=== PATIENT | male | born 1965 | race African-American/Black ===

== ENCOUNTER 2020-02-24 07:51 | Outpatient (CLI) | payer MEDICARE, MEDICAID, SELFPAY ==
--- NOTE | ~2020-02-24 | XR_ITS ---
EXAMINATION: XR chest 2V DATE: 02/24/2020 09:13 INDICATION: Positive PPD, end-stage renal disease TECHNIQUE: Frontal and lateral views of the chest are obtained COMPARISON: 04/19/2019 FINDINGS: The lungs are free of acute opacities. There is no pleural effusion or pneumothorax. The ca rdiomediastinal silhouette is normal. There is mild thoracic spondylosis. IMPRESSION: 1. No acute cardiopulmonary abnormality. Reviewed, dictated and finalized at location B.
== END 2020-02-24 07:52 | disposition home or self-care (01) ==
PROVIDERS: PCP Internal Medicine; Visit Provider Internal Medicine Nephrology
DX: R76.11 Nonspecific reaction to tuberculin skin test without active tuberculosis (principal); N18.6 End stage renal disease
CPT/HCPCS: 71046

== ENCOUNTER 2021-03-12 11:05 | Outpatient (CLI) | payer MEDICARE, MEDICAID, SELFPAY ==
--- NOTE | ~2021-03-12 | XR_ITS ---
EXAMINATION: XR chest 2V EXAM DATE: 03/12/2021 11:38 INDICATION: Positive PPD. TECHNIQUE: Frontal and lateral projections of the chest obtained and reviewed. Comparison is made to prior examination from 02/24/2020. FINDINGS: The lungs are hyperinflated which can be seen with chronic obstructive pulmonary disease ( a clinical diagnosis of functional impairment), but is not diagnostic of it. The lungs are clear. Th ere are no pleural effusions. The cardiomediastinal silhouette is within normal limits. There is no pneumothorax suspected. The bones and soft tissues are unremarkable. IMPRESSION: 1. No acute cardiopulmonary findings. 2. Hyperinflation. Reviewed, dictated and finalized at location A.
== END 2021-03-12 11:06 | disposition home or self-care (01) ==
PROVIDERS: PCP Internal Medicine; Visit Provider Internal Medicine Nephrology
DX: N18.6 End stage renal disease (principal); R76.11 Nonspecific reaction to tuberculin skin test without active tuberculosis; R91.8 Other nonspecific abnormal finding of lung field
CPT/HCPCS: 71046

== ENCOUNTER 2021-05-01 06:47 | Outpatient (CLI) | payer MEDICARE, MEDICAID, SELFPAY ==
[2021-05-04 13:17] LABS: NIL 0.04 IU/mL; Quantiferon TB Plus, 1T POSITIVE (NEGATIVE); TB1-NIL 0.96 IU/mL; TB2-NIL 0.94 IU/mL
== END 2021-05-01 06:48 | disposition home or self-care (01) ==
PROVIDERS: PCP Internal Medicine; Visit Provider Internal Medicine
DX: R76.11 Nonspecific reaction to tuberculin skin test without active tuberculosis (principal)
CPT/HCPCS: 36415; 86480

== ENCOUNTER 2021-05-15 06:57 | Outpatient (CLI) | payer MEDICARE, MEDICAID, SELFPAY ==
--- NOTE | 2021-05-15 07:37 | ECHO_ITS ---
Patient Info Name: Tejas Yost Age: 56 years : 1965 Gender: Male Ht: 75 in Wt: 175 lbs BSA: 2.04 m2 HR: 68 bpm BP: 122 / 71 mmHg Technical Quality: Good Exam Date: 05/15/2021 7:56 AM Exam Location: [facility] Patient Status: Outpatient Admit Date: 05/15/2021 Staff Ordering Physician: Ike Hand DO Senior Drupal Developer: Santos Huizar RDCS, RT Attending Provider: Ike Hand DO Referring Physician: Peace BINGHAM; Exam Type: CA echo doppler color flow Study Info Indications I10 - Essential (primary) hypertension Complete two-dimensional, color flow and Doppler transthoracic echocardiogram is performed. Strain analysis performed. Summary 1. Complete two-dimensional, color flow and Doppler transthoracic echocardiogram is performed. 2. Left ventricular chamber dimension is normal. 3. Left ventricular systolic function is normal, estimated at 60-65%. 4. There is moderately increased left ventricular wall thickness. 5. The left ventricular diastolic function is normal. 6. E/e' 8 is minimally elevated. 7. Global longitudinal strain is normal at -19.4%. 8. Left atrial chamber dimension is moderately enlarged. 9. There is mild aortic valve sclerosis. 10. There is mild mitral valve regurgitation. 11. There is trace tricuspid valve regurgitation. Left Ventricle E/e' 8 is minimally elevated. Global longitudinal strain is normal at -19.4%. Left ventricular chamber dimension is normal. Left ventricular systolic function is normal, estimated at 60-65%. There is moderately increased left ventricular wall thickness. The left ventricular diastolic function is normal. Right Ventricle Right ventricular systolic function is normal and with normal TAPSE 2.7 cm. Right ventricular chamber dimension is normal. Left Atria Left atrial chamber dimension is moderately enlarged. Right Atria Right atrial chamber dimension is normal. Aortic Valve The aortic valve is trileaflet. There is mild aortic valve sclerosis. There is no aortic valve stenosis. There is no aortic valve regurgitation. Pulmonic Valve There is no pulmonic regurgitation. Mitral Valve There is no mitral valve stenosis. There is mild mitral valve regurgitation. Tricuspid Valve RVSP is not calculated due to an inadequate TR jet. There is trace tricuspid valve regurgitation. Pericardium/Pleural There is no pericardial effusion. Inferior Vena Cava Normal inferior vena cava with >50% collapse upon inspiration consistent with normal right atrial pressure, 5 mmHg. Aorta The aortic root size at the sinus of Valsalva is normal. Left Ventricular Outflow Tract Name Value Normal LVOT 2D LVOT Diameter 2.0 cm LVOT Doppler LVOT Peak Gradient 11 mmHg LVOT Mean Gradient 5 mmHg LVOT VTI 31 cm LVOT VTI/AV VTI Ratio 0.8 LVOT Stroke Volume 94 ml LVOT CO 6.1 l/min LVOT CI 3.0 l/min/m2
--- NOTE | 2021-05-21 16:58 | WPDPFTINT ---
PFT Procedure Performed PFT Procedure Performed Plethysmography (Lung Vol) Diffusing Cap (DLCO) Flow Vol Loop Spirometry w/o Bronchodil PFT Interpretation This is a pulmonary function test with spirometry, plethysmography and diffusing capacity. The test was performed and results interpreted in accordance with the 2019 and 2005 ATS/ERS Task Force guidelines respectively using the Global Lung Function Initiative-2012 reference equations. Patient demonstrated good effort and cooperation. Reproducibility criteria were met. The quality of the pre bronchodilator spirometry maneuver was Grade A. Of note, only 1 DLCO trial was obtain as the patient developed chest discomfort with taking deep breaths on the DLCO testing. Findings: Spirometry: There is decreased maximal expiratory airflow at all lung volumes with concave expiratory flow tracing. The FVC is 3.36 L, 69% predicted. The FEV1 is 1.63 L, 43% predicted. The FEV1: FVC ratio was 48%. Plethysmography: The total lung capacity is 6.98 L, 99% predicted. Functional residual capacity is 4.68 L, 120% predicted. The residual volume is 3.62 L, 162% predicted. Diffusing capacity: The absolute diffusion capacity is 8.3, 26% predicted. The diffusing capacity corrected for alveolar volume is 3.12, 75% predicted. Impression: There is a severe obstructive abnormality with significant improvement after inhaling a single dose of albuterol. The increase in residual volume is consistent with air trapping from an obstructive abnormality. The absolute diffusing capacity is severly decreased and normalizes when corrected for alveolar volume. There are no prior studies for comparison
== END 2021-05-15 06:58 | disposition home or self-care (01) ==
LOC: ANHPFT 06:59
PROVIDERS: PCP Internal Medicine; Visit Provider Internal Medicine
DX: I35.8 Other nonrheumatic aortic valve disorders (principal); R06.89 Other abnormalities of breathing; R05 Cough; I36.1 Nonrheumatic tricuspid (valve) insufficiency; I34.0 Nonrheumatic mitral (valve) insufficiency; I10 Essential (primary) hypertension
CPT/HCPCS: 93306; 94375; 94726; 94729

== ENCOUNTER 2022-02-19 09:40 | Emergency (ER) | payer OTHER, SELFPAY ==
--- NOTE | ~2022-02-19 | CT_ITS ---
EXAMINATION: CT abdomen pelvis wo con DATE: 02/19/2022 10:28 INDICATION: Generalized abdominal pain TECHNIQUE: Computed tomography (CT) of the abdomen and pelvis was performed without intravenous contr ast. The dose-length product was 282.86 mGy-cm. Automated exposure control and iterative reconstructi on technique were employed. COMPARISON: CT dated 09/30/2019. FINDINGS: Bibasilar dependent atelectasis. Small pleural effusions. Trace pericardial effusion. Cardi omegaly. Moderate atherosclerosis of the aorta without aneurysm. Trace free fluid along the liver margin. The liver, spleen, pancreas, adrenal glands are unremarkable . There is innumerable bilateral renal cysts, consistent with adult polycystic kidney disease. There is a nonobstructing left renal stone. There are gallstones. There is inspissated barium throughout th e colon. No lymphadenopathy. No free air. IMPRESSION: 1. Small pleural effusions. Trace pericardial effusion. 2: Trace ascites along the liver margin. 3: Adult polycystic kidney disease. 4: Nonobstructing left nephrolithiasis. 5: Cholelithiasis. Reviewed, dictated and finalized at location A.
--- NOTE | ~2022-02-19 | XR_ITS ---
XR chest 2V 02/19/2022 10:23 Indication: Chest pain, cough and nausea. Procedure: 2 view chest Comparison: Comparison to multiple prior studies sequentially, with oldest reviewed study dated 06/30. Findings: There is right lower lobe pneumonia. Small right pleural effusion. Borderline heart size. T here is atherosclerosis and ectasia of the aorta. Impression: 1: Right lower lobe pneumonia with small effusion. Reviewed, dictated and finalized at location A. Impression: 1: Right lower lobe pneumonia with small effusion.
[2022-02-19 09:42] VITALS: BP 203/65; PULSE 92; RESP 14; TEMP 37; O2SAT 100
--- NOTE | 2022-02-19 09:47 | ECG_ITS ---
Measurements Intervals [place] Rate: 85 P: 72 NH: 147 QRS: 57 QRSD: 93 T: 58 QT: 369 QTc: 441 Interpretive Statements SINUS RHYTHM POSSIBLE LEFT ATRIAL ENLARGEMENT [-0.1mV P WAVE IN V1/V2] LEFT VENTRICULAR HYPERTROPHY AND ST-T CHANGE [VOLTAGE CRITERIA PLUS ST/T ABNORMALITY] WARNING: DATA QUALITY MAY AFFECT INTERPRETATION ABNORMAL ECG COMPARED TO ECG 04/19/2019 00:30:03 LEFT VENTRICULAR HYPERTROPHY NOW PRESENT ST (T WAVE) DEVIATION NOW PRESENT Electronically Signed On 02-19-2022 11:24:08 CDT by Stanley Lopez M.D.
--- NOTE | 2022-02-19 10:06 | ED.ABDPAIN ---
HPI - Abdominal Pain General Chief Complaint: Abdominal Pain Stated Complaint: abdominal pain Time Seen by Provider: 02/19/22 09:50 Source: patient and old records reviewed Mode of arrival: ambulatory Limitations: no limitations History of Present Illness HPI narrative: 56 y/o male presents to the ER today for generalized abdominal pain and epigastric pain/chest pain. he says that he has had the problem for about 1 week. He has had nausea. He has had emesis about once every other day. No diarrhea, but reports problems with constipation. No shortness of breath. He has chronic cough that is unchanged. No fever or chills. He went to see his internal med provider this morning and he sent him to the ER for evaluation due to his health history. He has chronic renal failure and recieves dialysis M,W,F at [facility]. He has hx of CAD, HTN and NE. He is also treated for GERD. Related Data Home Medications Medication Instructions Recorded Confirmed aspirin 81 mg tablet,delayed 81 mg PO DAILY 04/11/20 02/19/22 release carvedilol 25 mg tablet 25 mg PO Q12H 04/11/20 02/19/22 docusate sodium 100 mg capsule 100 mg PO DAILY 04/11/20 02/19/22 ergocalciferol (vitamin D2) 1,250 1,250 mcg PO WEEKLY 04/11/20 02/19/22 mcg (50,000 unit) capsule nifedipine 30 mg tablet,extended 30 mg PO DAILY 04/11/20 02/19/22 release calcium acetate 667 mg tablet 1,334 mg PO TID 02/19/22 02/19/22 Allergies Allergy/AdvReac Type Severity Reaction Status Date / Time adhesive Allergy Mild BLISTERS Verified 10/17/20 09:55 clonidine AdvReac Unknown Vomiting Verified 02/19/22 09:48 hydralazine AdvReac Unknown Vomiting Verified 02/19/22 09:48 Review of Systems Constitutional: Constitutional: Reports as per HPI, Denies chills and Denies fever(s) Eyes: Eyes: Denies change in vision ENT: Denies vertigo and Denies dizziness Cardiovascular: Cardiovascular: Reports chest pain (describes as epigastric) Respiratory: Respiratory: Denies chest congestion, Reports cough (chronic unchanged), Denies dyspnea and Denies wheezing Gastrointestinal: Gastrointestinal: Reports abdominal pain, Reports constipation, Denies diarrhea, Reports nausea and Reports vomiting Musculoskeletal: Musculoskeletal: Denies back pain, Denies myalgias and Denies arthralgias Neurologic: Denies vertigo, Denies focal weakness and Denies weakness Psychiatric: Psychiatric: Denies anxiety and Denies depression Endocrine: Endocrine: Denies fatigue Hematologic/Lymphatic: Hematologic/Lymphatic: Denies easy bleeding and Denies easy bruising PMFSH Past Medical History Medical History Acute pulmonary edema Anemia Chronic kidney disease on chronic dialysis Chronic pain CKD (chronic kidney disease) Coronary artery disease ESRD (end stage renal disease) 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 GERD (gastroesophageal reflux disease) HTN (hypertension), benign Latent tuberculosis by blood test Myocardial infarction 2008 Osteonecrosis Tuberculosis Vein disorder Left vein reconstruction 07/2015 Surgical History Surgical History History of renal stent Family History Family History Mother Hypertension Social History Social History Smoking status: Former smoker Alcohol intake: former Exam Const: General: healthy appearing, no acute distress and alert Orientation/consciousness: patient oriented x3 HENMT: Head: normal to inspection Mouth: Yes Normal oral and palatal mucosa present Eyes: Conjunctivae: conjunctivae normal Pupils: Equal, round and reactive pupils present Neck: Neck: normal visual inspection Chest: Chest palpation & inspection: normal inspection of the chest Resp: Effort & Inspection: normal respiratory effort Auscultation: clear to ausc
--- NOTE | 2022-02-19 10:26 | PC.NURSE ---
IV US called to initiate pt. IV
[2022-02-19 11:04] LABS: Basophils Percent Auto 0.7 % (0.2-1.2); Eosinophils Absolute Auto 0.2 K/mm3 (0-0.3); Eosinophils Percent Auto 2.9 % (0-4.4); Hematocrit 30.7 % (42.0-52.0); Hemoglobin 10.2 g/dL (14.0-18.0); Immature Granulocyte Absolute 0.02 K/mm3 (0.00-0.031); Immature Granulocyte Percent A 0.3 % (0-0.5); Immature Platelet Fraction Pct 5.8 % (0.9-11.2); Lymphocytes Percent Auto 29.1 % (18.3-44.2); Mean Corpuscular HGB Conc 33.2 g/dl (32-36); Mean Corpuscular Hemoglobin 31.7 pg (26-34); Mean Corpuscular Volume 95.3 fl (80-100); Mean Platelet Volume 12.7 fl (7.4-10.4); Monocytes Absolute Auto 0.4 K/mm3 (0.1-0.6); Monocytes Percent Auto 7.5 % (2.6-8.5); Neutrophils Absolute Auto 3.5 K/mm3 (1.3-6.7); Neutrophils Percent Auto 59.5 % (45.5-73.1); Platelet Count Result 183 k/mm3 (150-375); Red Blood Count 3.22 M/mm3 (4.6-6.20); Red Cell Distribution Width 15.3 % (11.5-14.5); White Blood Count 5.9 K/mm3 (4.5-10.0)
[2022-02-19 11:14] LABS: INR 1.1; Prothrombin Time 13.4 Seconds (11.1-14.7)
[2022-02-19 11:23] LABS: Alanine Aminotransferase 15 U/L (4-50); Alkaline Phosphatase 67 U/L (38-126); Anion Gap 8 mmol/L (8-16); Aspartate Amino Transferase 24 U/L (17-59); Bilirubin,Total 0.7 mg/dL (0.2-1.3); Blood Urea Nitrogen 28 mg/dL (9-20); Carbon Dioxide 35 mmol/L (22-30); Chloride 94 mmol/L (98-107); Estimated CRCL calculation 9 ml/min; Estimated Glomerular Filt Rate 7; Glucose 90 mg/dL (65-110); Lipase 142 U/L (23-300); Potassium 3.5 mmol/L (3.4-5.0); Sodium 137 mmol/L (137-145)
[2022-02-19 11:41] LABS: Troponin I 0.081 ng/mL (0.000-0.034)
[2022-02-19 12:04] VITALS: BP 173/67; PULSE 83; RESP 20; O2SAT 100
[2022-02-19] MEDS: ONDANSETRON INJ 4 MG/2 ML VIAL IV PUSH (12:09)
[2022-02-19] MEDS: PANTOPRAZOLE SODIUM IV 40 MG VIAL IV PUSH (12:22)
[2022-02-19] MEDS: LOSARTAN POTASSIUM 25 MG TABLET 75 MG PO (12:27)
[2022-02-19] MEDS: NIFEdipine 30 MG TAB.ER.24 PO (12:30)
--- NOTE | 2022-02-19 12:34 | PC.NURSE ---
1230-RECEIVED NIFEDIPINE ER 30 MG FROM PHARMACY. PACKAGED WAS TORN ACROSS BAR CODE. UNABLE TO SCAN. ADMINISTERED MANUALLY. PHARMACY NOTIFIED.
[2022-02-19] MEDS: cefTRIAXone 2 GM in SODIUM CHLORIDE 0.9% IV 100 ML 200 ML IVPB (13:17)
[2022-02-19 13:48] LABS: Troponin I 0.085 ng/mL (0.000-0.034)
[2022-02-19 14:50] VITALS: BP 136/67; PULSE 81; RESP 20; O2SAT 100
== END 2022-02-19 14:58 | disposition home or self-care (01) ==
LOC: ANHED 11:10
PROVIDERS: Emergency Medicine; Emergency Provider Nurse Practitioner Family; PCP Internal Medicine
DX: J18.9 Pneumonia, unspecified organism (principal); R10.13 Epigastric pain; I12.0 Hypertensive chronic kidney disease with stage 5 chronic kidney disease or end stage renal disease; N18.6 End stage renal disease; Z99.2 Dependence on renal dialysis; D64.9 Anemia, unspecified; I25.10 Atherosclerotic heart disease of native coronary artery without angina pectoris; I25.2 Old myocardial infarction; K21.9 Gastro-esophageal reflux disease without esophagitis; M87.9 Osteonecrosis, unspecified; Z79.82 Long term (current) use of aspirin; Z87.891 Personal history of nicotine dependence; Q61.2 Polycystic kidney, adult type; N20.0 Calculus of kidney; K80.20 Calculus of gallbladder without cholecystitis without obstruction
CPT/HCPCS: 36415; 71046; 74176; 80053; 83690; 84484; 85025; 85055; 85610; 85730; 93005; 96374; 96375; 99284; A9270; C9113; J0696; J2405

== ENCOUNTER 2022-02-24 21:48 | Observation (INO) | payer OTHER, SELFPAY ==
--- NOTE | ~2022-02-24 | CT_ITS ---
EXAMINATION: CTA chest PE protocol DATE: 02/25/2022 00:18 INDICATION: Chest pain and shortness of breath TECHNIQUE: Computed tomography (CT) pulmonary angiogram of the chest was performed with 100 mL Omnipa que-350 intravenous contrast. Additional 3D reconstructions utilizing coronal maximum intensity proje ction (MIP) were performed. Automated exposure control and iterative reconstruction technique were em ployed. The dose-length product was 308.23 mGy-cm. COMPARISON: Chest CT dated FINDINGS: Excellent contrast opacification of the pulmonary arteries. There is mild streak artifact from dense contrast in the superior vena cava and right atrium. Mild scattered respiratory motion artifact which does not significantly limit evaluation. No pulmonary embolism. Small bilateral pleural effusions. G roundglass opacities in the bilateral lower lobes with mild smooth septal line thickening at the lung bases and favor mild pulmonary edema over pneumonia. Cardiomegaly. Atherosclerotic coronary artery c alcification. Small pericardial effusion. Thoracic aorta is normal in caliber with no dissection. No pathologically enlarged thoracic lymphadenopathy. Bilateral gynecomastia. Numerous bilateral renal cy sts consistent with polycystic kidney disease. There are couple <2 mm calcifications in the periphera l kidneys and favor cystic location over nonobstructing renal stones. Chronic appearing T7 compressio n fracture 20% anterior vertebral body height loss. Old healed sternal fracture. IMPRESSION: 1. No pulmonary embolism. 2. Likely congestive heart failure with cardiomegaly, mild pulmonary edema in the lower lungs and sma ll bilateral pleural effusions. 3. Small pericardial effusion. 4. Likely autosomal dominant polycystic kidney disease. Reviewed, dictated and finalized at location A. IMPRESSION: 1. No pulmonary embolism. 2. Likely congestive heart failure with cardiomegaly, mild pulmonary edema in t he lower lungs and small bilateral pleural effusions. 3. Small pericardial effusion. 4. Likely autosomal dominant polycystic kidney disease.
--- NOTE | ~2022-02-24 | XR_ITS ---
EXAMINATION: XR chest 2V DATE: 02/24/2022 22:50 INDICATION: Chest pain, cough and shortness of breath TECHNIQUE: PA and lateral views of the chest were obtained. COMPARISON: Chest radiograph dated 02/19/2022 FINDINGS: Mild opacities in the bilateral lower lung zones. No pleural effusion or pneumothorax. Mild cardiomeg paola. Visualized bones and soft tissues are unremarkable. IMPRESSION: 1. Mild bibasilar opacities which could represent pulmonary edema or pneumonia. 2. Mild cardiomegaly. Reviewed, dictated and finalized at location A.
[2022-02-24 21:48] VITALS: BP 194/79; PULSE 90; RESP 26; TEMP 36.7; O2SAT 97
[2022-02-24 22:01] VITALS: O2SAT 99
[2022-02-24 22:26] LABS: Basophils Absolute Auto 0.1 K/mm3 (0.0-0.1); Basophils Percent Auto 0.9 % (0.2-1.2); Eosinophils Absolute Auto 0.3 K/mm3 (0-0.3); Eosinophils Percent Auto 4.5 % (0-4.4); Hematocrit 28.9 % (42.0-52.0); Hemoglobin 9.6 g/dL (14.0-18.0); Immature Granulocyte Absolute 0.03 K/mm3 (0.00-0.031); Immature Granulocyte Percent A 0.4 % (0-0.5); Lymphocytes Absolute Auto 1.68 K/mm3 (0.9-3.2); Lymphocytes Percent Auto 25.2 % (18.3-44.2); Mean Corpuscular HGB Conc 33.2 g/dl (32-36); Mean Corpuscular Hemoglobin 31.6 pg (26-34); Mean Corpuscular Volume 95.1 fl (80-100); Mean Platelet Volume 12.3 fl (7.4-10.4); Monocytes Absolute Auto 0.4 K/mm3 (0.1-0.6); Monocytes Percent Auto 5.7 % (2.6-8.5); Neutrophils Absolute Auto 4.2 K/mm3 (1.3-6.7); Neutrophils Percent Auto 63.3 % (45.5-73.1); Platelet Count Result 214 k/mm3 (150-375); Red Blood Count 3.04 M/mm3 (4.6-6.20); White Blood Count 6.7 K/mm3 (4.5-10.0)
[2022-02-24 22:36] VITALS: PULSE 80; RESP 16
[2022-02-24] MEDS: IPRATROPIUM BR 0.02% INH SOLN 0.5 MG/2.5 ML VIAL INHALATION (22:36)
[2022-02-24] MEDS: ALBUTEROL SULFATE NEB 2.5 MG/0.5 ML INH 5 MG INHALATION (22:36)
[2022-02-24 22:41] VITALS: PULSE 75; RESP 18
[2022-02-24 22:41] LABS: INR 1.1; Prothrombin Time 13.7 Seconds (11.1-14.7)
[2022-02-24 22:42] LABS: Alanine Aminotransferase 15 U/L (4-50); Alkaline Phosphatase 64 U/L (38-126); Anion Gap 10 mmol/L (8-16); Aspartate Amino Transferase 27 U/L (17-59); Bilirubin,Total 0.9 mg/dL (0.2-1.3); Blood Urea Nitrogen 40 mg/dL (9-20); Calcium 10.1 mg/dL (8.4-10.2); Carbon Dioxide 32 mmol/L (22-30); Chloride 96 mmol/L (98-107); Estimated Glomerular Filt Rate 6; Glucose 107 mg/dL (65-110); Lipase 226 U/L (23-300); Partial Thromboplastin Time 33.5 SECONDS (22.3-36.8); Potassium 3.5 mmol/L (3.4-5.0); Sodium 138 mmol/L (137-145)
[2022-02-24 22:53] LABS: Troponin I 0.096 ng/mL (0.000-0.034)
[2022-02-24 23:00] VITALS: BP 191/69; PULSE 94; RESP 16; O2SAT 97
[2022-02-24] MEDS: MORPHINE SULFATE (*CRX) 4 MG/ML INJ IV PUSH (23:03)
[2022-02-24] MEDS: ONDANSETRON INJ 4 MG/2 ML VIAL (23:04)
--- NOTE | 2022-02-24 23:15 | PC.NURSE ---
CARE ASSUMED AT THIS TIME. PT DECIDING IF HE WANTS BLOOD CULTURES AND ADDITIONAL LABS TO BE DRAWN AT THIS TIME. DR WILKS AWARE OF LAB DELAY
[2022-02-25] VITALS (30 sets, daily range): BP systolic 120–198; BP diastolic 51–78; PULSE 72–99; RESP 16–21; TEMP 35.7–37; O2SAT 96–100; BMI 22.0
--- NOTE | 2022-02-25 | ECG_ITS ---
Measurements Intervals [place] Rate: 81 P: 63 MN: 154 QRS: 44 QRSD: 98 T: 34 QT: 383 QTc: 447 Interpretive Statements SINUS RHYTHM POSSIBLE LEFT ATRIAL ENLARGEMENT [-0.1mV P WAVE IN V1/V2] NONSPECIFIC ST & T-WAVE ABNORMALITY BORDERLINE ECG COMPARED TO ECG 02/19/2022 09:59:24 CRITERIA FOR LVH NO LONGER APPRECIATED Electronically Signed On 02-25-2022 12:19:59 CDT by Frankie Vu M.D.
--- NOTE | 2022-02-25 | ECHO_ITS ---
Patient Info Name: Tejas Yost Age: 56 years : 1965 Gender: Male Ht: 75 in Wt: 176 lbs BSA: 2.05 m2 HR: 93 bpm BP: 197 / 64 mmHg Heart Rhythm: Sinus Rhythm Technical Quality: Fair Exam Date: 02/25/2022 1:15 PM Exam Location: Echo Lab Patient Status: Outpatient Admit Date: 02/25/2022 Staff Ordering Physician: Norma Zavala PA-C [employer] Trolley Driver: Kimberly Zamarripa RDCS Attending Provider: Norma Zavala PA-C Referring Physician: Lucas RICHARDS; Exam Type: CA echo doppler color flow Study Info Indications - pericardial effusion Complete two-dimensional, color flow and Doppler transthoracic echocardiogram is performed. Summary 1. Complete two-dimensional, color flow and Doppler transthoracic echocardiogram is performed. 2. Left ventricular chamber dimension is mildly enlarged. 3. Left ventricular systolic function is normal, estimated at 60-65%. 4. There is mildly increased left ventricular wall thickness. 5. The left ventricular diastolic function is grade III diastolic dysfunction. 6. Left atrial chamber dimension is moderately enlarged. 7. There is mild aortic valve stenosis with a peak velocity of 230 cm/s, mean gradient of 10 mmHg, and aortic valve area of 1.9 cm2. 8. There is mild aortic valve regurgitation. 9. There is mild mitral valve regurgitation. 10. There is mild tricuspid valve regurgitation. 11. Unable to estimate PA systolic pressure due to poor spectral resolution of tricuspid regurgitant jet velocity. 12. There is small pericardial effusion. Left Ventricle Left ventricular chamber dimension is mildly enlarged. Left ventricular systolic function is normal, estimated at 60-65%. There is mildly increased left ventricular wall thickness. The left ventricular diastolic function is grade III diastolic dysfunction. Right Ventricle Right ventricular chamber dimension is normal. Right ventricular systolic function is normal. Left Atria Left atrial chamber dimension is moderately enlarged. Right Atria Right atrial chamber dimension is normal. Aortic Valve The aortic valve is trileaflet. There is mild aortic valve stenosis with a peak velocity of 230 cm/s, mean gradient of 10 mmHg, and aortic valve area of 1.9 cm2. There is mild aortic valve regurgitation. There is mild aortic valve calcification. Pulmonic Valve The pulmonic valve is not well visualized. There is trace pulmonic regurgitation. Mitral Valve The mitral valve has normal leaflets. There is mild mitral valve regurgitation. Tricuspid Valve The tricuspid valve leaflets are normal. There is mild tricuspid valve regurgitation. Unable to estimate PA systolic pressure due to poor spectral resolution of tricuspid regurgitant jet velocity. Pericardium/Pleural The pericardium appears normal. There is small pericardial effusion. Inferior Vena Cava Normal inferior vena cava with >50% collapse upon inspiration consistent with normal right atrial pressure, 5 mmHg. Aorta The aortic root size at the sinus of Valsalva is normal. There is mild aortic atherosclerosis. Left Ventricular Outflow Tract Name Value Normal LVOT 2D LVOT Diameter 2.0 cm LVOT Doppler ---------
--- NOTE | 2022-02-25 00:03 | ED.GENADULT ---
HPI - General Adult General Chief complaint: Chest Pain Stated complaint: chest pain Time Seen by Provider: 02/24/22 22:07 History of Present Illness HPI narrative: Is a 56-year-old gentleman who presents the emergency department with chief complaint of chest pain. Patient reports that he has a discomfort feeling in his mid chest. The patient states he was seen in the emergency department approximately 1 week ago where he had upper abdominal pain patient reports at that time he was found to have pneumonia and was started on Zithromax and was discharged home. The patient states he is completed the course of Zithromax but is continued to cough and has continued to have symptoms. The patient states that now he has a uncomfortable feeling in his chest that is a sharp type pain worse with inspiration. Patient states is also worsened whenever he coughs. Patient denies fever reports that his last dialysis was on Friday as he is typically Friday dialysis patient. Related Data Home Medications Medication Instructions Recorded Confirmed aspirin 81 mg PO BID 02/24/22 atorvastatin 40 mg PO HS 02/24/22 azithromycin [Zithromax Z-Carlos] mg PO 02/24/22 carvedilol 25 mg PO BID 02/24/22 ergocalciferol (vitamin D2) 50,000 unit PO WEEKLY 02/24/22 esomeprazole magnesium [Nexium] 40 mg PO BID 02/24/22 lanthanum [Fosrenol] 1,000 mg PO TID 02/24/22 losartan 75 mg PO DAILY 02/24/22 nifedipine [Nifedical XL] 30 mg PO DAILY 02/24/22 Allergies Allergy/AdvReac Type Severity Reaction Status Date / Time clonidine AdvReac Nausea and Verified 02/24/22 21:59 Vomiting hydralazine AdvReac Nausea and Verified 02/24/22 21:59 Vomiting Review of Systems Review of Systems: A 10 system review of systems was completed on the patient and is negative except for what is stated in the HPI. Nursing and ancillary documentation was reviewed. PMFSH Comments End-stage renal disease, hypertension Exam Narrative: GENERAL: Well-appearing, well-nourished, and in no acute distress. HEAD: Normocephalic, atraumatic. EYES: PERRLA and EOMI. ENT: Nares clear, no rhinorrhea or epistaxis. Mucous membranes moist. NECK: Supple. CHEST: Clear to auscultation. No respiratory distress. HEART: Regular rate and rhythm. No murmur heard. Normal peripheral pulses. ABDOMEN: Soft, nontender, nondistended, normal active bowel sounds. EXTREMITIES: Normal range of motion. No edema. AV fistula in the left upper extremity with a palpable thrill SKIN: Warm, dry, no rash. NEURO: No focal deficits. Alert and oriented x3. PSYCH: Normal mood and affect. Course Course Emergency Course: Patient was recently seen for pneumonia and treated with p.o. Zithromax and has completed that course now that he is having worsening symptoms and no improvement the concern is either progression of the pneumonia or pulmonary embolism. Patient does have a slight troponin leak although given that he is end-stage renal disease on dialysis this could be chronic. Patient is currently afebrile Vital Signs Vital signs: Vital Signs Temperature 36.7 C 02/24/22 21:48 Pulse Rate 90 02/24/22 21:48 Respiratory Rate 26 H 02/24/22 21:48 Blood Pressure 194/79 H 02/24/22 21:48 Pulse Oximetry 97 02/24/22 21:48 Temperature 36.7 C 02/24/22 21:48 Pulse Rate 80 02/25/22 02:00 Respiratory Rate 18 02/25/22 02:00 Blood Pressure 183/78 H 02/25/22 02:00 Pulse Oximetry 99 02/25/22 02:00 Medical Decision Making Vital Signs Vital Signs: Vital Signs Temperature 36.7 C 02/24/22 21:48 Pulse Rate 90 02/24/22 21:48 Respiratory Rate 26 H 02/24/22 21:48 Blood Pressure 194/79 H 02/24/22 21:48 Pulse Oximetry 97 02/24/22 21:48 Temperature 36.7 C 02/24/22 21:48 Pulse Rate 80 02/25/22 02:00 Respiratory Rate 18 02/25/22 02:00 Blood Pressure 183/78 H 02/25/22 02:00 Pulse Oximetry 99 02/25/22 02:00 Lab Data Result diagrams: 0
[2022-02-25 00:22] LABS: NT Pro B Type Natriuretic Pept > 35000 pg/mL (5-100)
--- NOTE | 2022-02-25 00:28 | PC.NURSE ---
UNABLE TO FIND PREVIOUS EKG THAT WAS COMPLETED ON PT'S ARRIVAL. NEW EKG OBTAINED AND GIVEN TO DR WILKS
[2022-02-25 02:49] LABS: Troponin I 0.097 ng/mL (0.000-0.034)
[2022-02-25 03:13] LABS: Influenza A QL RT-PCR Negative (Negative); Influenza B QL RT-PCR Negative (Negative); SARS-CoV-2 RNA PCR Negative
--- NOTE | 2022-02-25 04:14 | ADMGEN ---
This patient, Tejas Yost, was admitted to IMU Room 211-01 @ 0400. Patient/family oriented to hospital policies and general routines including ID bracelet, bed and alarms, visiting hours, pain management, procedures, bathroom and other care routines, personal items, smoking policy, room service/diet, and visiting hours. Information on how to activate the Rapid Response Team has been discussed. Patient/Family are encouraged to report perceived risks to care and to ask questions if they do not understand what they are told or what they should do.
--- NOTE | 2022-02-25 05:23 | PC.NURSE ---
pt. refused to allow physical assessment stating that he did not want to get undressed. Pt. refused to allow phelbotomist to draw labs stating thathe wasnt going to be stuck and that labs can only be drawn from his IV site. Dr. Uribe made aware.
--- NOTE | 2022-02-25 08:26 | PM.IMHP ---
H&P: HPI History of Present Illness Date/Time: 02/25/22 08:26 <Norma Zavala PA-C - Last Filed: 02/25/22 14:59> Chief Complaint: Chest Pain x 2-3 wks <Norma Zavala PA-C - Last Filed: 02/25/22 14:59> Narrative: Mr. Yost is a pleasant 56 yo Male w/ PMHx significant for ESRD on hemodialysis, ND x 4 s/p PCI at [facility] in 2008, HTN, gastritis, and GERD, who presented to the ER today for 2-3 wk history of chest pain, worsening over the last 24 hrs. He was recently seen at this ER, diagnosed with pneumonia, and completed his antibiotics. He reports chest pain that occurs only when lying down, and states it is worse with inspiration, and reports improvement when sitting up or when taking Tylenol. He endorses orthopnea, dyspnea when sitting up from lying, worsening nausea, mild abdominal pain, and loose stools x 2 days. He denies fever, headaches, edema, visual changes, dizziness, or syncope. His pain was a 12/10 upon arrival at the ER and is now a 2/10. He endorses irregular bowel movements, most recent being yesterday. He does produce some urine. Mr. Yost was diagnosed with ESRD and is currently only hemodialysis, M/W/, followed by Dr. Juarez. He was previously on peritoneal dialysis. He reports history of 4 prior M.I.s with one stent placed. He reports his most recent ND was in 2014. He follows with Dr. Adams for cardiology. He is a poor historian. He reports history of hypertension, and a sensitive stomach. He denies pertinent family history. Both parents are from unknown causes and he has no siblings. His aunt, Jessica Sagastume [phone] has medical power of traffic law attorney. Surgical history includes prior exploratory laparotomy due to bowel obstruction d/t peritoneal infection with peritoneal dialysis, and ganglion cyst removal. He has had a tracheostomy tube placed during a prior M.I. Current medications include Carvedilol 25mg daily, Losartan 75mg daily, atorvastatin 25, aspirin 81, nifedipine 30mg ER, Fosrenol 100mg TID, and carafate. <Norma Zavala PA-C - Last Filed: 02/25/22 14:59> Review of Systems Review of Systems: All systems reviewed & are unremarkable except as noted in HPI and below <Norma Zavala PA-C - Last Filed: 02/25/22 14:59> Cardiovascular: Cardiovascular: Reports as per HPI, Denies diaphoresis, Denies leg edema, Denies lightheadedness and Denies palpitations <Norma Zavala PA-C - Last Filed: 02/25/22 14:59> Respiratory: Respiratory: Denies chest congestion, Reports cough (nonproductive), Denies hemoptysis, Reports dyspnea and Denies wheezing <Norma Zavala PA-C - Last Filed: 02/25/22 14:59> Gastrointestinal: Gastrointestinal: Reports abdominal pain, Reports diarrhea (x 2 days) and Reports vomiting (he reports this is normal for him, he has a sensitive stomach. 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 GERD (gastroesophageal reflux disease) HTN (hypertension), benign Latent tuberculosis by blood test Myocardial infarction 2008 Osteonecrosis Tuberculosis Vein disorder Left vein reconstruction 07/2015 <Norma Zavala PA-C - Last Filed: 02/25/22 14:59> Surgical History Surgical History: Surgical History History of renal stent <Norma Zavala PA-C - Last Filed: 02/25/22 14:59> Family History Family History: Family History Mother Hypertension <Norma Zavala PA-C - Last Filed: 02/25/22 14:59>
[2022-02-25] MEDS: ASPIRIN 81 MG CHEWABLE TABLET PO (09:32)
[2022-02-25 10:09] LABS: Hepatitis B Surface Antigen Negative (Negative)
[2022-02-25 10:14] LABS: Hepatitis B Core IgM Result Negative (Negative)
[2022-02-25 10:27] LABS: Hepatitis B Surface Anti Res Positive
[2022-02-25] MEDS: LOSARTAN POTASSIUM 25 MG TABLET 75 MG PO (11:26)
[2022-02-25] MEDS: NIFEdipine 30 MG TAB.ER.24 PO (11:27)
[2022-02-25] MEDS: carvediloL 25 MG TABLET PO ×2 (11:39→19:14)
[2022-02-25] MEDS: ONDANSETRON INJ 4 MG/2 ML VIAL IV PUSH ×2 (11:58→15:00)
--- NOTE | 2022-02-25 12:39 | PM.CNNEP ---
Assessment and Plan Assessment and plan (1) End stage renal disease: Code(s): N18.6 - End stage renal disease Status: Chronic Assessment and Plan: HD today and continue M/W/F dialysis schedule follow electrolytes, volume status, and clearance (2) Fluid overload: Qualifiers: Hypervolemia type: unspecified Qualified Code(s): E87.70 - Fluid overload, unspecified Code(s): E87.70 - Fluid overload, unspecified Status: Acute Assessment and Plan: as noted by imaging on admission push fluid removal with HD today as this should help BP control as well as optimize fluid/volume status (3) Hypertension: Code(s): I10 - Essential (primary) hypertension Status: Chronic Assessment and Plan: higher than baseline at this time should hopefully improve with fluid removal may need further adjustment of BP medications (4) Anemia: Qualifiers: Anemia type: unspecified type Qualified Code(s): D64.9 - Anemia, unspecified Code(s): D64.9 - Anemia, unspecified Status: Chronic Assessment and Plan: secondary to ESRD Epogen with HD follow H/H (5) Chest pain: Qualifiers: Chest pain type: unspecified Qualified Code(s): R07.9 - Chest pain, unspecified Code(s): R07.9 - Chest pain, unspecified Status: Acute Assessment and Plan: as described on admission Echo today Cardiology consultation Will continue to follow. History of Present Illness Reason for Consult Consult date: 02/25/22 Reason for consult: end stage renal disease Chief Complaint Chief complaint: chest pain,elevated troponin,fluid overload History of Present Illness Narrative: The patient is a 56-year-old male with a past medical history as outlined below who presented to [facility] Emergency room with complaints of chest pain. He states that he has been having chest pain on off for last 2-3 weeks but it seems to have acutely worsened the last 24-48 hours. He was actually previously seen here at [facility] about a week ago for similar symptoms and his chest x-ray demonstrated evidence of pneumonia. He was prescribed oral antibiotic therapy and subsequently discharged. The he finished his antibiotics but as already mentioned, the chest pain persisted. He states that the chest pain is worse when he lays down and with inspiration/ deep breasts or any type of significant M movements. He does also state that the chest pain improved with sitting up or with administration of Tylenol. Other associated symptoms included orthopnea, dyspnea on exertion, worsening nausea, mild abdominal pain and loose stools. At its worst, his chest pain was a 12/10 in terms of severity. Workup and evaluation emergency room demonstrated labs consistent with his known history of end-stage renal disease and his chest x-ray did demonstrate evidence of volume overload. Furthermore, his blood pressure was somewhat higher than his baseline as well. His troponins were mildly elevated but thought to be more related to his end-stage renal disease than actual acute coronary syndrome. Nonetheless, given his somewhat complex medical history particularly with regard to coronary artery disease, he was admitted the hospital for further evaluation and therapy. Renal consultation was requested due to his end-stage renal disease. The patient is quite familiar to me as I take care of his outpatient dialysis needs. He normally dialyzes on a Friday, Friday, Friday dialysis schedule at [facility] under my care. He is due for dialysis today but came to the emergency room early this morning due to the a for mentioned symptoms /constellation of symptoms as noted above. At the time my visit, he fears to be somewhat better and is currently undergoing an echocardiogram. He is tentatively scheduled for dialysis later this afternoon. He does not ap
--- NOTE | 2022-02-25 17:31 | PM.CNCAR ---
Assessment and Plan Assessment and plan (1) Pericardial effusion: Code(s): I31.3 - Pericardial effusion (noninflammatory) Status: Acute Assessment and Plan: Incidental notation of small pericardial effusion on CT chest and 2D echocardiogram without tamponade physiology. Clinically most likely secondary to end-stage renal disease. No clinical evidence for acute pericarditis S primary explanation. Continue to monitor patient clinically. (2) Chest pain: Qualifiers: Chest pain type: unspecified Qualified Code(s): R07.9 - Chest pain, unspecified Code(s): R07.9 - Chest pain, unspecified Status: Acute Assessment and Plan: Atypical, noncardiac sharp chest pain worse with inspiration, position change and cough consistent with musculoskeletal etiology. Chronic flat troponin elevation not secondary to acute coronary syndrome and/or plaque rupture but related to uncontrolled hypertension, end-stage renal disease on hemodialysis, and mild volume overload. Cough suppressant per primary service as this appears to be exacerbating his chest pain. Pain control per primary service. Repeat EKG in a.m. no clear evidence at this time as pericarditis as the explanation for his symptoms. (3) CHF (congestive heart failure): Code(s): I50.9 - Heart failure, unspecified Status: Acute Assessment and Plan: Mild heart failure with preserved ejection fraction, uncontrolled hypertension on hemodialysis. Volume management with hemodialysis. BP control. (4) Elevated troponin I level: Code(s): R77.8 - Other specified abnormalities of plasma proteins Status: Acute Assessment and Plan: Chronic, flat troponin elevation type 2 infarction not secondary to acute coronary syndrome and/or plaque rupture the secondary to end-stage renal disease on hemodialysis, uncontrolled hypertension, volume overload. No indication for ischemic evaluation at this time. (5) Coronary artery disease: Code(s): I25.10 - Atherosclerotic heart disease of [place] coronary artery without angina pectoris Status: Acute Assessment and Plan: Patient has a history of CAD with prior infarction and stent implantation. Patient claims compliance with medication. Continue statin, aspirin, carvedilol, losartan, nifedipine (6) ESRD on hemodialysis: Code(s): N18.6 - End stage renal disease; Z99.2 - Dependence on renal dialysis Status: Acute Assessment and Plan: Per nephrology. Volume management with hemodialysis. (7) Hypertension: Code(s): I10 - Essential (primary) hypertension Status: Acute Assessment and Plan: Uncontrolled. Depending upon response post hemodialysis advanced antihypertensive therapy. For now, continue carvedilol, losartan, nifedipine History of Present Illness History of Present Illness Consult date/time: Date of service: 02/25/22 17:31 Cardiology consultation at the request of Norma Zavala of the [facility] service for opinion regarding pericardial effusion. Requesting physician: Norma Zavala PA-C Consult reason: Other (Pericardial effusion) Reason For Visit: chest pain,elevated troponin,fluid overload Narrative: Patient is a 56-year-old male followed by Dr. Adams as an outpatient with a history of end-stage renal disease on hemodialysis, history of prior myocardial infarction percutaneous intervention, hypertension, GERD who presented with worsening cough, shortness of breath and chest pain over the preceding 5-7 days. Patient states he presented to the ER several days ago diagnosed with pneumonia and was discharged on oral antibiotics. He states his symptoms did not improve and infected chest pain became worse with lying down, deep inspiration and coughing or any movement. He states he will take Tylenol with improvement temporarily but found it very difficult to sleep due to pain and worsening shortness of breath. His cough genera
[2022-02-25] MEDS: ATORVASTATIN 40 MG TABLET PO (19:14)
[2022-02-25] MEDS: HYDROmorphone HCL INJ (*CRX) 1 MG/ML SYR 0.5 MG IV PUSH (19:15)
[2022-02-26] VITALS (12 sets, daily range): BP systolic 118–171; BP diastolic 49–68; PULSE 73–95; RESP 18–20; TEMP 36.2–36.6; O2SAT 96–100
[2022-02-26] MEDS: SUCRALFATE SUSP 100 MG/ML 10 ML UDC 1000 MG PO (06:00)
--- NOTE | 2022-02-26 06:32 | PC.NURSE ---
patient refused blood draw. only wanted out of iv. then he said he would refuse an iv if it went bad from the blood draw. he stated that he was not getting stuck again.
--- NOTE | 2022-02-26 07:38 | PM.IMPN ---
Progress Note: A&P Additional Plan Echo: 3. Left ventricular systolic function is normal, estimated at 60-65%. 4. There is mildly increased left ventricular wall thickness. 5. The left ventricular diastolic function is grade III diastolic dysfunction. 6. Left atrial chamber dimension is moderately enlarged. 7. There is mild aortic valve stenosis with a peak velocity of 230 cm/s, mean gradient of 10 mmHg, and aortic valve area of 1.9 cm2. 8. There is mild aortic valve regurgitation. 9. There is mild mitral valve regurgitation. 10. There is mild tricuspid valve regurgitation. 11. There is small pericardial effusion. Cardiology- F/U EKG this AM showed no significant changes, opined chest pain was not associated with pericarditis and more likely MSK etiology, troponin elevations to be flat/chronic in nature,, advised improving upon antihypertensive regimen pending post-dialysis BPs. For now, continue carvedilol, losartan, nifedipine. Fluid overload to be managed with dialysis. Nephrology- awaiting consult. -Blood cultures from ER showed no growth. -Mr. Yost refused his AM labs today. -Telemetry: Subjective Date/time seen: 02/26/22 07:38 Objective Data Vital Signs Vital Signs: Vital Signs - 24 hr 02/25/22 08:00 02/25/22 08:12 02/25/22 10:00 Temperature 96.4 F L Pulse Rate 96 93 99 Respiratory Rate 20 Blood Pressure 197/64 H Pulse Oximetry 98 02/25/22 11:39 02/25/22 12:00 02/25/22 12:01 Temperature 96.2 F L Pulse Rate 75 99 95 Respiratory Rate 21 H Blood Pressure 198/69 H Pulse Oximetry 97 02/25/22 14:00 02/25/22 14:02 02/25/22 15:14 Temperature 97.9 F Pulse Rate 77 77 Respiratory Rate 20 Blood Pressure 145/70 H Pulse Oximetry 97 02/25/22 15:22 02/25/22 15:30 02/25/22 15:45 Temperature Pulse Rate 78 78 78 Respiratory Rate Blood Pressure 146/75 H 151/71 H 145/74 H Pulse Oximetry 02/25/22 16:00 02/25/22 16:30 02/25/22 16:45 Temperature Pulse Rate 77 77 72 Respiratory Rate Blood Pressure 156/69 H 148/75 H 142/63 H Pulse Oximetry 02/25/22 17:00 02/25/22 17:15 02/25/22 17:43 Temperature Pulse Rate 77 75 79 Respiratory Rate Blood Pressure 154/68 H 145/59 H Pulse Oximetry 02/25/22 18:00 02/25/22 19:05 02/25/22 19:10 Temperature 97.7 F Pulse Rate 82 74 76 Respiratory Rate 20 Blood Pressure 169/77 H 158/78 H 143/69 H Pulse Oximetry 02/25/22 19:14 02/25/22 20:00 02/25/22 22:00 Temperature 97.9 F Pulse Rate 77 84 73 Respiratory Rate 18 Blood Pressure 129/51 L Pulse Oximetry 97 02/25/22 23:39 02/26/22 00:00 02/26/22 02:00 Temperature 97.8 F Pulse Rate 82 74 75 Respiratory Rate 20 20 Blood Pressure 120/60 Pulse Oximetry 96 96 02/26/22 04:00 02/26/22 06:00 Temperature 97.8 F Pulse Rate 88 78 Respiratory Rate 18 Blood Pressure 165/68 H Pulse Oximetry 99 Intake/Output Intake/Output: Intake & Output 02/23/22 02/24/22 02/25/22 02/26/22 23:59 23:59 23:59 23:59 Intake Total 880 100 Output Total 4075 Balance -3195 100 Meds/Results Medications: Active Medications Generic Name Dose Route Start Last Admin Trade Name Bobq PRN Reason Stop Dose Admin Aspirin 81 mg 02/25/22 08:00 02/25/22 09:32 Aspirin 81 Mg Chewable Tablet PO 81 mg DAILY@0800 [facility] Administration Atorvastatin Calcium 40 mg 02/25/22 21:00 02/25/22 19:14 Atorvastatin 40 Mg Tablet PO 40 mg HS [facility] Administration Benzonatate 100 mg 02/26/22 09:00 Benzonatate 100 Mg Capsule PO TID POWER Carvedilol 25 mg 02/25/22 11:01 02/25/22 19:14 Carvedilol 25 Mg Tablet PO 25 mg BID POWER Administration Ergocalciferol 50,000 unit 03/03/22 17:30 Ergocalciferol 50,000 Unit Capsule PO [place]@1730 [facility] Hydromorphone HCl 0.5 mg 02/25/22 02:25 02/25/22 19:15 Hydromorphone Hcl Inj (*Crx) 1 Mg/Ml Syr IV PUSH 0.5 mg Q4H PRN Administration Pain Rated 7-
[2022-02-26] MEDS: ONDANSETRON INJ 4 MG/2 ML VIAL IV PUSH (08:30)
[2022-02-26] MEDS: LOSARTAN POTASSIUM 25 MG TABLET 75 MG PO (09:22)
[2022-02-26] MEDS: NIFEdipine 30 MG TAB.ER.24 PO (09:22)
[2022-02-26] MEDS: carvediloL 25 MG TABLET PO (09:22)
[2022-02-26] MEDS: BENZONATATE 100 MG CAPSULE PO ×2 (09:23→13:31)
[2022-02-26] MEDS: ASPIRIN 81 MG CHEWABLE TABLET PO (09:23)
--- NOTE | 2022-02-26 11:36 | PM.PNNEP ---
Progress Note: A&P Assessment and Plan (1) End stage renal disease: Code(s): N18.6 - End stage renal disease Status: Chronic Assessment and Plan: HD tomorrow and continue M/W/F dialysis schedule follow electrolytes, volume status, and clearance (2) Fluid overload: Qualifiers: Hypervolemia type: unspecified Qualified Code(s): E87.70 - Fluid overload, unspecified Code(s): E87.70 - Fluid overload, unspecified Status: Acute Assessment and Plan: as noted by imaging on admission continue to push fluid removal with HD as this should help BP control as well as optimize fluid/volume status better following HD treatment yesteray (3) Hypertension: Code(s): I10 - Essential (primary) hypertension Status: Chronic Assessment and Plan: better at this time should hopefully continue to improve with fluid removal may need further adjustment of BP medications (4) Anemia: Qualifiers: Anemia type: unspecified type Qualified Code(s): D64.9 - Anemia, unspecified Code(s): D64.9 - Anemia, unspecified Status: Chronic Assessment and Plan: secondary to ESRD Epogen with HD follow H/H (5) Chest pain: Qualifiers: Chest pain type: unspecified Qualified Code(s): R07.9 - Chest pain, unspecified Code(s): R07.9 - Chest pain, unspecified Status: Acute Assessment and Plan: as described on admission Echo results noted Cardiology recommendations reviewd. Will continue to follow. Subjective Date/time seen: 02/26/22 11:36 Tolerated dialysis treatment yesterday afternoon with ~ 4L fluid removal; chest pain and shortness of breath appear resolved; BP doing signficantly better as well; no issues overnight or earlier this AM. Exam Narrative: General: WD/WN AA male in NAD Heart: normal S1 and S2; no rub Lungs: decreased at bases Abdomen: soft, nontender, nondistended, positive bowel sounds Extremities: no cyanosis or clubbing; no edema Skin: warm and dry Objective Data Vital Signs Vital Signs: Vital Signs Temp Pulse Resp BP Pulse Ox 02/26/22 09:42 95 02/26/22 09:22 90 02/26/22 08:58 36.2 C L 93 18 171/67 H 98 02/26/22 08:08 97 02/26/22 08:00 89 02/26/22 06:00 78 02/26/22 04:00 36.6 C 88 18 165/68 H 99 02/26/22 02:00 75 02/26/22 00:00 74 20 96 02/25/22 23:39 36.6 C 82 20 120/60 96 02/25/22 22:00 73 02/25/22 20:00 36.6 C 84 18 129/51 L 97 02/25/22 19:14 77 02/25/22 19:10 36.5 C 76 20 143/69 H 02/25/22 19:05 74 158/78 H 02/25/22 18:00 82 169/77 H 02/25/22 17:43 79 02/25/22 17:15 75 145/59 H 02/25/22 17:00 77 154/68 H 02/25/22 16:45 72 142/63 H 02/25/22 16:30 77 148/75 H 02/25/22 16:00 77 156/69 H 02/25/22 15:45 78 145/74 H 02/25/22 15:30 78 151/71 H 02/25/22 15:22 78 146/75 H 02/25/22 15:14 36.6 C 77 20 145/70 H 02/25/22 14:02 97 02/25/22 14:00 77 02/25/22 12:01 35.7 C L 95 21 H 198/69 H 97 02/25/22 12:00 99 02/25/22 11:39 75 Intake/Output Intake/Output: Intake & Output 02/23/22 02/24/22 02/25/22 02/26/22 23:59 23:59 23:59 23:59 Intake Total 880 340 Output Total 4075 Balance -3195 340 Meds/Results Medications: Active Medications Generic Name Dose Route Start Last Admin Trade Name Molly PRN Reason Stop Dose Admin Aspirin 81 mg 02/25/22 08:00 02/26/22 09:23 Aspirin 81 Mg Chewable Tablet PO 81 mg DAILY@0800 [facility] Administration Atorvastatin Calcium 40 mg 02/25/22 21:00 02/25/22 19:14 Atorvastatin 40 Mg Tablet PO 40 mg HS [facility] Administration Benzonatate 100 mg 02/26/22 09:00 02/26/22 09:23 Benzonatate 100 Mg Capsule PO 100 mg TID POWER Administration Carvedilol 25 mg 02/25/22 11:01 02/26/22 09:22 Carvedilol 25 Mg Tablet PO 25 mg
--- NOTE | 2022-02-26 13:16 | PM.DS ---
DS: Admitting Diagnosis Discharge Date 02/26/2022 Admitting Diagnosis Chest Pain DS: Discharge Diagnosis Discharge Diagnosis (1) ESRD on hemodialysis: Code(s): N18.6 - End stage renal disease; Z99.2 - Dependence on renal dialysis Status: Acute (2) CHF (congestive heart failure): Code(s): I50.9 - Heart failure, unspecified Status: Acute (3) Pericardial effusion: Code(s): I31.3 - Pericardial effusion (noninflammatory) Status: Acute (4) GERD (gastroesophageal reflux disease): Code(s): K21.9 - Gastro-esophageal reflux disease without esophagitis Status: Acute (5) HTN (hypertension), benign: Code(s): I10 - Essential (primary) hypertension Status: Acute (6) Polycystic kidney disease: Code(s): Q61.3 - Polycystic kidney, unspecified Status: Acute Assessment and Plan: (7) Chest pain: Qualifiers: Chest pain type: unspecified Qualified Code(s): R07.9 - Chest pain, unspecified Code(s): R07.9 - Chest pain, unspecified Status: Acute DS: Summary Hospital Course Reason for hospitalization: 56 yo male with PMHx of ESRD on hemodialysis and and CO x 4 presented with 2-3 weeks of worsening chest pain and troponin elevation. See H& P for additional information Hospital Course: Mr. Yost is a pleasant 56 yo Male w/ PMHx significant for ESRD on hemodialysis, CO x 4 s/p PCI at [place] in 2008, HTN, and GERD, who presented to the ER on 02/24/22 for 2-3 wk history of chest pain, worsening over the last 24 hrs. He was recently seen at this ER, diagnosed with pneumonia, and completed his antibiotics. He reports chest pain that occurs only when lying down, and states it is worse with inspiration, and reports improvement when sitting up or when taking Tylenol. He confirmed last dialysis was Friday. His pain was a 12/10 upon arrival at the ER. CTA in the ER showed mild pulmonary edema in bilateral lower lungs,bilateral pleural effusions, and small pericardial effusion without evidence of tamponade. Serial troponins showed elevation at 0.096-> 0.097->0.110 on 02/24-02/25. Pt's prior ER visit troponin level was 0.085, and this appeared to be his baseline. Patient remained hypertensive in the ER and prior to dialysis on 02/25. Cardiology was consulted and advised patient appeared clinically fluid overloaded, likely due to ESRD, and reviewed patient's echocardiogram, which showed mild AV stenosis, mild tricuspid regurgitation, small pleural effusion without concern for tamponade, and left atrial and ventricular enlargement with grade III diastolic dysfunction. Patient diagnosed with acute mild heart failure with preserved ejection fraction, volume controlled with hemodialysis. Cardiology further advised to proceed with dialysis and deferred antihypertensive recommendations to nephrology. Nephrology was consulted to manage Mr. Yost's hemodialysis. Dialysis was completed on 02/25/22. Patient was assessed after dialysis and was found to be normotensive, had resolution of his chest pain, and was able to lie recumbent. He denied orthopnea. Patient overall did well and is ready to be discharged home. Status at Discharge Cognitive/behavioral status at discharge: Patient is alert and oriented to self. He has a plan for transportation and continued dialysis upon discharge. Functional status at discharge: uses cane/walker Overall status at discharge: patient is back to baseline Time Spent with Patient Time attestation: 35 minutes Time spent: Greater than 30 minutes Exam Const: General: no acute distress and uncomfortable Orientation/consciousness: patient oriented x3 Eyes: General: appearance normal, both eyes and all related structures Neck: Neck: supple and no JVD Carotids: bruit (consistent with AV fistula ) bilateral Resp: Effort & Inspection: normal respiratory effort Auscultation: crackles on the left (lower lobe) in the lower lung [place] Cardio:
[2022-02-26] MEDS: PANTOPRAZOLE SODIUM IV 40 MG VIAL IV PUSH (13:31)
[2022-02-26] MEDS: CALCIUM CARBONATE (TUMS) 500 MG (200 MG ELEMENTAL) PO (13:31)
[2022-02-26 14:16] LABS: Hematocrit 27.4 % (42.0-52.0); Hemoglobin 8.9 g/dL (14.0-18.0); Mean Corpuscular HGB Conc 32.5 g/dl (32-36); Mean Corpuscular Hemoglobin 31.1 pg (26-34); Mean Corpuscular Volume 95.8 fl (80-100); Mean Platelet Volume 11.6 fl (7.4-10.4); Platelet Count Result 180 k/mm3 (150-375); Red Blood Count 2.86 M/mm3 (4.6-6.20); White Blood Count 5.5 K/mm3 (4.5-10.0)
[2022-02-26 14:26] LABS: Alanine Aminotransferase 12 U/L (4-50); Albumin Level 3.5 g/dL (3.5-5.1); Alkaline Phosphatase 53 U/L (38-126); Anion Gap 8 mmol/L (8-16); Aspartate Amino Transferase 20 U/L (17-59); Bilirubin,Total 0.5 mg/dL (0.2-1.3); Blood Urea Nitrogen 34 mg/dL (9-20); Calcium 9.1 mg/dL (8.4-10.2); Carbon Dioxide 30 mmol/L (22-30); Chloride 96 mmol/L (98-107); Estimated CRCL calculation 9 ml/min; Estimated Glomerular Filt Rate 7; Glucose 112 mg/dL (65-110); Potassium 4.1 mmol/L (3.4-5.0); Sodium 134 mmol/L (137-145)
--- NOTE | 2022-03-06 07:44 | PC.NURSE ---
Blood cx are negative.Dr. Husam garcia.
== END 2022-02-26 15:23 | disposition home or self-care (01) ==
LOC: ANHED 02-25 02:37 → ANHIMU 02-25 03:32
PROVIDERS: Internal Medicine Nephrology; Student in an Organized Health Care Education/Training Program; Admitting Provider Internal Medicine; Emergency Provider Emergency Medicine; PCP Internal Medicine; Visit Provider Internal Medicine
DX: R07.9 Chest pain, unspecified (principal); I25.10 Atherosclerotic heart disease of native coronary artery without angina pectoris; G47.33 Obstructive sleep apnea (adult) (pediatric); D64.9 Anemia, unspecified; K21.9 Gastro-esophageal reflux disease without esophagitis; Q61.3 Polycystic kidney, unspecified; I25.2 Old myocardial infarction; E87.70 Fluid overload, unspecified; I31.3 Pericardial effusion (noninflammatory); I13.2 Hypertensive heart and chronic kidney disease with heart failure and with stage 5 chronic kidney disease, or end stage renal disease; I50.31 Acute diastolic (congestive) heart failure; N18.6 End stage renal disease; Z99.2 Dependence on renal dialysis; Z95.5 Presence of coronary angioplasty implant and graft; Z87.891 Personal history of nicotine dependence; Z79.82 Long term (current) use of aspirin; Z96.0 Presence of urogenital implants; Z20.822 Contact with and (suspected) exposure to COVID-19
CPT/HCPCS: 36415; 71046; 71275; 80053; 83605; 83690; 83880; 84484; 85025; 85027; 85610; 85730; 86705; 86706; 87040; 87340; 87502; 93005; 93306; 94640; 96374; 96375; 96376; 99285; A9270; C9113; C9803; G0257; G0378; J1170; J2270; J2405; J7030; Q9967; U0003; U0005

== ENCOUNTER 2022-03-24 02:20 | Observation (INO) | payer OTHER, SELFPAY ==
[2022-03-24] VITALS (29 sets, daily range): BP systolic 134–174; BP diastolic 50–84; PULSE 74–98; RESP 16–26; TEMP 36–37.1; O2SAT 96–100; BMI 21.4
--- NOTE | ~2022-03-24 | NM_ITS ---
EXAMINATION: NM carol ann stress w perfusion DATE: 03/25/2022 09:38 INDICATION: Coronary artery disease. Atypical chest pain. TECHNIQUE: Rest images were obtained following intravenous administration of 11.2 mCi Tc99m tetrofosm in (Myoview). The patient was infused intravenously with Lexiscan (Regadenoson). Then, 32.2 mCi Tc99m tetrofosmin (Myoview) was administered intravenously, and stress images were obtained. Data was corey nstructed into short axis and horizontal and vertical long axis SPECT images. Gated SPECT images were also obtained. COMPARISON: None. FINDINGS: Small region of nonreversible mildly decreased perfusion at the apical lateral segment whic h is equivocal for infarct. Otherwise normal perfusion. There is normal left ventricular chamber size , wall motion and ejection fraction. Left ventricular ejection fraction measures 47%. IMPRESSION: 1. Small region of mild nonreversible decreased perfusion equivocal for infarct at the apical lateral segment. No ischemia. 2. Left ventricular ejection fraction measuring 47%. Reviewed, dictated and finalized at location B.
--- NOTE | ~2022-03-24 | XR_ITS ---
EXAMINATION: XR chest 1V portable DATE: 03/24/2022 02:58 INDICATION: Chest pain TECHNIQUE: frontal view of the chest was obtained. COMPARISON: Chest radiograph dated 02/24/[address] dated 02/25/2022 FINDINGS: Increased interstitial and airspace opacities in the right mid to lower and left lower lung zones. No pneumothorax or discernible pleural effusion. The cardiomediastinal silhouette is within normal limi ts for AP technique. IMPRESSION: 1. Increased interstitial and airspace opacities in the right mid to lower and left lower lung zones which could represent pulmonary edema or pneumonia. Reviewed, dictated and finalized at location A.
--- NOTE | 2022-03-24 02:19 | ECG_ITS ---
Measurements Intervals [place] Rate: 95 P: 73 SC: 157 QRS: 61 QRSD: 92 T: 65 QT: 344 QTc: 433 Interpretive Statements SINUS RHYTHM POSSIBLE LEFT ATRIAL ENLARGEMENT [-0.1mV P-WAVE IN V1/V2] POSSIBLE LEFT VENTRICULAR HYPERTROPHY [VOLTAGE CRITERIA PLUS LAE OR QRS WIDENING] COMPARED TO ECG 02/25/2022 00:28:37 NO SIGNIFICANT CHANGES Electronically Signed On 03-24-2022 8:05:03 CDT by Juan Adams M.D.
--- NOTE | 2022-03-24 02:29 | ED.CHESTPAIN ---
HPI - Chest Pain General Chief Complaint: Chest Pain Stated Complaint: chest pain Time Seen by Provider: 03/24/22 02:48 Source: patient Mode of arrival: ambulatory Limitations: no limitations History of Present Illness HPI narrative: Patient is a 56-year-old male complaining of chest pain, midsternal, tightness, nonradiating, was 9 out of 10, now down to 6 out of 10 after he was given nitro by EMS, accompanied by shortness of breath that started tonight. Patient denies any abdominal pain, nausea, vomiting, diaphoresis, fever or chills Related Data Home Medications Medication Instructions Recorded Confirmed calcium acetate 667 mg tablet 1,334 mg PO TIDWM 02/19/22 02/26/22 aspirin 81 mg PO DAILY 02/24/22 02/26/22 atorvastatin 40 mg PO DAILY 02/24/22 02/26/22 carvedilol 25 mg PO BID 02/24/22 02/25/22 ergocalciferol (vitamin D2) 50,000 unit PO WEEKLY 02/24/22 02/26/22 lanthanum [Fosrenol] 1,000 mg PO TID 02/24/22 02/25/22 losartan 75 mg PO DAILY 02/24/22 02/25/22 nifedipine 30 mg PO DAILY 02/25/22 02/25/22 promethazine 12.5 mg PO TID 02/25/22 02/25/22 sucralfate 10 ml PO DAILY 02/25/22 02/26/22 Allergies Allergy/AdvReac Type Severity Reaction Status Date / Time adhesive Allergy Mild BLISTERS Verified 02/25/22 08:16 clonidine AdvReac Unknown Vomiting Verified 02/25/22 08:16 hydralazine AdvReac Unknown Vomiting Verified 02/25/22 08:16 Review of Systems Review of Systems: All systems reviewed & are unremarkable except as noted in HPI and below Constitutional: Constitutional: Denies body ache(s), Denies chills, Denies excessive sweating, Denies fatigue, Denies fever(s), Denies headache(s), Denies lethargy, Denies malaise, Denies weakness and Denies weight loss Eyes: Eyes: Denies blurry vision, Denies change in vision and Denies loss of vision ENT: Denies dizziness, Denies ear discharge, Denies headache(s), Denies lip swelling, Denies epistaxis, Denies nasal congestion, Denies neck pain, Denies throat swelling and Denies tongue swelling Cardiovascular: Cardiovascular: Denies diaphoresis, Denies rapid heart rate, Denies edema, Denies irregular heart rhythm, Denies lightheadedness and Denies palpitations Respiratory: Respiratory: Denies chest congestion, Denies cough and Denies hemoptysis Gastrointestinal: Gastrointestinal: Denies abdominal pain, Denies melena, Denies hematochezia, Denies diarrhea, Denies nausea, Denies vomiting and Denies hematemesis Musculoskeletal: Musculoskeletal: Denies abnormal gait, Denies deformity, Denies joint swelling, Denies limited range of motion, Denies neck pain and Denies numbness Neurologic: Denies Abnormal speech present, Denies abnormal gait, Denies confusion, Denies dizziness, Denies headache(s), Denies focal weakness, Denies loss of vision, Denies numbness, Denies Other visual disturbances, Denies Sensory deficit (Neuro) and Denies weakness Psychiatric: Psychiatric: Denies confusion, Denies depression, Denies auditory hallucinations, Denies homicidal ideation and Denies suicidal ideation Endocrine: Endocrine: Denies cold intolerance, Denies excessive sweating, Denies fatigue, Denies heat intolerance and Denies palpitations Hematologic/Lymphatic: Hematologic/Lymphatic: Denies easy bleeding and Denies easy bruising Allergic/Immunologic: Allergic/Immunologic: Denies lip swelling, Denies throat swelling and Denies tongue swelling [facility] Past Medical History Medical History (Updated 03/24/22 @ 03:44 by Gilberto Patrick MD) Acute pulmonary edema Anemia Chronic kidney disease on chronic dialysis Chronic pain CKD (chronic kidney disease) Coronary artery disease ESRD (end stage renal disease) 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 GERD (gastroesophageal reflux disease) HTN (hypertension), benign Latent tuberculosis by blood test Myocardial infarction 2009 Osteonecrosis Tuberculosis Vein disorder Left vein reconstruction 07/2015 Surgical History Surgical History (Reviewed 02/25/22 @ 08:45 b
[2022-03-24 02:51] LABS: Basophils Absolute Auto 0.1 K/mm3 (0.0-0.1); Basophils Percent Auto 0.9 % (0.2-1.2); Eosinophils Absolute Auto 0.3 K/mm3 (0-0.3); Eosinophils Percent Auto 5.3 % (0-4.4); Hematocrit 32.1 % (42.0-52.0); Immature Granulocyte Absolute 0.01 K/mm3 (0.00-0.031); Immature Granulocyte Percent A 0.2 % (0-0.5); Lymphocytes Absolute Auto 1.53 K/mm3 (0.9-3.2); Lymphocytes Percent Auto 26.9 % (18.3-44.2); Mean Corpuscular HGB Conc 31.2 g/dl (32-36); Mean Corpuscular Hemoglobin 31.3 pg (26-34); Mean Corpuscular Volume 100.6 fl (80-100); Mean Platelet Volume 12.3 fl (7.4-10.4); Monocytes Absolute Auto 0.2 K/mm3 (0.1-0.6); Monocytes Percent Auto 3.3 % (2.6-8.5); Neutrophils Absolute Auto 3.6 K/mm3 (1.3-6.7); Neutrophils Percent Auto 63.4 % (45.5-73.1); Platelet Count Result 173 k/mm3 (150-375); Red Blood Count 3.19 M/mm3 (4.6-6.20); Red Cell Distribution Width 14.3 % (11.5-14.5); White Blood Count 5.7 K/mm3 (4.5-10.0)
[2022-03-24 03:14] LABS: NT Pro B Type Natriuretic Pept 31200 pg/mL (5-100)
[2022-03-24 03:20] LABS: Anion Gap 13 mmol/L (8-16); Blood Urea Nitrogen 35 mg/dL (9-20); Calcium 10.2 mg/dL (8.4-10.2); Carbon Dioxide 29 mmol/L (22-30); Chloride 94 mmol/L (98-107); Estimated CRCL calculation 9 ml/min; Estimated Glomerular Filt Rate 7; Glucose 179 mg/dL (65-110); Potassium 4.5 mmol/L (3.4-5.0); Sodium 136 mmol/L (137-145)
[2022-03-24] MEDS: FUROSEMIDE INJ 40 MG/4 ML VIAL 20 MG IV PUSH ×2 (04:16→17:29)
[2022-03-24 04:21] LABS: Alveolar/Arterial O2 Gradient 112.1 mmHg; Base Excess ABG 4.2 mEq/l (+/-2.0); Carboxyhemoglobin 0.3 % THb (0-2.0); Fractional Inspired Oxygen 35 %; Methemoglobin ABG 0.1 %THb (0-1.5); Oxygen Content ABG 14.3 %vol (16.0-22.0); Oxygen Saturation ABG 96.7 % (95.0-100.0); Oxyhemoglobin 95.4 % THb (90.0-100.0); PCO2 ABG 44.6 mmHg (35.0-45.0); PO2 ABG 85.6 mmHg (80.0-100.0); PO2 FiO2 Ratio Arterial Blood 2.45 %; Reduced Hemoglobin 4.2 %THb (0-5.0); Total Hemoglobin 10.6 g/dL (12.0-18.0); pH ABG 7.431 (7.350-7.450)
[2022-03-24 04:23] LABS: Device BIPAP; Expiratory Pressure 5 cmH2O; Inspiratory Pressure 12 cmH2O; Site Drawn RIGHT BRACHIAL
--- NOTE | 2022-03-24 04:39 | PC.NURSE ---
This patient, Tejas Yost, was admitted to IMU Room 213-01. Patient/family oriented to hospital policies and general routines including ID bracelet, bed and alarms, visiting hours, pain management, procedures, bathroom and other care routines, personal items, smoking policy, room service/diet, and visiting hours. Information on how to activate the Rapid Response Team has been discussed. Patient/Family are encouraged to report perceived risks to care and to ask questions if they do not understand what they are told or what they should do.
[2022-03-24 07:42] LABS: Troponin I 0.397 ng/mL (0.000-0.034)
--- NOTE | 2022-03-24 09:22 | PC.NURSE ---
Notified Dr. Adams of pt pending HD treatment, Dr. Adams stated he has not seen the patient but pt should probably receive HD today despite elevated troponin of 0.397. Dr. Jean also notified of elevated troponin and stated that it is okay for patient to dialyze today. Pt notified of plan of care and verbalized understanding.
--- NOTE | 2022-03-24 12:39 | PM.CNNEP ---
Assessment and Plan Assessment and plan (1) End stage renal disease: Code(s): N18.6 - End stage renal disease Status: Chronic Assessment and Plan: HD tomorrow and continue M/W/F dialysis schedule follow electrolytes, volume status, and clearance (2) Acute pulmonary edema: Code(s): J81.0 - Acute pulmonary edema Status: Acute Assessment and Plan: as evidenced by admission CXR and likely contributing factor of shortness of breath dry ultrafiltration today for more fluid removal plan further fluid removal with HD treatment tomorrow wean supplemental oxygen repeat CXR (3) Chest pain: Qualifiers: Chest pain type: unspecified Qualified Code(s): R07.9 - Chest pain, unspecified Code(s): R07.9 - Chest pain, unspecified Status: Acute Assessment and Plan: as noted on admission Cardiology consulted for further evaluation (4) Hypertension: Code(s): I10 - Essential (primary) hypertension Status: Chronic Assessment and Plan: little high at this time however, his home BP medications have yet to be ordered /resumed follow trend of hemodialysis (5) Anemia: Qualifiers: Anemia type: unspecified type Qualified Code(s): D64.9 - Anemia, unspecified Code(s): D64.9 - Anemia, unspecified Status: Chronic Assessment and Plan: due to ESRD follow trend of H/H Will continue to follow. History of Present Illness Reason for Consult Consult date: 03/24/22 Reason for consult: end stage renal disease Chief Complaint Chief complaint: Acute pulmonary edema, chest pain History of Present Illness Narrative: The patient is a 56-year-old male with a past medical history as outlined below who presented to [facility] Emergency room via EMS for complaints of chest pain and shortness of breath. The chest pain was localized to the midsternal area, described as a tightness sensation but was nonradiating. At its worst, it was 9 and a 10 and by the time he received sublingual nitroglycerin by EMS, had come down to a 6/10. The chest pain was associated with shortness of breath and both the symptoms seem to come on yesterday evening early this morning. It should be noted the patient was just recently hospitalized here for chest pain and shortness of breath and at that time, it was felt that his chest pain was more pleuritic in nature and not associated with acute coronary syndrome. He also had evidence of pulmonary vascular congestion / volume overload and he responded to more aggressive dialysis during the hospital stay as well. On further questioning, the patient states that he seems to have more chest pain in the evening particularly when he lies down in the supine position. This of course give some significant discomfort at night when he tries to sleep and makes sleeping in general somewhat difficult. As far as he is aware, the chest pain does not seem to occur during the day. He reported no other symptoms with regard to orthopnea, paroxysmal nocturnal dyspnea, or worsening lower extremity edema. Given these constellation of symptoms, he presented to the ER for further evaluation Workup and evaluation emergency room demonstrated labs consistent with his known history of end-stage renal disease, mildly elevated troponins thought to be more related to his chronic renal failure, and a chest x-ray that showed evidence of acute pulmonary edema/pulmonary vascular congestion. He was otherwise hemodynamically stable although his blood pressure was slightly higher than normal in the 150s to 160 systolic range. Given his respiratory distress BiPAP was applied and he was given IV Lasix as he still makes some urine despite the fact that he has end-stage renal disease. He was subsequently admitted to the hospital for further evaluation and therapy. Since his admission, his respiratory status has stabilized to the point
[2022-03-24] MEDS: DICYCLOMINE HCL 10 MG CAPSULE PO (13:03)
--- NOTE | 2022-03-24 13:12 | PM.CNCAR ---
Assessment and Plan Additional Plan 56-year-old man with coronary disease status post stenting of his circumflex about 13 years ago. Has been doing well since then. He now has reporting history of positional chest pain with the cup recumbent position for about 3 or 4 weeks. No significant evidence of acute coronary syndrome. He did undergo extra dialysis this morning. I am going to recommend a Lexiscan nuclear stress test as well as an echocardiogram. He does have a murmur that is suggestive of some aortic valve stenosis and that should certainly also be ruled out given his positional nature of the symptoms. We will review the noninvasive workup tomorrow and provide further recommendations. In the meantime I would recommend resuming his usual medical regimen Juan Adams MD [facility] History of Present Illness History of Present Illness Consult date/time: 03/24/22 13:12 Consult reason: chest pain Reason For Visit: Acute pulmonary edema, chest pain Narrative: This is a very pleasant 56-year-old man that I am seeing at the request of the hospitalist because of chest pain. The patient is known to me from office follow-up with a history of coronary artery disease. He has that and a history of chronic kidney disease with dependency on hemodialysis as his principal health problems. The patient also has significant hypertension. His coronary history dates back to back in 2008 when he presented with chest pain symptoms and was treated at [facility] he was found to have circumflex disease which was treated with percutaneous stenting with a good result. He then had a period of time where he really did not have any cardiac follow-up and presented to see me for ongoing follow-up a number of years ago. He has not had any clinically recognized ischemic problems since then. I see him regularly in about 6 month intervals in the office in just saw him in January of this year which time he had no complaints. It looks like he was hospitalized here about 3 weeks ago with some chest pain and was seen by my partner,Dr Vu at which time the symptoms were felt to be very atypical an ischemic workup was not recommended. He felt the symptoms had no resemblance to his previous myocardial ischemia. He says that he is developing a pattern of chest pain this seems to occur when he lies down in the recumbent position. This symptom understandably is bothersome to him is it is keeping him from getting much sleep at night. Interestingly he does not have any chest pain when he is active during the day. He denies any other symptoms such as orthopnea PND or edema. His electrocardiogram now and recently have been normal. His troponin levels are very slightly elevated but essentially in the range where 1 would expect for a dialysis patient. His medical regimen consists of aspirin, atorvastatin, carvedilol, losartan and nifedipine. For some reason none of those medications have been ordered for him since admission. Review of Systems Constitutional: Constitutional: Reports no additional constitutional complaints Eyes: Eyes: Reports no additional eye complaints ENT: Reports system reviewed and no additional complaints, except as documented Cardiovascular: Cardiovascular: Reports as per HPI Respiratory: Respiratory: Reports no additional respiratory complaints Gastrointestinal: Gastrointestinal: Reports no additional gastrointestinal complaints Musculoskeletal: Musculoskeletal: Reports no additional musculoskeletal complaints Integumentary/Breasts: Skin/Breast: Reports system reviewed and no additional complaints, except as docu Neurologic: Reports system reviewed and no additional complaints, except as documented Endocrine: Endocrine: Reports no additional endocrine complaints Hematologic/Lymphatic: Hematologic/Lymphatic: Reports no additional hematologic/lymphatic complaints Allergic/Immunologic: Allergic/Immunologic: Reports no additional allergic/immun
[2022-03-24 14:48] LABS: Troponin I 0.674 ng/mL (0.000-0.034)
--- NOTE | 2022-03-24 16:20 | PM.IMHP ---
H&P: HPI History of Present Illness Date/Time: 03/24/22 16:20 ED-HPI narrative: Patient is a 56-year-old male complaining of chest pain, midsternal, tightness, nonradiating, was 9 out of 10, now down to 6 out of 10 after he was given nitro by EMS, accompanied by shortness of breath that started tonight. Patient denies any abdominal pain, nausea, vomiting, diaphoresis, fever or chills 03/24/2022 interval history: patient is a 56 year male with history of end-stage renal disease on hemodialysis, history of coronary artery disease status post stent 13 years ago, presented emergency department with complaint of chest pain 9/10 nonradiating worse with a position, patient has elevated tropes, 0.40, .397, and .674, there are no acute changes on EKG patient is seen by brim raiser recommending Lexiscan and cardiac echo to further evaluate and further recommendation to follow upon reviewing noninvasive evaluation, patient seen in dialysis does complain of abdominal pain and cramping during dialysis which is common for the patient patient is admitted observation status Chief Complaint: chest pain Review of Systems Review of Systems: All systems reviewed & are unremarkable except as noted in HPI and below PMFSH Past Medical History Medical History (Updated 03/24/22 @ 13:58 by Farideh Juarez MD) Acute pulmonary edema Anemia Chronic kidney disease on chronic dialysis Chronic pain CKD (chronic kidney disease) Coronary artery disease ESRD (end stage renal disease) 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 GERD (gastroesophageal reflux disease) HTN (hypertension), benign Latent tuberculosis by blood test Myocardial infarction 2008 Osteonecrosis Tuberculosis Vein disorder Left vein reconstruction 07/2015 Surgical History Surgical History History of renal stent Family History Family History Mother No problems noted. Other Unknown family medical history Social History Social History Smoking packs per day: 0.5 Smoking cigarettes per day: 10.0 Years smoked: 20 Smoking pack-years: 10.00 Smoking status: Former smoker Tobacco type: cigarettes Additional smoking assessment comments: Not sure of amount of cigarettes he smoked. Alcohol intake: never Substance use: never Spiritual care concerns: No Meds Home Medications and Allergies Home Medications Medication Instructions Recorded Confirmed Type aspirin 81 mg PO DAILY 02/24/22 03/24/22 History atorvastatin 40 mg PO DAILY 02/24/22 03/24/22 History carvedilol 25 mg PO BID 02/24/22 03/24/22 History ergocalciferol (vitamin D2) 50,000 unit PO WEEKLY 02/24/22 03/24/22 History lanthanum [Fosrenol] 1,000 mg PO TIDWM 02/24/22 03/24/22 History losartan 75 mg PO DAILY 02/24/22 03/24/22 History nifedipine 30 mg PO DAILY 02/25/22 03/24/22 History sucralfate 10 ml PO DAILY 02/25/22 03/24/22 History Allergies Allergy/AdvReac Type Severity Reaction Status Date / Time adhesive Allergy Mild BLISTERS Verified 02/25/22 08:16 clonidine AdvReac Unknown Vomiting Verified 02/25/22 08:16 hydralazine AdvReac Unknown Vomiting Verified 02/25/22 08:16 Vital Signs Vital Signs - 24 hr 03/24/22 02:19 03/24/22 02:50 03/24/22 03:39 Temperature 98.0 F Pulse Rate 96 79 81 Respiratory Rate 26 H 22 H Blood Pressure 157/69 H 134/69 Pulse Oximetry 96 99 100 03/24/22 03:47 03/24/22 04:00 03/24/22 04:23 Temperature Pulse Rate 74 Respiratory Rate 20 26 H Blood Pressure 134/56 L Pulse Oximetry 100 100 100 03/24/22 04:30 03/24/22 05:19 03/24/22 06:00 Temperature 97.4 F L Pulse Rate 76 79 Respiratory Rate 20 Blood Pressure 143/58 H Pulse Oximetry 100 100 03/24/22 08:00 03/24/22 08:17 03/24/22 09:50 Temperature 96.8 F L 98.6 F Pulse Rate 77 82 Respiratory Rate 16 18 Blo
[2022-03-24] MEDS: carvediloL 25 MG TABLET PO (17:30)
[2022-03-24] MEDS: ERGOCALCIFEROL 50,000 UNIT CAPSULE 50000 UNITS PO (17:30)
[2022-03-24] MEDS: ONDANSETRON INJ 4 MG/2 ML VIAL IV PUSH (17:30)
[2022-03-24 20:38] LABS: Glucose Point of Care 75 mg/dl (65-105)
[2022-03-24] MEDS: HEPARIN SODIUM 5,000 UNITS/ML VIAL 5000 UNITS SUB-Q (21:23)
[2022-03-25] VITALS (20 sets, daily range): BP systolic 98–159; BP diastolic 43–82; PULSE 72–93; RESP 18–20; TEMP 35.1–37.2; O2SAT 98
--- NOTE | 2022-03-25 | ECHO_ITS ---
Patient Info Name: Tejas Yost Age: 57 years : 1965 Gender: Male Ht: 75 in Wt: 171 lbs BSA: 2.02 m2 HR: 86 bpm BP: 143 / 50 mmHg Heart Rhythm: Sinus Rhythm Technical Quality: Fair Exam Date: 03/25/2022 10:46 AM Exam Location: [facility] Pulmonary Patient Status: Outpatient Admit Date: 03/24/2022 Staff Ordering Physician: Juan Adams MD Irrigator: Kimberly Zamarripa RDCS Attending Provider: Jim Santiago M.A., MD Referring Physician: Angie CORTES; Exam Type: CA echo doppler color flow Study Info Indications - CAD, CHEST PAIN, ? Complete two-dimensional, color flow and Doppler transthoracic echocardiogram is performed. Summary 1. Complete two-dimensional, color flow and Doppler transthoracic echocardiogram is performed. 2. Left ventricular chamber dimension is normal. 3. There is moderate concentric increased left ventricular wall thickness. 4. Left ventricular systolic function is normal, estimated at 60-65%. 5. The left ventricular diastolic function is grade II diastolic dysfunction. 6. Left atrial chamber dimension is moderately enlarged. 7. There is mild aortic valve sclerosis. 8. There is mild mitral valve regurgitation. 9. Compared with examination done last month no significant change. Left Ventricle Left ventricular chamber dimension is normal. Left ventricular systolic function is normal, estimated at 60-65%. There is moderate concentric increased left ventricular wall thickness. The left ventricular diastolic function is grade II diastolic dysfunction. Right Ventricle Right ventricular chamber dimension is normal. Left Atria Left atrial chamber dimension is moderately enlarged. Right Atria Right atrial chamber dimension is normal. Aortic Valve The aortic valve is trileaflet. There is mild aortic valve sclerosis. There is no aortic valve stenosis. There is trace aortic valve regurgitation. Pulmonic Valve The pulmonic valve is not well visualized. There is trace pulmonic regurgitation. Mitral Valve The mitral valve has normal leaflets. There is mild mitral valve regurgitation. Tricuspid Valve The tricuspid valve leaflets are normal. Pericardium/Pleural The pericardium appears normal. Aorta The aortic root size at the sinus of Valsalva is normal. Left Ventricular Outflow Tract Name Value Normal LVOT 2D LVOT Diameter 2.0 cm LVOT Doppler LVOT Peak Gradient 11 mmHg LVOT Mean Gradient 4 mmHg LVOT VTI 28 cm LVOT VTI/AV VTI Ratio 0.7 LVOT Stroke Volume 91 ml LVOT CO 7.6 l/min LVOT CI 3.8 l/min/m2 Pulmonic Valve Name Value Normal RVOT Doppler RVOT Peak Gradien
--- NOTE | 2022-03-25 | EST_ITS ---
Patient Info Name: Tejas Yost Age: 57 years : 1965 Gender: Male Ht: 75 in Wt: 171 lbs BSA: 2.02 m2 HR: 84 bpm BP: 180 / 58 mmHg Heart Rhythm: Sinus Rhythm Exam Date: 03/25/2022 8:28 AM Exam Location: [facility] Stress Patient Status: Outpatient Admit Date: 03/24/2022 Staff Ordering Physician: Juan Adams MD Attending Provider: Jim Santiago M.A., MD Exercise Technologist: Hyacinth Danielle CT Exercise Physician: Melani Bhardwaj Exam Type: CA stress carol ann w NM Study Info Indications R07.9 - Chest pain, unspecified A regadenoson stress test was performed. Summary 1. Normal sinus rhythm. 2. No ST or T-wave abnormalities induced by Lexiscan. 3. Clinically and electrocardiographically unremarkable Lexiscan stress test+. 4. Myocardial perfusion imaging study to be interpreted by Radiology. Protocol: Lexiscan Stress ECG Details Stage: REST Duration (min): 1 min : 55 sec HR (bpm): 83 SBP (mmHg): 180 DBP (mmHg): 58 Stage: REST Duration (min): 7 min : 19 sec HR (bpm): 86 SBP (mmHg): 183 DBP (mmHg): 64 Stage: STAGE 1 Duration (min): 1 min : 0 sec HR (bpm): 104 SBP (mmHg): 183 DBP (mmHg): 64 Stage: RECOVERY Duration (min): 1 min : 0 sec HR (bpm): 108 SBP (mmHg): 183 DBP (mmHg): 64 Stage: RECOVERY Duration (min): 2 min : 0 sec HR (bpm): 105 SBP (mmHg): 178 DBP (mmHg): 61 Stage: RECOVERY Duration (min): 3 min : 0 sec HR (bpm): 101 SBP (mmHg): 190 DBP (mmHg): 60 Stage: RECOVERY Duration (min): 3 min : 24 sec HR (bpm): 102 SBP (mmHg): 190 DBP (mmHg): 60 Rest HR: 86 bpm Peak HR: 109 bpm Rest Sys BP: 183 mmHg Peak Sys BP: 190 mmHg Max Pred HR: 165 bpm % Max Pred HR: 66 % Target HR: 140 bpm Max RPP: 20,710 bpm*mmHg Termination Reason: Completed protocol Cardiac Symptoms: None Total Time: 1 min : 0 sec Rest Goodman BP: 64 mmHg Peak Goodman BP: 60 mmHg Total Dose: 0.4 mg Resting ECG Normal sinus rhythm. Stress ECG No ST or T-wave abnormalities induced by Lexiscan. Report Signatures
[2022-03-25] MEDS: ONDANSETRON INJ 4 MG/2 ML VIAL IV PUSH ×2 (00:19→14:21)
[2022-03-25 05:12] LABS: Hematocrit 27.8 % (42.0-52.0); Hemoglobin 9.4 g/dL (14.0-18.0); Mean Corpuscular HGB Conc 33.8 g/dl (32-36); Mean Corpuscular Volume 94.6 fl (80-100); Mean Platelet Volume 12.3 fl (7.4-10.4); Platelet Count Result 158 k/mm3 (150-375); Red Blood Count 2.94 M/mm3 (4.6-6.20); Red Cell Distribution Width 13.8 % (11.5-14.5); White Blood Count 6.1 K/mm3 (4.5-10.0)
[2022-03-25 05:27] LABS: Albumin Level 3.6 g/dL (3.5-5.1); Anion Gap 8 mmol/L (8-16); Blood Urea Nitrogen 49 mg/dL (9-20); Calcium 9.7 mg/dL (8.4-10.2); Carbon Dioxide 30 mmol/L (22-30); Chloride 95 mmol/L (98-107); Estimated CRCL calculation 7 ml/min; Estimated Glomerular Filt Rate 6; Glucose 86 mg/dL (65-110); Phosphorus 5.4 mg/dL (2.5-4.5); Potassium 4.3 mmol/L (3.4-5.0); Sodium 133 mmol/L (137-145)
--- NOTE | 2022-03-25 06:47 | PC.NURSE ---
Pts blood glucose POC was 75mg/dl pt asymptomatic. Pt. offered snacks theodore crackers and apple juice pt. refused.
--- NOTE | 2022-03-25 09:14 | PM.PNCARD ---
Progress Note: A&P Assessment and Plan (1) Chest pain: Qualifiers: Chest pain type: unspecified Qualified Code(s): R07.9 - Chest pain, unspecified Code(s): R07.9 - Chest pain, unspecified Status: Acute Assessment and Plan: Atypical chest pain with no significant evidence of ACS on initial workup. He underwent a lexiscan stress test this morning that did not show any ischemia. Echo has not yet been reviewed, but concern for because of murmur suggestive of this on exam. Will leave further recommendations after review of echocardiogram. (2) Hypertension: Code(s): I10 - Essential (primary) hypertension Status: Chronic Assessment and Plan: Losartan has been increased. Reasonably controlled. Antihypertensives can be adjusted as an outpatient. (3) Coronary artery disease: Code(s): I25.10 - Atherosclerotic heart disease of [place] coronary artery without angina pectoris Status: Acute Assessment and Plan: CAD with stenting to his circumflex in 2008. This is stable. Continue ASA, statin. Subjective Date/time seen: 03/25/22 09:14 Cardiology follow up for chest pain Feels well this morning. Complaining of not sleeping well last night. Denying any chest pain at present. Review of Systems Constitutional: Constitutional: Reports no additional constitutional complaints Eyes: Eyes: Reports no additional eye complaints ENT: Reports system reviewed and no additional complaints, except as documented Cardiovascular: Cardiovascular: Reports as per HPI Respiratory: Respiratory: Reports no additional respiratory complaints Gastrointestinal: Gastrointestinal: Reports no additional gastrointestinal complaints Musculoskeletal: Musculoskeletal: Reports no additional musculoskeletal complaints Integumentary/Breasts: Skin/Breast: Reports system reviewed and no additional complaints, except as docu Neurologic: Reports system reviewed and no additional complaints, except as documented Endocrine: Endocrine: Reports no additional endocrine complaints Hematologic/Lymphatic: Hematologic/Lymphatic: Reports no additional hematologic/lymphatic complaints Allergic/Immunologic: Allergic/Immunologic: Reports no additional allergic/immunologic complaints Exam Const: General: comfortable and no acute distress HENMT: Mouth: Yes moist mucous membranes Eyes: Sclera: sclerae normal Pupils: Equal, round and reactive pupils present Neck: Neck: supple and no JVD Resp: Effort & Inspection: normal respiratory effort Auscultation: clear to auscultation bilaterally Cardio: Rate: regular rate Rhythm: regular rhythm Heart sounds: Murmur heart sound present systolic II/ Peripheral pulses: Peripheral pulses 2+ throughout GI: Auscultation: normal bowel sounds Skin: General skin exam: normal color Neuro: Cranial nerves: Yes Equal, round and reactive pupils present Cognition (Neuro): normal cognition Extrem: General: normal to inspection Objective Data Vital Signs Vital Signs: Vital Signs - 24 hr 03/24/22 09:50 03/24/22 09:58 03/24/22 10:00 Temperature 37.0 C Pulse Rate 82 86 90 Respiratory Rate 18 Blood Pressure 174/83 H 171/84 H Pulse Oximetry 03/24/22 10:20 03/24/22 10:40 03/24/22 11:00 Temperature Pulse Rate 81 82 89 Respiratory Rate Blood Pressure 163/73 H 153/75 H 165/84 H Pulse Oximetry 03/24/22 11:20 03/24/22 11:40 03/24/22 12:00 Temperature Pulse Rate 79 77 79 Respiratory Rate Blood Pressure 153/68 H 144/74 H Pulse Oximetry 100 03/24/22 12:40 03/24/22 14:00 03/24/22 16:00 Temperature 36.8 C 37.1 C Pulse Rate 77 88 98 Respiratory Rate 16 18 Blood Pressure 155/79 H 161/75 H Pulse Oximetry 100 03/24/22 17:30 03/24/22 18:00 03/24/22 20:00 Temperature 36.7 C Pulse Rate 85 89 78 Respiratory Rate 20 Blood Pressure 144/53 H Pulse Oximetry 97 03/24/22 22:00 03/24/22 22:19 03/24/22
[2022-03-25] MEDS: NIFEdipine 30 MG TAB.ER.24 PO (10:39)
[2022-03-25] MEDS: SUCRALFATE SUSP 100 MG/ML 10 ML UDC 1000 MG PO (10:39)
[2022-03-25] MEDS: FUROSEMIDE INJ 40 MG/4 ML VIAL 20 MG IV PUSH (10:40)
[2022-03-25] MEDS: LOSARTAN POTASSIUM 25 MG TABLET PO (10:40)
[2022-03-25] MEDS: LOSARTAN POTASSIUM 50 MG TABLET PO (10:40)
[2022-03-25] MEDS: ATORVASTATIN 40 MG TABLET PO (10:41)
[2022-03-25] MEDS: carvediloL 25 MG TABLET PO (10:41)
[2022-03-25] MEDS: ASPIRIN 81 MG CHEWABLE TABLET PO (10:41)
--- NOTE | 2022-03-25 14:21 | PM.DS ---
DS: Admitting Diagnosis Discharge Date 03/25/2022 Admitting Diagnosis chest pain DS: Discharge Diagnosis Discharge Diagnosis (1) Chest pain due to CAD: Code(s): I25.119 - Atherosclerotic heart disease of [place] coronary artery with unspecified angina pectoris Status: Acute Assessment and Plan: 03/24/2022 interval history: patient is a 56 year male with history of end-stage renal disease on hemodialysis, history of coronary artery disease status post stent 13 years ago, presented emergency department with complaint of chest pain 9/10 nonradiating worse with a position, patient has elevated tropes, 0.40, .397, and .674, there are no acute changes on EKG patient is seen by last sawyer recommending Lexiscan and cardiac echo to further evaluate and further recommendation to follow upon reviewing noninvasive evaluation, patient seen in dialysis does complain of abdominal pain and cramping during dialysis which is common for the patient (2) Elevated troponin I level: Code(s): R77.8 - Other specified abnormalities of plasma proteins Status: Acute Assessment and Plan: most likely secondary to end-stage renal disease on hemodialysis however patient is seen by last sawyer and noninvasive workup is in progress continue to monitor (3) Hypertension: Code(s): I10 - Essential (primary) hypertension Status: Chronic Assessment and Plan: will continue home regimen and monitor (4) End stage renal disease: Code(s): N18.6 - End stage renal disease Status: Chronic Assessment and Plan: patient with end-stage renal disease on hemodialysis patient will receive scheduled dialysis and seen by his court advocate DS: Summary Hospital Course Reason for hospitalization: ED-HPI narrative: Patient is a 56-year-old male complaining of chest pain, midsternal, tightness, nonradiating, was 9 out of 10, now down to 6 out of 10 after he was given nitro by EMS, accompanied by shortness of breath that started tonight. Patient denies any abdominal pain, nausea, vomiting, diaphoresis, fever or chills 03/24/2022 interval history: patient is a 56 year male with history of end-stage renal disease on hemodialysis, history of coronary artery disease status post stent 13 years ago, presented emergency department with complaint of chest pain 9/10 nonradiating worse with a position, patient has elevated tropes, 0.40, .397, and .674, there are no acute changes on EKG patient is seen by last sawyer recommending Lexiscan and cardiac echo to further evaluate and further recommendation to follow upon reviewing noninvasive evaluation, patient seen in dialysis does complain of abdominal pain and cramping during dialysis which is common for the patient patient is admitted observation status Chief Complaint: chest pain Hospital Course: 03/24/2022 interval history: patient is a 56 year male with history of end-stage renal disease on hemodialysis, history of coronary artery disease status post stent 13 years ago, presented emergency department with complaint of chest pain 9/10 nonradiating worse with a position, patient has elevated tropes, 0.40, .397, and .674, there are no acute changes on EKG patient is seen by last sawyer recommending Lexiscan and cardiac echo to further evaluate and further recommendation to follow upon reviewing noninvasive evaluation, patient seen in dialysis does complain of abdominal pain and cramping during dialysis which is common for the patient patient was seen by Cardiology with history of coronary artery disease further evaluate patient had a Lexiscan test which did not show any acute ischemic event patient is clinically stable will discharge the patient today after dialysis. Status at Discharge Functional status at discharge: uses cane/walker Overall status at discharge: patient is back to baseline Time Spent with Patient Time attestation: Total time spent providing and/or coordinating di
--- NOTE | 2022-03-25 15:09 | PM.PNNEP ---
Progress Note: A&P Assessment and Plan (1) End stage renal disease: Code(s): N18.6 - End stage renal disease Status: Chronic Assessment and Plan: HD today and continue M/W/F dialysis schedule follow electrolytes, volume status, and clearance (2) Acute pulmonary edema: Code(s): J81.0 - Acute pulmonary edema Status: Acute Assessment and Plan: as evidenced by admission CXR and likely contributing factor of shortness of breath dry ultrafiltration yesterday for fluid removal further fluid removal with HD treatment today (3) Chest pain: Qualifiers: Chest pain type: unspecified Qualified Code(s): R07.9 - Chest pain, unspecified Code(s): R07.9 - Chest pain, unspecified Status: Acute Assessment and Plan: as noted on admission Cardiology recommendations noted stress test earlier today was negative (4) Hypertension: Code(s): I10 - Essential (primary) hypertension Status: Chronic Assessment and Plan: doing a bit better follow trend post dialysis (5) Anemia: Qualifiers: Anemia type: unspecified type Qualified Code(s): D64.9 - Anemia, unspecified Code(s): D64.9 - Anemia, unspecified Status: Chronic Assessment and Plan: due to ESRD Epogen with HD follow trend of H/H Will continue to follow. Subjective Date/time seen: 03/25/22 15:09 Tolerating dialysis treatment at the time of my visit (seen on HD at 3:00pm); no apparent distress voiced; breathing/respiratory status seems back to baseline; no further chest pain; only apparent issues/events overnight or earlier this AM; tolerated DUF treatment yesterday without any issue. Exam Narrative: General: WD/WN male in NAD Heart: normal S1 and S2; no rub Lungs: clear to auscultation Abdomen: soft, nontender, nondistended, positive bowel sounds Extremities: no cyanosis or clubbing; no edema Skin: warm and dry Objective Data Vital Signs Vital Signs: Vital Signs Temp Pulse Resp BP Pulse Ox 03/25/22 14:50 84 152/49 H 03/25/22 14:30 83 151/72 H 03/25/22 14:10 82 159/82 H 03/25/22 13:54 87 154/74 H 03/25/22 13:40 37.2 C 87 18 157/74 H 03/25/22 10:41 83 03/25/22 10:37 83 155/63 H 03/25/22 10:00 84 03/25/22 08:00 81 03/25/22 06:00 82 03/25/22 04:00 36.6 C 85 20 143/50 H 98 03/25/22 02:00 82 03/25/22 00:00 93 03/24/22 23:36 36.4 C 91 20 149/50 H 98 03/24/22 22:19 85 96 03/24/22 22:00 82 03/24/22 20:00 36.7 C 78 20 144/53 H 97 03/24/22 18:00 89 03/24/22 17:30 85 03/24/22 16:00 37.1 C 98 18 161/75 H 100 Intake/Output Intake/Output: Intake & Output 03/22/22 03/23/22 03/24/22 03/25/22 23:59 23:59 23:59 23:59 Intake Total 440 Output Total 2851 0 Balance -2411 0 Meds/Results Medications: Active Medications Generic Name Dose Route Start Last Admin Trade Name Freq PRN Reason Stop Dose Admin Aspirin 81 mg 03/25/22 09:00 03/25/22 10:41 Aspirin 81 Mg Chewable Tablet PO 81 mg DAILY POWER Administration Atorvastatin Calcium 40 mg 03/25/22 09:00 03/25/22 10:41 Atorvastatin 40 Mg Tablet PO 40 mg DAILY POWER Administration Carvedilol 25 mg 03/24/22 17:00 03/25/22 10:41 Carvedilol 25 Mg Tablet PO 25 mg BID POWER Administration Ergocalciferol 50,000 unit 03/24/22 16:20 03/24/22 17:30 Ergocalciferol 50,000 Unit Capsule PO 50,000 unit [place]@0900 POWER Administration Furosemide 20 mg 03/24/22 17:00 03/25/22 10:40 Furosemide Inj 40 Mg/4 Ml Vial IV PUSH 20 mg BID POWER Administration Heparin Sodium (Porcine) 5,000 units 03/24/22 21:00 03/25/22 13:17 Heparin Sodium 5,000 Units/Ml Vial SUB-Q Not Given Q12HR POWER Albumin Human 50 mls @ 999 mls/hr 03/24/22 07:23 Albutein IVPB 04/23/22 07:22 Q10M PRN HYPOTENSION [place]
--- NOTE | 2022-03-25 17:22 | PC.NURSE ---
This patient, Tejas Yost, was received from [ Dialysis via IMU] on 03/25/22 at 1722. Patient/family oriented to unit policies and routines
== END 2022-03-25 17:53 | disposition home or self-care (01) ==
LOC: ANHED 03:43 → ANHIMU 04:00 → ANH2MED 03-25 13:55
PROVIDERS: Family Medicine; Admitting Provider Internal Medicine; Emergency Provider Emergency Medicine; PCP Internal Medicine; Visit Provider Internal Medicine
DX: I25.119 Atherosclerotic heart disease of native coronary artery with unspecified angina pectoris (principal); R77.8 Other specified abnormalities of plasma proteins; I13.2 Hypertensive heart and chronic kidney disease with heart failure and with stage 5 chronic kidney disease, or end stage renal disease; J81.0 Acute pulmonary edema; R07.9 Chest pain, unspecified; R06.02 Shortness of breath; I50.9 Heart failure, unspecified; N18.6 End stage renal disease; Z99.2 Dependence on renal dialysis; D64.9 Anemia, unspecified; G89.29 Other chronic pain; K21.9 Gastro-esophageal reflux disease without esophagitis; I25.2 Old myocardial infarction; Z87.891 Personal history of nicotine dependence; Z79.51 Long term (current) use of inhaled steroids; Z79.82 Long term (current) use of aspirin; Z22.7 Latent tuberculosis
CPT/HCPCS: 36415; 36600; 71045; 78452; 80048; 80069; 82375; 82805; 82948; 83050; 83735; 83880; 84484; 85025; 85027; 93005; 93017; 93306; 94002; 96372; 96374; 96375; 96376; 99285; A9270; A9502; G0257; G0378; J1644; J1940; J2405; J2785; J7030

== ENCOUNTER 2022-05-09 13:50 | Outpatient (CLI) | payer MEDICARE, MEDICAID, SELFPAY ==
--- NOTE | 2022-05-10 13:13 | WPDPFTINT ---
PFT Procedure Performed PFT Procedure Performed Plethysmography (Lung Vol) Diffusing Cap (DLCO) Flow Vol Loop Spirometry w/o Bronchodil PFT Interpretation Lung volumes were measured with the body plethysmography method. The mildly diminished total lung capacity may indicate mild restrictive respiratory defect. Spirometry showed diminished expiratory flow rates and a diminished FEV1 to FVC ratio of 41%, consistent with superimposed obstructive airway disease. No post bronchodilator study was carried out. Lung diffusion capacity is severely reduced at 48% predicted. The flow volume loop is consistent with obstructive airway disease. In comparison to previous study in 05/2021, the FVC is now lower by approximately 1.1 L as is the FEV1 by approximately 0.7 L. Total lung capacity is also lower by approximately 1.5 L whereas the lung diffusion capacity is now greater at 48% predicted from a previous value of 26% predicted. Impression: Combined restrictive respiratory and obstructive airway disease. Severely reduced lung diffusion capacity. Worsening of airway obstruction since May of 2021.
== END 2022-05-09 13:51 | disposition home or self-care (01) ==
LOC: ANHPFT 13:52
PROVIDERS: PCP Internal Medicine; Visit Provider Internal Medicine
DX: R06.00 Dyspnea, unspecified (principal); R05.9 Cough, unspecified; J44.9 Chronic obstructive pulmonary disease, unspecified
CPT/HCPCS: 94375; 94726; 94729

== ENCOUNTER 2022-06-10 19:49 | Emergency (ER) | payer MEDICARE, MEDICAID, SELFPAY ==
[2022-06-10] VITALS (9 sets, daily range): BP systolic 147–159; BP diastolic 55–87; PULSE 79–87; RESP 13–36; TEMP 36.6; O2SAT 96–100
--- NOTE | ~2022-06-10 | CT_ITS ---
EXAMINATION: CT abdomen pelvis wo con DATE: 06/10/2022 21:14 INDICATION: Upper abdominal pain. TECHNIQUE: Computed tomography (CT) of the abdomen and pelvis was performed without intravenous contr ast. The dose-length product was 282.23 mGy-cm. Automated exposure control and iterative reconstructi on technique were employed. COMPARISON: CT dated 02/19/2022. FINDINGS: Small right pleural effusion with dependent atelectasis. There are small pericardial effusi on. Cardiomegaly. There is a hiatal hernia. There is atherosclerosis of the aorta. There are innumera ble cysts in both kidneys, consistent with adult polycystic kidney disease. There are gallstones. The liver, spleen, pancreas, adrenal glands are unremarkable. Nonobstructive bowel gas pattern. No ev idence for aortic aneurysm. No lymphadenopathy. IMPRESSION: 1. Small right pleural effusion with dependent atelectasis. 2: Small pericardial effusion. 3: Cholelithiasis. 4: APKD. Reviewed, dictated and finalized at location A.
[2022-06-10 20:32] LABS: Basophils Percent Auto 0.4 % (0.2-1.2); Eosinophils Absolute Auto 0.1 K/mm3 (0-0.3); Eosinophils Percent Auto 2.4 % (0-4.4); Hematocrit 31.2 % (42.0-52.0); Immature Granulocyte Absolute 0.02 K/mm3 (0.00-0.031); Immature Granulocyte Percent A 0.4 % (0-0.5); Lymphocytes Absolute Auto 0.91 K/mm3 (0.9-3.2); Lymphocytes Percent Auto 20.2 % (18.3-44.2); Mean Corpuscular HGB Conc 32.1 g/dl (32-36); Mean Corpuscular Hemoglobin 31.3 pg (26-34); Mean Corpuscular Volume 97.5 fl (80-100); Mean Platelet Volume 12.2 fl (7.4-10.4); Monocytes Absolute Auto 0.4 K/mm3 (0.1-0.6); Monocytes Percent Auto 7.8 % (2.6-8.5); Neutrophils Absolute Auto 3.1 K/mm3 (1.3-6.7); Neutrophils Percent Auto 68.8 % (45.5-73.1); Platelet Count Result 176 k/mm3 (150-375); Red Cell Distribution Width 14.6 % (11.5-14.5); White Blood Count 4.5 K/mm3 (4.5-10.0)
[2022-06-10 20:46] LABS: Alanine Aminotransferase 21 U/L (6-50); Albumin Level 3.6 g/dL (3.5-5.1); Alkaline Phosphatase 44 U/L (38-126); Anion Gap 7 mmol/L (8-16); Aspartate Amino Transferase 25 U/L (17-59); Bilirubin,Total 0.7 mg/dL (0.2-1.3); Blood Urea Nitrogen 25 mg/dL (9-20); Calcium 8.8 mg/dL (8.4-10.2); Carbon Dioxide 33 mmol/L (22-30); Chloride 93 mmol/L (98-107); Estimated CRCL calculation 12 ml/min; Estimated Glomerular Filt Rate 10; Glucose 103 mg/dL (65-110); Lipase 160 U/L (23-300); Potassium 3.6 mmol/L (3.4-5.0); Sodium 133 mmol/L (137-145)
--- NOTE | 2022-06-10 20:59 | PC.NURSE ---
Pt states makes very little urine anyway, states today is not a good day, I probably don't have any urine, especially because I had dialysis today .
[2022-06-10] MEDS: ONDANSETRON INJ 4 MG/2 ML VIAL IV PUSH (21:05)
--- NOTE | 2022-06-10 21:38 | ED.NAVMDI ---
HPI - Nausea/Vomiting/Diarrhea General Chief complaint: Nausea/Vomiting/Diarrhea Stated complaint: N/V Time Seen by Provider: 06/10/22 20:44 Source: patient History of Present Illness HPI Narrative: Patient is a hemodialysis patient tolerated his dialysis todayvery well. He presents with nausea vomiting abdominal pain. Ports nausea and vomiting started yesterday and has persisted today so he came to the ER for further evaluation. Today's also noted upper abdominal pain that stabbing, constant, no clear aggravating or alleviating factors does not radiate. Reports he does make a small amount of urine but feels like it is decreased since throwing up. Denies any diarrhea denies any fevers, cough, congestion. Denies any known sick contacts. Related Data Home Medications Medication Instructions Recorded Confirmed aspirin 81 mg tablet 81 mg PO DAILY 02/24/22 05/21/22 atorvastatin 40 mg tablet 40 mg PO DAILY 02/24/22 05/21/22 carvedilol 25 mg tablet 25 mg PO BID 02/24/22 05/21/22 ergocalciferol (vitamin D2) 50,000 unit PO WEEKLY 02/24/22 05/21/22 nifedipine 30 mg tablet,extended 30 mg PO DAILY 02/25/22 05/21/22 release sucralfate 100 mg/mL oral 10 ml PO DAILY 02/25/22 05/21/22 suspension calcium acetate(phosphat bind) 667 667 mg PO TID 03/24/22 05/21/22 mg capsule ondansetron HCl 4 mg tablet 4 mg PO Q8H 04/11/22 05/21/22 albuterol sulfate 90 mcg/actuation 2 puff inhalation Q4H PRN Wheezing 05/21/22 05/21/22 aerosol inhaler esomeprazole magnesium 40 mg mg 06/10/22 capsule,delayed release (Nexium) Allergies Allergy/AdvReac Type Severity Reaction Status Date / Time adhesive Allergy Mild BLISTERS Verified 06/10/22 19:56 clonidine AdvReac Unknown Vomiting Verified 06/10/22 19:56 hydralazine AdvReac Unknown Vomiting Verified 06/10/22 19:56 Review of Systems Review of Systems: CONSTITUTIONAL: Denies fever, chills, or sweats. EYES: Denies visual changes, redness, or discharge. ENT: Denies rhinorrhea, congestion, sore throat, or otalgia. CARDIOVASCULAR: Denies chest pain, palpitations, or edema. RESPIRATORY: Denies cough or dyspnea. GASTROINTESTINAL: Abdominal pain with nausea and vomiting GENITOURINARY: Denies dysuria or hematuria. SKIN: Denies rash or itching. MUSCULOSKELETAL: Denies back pain, joint pain, or myalgia. NEUROLOGIC: Denies headache, numbness, dizziness, or weakness. PSYCHIATRIC: Denies anxiety or depression. 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 GERD (gastroesophageal reflux disease) HTN (hypertension), benign Latent tuberculosis by blood test Myocardial infarction 2008 Osteonecrosis Tuberculosis Vein disorder Left vein reconstruction 07/2015 Surgical History Surgical History History of renal stent Family History Family History Mother No problems noted. Other Unknown family medical history Social History Social History Smoking packs per day: 0.5 Smoking cigarettes per day: 10.0 Years smoked: 20 Smoking pack-years: 10.00 Smoking status: Former smoker Tobacco type: cigarettes Additional smoking assessment comments: Not sure of amount of cigarettes he smoked. Alcohol intake: never Substance use: never Spiritual care concerns: No Exam Narrative: GENERAL: Well-appearing, well-nourished, and in no acute distress. HEAD: Normocephalic, atraumatic. EYES: PERRLA and EOMI. ENT: Nares clear, no rhinorrhea or epistaxis. Mucous membranes moist. NECK
[2022-06-10] MEDS: PROCHLORPERAZINE EDISYLATE 10 MG/2 ML VIAL IV PUSH (21:55)
--- NOTE | 2022-06-10 22:03 | PC.NURSE ---
Meds po and IV for continued nausea and c/o headache
--- NOTE | 2022-06-10 22:26 | PC.NURSE ---
Pt's pain and nausea decreased, states stomach just doesn't feel right . Will try popsicle po.
== END 2022-06-10 23:11 | disposition home or self-care (01) ==
PROVIDERS: Physician Assistant; Emergency Provider Emergency Medicine; PCP Internal Medicine
DX: R11.2 Nausea with vomiting, unspecified (principal); R10.10 Upper abdominal pain, unspecified; Z79.82 Long term (current) use of aspirin; I12.0 Hypertensive chronic kidney disease with stage 5 chronic kidney disease or end stage renal disease; N18.6 End stage renal disease; Z99.2 Dependence on renal dialysis; D64.9 Anemia, unspecified; I25.10 Atherosclerotic heart disease of native coronary artery without angina pectoris; J43.9 Emphysema, unspecified; K21.9 Gastro-esophageal reflux disease without esophagitis; I25.2 Old myocardial infarction; M87.9 Osteonecrosis, unspecified; Z87.891 Personal history of nicotine dependence; J90 Pleural effusion, not elsewhere classified; I31.3 Pericardial effusion (noninflammatory); Q61.2 Polycystic kidney, adult type
CPT/HCPCS: 36415; 74176; 80053; 83690; 85025; 96365; 96375; 99284; J0131; J0780; J2405

== ENCOUNTER 2022-06-27 08:43 | Outpatient (CLI) | payer MEDICARE, MEDICAID, SELFPAY ==
--- NOTE | ~2022-06-27 | NM_ITS ---
EXAM: NM gastric emptying study DATE: 06/27/2022 13:30 INDICATION: Postprandial abdominal pain and nausea TECHNIQUE: A gastric emptying study was performed using the methodology of Luann SIERRA, et al. J Nucl Med 2007; 48:568-572. The patient was given a meal consisting of 2 scrambled eggs labeled with 0.874 mCi Tc-99m sulfur colloid, 2 slices of toast, two packages of jam, and approximately 120 mL of water . Simultaneous anterior and posterior 1-min images of the abdomen were obtained with the patient supi ne at multiple time points over a total period of 4 hours. The geometric mean of anterior and posteri or views was determined, and the percentage retention was calculated for each time point. COMPARISON: None. FINDINGS: Gastric retention of the radiotracer-labeled meal was 77%, 53%, and 5% at the 1-hour, 2-hour, and 4-h our time points, respectively. With this technique, apparent rapid gastric emptying is suggested by < 30% gastric retention at 1 hour. Delayed gastric emptying is defined by gastric retention of >90% at 1 hour, >60% retention at 2 hours, or >10% retention at 4 hours. IMPRESSION: 1. Normal gastric emptying. Reviewed, dictated and finalized at location A. IMPRESSION: 1. Normal gastric emptying.
== END 2022-06-27 08:44 | disposition home or self-care (01) ==
PROVIDERS: PCP Internal Medicine; Visit Provider Internal Medicine
DX: R10.9 Unspecified abdominal pain (principal)
CPT/HCPCS: 78264; A9541

== ENCOUNTER 2022-07-25 12:28 | Outpatient (CLI) | payer MEDICARE, MEDICAID, SELFPAY ==
--- NOTE | 2022-07-25 16:33 | P.PCNPFT_ITS ---
PFT Procedure Performed PFT Procedure Performed Spirometry with Pre/Post Bronchodilator Flow Vol Loop PFT Interpretation This is a pulmonary function test with pre and post-bronchodilator spirometry. The test was performed and results interpreted in accordance with the 2019 and 2005 ATS/ERS Task Force guidelines respectively using the Global Lung Function Initiative-2012 reference equations. Patient demonstrated good effort and cooperation. Reproducibility criteria were met. The quality of the pre [facility] hodilator spirometry maneuver was Grade A and post bronchodilator spirometry maneuver was Grade A. Findings: Spirometry: There is decreased maximal expiratory airflow at all lung volumes with concave expiratory flow tracing. The contour the inspiratory flow tracing is normal. The pre bronchodilator FVC is 3.30 L, 68% predicted. The pre bronchodilator FEV1 is 1.67 L, 44% predicted. The pre bronchodilator FEV1: FVC ratio is 51%. The post bronchodilator FVC is 3.36 L, representing a 2% increase. The post bronchodilator FEV1 is 1.68 L, representing 1% increase. The post bronchodilator FEV1: FVC ratio is 50%. In comparison to prior pulmonary function test on 05/09/2022 in which only a pre bronchodilator spirometry was performed the pre bronchodilator FVC has increased from 2.25 L, to 3.30 L. The pre bronchodilator FEV1 has increased from 0.93 L to 1.67 L. Impression: There is a severe obstructive abnormality without significant improvement after inhaling a single dose of albuterol. in comparison to previous spirometry on 05/09/2022 there has been a greater than anticipated time dependent increase in the pre bronchodilator FVC and the pre bronchodilator FEV1. Clinical correlation is recommended.
== END 2022-07-25 12:29 | disposition home or self-care (01) ==
LOC: ANHPFT 12:36
PROVIDERS: PCP Internal Medicine; Visit Provider Internal Medicine
DX: R06.00 Dyspnea, unspecified (principal); R05.9 Cough, unspecified; R94.2 Abnormal results of pulmonary function studies
CPT/HCPCS: 94060

== ENCOUNTER 2022-08-08 10:53 | Outpatient (CLI) | payer MEDICARE, MEDICAID, SELFPAY ==
[2022-08-14 20:43] LABS: ANA Cascade Screen Positive (Negative)
[2022-08-14 22:22] LABS: Chromatin (Nucleosomal) Ab <1.0; RNP Antibody <1.0; Sm Antibody <1.0; Sm/RNP Antibody <1.0
[2022-08-14 23:28] LABS: Jo-1 Antibody <1.0; Sjogren's Antibody (SS-B) <1.0
== END 2022-08-08 10:54 | disposition home or self-care (01) ==
LOC: ANHLAB 10:53
PROVIDERS: PCP Internal Medicine; Visit Provider Internal Medicine Critical Care Medicine
DX: R05.3 Chronic cough (principal); M35.9 Systemic involvement of connective tissue, unspecified
CPT/HCPCS: 36415; 86038

== ENCOUNTER 2022-08-16 00:51 | Day surgery (SDC) | payer MEDICARE, MEDICAID, SELFPAY ==
[2022-08-14 12:28] VITALS: BMI 20.7
--- NOTE | 2022-08-16 | ECHO_ITS ---
Patient Info Name: Tejas Yost Age: 57 years : 1965 Gender: Male Ht: 75 in Wt: 165 lbs BSA: 1.98 m2 HR: 86 bpm Heart Rhythm: Sinus Rhythm Exam Date: 08/16/2022 12:52 PM Exam Location: [facility] Patient Status: Outpatient Admit Date: 08/16/2022 Staff Ordering Physician: Juan Adams MD Radio Mechanic: Elise Contreras RDCS Attending Provider: Juan Adams MD Referring Physician: Angie CORTES; Exam Type: CA echo transesophageal Study Info Indications I34.0 - Nonrheumatic mitral (valve) insufficiency I35.1 - Nonrheumatic aortic (valve) insufficiency Complete two-dimensional, color flow and Doppler transesophageal study is performed. Summary 1. Mild left ventricular hypertrophy with normal size and good contractility. 2. Moderate left atrial enlargement. 3. Mild to moderate mitral regurgitation. 4. Mild aortic valve regurgitation in a structurally normal appearing valve. 5. Mild tricuspid insufficiency. Left Ventricle Left ventricular chamber dimension is normal. Left ventricular systolic function is normal with an ejection fraction by Biplane Method of Discs of Empty. There is mild concentric increased left ventricular wall thickness. Right Ventricle Right ventricular chamber dimension is normal. Left Atria Left atrial chamber dimension is moderately enlarged. Right Atria Right atrial chamber dimension is normal. Aortic Valve The aortic valve is normal. There is mild aortic valve stenosis. Pulmonic Valve The pulmonic valve is normal. Mitral Valve The mitral valve has normal leaflets. There is mild to moderate mitral valve regurgitation. Tricuspid Valve The tricuspid valve leaflets are normal. There is mild tricuspid valve regurgitation. Pericardium/Pleural The pericardium appears normal. Inferior Vena Cava Not well visualized inferior vena cava with Empty collapse upon inspiration consistent with Empty right atrial pressure, Empty. Aorta The aortic root size at the sinus of Valsalva is normal. Report Signatures
[2022-08-16 11:25] VITALS: BP 151/66; PULSE 81; RESP 18; TEMP 36.8; O2SAT 99; BMI 20.6
--- NOTE | 2022-08-16 12:27 | WPDANESEPPF ---
Anes - Initial Pre Proc Eval Procedure: Operation Date: 08/16/22 14:00 Proposed Procedures p Trans Esophageal Echo - Juan Adams MD Date/Time: 08/16/22 12:27 Surgeon: Juan Adams MD Pre Op Diagnosis: aeoritic an mitral regurgitation Patient Data Age: 57 Gender: M Height: 1.91 m Weight: 75 kg Last Vital Signs Temp 36.8 C 08/16/22 11:25 Pulse 81 08/16/22 11:25 Resp 18 08/16/22 11:25 BP 151/66 H 08/16/22 11:25 Pulse Ox 99 08/16/22 11:25 O2 Del Method Room Air 08/16/22 11:25 Allergies Allergy/AdvReac Type Severity Reaction Status Date / Time adhesive Allergy Mild BLISTERS Verified 08/14/22 12:24 clonidine AdvReac Unknown Vomiting Verified 08/14/22 12:24 hydralazine AdvReac Unknown Vomiting Verified 08/14/22 12:24 Home Medications Medication Instructions Recorded Confirmed Type aspirin 81 mg tablet 81 mg PO DAILY 02/24/22 08/14/22 History carvedilol 25 mg tablet 25 mg PO BID 02/24/22 08/14/22 History ergocalciferol (vitamin D2) 50,000 unit PO WEEKLY 02/24/22 08/14/22 History nifedipine 30 mg tablet,extended 30 mg PO DAILY 02/25/22 08/14/22 History release calcium acetate(phosphat bind) 667 667 mg PO TID 03/24/22 08/14/22 History mg capsule losartan 25 mg tablet 25 mg PO DAILY #90 tabs 04/16/22 08/14/22 Rx losartan 50 mg tablet 50 mg PO DAILY #90 tabs 04/16/22 08/14/22 Rx esomeprazole magnesium 40 mg 40 mg PO BID 06/10/22 08/14/22 History capsule,delayed release (Nexium) atorvastatin 40 mg tablet 40 mg PO DAILY #90 tabs 07/12/22 08/14/22 Rx sucralfate 100 mg/mL oral 10 ml PO DAILY #1,000 mL 07/29/22 08/14/22 Rx suspension Patient hx anesthesia problems: none Family hx anesthesia problems: none Results Review: All pre-operative results and documents have been reviewed as part of the pre-operative evaluation. PMFSH Past Medical History Medical History (Updated 07/30/22 @ 11:33 by Ike Hand DO) Acute pulmonary edema Anemia Chronic cough Chronic kidney disease on chronic dialysis Chronic pain CKD (chronic kidney disease) Coronary artery disease Emphysema lung ESRD (end stage renal disease) 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 GERD (gastroesophageal reflux disease) HTN (hypertension), benign Latent tuberculosis by blood test Myocardial infarction 2008 Osteonecrosis Tuberculosis Vein disorder Left vein reconstruction 07/2015 Surgical History Surgical History History of renal stent Family History Family History Mother No problems noted. Other Unknown family medical history Social History Social History Smoking packs per day: 0.5 Smoking cigarettes per day: 10.0 Years smoked: 20 Smoking pack-years: 10.00 Smoking status: Former smoker Tobacco type: cigarettes Additional smoking assessment comments: Not sure of amount of cigarettes he smoked. Alcohol intake: never Substance use: never Living arrangements: with family Additional living arrangements comments: Aunt and Uncle Spiritual care concerns: No Anes - Eval Final PreProcedure Day of Procedure 08/16/22 12:27 Patient weight: normal Heart: regular rate and rhythm Lungs: clear to auscultation and normal air movement Airway: Mallampati scale class II Neurological: alert and oriented Last oral intake: >/= 8 hours ASA classification: IV Emergent: no Anesthetic plan: proceed Anesthesia type and monitoring: general GIVS and standard monitoring Results Review: All pre-operative results and documents have been reviewed as part of the pre-operative evaluation. Informed Consent: The patient's anesthetic plan and its attendant risks and benefits were discussed with the patient/family/POA. Questions were solicited and answers provided to the satisfaction of the patient/family/P
[2022-08-16 13:25] VITALS: BP 156/83; PULSE 81; RESP 16; O2SAT 100
[2022-08-16 13:40] VITALS: BP 160/77; PULSE 81; RESP 16; O2SAT 97
[2022-08-16 13:53] VITALS: BP 156/73; PULSE 80; RESP 16; O2SAT 97
[2022-08-16 14:15] VITALS: BP 147/68; PULSE 84; RESP 18; O2SAT 99
[2022-08-16] MEDS: ACETAMINOPHEN 325 MG TABLET 650 MG PO (14:17)
[2022-08-16 14:30] VITALS: BP 153/63; PULSE 81; RESP 18; O2SAT 97
== END 2022-08-16 15:07 | disposition home or self-care (01) ==
PROVIDERS: PCP Internal Medicine; Visit Provider Specialist
PROC: (CPT 93312; principal; 2022-08-16 14:00)
DX: I34.0 Nonrheumatic mitral (valve) insufficiency (principal); I35.1 Nonrheumatic aortic (valve) insufficiency; Z79.82 Long term (current) use of aspirin; D64.9 Anemia, unspecified; K21.9 Gastro-esophageal reflux disease without esophagitis; M87.9 Osteonecrosis, unspecified; I25.2 Old myocardial infarction; I12.0 Hypertensive chronic kidney disease with stage 5 chronic kidney disease or end stage renal disease; N18.6 End stage renal disease; Z99.2 Dependence on renal dialysis; J43.9 Emphysema, unspecified; Z87.891 Personal history of nicotine dependence; Z95.5 Presence of coronary angioplasty implant and graft
CPT/HCPCS: 93312; 93320; 93325; A9270; J2704; J7040

== ENCOUNTER 2022-10-10 18:29 | Inpatient (IN) | payer MEDICARE, MEDICAID, SELFPAY ==
--- NOTE | ~2022-10-10 | XR_ITS ---
EXAMINATION: XR chest 2V DATE: 10/10/2022 19:02 INDICATION: Cough. Epigastric abdominal pain. TECHNIQUE: Frontal and lateral views of the chest were obtained. COMPARISON: Chest single view 03/24/2022, CT abdomen and pelvis 06/10/2022, chest CT 02/25/22 FINDINGS: Barry B-lines are noted, consistent mild pulmonary edema. There are small pleural effusion s. No pneumothorax. There is enlargement of the cardiac silhouette. IMPRESSION: 1. Mild pulmonary edema. 2. Small pleural effusions. 3. Enlargement of the cardiac silhouette, likely a combination of cardiomegaly and pericardial locati on as seen on the prior CT. Reviewed, dictated and finalized at location A. OR CHIROPRACTIC IMPRESSION: 1. Mild pulmonary edema. 2. Small pleural effusions. 3. Enlargement of the cardiac silhouette, likely a combination of cardiomegaly and pericardial location as seen on the prior CT.
[2022-10-10 18:23] VITALS: PULSE 78
[2022-10-10 18:42] VITALS: BP 150/69; PULSE 82; RESP 14; TEMP 36.9; O2SAT 94
--- NOTE | 2022-10-10 18:44 | ECG_ITS ---
Measurements Intervals [place] Rate: 79 P: 81 MO: 146 QRS: 74 QRSD: 95 T: 87 QT: 382 QTc: 440 Interpretive Statements SINUS RHYTHM ATRIAL AND VENTRICULAR PREMATURE COMPLEXES LEFT VENTRICULAR HYPERTROPHY ST-T CHANGES NONSPECIFIC T-WAVE ABNORMALITY- HIGH LATERAL LEADS BORDERLINE ECG COMPARED TO ECG 03/24/2022 02:27:32 T-WAVE ABNORMALITY NOW PRESENT Electronically Signed On 10-11-2022 8:07:42 ACCREDITATION COORDINATOR by Ford Fletcher D.O.
[2022-10-10] MEDS: ONDANSETRON INJ 4 MG/2 ML VIAL IV PUSH (19:19)
--- NOTE | 2022-10-10 19:27 | ED.CHESTPAIN ---
HPI - Chest Pain General Chief Complaint: Chest Pain Stated Complaint: epigastric pain and burning; N/V Time Seen by Provider: 10/10/22 18:30 History of Present Illness HPI narrative: Patient is a 57-year-old male who presents ER with epigastric discomfort. Reports has been ongoing since 4 PM. Its worse when he coughs and takes deep breath. Moving into his central chest. Reports he has a chronic cough for years. Cough is nonproductive. No fevers or chills or sweats. Patient is a dialysis patient who dialyzes on Friday and Friday. Dr. Juarez is his sales receptionist. Patient has not missed any appointments. He does report no edema in his legs is not typically there. Patient does have a cardiac stent and follows with Dr. Adams. Related Data Home Medications Medication Instructions Recorded Confirmed aspirin 81 mg tablet 81 mg PO DAILY 02/24/22 10/08/22 carvedilol 25 mg tablet 25 mg PO BID 02/24/22 10/08/22 ergocalciferol (vitamin D2) 50,000 unit PO WEEKLY 02/24/22 10/08/22 nifedipine 30 mg tablet,extended 30 mg PO DAILY 02/25/22 10/08/22 release calcium acetate(phosphat bind) 667 667 mg PO TID 03/24/22 10/08/22 mg capsule tiotropium 2.5 mcg-olodaterol 2.5 2 puff inhalation DAILY 10/08/22 10/08/22 mcg/actuation mist for inhalation (Stiolto Respimat) Allergies Allergy/AdvReac Type Severity Reaction Status Date / Time adhesive Allergy Mild BLISTERS Verified 10/08/22 08:57 clonidine AdvReac Unknown Vomiting Verified 10/08/22 08:57 hydralazine AdvReac Unknown Vomiting Verified 10/08/22 08:57 Review of Systems Review of Systems: All systems reviewed & are unremarkable except as noted in HPI and below Constitutional: Constitutional: Denies chills, Denies fatigue and Denies fever(s) ENT: Denies nasal congestion and Denies sore throat Cardiovascular: Cardiovascular: Reports chest pain, Denies rapid heart rate and Denies radiating jaw, neck or arm pain Respiratory: Respiratory: Reports cough, Reports dyspnea and Denies wheezing Gastrointestinal: Gastrointestinal: Reports abdominal pain, Reports heartburn, Denies nausea and Denies vomiting PMFSH Past Medical History Medical History (Updated 10/10/22 @ 21:24 by Santos Xiong MD) Acute pulmonary edema Anemia Chronic cough Chronic kidney disease on chronic dialysis Chronic pain CKD (chronic kidney disease) Coronary artery disease Emphysema lung ESRD (end stage renal disease) 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 GERD (gastroesophageal reflux disease) HTN (hypertension), benign Latent tuberculosis by blood test Malnutrition of mild degree Myocardial infarction 2008 Osteonecrosis Tuberculosis Vein disorder Left vein reconstruction 07/2015 Surgical History Surgical History History of renal stent Family History Family History Mother No problems noted. Other Unknown family medical history Social History Social History Smoking packs per day: 0.5 Smoking cigarettes per day: 10.0 Years smoked: 20 Smoking pack-years: 10.00 Smoking status: Former smoker Tobacco type: cigarettes Additional smoking assessment comments: Not sure of amount of cigarettes he smoked. Alcohol intake: never Substance use: never Additional living arrangements comments: Aunt and Uncle Spiritual care concerns: No Exam Narrative: GENERAL: Well-appearing, well-nourished, and in no acute distress. HEAD: Normocephalic, atraumatic. EYES: PERRL and EOMI. ENT: Mucous membranes moist. CHEST: Faint basilar crackles. No respiratory distress. HEART: Regular rate and rhythm. Normal peripheral pulses. ABDOMEN: Soft, nontender, nondistended. EXTREMITIES: Normal range of motion. 1+ edema. SKIN: Warm, dry, no rash. NEURO: Alert and oriented x3. PSYCH: Normal mood and a
[2022-10-10 19:44] LABS: Basophils Percent Auto 0.4 % (0.2-1.2); Eosinophils Absolute Auto 0.1 K/mm3 (0-0.3); Hematocrit 34.7 % (42.0-52.0); Hemoglobin 10.9 g/dL (14.0-18.0); Immature Granulocyte Absolute 0.01 K/mm3 (0.00-0.031); Immature Granulocyte Percent A 0.2 % (0-0.5); Lymphocytes Absolute Auto 1.01 K/mm3 (0.9-3.2); Lymphocytes Percent Auto 19.3 % (18.3-44.2); Mean Corpuscular HGB Conc 31.4 g/dl (32-36); Mean Corpuscular Hemoglobin 31.4 pg (26-34); Mean Platelet Volume 12.9 fl (7.4-10.4); Monocytes Absolute Auto 0.4 K/mm3 (0.1-0.6); Monocytes Percent Auto 6.9 % (2.6-8.5); Neutrophils Absolute Auto 3.8 K/mm3 (1.3-6.7); Neutrophils Percent Auto 72.2 % (45.5-73.1); Platelet Count Result 125 k/mm3 (150-375); Red Blood Count 3.47 M/mm3 (4.6-6.20); Red Cell Distribution Width 14.5 % (11.5-14.5); White Blood Count 5.2 K/mm3 (4.5-10.0)
[2022-10-10 19:53] LABS: INR 1.2; Prothrombin Time 14.7 Seconds (11.1-14.7)
[2022-10-10 19:54] LABS: Alanine Aminotransferase 22 U/L (6-50); Albumin Level 3.4 g/dL (3.5-5.1); Alkaline Phosphatase 58 U/L (38-126); Anion Gap 15 mmol/L (8-16); Aspartate Amino Transferase 29 U/L (17-59); Bilirubin,Total 0.5 mg/dL (0.2-1.3); Blood Urea Nitrogen 37 mg/dL (9-20); Calcium 9.7 mg/dL (8.4-10.2); Carbon Dioxide 34 mmol/L (22-30); Chloride 89 mmol/L (98-107); Estimated CRCL calculation 10 ml/min; Estimated Glomerular Filt Rate 8; Glucose 98 mg/dL (65-110); Lipase 119 U/L (23-300); Partial Thromboplastin Time 37.1 SECONDS (22.3-36.8); Potassium 3.3 mmol/L (3.4-5.0); Sodium 138 mmol/L (137-145)
[2022-10-10 20:11] LABS: Troponin I 0.101 ng/mL (0.000-0.034)
[2022-10-10] MEDS: FUROSEMIDE INJ 40 MG/4 ML VIAL IV PUSH (21:18)
[2022-10-10] MEDS: MORPHINE SULFATE (*CRX) 4 MG/ML INJ IV PUSH (21:18)
[2022-10-10 21:20] VITALS: BP 142/66; PULSE 74; RESP 14; O2SAT 95
[2022-10-10 21:47] LABS: SARS-CoV-2 RNA PCR Negative
--- NOTE | 2022-10-10 22:40 | PC.NURSE ---
This patient, Tejas Yost, was admitted to IMU Room 232-01. Patient/family oriented to hospital policies and general routines including ID bracelet, bed and alarms, visiting hours, pain management, procedures, bathroom and other care routines, personal items, smoking policy, room service/diet, and visiting hours. Information on how to activate the Rapid Response Team has been discussed. Patient/Family are encouraged to report perceived risks to care and to ask questions if they do not understand what they are told or what they should do.
[2022-10-10 22:45] VITALS: BMI 21.7
[2022-10-10 22:52] VITALS: BP 166/64; PULSE 77; RESP 17; TEMP 36.6; O2SAT 100
[2022-10-11] VITALS (34 sets, daily range): BP systolic 106–185; BP diastolic 46–92; PULSE 61–400; RESP 16–20; TEMP 36–37; O2SAT 97–100; BMI 21.5
--- NOTE | 2022-10-11 00:15 | PM.IMHP ---
H&P: HPI History of Present Illness Date/Time: 10/10/22 243 Chief Complaint: Chest pain Narrative: this is a 57-year-old male patient who has a history of severe GERD. He has a chronic cough. He has end-stage renal disease with dialysis on Friday. The patient came in with epigastric discomfort that has been ongoing since 4:00 p.m.. His chest pain is worse when he coughs and takes deep breaths. Patient is having pain to his central chest. He has had no fever chills. The patient has dialysis on Friday and Friday and sees Dr. Juarez for his treatments. The patient stated he has not missed any dialysis or any appointments with Dr. Juarez. The patient stated he does not have any edema to his legs but the left leg is slightly larger than the right. He has a history of having cardiac stents that were placed at [facility]. His H&H is 10.9 and 34.7. This is his baseline. Platelets are 125. Potassium was slightly low at 3.3. BUN 37 creatinine 8.2. He had a slight bump in his troponin 0.101. After reviewing his chart it looks like the patient is chronically elevated and this is his baseline. Patient is negative for COVID chest x-ray was read as mild pulmonary edema. Small pleural effusions. Enlargement of cardiac silhouette, likely a combination of cardiomegaly and pericardial location is seen on the prior CT. The patient was given Zofran, GI cocktail, IV Lasix, and morphine in the emergency room. The patient is being admitted to observation status on 10/10/2022. Review of Systems Review of Systems: see HPI All systems reviewed & are unremarkable except as noted in HPI and below Constitutional: Constitutional: Reports as per HPI and Reports no additional constitutional complaints Eyes: Eyes: Reports as per HPI and Reports no additional eye complaints ENT: Reports system reviewed and no additional complaints, except as documented and Reports Normal hearing present Cardiovascular: Cardiovascular: Reports no additional cardiovascular complaints Respiratory: Respiratory: Reports no additional respiratory complaints and Reports no additional respiratory complaints Gastrointestinal: Gastrointestinal: Reports as per HPI and Reports no additional gastrointestinal complaints Musculoskeletal: Musculoskeletal: Reports no additional musculoskeletal complaints Integumentary/Breasts: Skin/Breast: Reports system reviewed and no additional complaints, except as docu and Reports as per HPI Neurologic: Reports system reviewed and no additional complaints, except as documented, Reports as per HPI and Reports Normal hearing present Psychiatric: Psychiatric: Reports no additional psychiatric complaints and Reports as per HPI Endocrine: Endocrine: Reports no additional endocrine complaints Hematologic/Lymphatic: Hematologic/Lymphatic: Reports no additional hematologic/lymphatic complaints Allergic/Immunologic: Allergic/Immunologic: Reports no additional allergic/immunologic complaints [facility] Past Medical History Medical History (Updated 10/11/22 @ 00:32 by Amanda Morejon NP) Acute pulmonary edema Anemia AV fistula Chronic cough Chronic kidney disease on chronic dialysis Chronic pain CKD (chronic kidney disease) Coronary artery disease Emphysema lung Emphysema lung Encounter for peritoneal dialysis catheter insertion ESRD (end stage renal disease) ESRD (end stage renal disease) 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 GERD (gastroesophageal reflux disease) HTN (hypertension), benign Hypertension Hypertension Latent tuberculosis by blood test Malnutrition of mild degree Myocardial infarction 2008 Osteonecrosis Tuberculosis Vein disorder Left vein reconstruction 07/2015 Surgical History Surgical History (Updated 10/11/22 @ 00:26 by Amanda Morejon NP) H/O abdominal surgery removal of peritoneal dialysis catheter. H/O removal of cyst left wrist History of tracheostomy Family Hi
[2022-10-11] MEDS: carvediloL 25 MG TABLET PO ×2 (00:26→08:21)
[2022-10-11] MEDS: ATORVASTATIN 40 MG TABLET PO (00:27)
[2022-10-11] MEDS: POTASSIUM CHLORIDE 20 MEQ TABLET PO (01:00)
[2022-10-11 01:42] LABS: Troponin I 0.105 ng/mL (0.000-0.034)
[2022-10-11 04:55] LABS: Basophils Percent Auto 0.6 % (0.2-1.2); Eosinophils Absolute Auto 0.1 K/mm3 (0-0.3); Eosinophils Percent Auto 1.5 % (0-4.4); Hematocrit 34.2 % (42.0-52.0); Immature Granulocyte Absolute 0.02 K/mm3 (0.00-0.031); Immature Granulocyte Percent A 0.4 % (0-0.5); Lymphocytes Absolute Auto 0.96 K/mm3 (0.9-3.2); Lymphocytes Percent Auto 20.2 % (18.3-44.2); Mean Corpuscular HGB Conc 32.2 g/dl (32-36); Mean Corpuscular Hemoglobin 32.3 pg (26-34); Mean Corpuscular Volume 100.3 fl (80-100); Mean Platelet Volume 11.5 fl (7.4-10.4); Monocytes Absolute Auto 0.4 K/mm3 (0.1-0.6); Monocytes Percent Auto 8.2 % (2.6-8.5); Neutrophils Absolute Auto 3.3 K/mm3 (1.3-6.7); Neutrophils Percent Auto 69.1 % (45.5-73.1); Platelet Count Result 111 k/mm3 (150-375); Red Blood Count 3.41 M/mm3 (4.6-6.20); Red Cell Distribution Width 14.7 % (11.5-14.5); White Blood Count 4.8 K/mm3 (4.5-10.0)
[2022-10-11 05:12] LABS: Alanine Aminotransferase 22 U/L (6-50); Albumin Level 3.4 g/dL (3.5-5.1); Alkaline Phosphatase 60 U/L (38-126); Anion Gap 11 mmol/L (8-16); Aspartate Amino Transferase 29 U/L (17-59); Bilirubin,Total 0.5 mg/dL (0.2-1.3); Blood Urea Nitrogen 42 mg/dL (9-20); Calcium 9.6 mg/dL (8.4-10.2); Carbon Dioxide 35 mmol/L (22-30); Chloride 91 mmol/L (98-107); Estimated CRCL calculation 10 ml/min; Estimated Glomerular Filt Rate 8; Glucose 110 mg/dL (65-110); Magnesium 2.1 mg/dL (1.6-2.3); Potassium 3.6 mmol/L (3.4-5.0); Sodium 137 mmol/L (137-145)
[2022-10-11 05:51] LABS: Hepatitis B Surface Antigen Negative (Negative)
[2022-10-11 06:17] LABS: Hepatitis B Surface Anti Res Positive
[2022-10-11] MEDS: SUCRALFATE SUSP 100 MG/ML 10 ML UDC 1000 MG PO (06:44)
--- NOTE | 2022-10-11 07:05 | PCRCNOTE ---
patient refused use of hospital unit
[2022-10-11] MEDS: LOSARTAN POTASSIUM 25 MG TABLET PO (08:20)
[2022-10-11] MEDS: CALCIUM ACETATE 667 MG TABLET PO (08:20)
[2022-10-11] MEDS: LOSARTAN POTASSIUM 50 MG TABLET PO (08:21)
[2022-10-11] MEDS: NIFEdipine 30 MG TAB.ER.24 PO (08:22)
[2022-10-11] MEDS: PANTOPRAZOLE 40 MG TABLET PO (08:22)
[2022-10-11] MEDS: ASPIRIN 81 MG ENTERIC TABLET PO (08:22)
[2022-10-11] MEDS: ONDANSETRON INJ 4 MG/2 ML VIAL IV PUSH (08:26)
[2022-10-11] MEDS: FLUTICASONE/UMECLIDIN/VILANTER 100-62.5-25 MCG ELLIPTA 1 PUFF INHALATION (09:11)
--- NOTE | 2022-10-11 13:07 | PM.CNNEP ---
Assessment and Plan Assessment and plan (1) End stage renal disease: Code(s): N18.6 - End stage renal disease Status: Chronic Assessment and Plan: HD today and continue M/W/F dialysis schedule push fluid removal as tolerated byh hemodynamics given admission CXR findings follow electrolytes, volume status, and clearance (2) Chest pain: Qualifiers: Chest pain type: unspecified Qualified Code(s): R07.9 - Chest pain, unspecified Code(s): R07.9 - Chest pain, unspecified Status: Acute Assessment and Plan: chronically elevated troponis a manifestation of mild fluid overload? GI symptoms causing this issue? follow symptoms (3) Hypertension: Code(s): I10 - Essential (primary) hypertension Status: Inactive Assessment and Plan: reasonable control at this time continue home medications follow trend of hemodynamics (4) Anemia: Qualifiers: Anemia type: unspecified type Qualified Code(s): D64.9 - Anemia, unspecified Code(s): D64.9 - Anemia, unspecified Status: Chronic Assessment and Plan: due to ESRD at goal Epogen with HD follow trend of H/H (5) Nausea & vomiting: Code(s): R11.2 - Nausea with vomiting, unspecified Status: Chronic Assessment and Plan: chronic and persistent issues conservative does not appear to be helping evaluated in the past but still an ongoing issue is this causing/precipitating his chest pain(?) Gastroenterology consult Will continue to follow. History of Present Illness Reason for Consult Consult date: 10/11/22 Reason for consult: end stage renal disease Chief Complaint Chief complaint: ESRD with volume overload History of Present Illness Narrative: The patient is a 57-year-old male with a past medical history as outlined below who presented to [facility] Emergency room for further evaluation of chest pain. The patient reports symptoms of chest pain since 4:00 p.m. yesterday afternoon. The pain is worse when he coughs and takes deep breaths and appears to be localized to his central chest but more so in the epigastric area. He reports no fevers or chills and compliance with his dialysis treatments as well. Associated symptoms include persistent nausea and vomiting with at least 3 or 4 episodes yesterday afternoon as well. It is difficult to assess if the nausea and vomiting precipitated chest pain versus are they two separate issues. as he was not feeling very well with these symptoms in general, he presented to the ER for further evaluation. Workup and evaluation emergency room demonstrated the patient to be hemodynamically stable. Routine blood test demonstrated labs consistent with his known history of end-stage renal disease although his potassium was somewhat on the lower side of normal and his hemoglobin and hematocrit were at his baseline. His initial troponin was mildly elevated but on further review of his previous testing, it seems to be somewhat chronically elevated and also at his baseline. COVID-19 testing was negative but his chest x-ray did revealed mild pulmonary edema with small pleural effusions and enlargement of the cardiac silhouette likely a combination of cardiomegaly and pericardial okay encarnacion as seen on previous imaging. He was given Zofran, GI cocktail, IV Lasix, and morphine in the emergency room and subsequently admitted to the hospital for further intervention. At the time of my visit, the patient seems to be doing reasonably well and is currently receiving dialysis (he was seen on dialysis at approximately 12:50 p.m.). He denies any chest pain at this time but continues to have issues with ongoing nausea and vomiting with the epigastric discomfort in the center of his chest. Renal consultation was requested due to his end-stage renal disease. The patient is quite familiar to me as I take care of his outpati
--- NOTE | 2022-10-11 15:39 | PM.IMPN ---
Progress Note: A&P Assessment and Plan (1) Chest pain: Qualifiers: Chest pain type: unspecified Qualified Code(s): R07.9 - Chest pain, unspecified Code(s): R07.9 - Chest pain, unspecified Status: Acute Assessment and Plan: Patient has hx of CAD with 1 stent placed. Patient presents with chest pain that began lst night but appears to be chronic and related to reflux. Recent stress test showing no reversible findings. Trop elevated at 0.10 but flat and lower than in the past (he has chronically elevated troponin). EKG showing no NSR and nonspecific high lateral T wave changes (which is new). CXR showing fluid overload. COVID negative. [place] chest pain related to fluid overload and/or reflux. Continue ASA, lipitor and Coreg. (2) Acute exacerbation of CHF (congestive heart failure): Code(s): I50.9 - Heart failure, unspecified Status: Acute Assessment and Plan: Echo on 07/18/2022 with EF 45% and moderate mitral valve regurgitation. Lasix given in ED but he only makes a small amount of urine. CXR showing pulmonary edema. He had HD today and toelrated this well. Continue HD to control fluid status. (3) Hypertension: Code(s): I10 - Essential (primary) hypertension Status: Inactive Assessment and Plan: Patient's blood pressure was reviewed on 10/11 Blood pressure remains well controlled. Will continue current medications. (4) ESRD on hemodialysis: Code(s): N18.6 - End stage renal disease; Z99.2 - Dependence on renal dialysis Status: Acute Assessment and Plan: HD on Friday. He follows with Dr. Juarez who is following here. Monitor electrolytes. Continue PhosLo. Contineu HD per nephrology recommendation. (5) REFUGIO (obstructive sleep apnea): Code(s): G47.33 - Obstructive sleep apnea (adult) (pediatric) Status: Acute Assessment and Plan: Stable. Continue with home settings auto titrate. (6) GERD (gastroesophageal reflux disease): Code(s): K21.9 - Gastro-esophageal reflux disease without esophagitis Status: Acute Assessment and Plan: The patient has chronic nausea and vomiting. He was given a GI cocktail in ED but was unable to keep it down. Continue Carafate and pantoprazole. Zofran available prn. Continue to hold Reglan. GI consult Subjective Date/time seen: 10/11/22 15:39 Interval history: 57yo male with ESRD here for chest pain He had HD earlier today and tolerated it well. His chest pain began last night made worse with swallowing. He also has chronic n/v 2-3x/day intermittently that is long standing. He also states the chest pain is worse with coughing. Recent stress test in March 2022 showed no reversible findings. Patient goes to complain of chronic epigasric pain and acid reflux symptoms requiring frequent hospitalizations. He does not follow regularly with GI. He has had multiple EGDs in the past with last one a few months ago. Exam Narrative: AF 97.8 128/64 65 16 97% ra Gen - NARD Chest - CTA bilaterally, nml RR CV - RRR S1/S2. Tele showing PVCs Abd - Soft, NT/ND, Positive BS Ext - trace pedal edema. negative Homans. thrill and bruit left UE Psych - unhappy and angry at times Skin - Warm and dry Objective Data Vital Signs Vital Signs: Vital Signs - 24 hr 10/10/22 18:42 10/10/22 18:23 10/10/22 21:20 Temperature 98.4 F Pulse Rate 82 78 74 Respiratory Rate 14 14 Blood Pressure 150/69 H 142/66 H Pulse Oximetry 94 95 Oxygen Delivery Room Air 10/10/22 22:52 10/11/22 00:08 10/11/22 00:26 Temperature 97.8 F 98.5 F Pulse Rate 77 81 75 Respiratory Rate 17 20 Blood Pressure 166/64 H 175/75 H Pulse Oximetry 100 100 Oxygen Delivery 10/11/22 00:00 10/11/22 00:00 10/11/22 02:00 Temperature Pulse Rate 83 74 Respiratory Rate Blood Pressure Pulse Oximetry Oxygen Delivery Room Air 10/11/22 04:00 10/11/22 0
[2022-10-12] VITALS (10 sets, daily range): BP systolic 108–170; BP diastolic 49–81; PULSE 13–95; RESP 14–16; TEMP 36.2–36.9; O2SAT 96–100
[2022-10-12 04:33] LABS: Basophils Percent Auto 0.5 % (0.2-1.2); Eosinophils Absolute Auto 0.1 K/mm3 (0-0.3); Eosinophils Percent Auto 1.9 % (0-4.4); Hematocrit 33.3 % (42.0-52.0); Hemoglobin 10.4 g/dL (14.0-18.0); Immature Granulocyte Absolute 0.01 K/mm3 (0.00-0.031); Immature Granulocyte Percent A 0.3 % (0-0.5); Lymphocytes Absolute Auto 0.86 K/mm3 (0.9-3.2); Lymphocytes Percent Auto 23.6 % (18.3-44.2); Mean Corpuscular HGB Conc 31.2 g/dl (32-36); Mean Corpuscular Hemoglobin 31.6 pg (26-34); Mean Corpuscular Volume 101.2 fl (80-100); Mean Platelet Volume 12.1 fl (7.4-10.4); Monocytes Absolute Auto 0.3 K/mm3 (0.1-0.6); Monocytes Percent Auto 9.3 % (2.6-8.5); Neutrophils Absolute Auto 2.3 K/mm3 (1.3-6.7); Neutrophils Percent Auto 64.4 % (45.5-73.1); Platelet Count Result 122 k/mm3 (150-375); Red Blood Count 3.29 M/mm3 (4.6-6.20); Red Cell Distribution Width 14.6 % (11.5-14.5); White Blood Count 3.6 K/mm3 (4.5-10.0)
[2022-10-12 05:10] LABS: Albumin Level 3.3 g/dL (3.5-5.1); Anion Gap 13 mmol/L (8-16); Blood Urea Nitrogen 25 mg/dL (9-20); Calcium 9.1 mg/dL (8.4-10.2); Carbon Dioxide 32 mmol/L (22-30); Chloride 96 mmol/L (98-107); Estimated CRCL calculation 14 ml/min; Estimated Glomerular Filt Rate 11; Glucose 83 mg/dL (65-110); Phosphorus 3.8 mg/dL (2.5-4.5); Potassium 3.7 mmol/L (3.4-5.0); Sodium 141 mmol/L (137-145)
[2022-10-12] MEDS: SUCRALFATE SUSP 100 MG/ML 10 ML UDC 1000 MG PO (06:53)
[2022-10-12] MEDS: CALCIUM ACETATE 667 MG TABLET PO ×3 (08:26→17:05)
[2022-10-12] MEDS: LOSARTAN POTASSIUM 25 MG TABLET PO (08:26)
[2022-10-12] MEDS: ASPIRIN 81 MG ENTERIC TABLET PO (08:26)
[2022-10-12] MEDS: NIFEdipine 30 MG TAB.ER.24 PO (08:26)
[2022-10-12] MEDS: PANTOPRAZOLE 40 MG TABLET PO ×2 (08:26→17:05)
[2022-10-12] MEDS: LOSARTAN POTASSIUM 50 MG TABLET PO (08:27)
[2022-10-12] MEDS: carvediloL 25 MG TABLET PO (08:28)
[2022-10-12] MEDS: FLUTICASONE/UMECLIDIN/VILANTER 100-62.5-25 MCG ELLIPTA 1 PUFF INHALATION (09:04)
--- NOTE | 2022-10-12 12:14 | PM.PNNEP ---
Progress Note: A&P Assessment and Plan (1) End stage renal disease: Code(s): N18.6 - End stage renal disease Status: Chronic Assessment and Plan: HD yesterday and continue M/W/ dialysis schedule follow electrolytes, volume status, and clearance (2) Chest pain: Qualifiers: Chest pain type: unspecified Qualified Code(s): R07.9 - Chest pain, unspecified Code(s): R07.9 - Chest pain, unspecified Status: Acute Assessment and Plan: chronically elevated troponis a manifestation of mild fluid overload? GI symptoms causing this issue? follow symptoms (3) Hypertension: Code(s): I10 - Essential (primary) hypertension Status: Inactive Assessment and Plan: reasonable control at this time continue home medications follow trend of hemodynamics (4) Anemia: Qualifiers: Anemia type: unspecified type Qualified Code(s): D64.9 - Anemia, unspecified Code(s): D64.9 - Anemia, unspecified Status: Chronic Assessment and Plan: due to ESRD at goal Epogen with HD follow trend of H/H (5) Nausea & vomiting: Code(s): R11.2 - Nausea with vomiting, unspecified Status: Chronic Assessment and Plan: chronic and persistent issue conservative therapy does not appear to be helping evaluated in the past but still an ongoing issue is this causing/precipitating his chest pain(?) Gastroenterology consult pending Will continue to follow. Subjective Date/time seen: 10/12/22 12:14 Tolerated dialysis yesterday without any issues or problems; still has ongoing issues with vomiting although eating lunch with no concerns; no other events overnight or earlier this AM. Exam Narrative: General: WD/WN AA male in NAD Heart: normal S1 and S2; no rub Lungs: clear to auscultation Abdomen: soft, nontender, nondistended, positive bowel sounds Extremities: no cyanosis or clubbing; no edema Skin: warm and dry Objective Data Vital Signs Vital Signs: Vital Signs Temp Pulse Resp BP Pulse Ox O2 Del Method 10/12/22 12:00 77 10/12/22 12:00 70 16 100 Room Air 10/12/22 12:00 36.4 C 70 16 108/49 L 100 10/12/22 10:00 82 10/12/22 08:00 83 10/12/22 08:00 95 14 100 Room Air 10/12/22 08:28 95 10/12/22 08:00 36.6 C 81 14 155/65 H 100 10/12/22 06:00 74 10/12/22 04:00 74 10/12/22 04:00 36.2 C L 80 16 153/81 H 96 10/12/22 02:00 76 10/11/22 22:00 80 10/11/22 20:00 79 10/12/22 00:00 82 10/12/22 04:00 Room Air 10/12/22 00:00 36.2 C L 81 16 170/70 H 97 10/11/22 22:17 76 10/11/22 20:00 36.9 C 80 16 155/56 H 98 10/11/22 18:00 79 10/11/22 16:00 72 10/11/22 16:00 36.6 C 72 20 131/46 L 100 Intake/Output Intake/Output: Intake & Output 10/09/22 10/10/22 10/11/22 10/12/22 23:59 23:59 23:59 23:59 Intake Total 1290 880 Output Total 3000 200 Balance -1710 680 Meds/Results Medications: Active Medications Generic Name Dose Route Start Last Admin Trade Name Freq PRN Reason Stop Dose Admin Acetaminophen 650 mg 10/10/22 21:20 Acetaminophen 325 Mg Tablet PO Q4H PRN Mild Pain (1-3) or Fever Albuterol 2 puff 10/11/22 00:14 Albuterol Sulfate (*Sp) Aerosol 1 Puff INHALATION Q4-6H PRN shortness of breath or wheezing Amitriptyline HCl 25 mg 10/12/22 18:00 Amitriptyline Hcl 25 Mg Tablet PO QPM POWER Aspirin 81 mg 10/11/22 09:00 10/12/22 08:26 Aspirin 81 Mg Enteric Tablet PO 81 mg QAM POWER Administration Atorvastatin Calcium 40 mg 10/11/22 00:15 10/11/22 22:18 Atorvastatin 40 Mg Tablet PO Not Given QHS POWER Benzonatate 100 mg 10/11/22 00:12 Benzonatate 100 Mg Capsule PO TID PRN cough Calcium Acetate 667 mg 10/11/22 08:00 10/12/22 11:31 Calcium Acetate 667 Mg Tablet PO 6
--- NOTE | 2022-10-12 12:14 | P.PNNP_ITS ---
Progress Note: A&P Assessment and Plan (1) End stage renal disease: Code(s): N18.6 - End stage renal disease Status: Chronic Assessment and Plan: * HD yesterday and continue M/W/ dialysis schedule * follow electrolytes, volume status, and clearance (2) Chest pain: Qualifiers: Chest pain type: unspecified Qualified Code(s): R07.9 - Chest pain, unspecified Code(s): R07.9 - Chest pain, unspecified Status: Acute Assessment and Plan: * chronically elevated troponis * a manifestation of mild fluid overload? * GI symptoms causing this issue? * follow symptoms (3) Hypertension: Code(s): I10 - Essential (primary) hypertension Status: Inactive Assessment and Plan: * reasonable control at this time * continue home medications * follow trend of hemodynamics (4) Anemia: Qualifiers: Anemia type: unspecified type Qualified Code(s): D64.9 - Anemia, unspecified Code(s): D64.9 - Anemia, unspecified Status: Chronic Assessment and Plan: * due to ESRD * at goal * Epogen with HD * follow trend of H/H (5) Nausea & vomiting: Code(s): R11.2 - Nausea with vomiting, unspecified Status: Chronic Assessment and Plan: * chronic and persistent issue * conservative therapy does not appear to be helping * evaluated in the past but still an ongoing issue * is this causing/precipitating his chest pain(?) * Gastroenterology consult pending Will continue to follow. Subjective Date/time seen: 10/12/22 12:14 Tolerated dialysis yesterday without any issues or problems; still has ongoing issues with vomiting although eating lunch with no concerns; no other events overnight or earlier this AM. Exam Narrative: General: WD/WN AA male in NAD Heart: normal S1 and S2; no rub Lungs: clear to auscultation Abdomen: soft, nontender, nondistended, positive bowel sounds Extremities: no cyanosis or clubbing; no edema Skin: warm and dry Objective Data Vital Signs Vital Signs: Vital Signs Temp Pulse Resp BP Pulse Ox O2 Del Method 10/12/22 12:00 77 10/12/22 12:00 70 16 100 Room Air 10/12/22 12:00 36.4 C 70 16 108/49 L 100 10/12/22 10:00 82 10/12/22 08:00 83 11/12/22 08:00 95 14 100 Room Air 10/12/22 08:28 95 10/12/22 08:00 36.6 C 81 14 155/65 H 100 10/12/22 06:00 74 10/12/22 04:00 74 10/12/22 04:00 36.2 C L 80 16 153/81 H 96 10/12/22 02:00 76 10/11/22 22:00 80 10/11/22 20:00 79 10/12/22 00:00 82 10/12/22 04:00 Room Air 10/12/22 00:00 36.2 C L 81 16 170/70 H 97 10/11/22 22:17 76 10/11/22 20:00 36.9 C 80 16 155/56 H 98 10/11/22 18:00 79 10/11/22 16:00 72 10/11/22 16:00 36.6 C 72 20 131/46 L 100 Intake/Output Intake/Output: Intake & Output 10/09/22 10/10/22 10/11/22 10/12/22 23:59 23:59 23:59 23:59 Intake Total 1290 880 Output Total 3000 200 Balance -1710 680 Meds/Results Medications: Active Medications
--- NOTE | 2022-10-12 14:33 | WPDGICN ---
Assessment and Plan Assessment and plan (1) Nausea & vomiting: Code(s): R11.2 - Nausea with vomiting, unspecified Status: Chronic Assessment and Plan: chronic and it seems that comes in cycle work up in the past included negative GES and per patient also EGD ? cyclic vomiting, will start a trial of elavil at bedtime to see if will make a difference zofran prn (already using at home), also carafate as needed. He says that nexium does not make much of difference he just ate lunch and tolerated (2) Acute exacerbation of CHF (congestive heart failure): Code(s): I50.9 - Heart failure, unspecified Status: Acute Assessment and Plan: treated (3) Chronic cough: Code(s): R05.3 - Chronic cough Status: Acute Assessment and Plan: he says that is making gi issue worse (4) End stage renal disease: Code(s): N18.6 - End stage renal disease Status: Chronic Assessment and Plan: on dialysis (5) Coronary artery disease: Code(s): I25.10 - Atherosclerotic heart disease of [place] coronary artery without angina pectoris Status: Acute GI Consult Note Consult date/time: 10/12/22 14:33 Reason for consult: gerd, n/v HPI: Tejas Yost is a 57 year old male with multiple comorbidities including ESRD on dialysis, HTN, CAD s/p stents, GERD and chronic cough.? He says that has been dealing with intermittent chronic nausea that will come in cycles (denies using marijuana), had normal gastric emptying study and CT scan in the past only cholelithiasis. He came to ER again with worsening epigastric discomfort along with more reflux symptom (he says that had similar presentation in the past that required hospitalization), also had chest pain worse when he coughs and takes deep breaths. ER blood work showed H&H is 10.9 and 34.7, Platelets are 125.? BUN 37 creatinine 8.2. Patient is negative for COVID chest x-ray was read as mild pulmonary edema. He had EGD few years ago and does not want to get another one. Review of Systems Review of Systems: All systems reviewed & are unremarkable except as noted in HPI and below Constitutional: Constitutional: Denies chills, Denies fatigue and Denies fever(s) Eyes: Eyes: Denies blurry vision ENT: Denies nasal congestion and Denies sore throat Cardiovascular: Cardiovascular: Reports chest pain, Denies rapid heart rate and Denies radiating jaw, neck or arm pain Respiratory: Respiratory: Reports cough, Reports dyspnea and Denies wheezing Gastrointestinal: Gastrointestinal: Reports abdominal pain, Reports heartburn, Denies nausea and Denies vomiting Genitourinary: Comments: on dialysis Integumentary/Breasts: Skin/Breast: Denies rash Neurologic: Denies Abnormal speech present Psychiatric: Psychiatric: Denies behavioral changes [facility] Past Medical History Medical History (Updated 10/11/22 @ 14:36 by Farideh Juarez MD) Acute pulmonary edema Anemia AV fistula Chronic cough Chronic kidney disease on chronic dialysis Chronic pain CKD (chronic kidney disease) Coronary artery disease Emphysema lung Emphysema lung Encounter for peritoneal dialysis catheter insertion ESRD (end stage renal disease) ESRD (end stage renal disease) 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 GERD (gastroesophageal reflux disease) HTN (hypertension), benign Hypertension Hypertension Latent tuberculosis by blood test Malnutrition of mild degree Myocardial infarction 2009 Osteonecrosis Tuberculosis Vein disorder Left vein reconstruction 07/2015 Surgical History Surgical History (Updated 10/11/22 @ 00:26 by Amanda Morejon NP) H/O abdominal surgery removal of peritoneal dialysis catheter. H/O removal of cyst left wrist History of tracheostomy Family History Family History Mother No problems noted. Other Unknown family medical history Social History Social Hi
--- NOTE | 2022-10-12 16:03 | PM.DS ---
DS: Admitting Diagnosis Discharge Date 10/12/22 Admitting Diagnosis Chest pain DS: Discharge Diagnosis Discharge Diagnosis (1) Chest pain: Qualifiers: Chest pain type: unspecified Qualified Code(s): R07.9 - Chest pain, unspecified Code(s): R07.9 - Chest pain, unspecified Status: Acute (2) Acute exacerbation of CHF (congestive heart failure): Code(s): I50.9 - Heart failure, unspecified Status: Acute (3) Hypertension: Code(s): I10 - Essential (primary) hypertension Status: Inactive (4) ESRD on hemodialysis: Code(s): N18.6 - End stage renal disease; Z99.2 - Dependence on renal dialysis Status: Acute (5) REFUGIO (obstructive sleep apnea): Code(s): G47.33 - Obstructive sleep apnea (adult) (pediatric) Status: Acute (6) GERD (gastroesophageal reflux disease): Code(s): K21.9 - Gastro-esophageal reflux disease without esophagitis Status: Acute DS: Summary Hospital Course Reason for hospitalization: 57yo male with ESRD here for chest pain. Please see H&P for details. Hospital Course: Patient has hx of CAD with 1 stent placed. Patient presents with chest pain that appears to be chronic and related to reflux. Recent stress test showing no reversible findings. Trop elevated at 0.10 but flat and lower than in the past (he has chronically elevated troponin). EKG showing no NSR and nonspecific high lateral T wave changes (which is new). CXR showing pulmonary edema. COVID negative. [place] chest pain related to fluid overload and/or reflux. Echo on 07/18/2022 with EF 45% and moderate mitral valve regurgitation. Lasix given in ED but he only makes a small amount of urine. He was seen by nephrology. He had HD and tolerated this well. We continued ASA, lipitor and Coreg. GI also consulted and Elavil added. Side effects discussed with patient. GI also recommended using carafate as needed. This was discussed with the patient as well but patient became verbally belligerent. He stated that he has been in this facility multiple times and that this is the first time he saw this GI doctor. He accused this provider of inappropriate care by not having the GI doctor seen him sooner. Explained that this provider has not seen this patient since 2014 but he said that was a lie. Explained that he has had 17 EGDs (per patient's own account) and has seen GI doctors in the past but patient continued to accuse this provider of lying. Patient demanded that he be left alone. Status at Discharge Cognitive/behavioral status at discharge: stable Time Spent with Patient Time attestation: Total time spent providing and/or coordinating discharge services: 34 minutes Time spent: Greater than 30 minutes Exam Narrative: AF 97.6 108/49 74 16 100% ra Gen - NARD Chest - CTA bilaterally, nml RR CV - RRR S1/S2. Tele showing no significant dysrhythmias Abd - Soft, NT/ND, Positive BS Ext - trace pedal edema. Thrill and bruit left UE Psych - sullen but later becomes unhappy and verbally belligerent Skin - Warm and dry DS: Data Data Completed and Pending Labs on day of discharge: Labs from last 24 hours 10/12/22 10/12/22 04:17 04:17 WBC 3.6 L RBC 3.29 L Hgb 10.4 L Hct 33.3 L MCV 101.2 H MCH 31.6 MCHC 31.2 L RDW 14.6 H Plt Count 122 L MPV 12.1 H Immature Gran % (Auto) 0.3 Neut % (Auto) 64.4 Lymph % (Auto) 23.6 Jones % (Auto) 9.3 H Eos % (Auto) 1.9 Baso % (Auto) 0.5 Lymph # (Auto) 0.86 L Jones # (Auto) 0.3 Eos # (Auto) 0.1 Baso # (Auto) 0.0 Abs Immat Gran (auto) 0.01 Absolute Neuts (auto) 2.3 Absolute Nucleated RBC 0.0 Nucleated RBC % 0.0 Sodium 141 Potassium 3.7 Chloride 96 L Carbon Dioxide 32 H Anion Gap 13 BUN 25 H D Creatinine 6.30 H Estim Creat Clear Calc 14 Estimated GFR 11 L Glucose 83 Calcium 9.1 Phosphorus 3.8 Magnesium 2.0 Albumin 3.3 L Discharge Plan
--- NOTE | 2022-10-12 16:30 | PC.NURSE ---
This nurse overheard a conversation between this patient and Dr. Weiner. Patient was sounded very verbally aggressive, and angry. Dr. Weiner remained professional, calm,and respectful during this conversation. Dr. Weiner did not raise his voice during the interaction.
== END 2022-10-12 17:47 | disposition home or self-care (01) | DRG 291 ==
LOC: ANHED 21:24 → ANHIMU 22:08
PROVIDERS: Internal Medicine Nephrology; Nurse Practitioner; Admitting Provider Internal Medicine; Emergency Provider Emergency Medicine; PCP Internal Medicine; Visit Provider Internal Medicine
DX: I13.2 Hypertensive heart and chronic kidney disease with heart failure and with stage 5 chronic kidney disease, or end stage renal disease (principal); N18.6 End stage renal disease; M87.9 Osteonecrosis, unspecified; D63.1 Anemia in chronic kidney disease; G89.29 Other chronic pain; G47.33 Obstructive sleep apnea (adult) (pediatric); I25.10 Atherosclerotic heart disease of native coronary artery without angina pectoris; I50.9 Heart failure, unspecified; I25.2 Old myocardial infarction; J43.9 Emphysema, unspecified; K21.9 Gastro-esophageal reflux disease without esophagitis; R05.3 Chronic cough; R11.15 Cyclical vomiting syndrome unrelated to migraine; Z95.5 Presence of coronary angioplasty implant and graft; Z79.82 Long term (current) use of aspirin; Z99.2 Dependence on renal dialysis; Z20.822 Contact with and (suspected) exposure to COVID-19; Z86.15 Personal history of latent tuberculosis infection; Z96.0 Presence of urogenital implants; Z87.891 Personal history of nicotine dependence
CPT/HCPCS: 36415; 71046; 80053; 80069; 83690; 83735; 84100; 84484; 85025; 85610; 85730; 86706; 87340; 93005; 94640; 96374; 96375; 96376; 99285; A9270; G0257; G0378; J1940; J2270; J2405; J7030; U0003; U0005

== ENCOUNTER 2022-12-11 09:00 | Outpatient (CLI) | payer MEDICARE, MEDICAID, SELFPAY ==
--- NOTE | 2022-12-27 16:45 | WPDSLEEPSTUD ---
Sleep Study Date of Study: 12/11/22 Ordering Provider: Charleen Toledo MD Interpreting Physician: Baylee Burroughs DO Sleep Study Type: Polysomnogram Height: 1.91 m Weight: 74.843 kg Body Mass Index: 20.6 Neck Circumference (inches): 16 [place]: 6 Reason for Sleep Study Abnormal nocturnal oximetry Sleep History The patient is a 57-year-old male with anemia, end-stage renal disease on dialysis, coronary artery disease, emphysema,, hypertension, latent tuberculosis, history myocardial infarction in 2008 and history of tobacco use a sleep study ordered his collections curator for evaluation of sleep apnea after having an abnormal nocturnal oximetry. the patient occasionally awakens from sleep short of breath. He frequently awakens at night with heartburn, belching or cough. He rarely snores but has never loud enough that others complain. He denies having trouble sleeping when he has a cold. He denies waking up gasping for air throughout the night. He denies having breathing problems at night observed by himself or others. He denies sweating excessively at night. He denies having heart palpitations or irregular heartbeats during the night. He rarely falls asleep during the day but never while driving. He denies sleep paralysis, cataplexy and hypnagogic / hypnopompic hallucinations. He denies having trouble at school or work due to sleepiness. He denies feeling afraid of going to sleep he denies having nightmares. He denies remembering his dreams. He denies having thoughts racing through his mind. He denies feeling sad, depressed or anxious. He rarely has muscular tension. He denies noticing parts of his body jerk. He denies kicking during the night. He denies having crawling and aching feelings legs as well leg pain during. He denies grinding his teeth during sleep and awakening with morning jaw pain. He is rarely bothered by pain during the day but never awakened by pain during the night. He denies waking feeling stiff. He denies waking with sore or achy muscles. He denies waking up with pain neck, spine or other He goes to bed at 6:00 p.m. on both weekdays weekends. It takes 30 minutes to fall asleep. He does not typically wake up throughout the night. He wakes up 4:00 a.m. with weekdays and weekends. He typically gets 5 hours of sleep per he does stay in bed after waking up in the morning. He currently lives with his aunt and. He does consume any caffeinated beverages within 2 hours of bedtime. He does not engage in physical exercise before bedtime. He will watch television before falling asleep. He denies taking naps in the afternoon evening. He drinks 20 oz of a caffeinated beverage per day. He is a former smoker. He denies and recreational drug use. [facility] Past Medical History Medical History Acute pulmonary edema Anemia AV fistula Chronic cough Chronic kidney disease on chronic dialysis Chronic pain CKD (chronic kidney disease) Coronary artery disease Emphysema lung Emphysema lung Encounter for peritoneal dialysis catheter insertion ESRD (end stage renal disease) ESRD (end stage renal disease) 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 GERD (gastroesophageal reflux disease) HTN (hypertension), benign Hypertension Hypertension Latent tuberculosis by blood test Malnutrition of mild degree Myocardial infarction 2008 Osteonecrosis Tuberculosis Vein disorder Left vein reconstruction 07/2015 Surgical History Surgical History H/O abdominal surgery removal of peritoneal dialysis catheter. H/O removal of cyst left wrist History of tracheostomy Family History Family History Mother No problems noted. Other Unknown family medical history Social History Social History Soc
[2022-12-27 16:47] VITALS: BMI 20.6
== END 2022-12-12 05:51 | disposition home or self-care (01) ==
LOC: ANHCSM 09:02
PROVIDERS: PCP Internal Medicine; Visit Provider Internal Medicine Critical Care Medicine
DX: G47.33 Obstructive sleep apnea (adult) (pediatric) (principal)
CPT/HCPCS: 95810

== ENCOUNTER 2022-12-31 08:14 | Outpatient (CLI) | payer MEDICARE, MEDICAID, SELFPAY ==
[2022-12-31 21:26] LABS: Ferritin > 2000.00 ng/mL (11.1-264)
== END 2022-12-31 08:15 | disposition home or self-care (01) ==
LOC: ANHGOSHLAB 08:16
PROVIDERS: PCP Internal Medicine; Visit Provider Nurse Practitioner Family
DX: D64.9 Anemia, unspecified (principal); G47.61 Periodic limb movement disorder; Z99.2 Dependence on renal dialysis; N18.6 End stage renal disease
CPT/HCPCS: 36415; 82728

== ENCOUNTER → 2023-02-20 08:33 | Outpatient (CLI) | payer MEDICARE, MEDICAID, SELFPAY ==
--- NOTE | ~2023-02-20 | XR_ITS ---
Clinical Indication: Chest pain PA and lateral views of the chest: Comparison: 10/10/2022 Findings: The lungs are clear, without evidence of focal consolidation or pleural effusion. There is a small metallic density projecting over the left heart. Cardiomediastinal silhouette is otherwise st able. Bones and soft tissues are unremarkable. Impression: Small metallic density projecting within the region of the left heart. This is new from prior exam. C orrelate with any relevant procedural/surgical history, versus unexpected foreign body. Clear lungs. Reviewed, dictated and finalized at location M. Impression: Small metallic density projecting within the region of the left heart. This is new from prior exam. Correlate with any relevant procedural/surgical history, v ersus unexpected foreign body. Clear lungs.
== END ==
PROVIDERS: PCP Internal Medicine; Visit Provider Internal Medicine
DX: S22.49XA Multiple fractures of ribs, unspecified side, initial encounter for closed fracture (principal); R91.8 Other nonspecific abnormal finding of lung field
CPT/HCPCS: 71046

== ENCOUNTER 2023-06-06 08:03 | Outpatient (CLI) | payer MEDICARE, MEDICAID, SELFPAY ==
[2023-06-06 18:30] LABS: Cholesterol 125 mg/dL (0-200); HDL Direct 35 mg/dL; Triglycerides 82 mg/dL (<150)
[2023-06-06 18:41] LABS: LDL Cholesterol Direct 55 mg/dL
[2023-06-06 18:58] LABS: Prostate Specific Antigen 0.3 ng/mL (< OR = 4.0)
[2023-06-10 04:44] LABS: Apolipoprotein B 65 mg/dL (<90)
== END 2023-06-06 08:04 | disposition home or self-care (01) ==
LOC: ANHGOSHLAB 08:06
PROVIDERS: PCP Internal Medicine; Visit Provider Internal Medicine
DX: E78.5 Hyperlipidemia, unspecified (principal); Z12.5 Encounter for screening for malignant neoplasm of prostate; I50.22 Chronic systolic (congestive) heart failure
CPT/HCPCS: 36415; 80061; 82172; 84153; G0103

== ENCOUNTER 2023-06-16 20:29 | Emergency (ER) | payer MEDICARE, MEDICAID, SELFPAY ==
--- NOTE | ~2023-06-16 | XR_ITS ---
EXAMINATION: XR chest 1V portable Exam Date/Time: 06/16/2023 22:10 CDT HISTORY: chest pain Comparison: 02/20/2023. RESULT: Lines, tubes, and devices: Coronary stents. Stable metallic density projecting over the heart. Lungs and pleura: Diffuse interstitial pattern with indistinct vessels. Small volume pleural fluid c ollection on the right. Cardiomediastinal silhouette: Stable cardiomegaly. Other: No acute osseous or upper abdominal finding. IMPRESSION: Interstitial edema. Trace right pleural effusion. Reviewed, dictated and finalized at location K.
[2023-06-16 20:32] VITALS: BP 137/65; PULSE 81; RESP 14; O2SAT 100
--- NOTE | 2023-06-16 20:41 | ECG_ITS ---
Measurements Intervals [place] Rate: 73 P: 66 AR: 147 QRS: 59 QRSD: 101 T: 148 QT: 422 QTc: 466 Interpretive Statements SINUS RHYTHM VENTRICULAR PREMATURE COMPLEXES MINIMAL Q WAVES- LATERAL LEADS BORDERLINE ST-T WAVE ABNORMALITY- INF/LAT LEADS BASELINE ARTIFACT- V1 BORDERLINE ECG COMPARED TO ECG 10/10/2022 18:36:04 NO SIGNIFICANT CHANGES Electronically Signed On 06-17-2023 6:47:00 CDT by Ford Fletcher D.O.
[2023-06-16 20:42] VITALS: O2SAT 100
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
[2023-06-16 21:02] LABS: Basophils Percent Auto 0.3 % (0.2-1.2); Eosinophils Absolute Auto 0.1 K/mm3 (0-0.3); Eosinophils Percent Auto 3.5 % (0-4.4); Hematocrit 33.5 % (42.0-52.0); Hemoglobin 10.7 g/dL (14.0-18.0); Immature Granulocyte Absolute 0.01 K/mm3 (0.00-0.031); Immature Granulocyte Percent A 0.3 % (0-0.5); Lymphocytes Absolute Auto 0.83 K/mm3 (0.9-3.2); Lymphocytes Percent Auto 22.1 % (18.3-44.2); Mean Corpuscular HGB Conc 31.9 g/dl (32-36); Mean Corpuscular Hemoglobin 31.2 pg (26-34); Mean Corpuscular Volume 97.7 fl (80-100); Mean Platelet Volume 12.9 fl (7.4-10.4); Monocytes Absolute Auto 0.2 K/mm3 (0.1-0.6); Monocytes Percent Auto 5.9 % (2.6-8.5); Neutrophils Absolute Auto 2.6 K/mm3 (1.3-6.7); Neutrophils Percent Auto 67.9 % (45.5-73.1); Platelet Count Result 131 k/mm3 (150-375); Red Blood Count 3.43 M/mm3 (4.6-6.20); Red Cell Distribution Width 16.2 % (11.5-14.5); White Blood Count 3.8 K/mm3 (4.5-10.0)
[2023-06-16 21:16] LABS: Alanine Aminotransferase 21 U/L (6-50); Albumin Level 3.8 g/dL (3.5-5.1); Alkaline Phosphatase 64 U/L (38-126); Anion Gap 6 mmol/L (8-16); Aspartate Amino Transferase 30 U/L (17-59); Bilirubin,Total 1.1 mg/dL (0.2-1.3); Blood Urea Nitrogen 22 mg/dL (9-20); Calcium 8.4 mg/dL (8.4-10.2); Carbon Dioxide 35 mmol/L (22-30); Chloride 96 mmol/L (98-107); Estimated CRCL calculation 15 ml/min; Estimated Glomerular Filt Rate 14; Glucose 138 mg/dL (65-110); Lipase 184 U/L (23-300); Potassium 3.6 mmol/L (3.4-5.0); Sodium 137 mmol/L (137-145)
[2023-06-16 21:28] LABS: NT Pro B Type Natriuretic Pept > 30000 pg/mL (19.9-100); Troponin I 0.047 ng/mL (0.000-0.034)
[2023-06-16 22:09] LABS: INR 1.2; Prothrombin Time 15.2 Seconds (11.1-14.7)
[2023-06-16] MEDS: MORPHINE SULFATE (*CRX) 4 MG/ML INJ IV PUSH (22:11)
[2023-06-16] MEDS: ONDANSETRON INJ 4 MG/2 ML VIAL IV PUSH (22:12)
[2023-06-16 22:13] LABS: D Dimer 2.89 ug/mL (<0.48)
[2023-06-16 22:24] VITALS: PULSE 66
[2023-06-16 22:51] VITALS: BP 126/59; PULSE 63; RESP 14; TEMP 37; O2SAT 99
[2023-06-17 00:31] LABS: Troponin I 0.054 ng/mL (0.000-0.034)
[2023-06-17 00:40] VITALS: BP 141/57; PULSE 71; RESP 14; O2SAT 97
--- NOTE | 2023-06-17 01:46 | PC.NURSE ---
Patient accepted to [facility]. On waitlist for a bed.
[2023-06-17] MEDS: HEPARIN SOD/D5W 100 UNITS/ML 25,000 UNITS/250 ML BAG 9 UNITS IV CONT (02:10)
[2023-06-17] MEDS: HEPARIN SODIUM 5,000 UNITS/ML VIAL 4000 UNITS IV PUSH (02:10)
[2023-06-17] MEDS: ONDANSETRON INJ 4 MG/2 ML VIAL IV PUSH (02:12)
[2023-06-17 02:30] VITALS: BP 121/55; PULSE 66; RESP 21; O2SAT 98
--- NOTE | 2023-06-17 02:34 | PC.NURSE ---
PT HAS CHRONIC KIDNEY ISSUES. PT IS A DIALYSIS PT AND REPORTS HE RARELY URINATES . PT UNABLE TO URINATE FOR URINE SAMPLE.
== END 2023-06-17 04:18 | disposition short-term general hospital (02) ==
PROVIDERS: Emergency Provider Physician Assistant; PCP Internal Medicine
DX: R07.9 Chest pain, unspecified (principal); I25.10 Atherosclerotic heart disease of native coronary artery without angina pectoris; I12.0 Hypertensive chronic kidney disease with stage 5 chronic kidney disease or end stage renal disease; N18.6 End stage renal disease; Z99.2 Dependence on renal dialysis; Z87.891 Personal history of nicotine dependence; K21.9 Gastro-esophageal reflux disease without esophagitis; J43.9 Emphysema, unspecified; I25.2 Old myocardial infarction; R06.02 Shortness of breath
CPT/HCPCS: 36415; 71045; 80053; 83690; 83880; 84484; 85025; 85380; 85610; 85730; 93005; 96365; 96375; 99285; J1644; J2270; J2405

== ENCOUNTER 2023-11-06 10:01 | Outpatient (CLI) | payer MEDICARE, MEDICAID, SELFPAY ==
[2023-11-06 12:02] LABS: Basophils Percent Auto 0.9 % (0.2-1.2); Eosinophils Absolute Auto 0.4 K/mm3 (0-0.3); Eosinophils Percent Auto 8.6 % (0-4.4); Hematocrit 26.6 % (42.0-52.0); Hemoglobin 7.9 g/dL (14.0-18.0); Immature Granulocyte Absolute 0.01 K/mm3 (0.00-0.031); Immature Granulocyte Percent A 0.2 % (0-0.5); Lymphocytes Absolute Auto 0.94 K/mm3 (0.9-3.2); Lymphocytes Percent Auto 21.9 % (18.3-44.2); Mean Corpuscular HGB Conc 29.7 g/dl (32-36); Mean Corpuscular Hemoglobin 29.5 pg (26-34); Mean Corpuscular Volume 99.3 fl (80-100); Mean Platelet Volume 10.5 fl (7.4-10.4); Monocytes Absolute Auto 0.5 K/mm3 (0.1-0.6); Monocytes Percent Auto 12.1 % (2.6-8.5); Neutrophils Absolute Auto 2.4 K/mm3 (1.3-6.7); Neutrophils Percent Auto 56.3 % (45.5-73.1); Platelet Count Result 179 k/mm3 (150-375); Red Blood Count 2.68 M/mm3 (4.6-6.20); Red Cell Distribution Width 18.3 % (11.5-14.5); White Blood Count 4.3 K/mm3 (4.5-10.0)
[2023-11-06 12:17] LABS: Alanine Aminotransferase 18 U/L (6-50); Albumin Level 3.8 g/dL (3.5-5.1); Alkaline Phosphatase 112 U/L (38-126); Aspartate Amino Transferase 39 U/L (17-59); Bilirubin,Total 0.9 mg/dL (0.2-1.3)
[2023-11-06 12:24] LABS: Hypochromasia 1+ (NORMAL); Platelet Estimate Adequate (Adequate); Schistocytes 1+ (NORMAL)
[2023-11-06 15:21] LABS: Iron 76 ug/dL (49-181)
[2023-11-06 15:30] LABS: Percent Iron Saturation 38 % (20-50)
== END 2023-11-06 10:02 | disposition home or self-care (01) ==
LOC: ANHGOSHLAB 10:04
PROVIDERS: PCP Internal Medicine; Visit Provider Internal Medicine
DX: D64.9 Anemia, unspecified (principal); N18.6 End stage renal disease; Z99.2 Dependence on renal dialysis; R74.8 Abnormal levels of other serum enzymes; K21.9 Gastro-esophageal reflux disease without esophagitis; R06.89 Other abnormalities of breathing; R29.898 Other symptoms and signs involving the musculoskeletal system
CPT/HCPCS: 36415; 80076; 82728; 83540; 83550; 84443; 85025

== ENCOUNTER 2023-12-08 08:09 | Inpatient (IN) | payer MEDICARE, MEDICAID, SELFPAY ==
[2023-12-08] VITALS (24 sets, daily range): BP systolic 117–156; BP diastolic 65–105; PULSE 103–146; RESP 15–22; TEMP 36.3–37; O2SAT 93–99; BMI 18.8
--- NOTE | ~2023-12-08 | XR_ITS ---
XR chest 2V DATE: 12/08/2023 09:10 INDICATION: Chest pain, right abdominal pain TECHNIQUE: AP and lateral views COMPARISON: 06/16/2023 portable AP chest 02/25/2022 CT pulmonary scan FINDINGS: Since 02/17/2022 there are has been sternotomy and 2 cardiac valve replacements and a mireles ry artery stent apparently. Coronary artery calcification. Cardiomegaly. Thoracic aortic calcificatio n. There is pulmonary vascular congestion and redistribution. Barry B-lines are noted consistent with p ulmonary interstitial edema. The fissures are mildly prominent suggesting subpleural edema. There are perihilar and lower lung infiltrates, right greater than left,, especially prominent at the right renu ng base, which may be due to pulmonary edema; pneumonia and aspiration are not excluded. Minimal right pleural effusion. No pneumothorax. IMPRESSION: Cardiomegaly, congestive heart failure, probable pulmonary edema Pneumonia and aspiration are not excluded Status post sternotomy and 2 cardiac valve replacements and probable coronary stenting Reviewed, dictated and finalized at location B. HT ENGINEER IMPRESSION: Cardiomegaly, congestive heart failure, probable pulmonary edema Pneumonia and aspiration are not excluded Status post sternotomy and 2 cardiac valve replacements and probable coronary s tenting
--- NOTE | 2023-12-08 08:17 | ECG_ITS ---
Measurements Intervals Wilder Rate: 137 P: -10 ME: 184 QRS: 57 QRSD: 95 T: 112 QT: 302 QTc: 457 Interpretive Statements ATRIAL TACHYCARDIA WITH RAPID VENTRICULAR RSPONSE RSR' IN V1 OR V2, CONSIDER RIGHT VENTRICULAR HYPERTROPHY OR RIGHT VCD MINIMAL Q WAVES- LAT/HIGH LAT LEADS BORDERLINE ST-T WAVE ABNORMALITY- INF/LAT LEADS BASELINE WANDER- II, III, AVF ABNORMAL ECG COMPARED TO ECG 06/16/2023 20:36:00 ATRIAL TACHYCARDIA NOW PRESENT Electronically Signed On 12-08-2023 9:15:35 INFORMATION DEVELOPER by Ford Fletcher D.O.
[2023-12-08 08:46] LABS: Basophils Percent Auto 0.9 % (0.2-1.2); Eosinophils Absolute Auto 0.1 K/mm3 (0-0.3); Eosinophils Percent Auto 1.7 % (0-4.4); Hematocrit 26.2 % (42.0-52.0); Hemoglobin 7.9 g/dL (14.0-18.0); Immature Granulocyte Absolute 0.02 K/mm3 (0.00-0.031); Immature Granulocyte Percent A 0.5 % (0-0.5); Lymphocytes Percent Auto 14.2 % (18.3-44.2); Mean Corpuscular HGB Conc 30.2 g/dl (32-36); Mean Corpuscular Hemoglobin 30.9 pg (26-34); Mean Corpuscular Volume 102.3 fl (80-100); Mean Platelet Volume 10.7 fl (7.4-10.4); Monocytes Absolute Auto 0.4 K/mm3 (0.1-0.6); Neutrophils Absolute Auto 3.1 K/mm3 (1.3-6.7); Neutrophils Percent Auto 73.7 % (45.5-73.1); Platelet Count Result 120 k/mm3 (150-375); Red Blood Count 2.56 M/mm3 (4.6-6.20); Red Cell Distribution Width 17.2 % (11.5-14.5); White Blood Count 4.2 K/mm3 (4.5-10.0)
[2023-12-08 08:59] LABS: INR 1.4; Prothrombin Time 18.4 Seconds (11.1-14.7)
[2023-12-08 09:00] LABS: Partial Thromboplastin Time 39.5 SECONDS (22.3-36.8)
[2023-12-08 09:11] LABS: Alanine Aminotransferase 15 U/L (6-50); Albumin Level 3.9 g/dL (3.5-5.1); Alkaline Phosphatase 87 U/L (38-126); Anion Gap 15 mmol/L (8-16); Aspartate Amino Transferase 25 U/L (17-59); Blood Urea Nitrogen 77 mg/dL (9-20); Calcium 9.9 mg/dL (8.4-10.2); Carbon Dioxide 26 mmol/L (22-30); Chloride 100 mmol/L (98-107); Estimated CRCL calculation 8 ml/min; Estimated Glomerular Filt Rate 6; Glucose 90 mg/dL (65-110); Lipase 249 U/L (23-300); Potassium 4.9 mmol/L (3.4-5.0); Sodium 141 mmol/L (137-145)
[2023-12-08 09:18] LABS: Troponin I 0.088 ng/mL (0.000-0.034)
--- NOTE | 2023-12-08 12:09 | ED.CHESTPAIN ---
HPI - Chest Pain General Chief Complaint: Chest Pain Stated Complaint: cp Time Seen by Provider: 12/08/23 10:20 History of Present Illness HPI narrative: patient is a 58-year-old male who presents ER with chest pain. Reports that is right-sided and started when he arrived at dialysis. He has history of SC and CABG. His home health clinical liaison is Dr. Juarez. He reports the pain feels like fluid around his heart. no difficulty breathing. No productive cough. No lower extremity swelling. Patient gets dialysis Friday/ Friday / Friday. No fevers or chills or sweats. Denies alleviating factors. Related Data Home Medications Medication Instructions Recorded Confirmed cholecalciferol (vitamin D3) 1,250 1,250 mcg PO WEEKLY 11/18/23 11/18/23 mcg (50,000 unit) tablet fluticasone fur. 100 mcg-umeclid 1 inh inhalation DAILY 11/18/23 11/18/23 62.5 mcg-vilant 25 mcg inhalat.powder (Trelegy Ellipta) Allergies Allergy/AdvReac Type Severity Reaction Status Date / Time adhesive Allergy Mild BLISTERS Verified 12/08/23 10:34 clonidine AdvReac Unknown Vomiting Verified 12/08/23 10:34 hydralazine AdvReac Unknown Vomiting Verified 12/08/23 10:34 Review of Systems Review of Systems: All systems reviewed & are unremarkable except as noted in HPI and below Constitutional: Constitutional: Reports no additional constitutional complaints ENT: Reports system reviewed and no additional complaints, except as documented Cardiovascular: Cardiovascular: Reports chest pain, Denies rapid heart rate and Denies radiating jaw, neck or arm pain Respiratory: Respiratory: Reports no additional respiratory complaints Gastrointestinal: Gastrointestinal: Reports no additional gastrointestinal complaints Musculoskeletal: Musculoskeletal: Reports no additional musculoskeletal complaints FORMERLY [facility] Past Medical History Medical History (Updated 12/08/23 @ 16:41 by Veda Laws PA-C) Abnormal magnetic resonance imaging of liver MRI taken 10/20/2023 at [facility] showed advanced diffuse iron accumulation within the liver; patient refused liver biopsy. Anemia Aortic valve regurgitation Chronic pain Coronary artery disease Diastolic dysfunction Emphysema lung End-stage renal disease on hemodialysis Gastroesophageal reflux disease History of myocardial infarction Hypertension Latent tuberculosis by blood test Myocardial infarction (2008) Osteonecrosis Pericardial effusion Status post drain in August 2023. Tricuspid valve regurgitation Surgical History Surgical History (Updated 12/08/23 @ 16:35 by Veda Laws PA-C) History of cardiac catheterization History of coronary artery stent placement History of heart valve replacement History of removal of cyst Left wrist. History of tracheostomy Status post creation of arteriovenous fistula Family History Family History Mother No problems noted. Other Unknown family medical history Social History Social History (Updated 12/08/23 @ 16:33 by Veda Laws PA-C) Social History: Surrogate medical decision maker: Code status: Full code. Smoking packs per day: 0.5 Smoking cigarettes per day: 10.0 Years smoked: 20 Smoking pack-years: 10.00 Smoking status: Former smoker Tobacco type: cigarettes and cigars Additional smoking assessment comments: Not sure of amount of cigarettes he smoked. Alcohol intake: former Substance use: former Lack of Transportation: No Lack of Food: Never True Current Housing: I Have Housing Concerned About Future Housing: No Difficulty Paying Gas/Electric Bills: No Difficulty Paying for Meds: No Currently Unemployed: No Education: Trade/Vocational Certificate Difficulty w/ Childcare or Family Care: No Living arrangements: with family Additional living arrangements comments: Lives with family in [place]. Additional occupation/ed
[2023-12-08 12:13] LABS: Troponin I 0.098 ng/mL (0.000-0.034)
--- NOTE | 2023-12-08 14:00 | PC.NURSE ---
Dialysis called stating they are reading for patient
[2023-12-08 16:02] LABS: Hepatitis B Surface Antigen Negative (Negative)
[2023-12-08 16:12] LABS: Hepatitis B Surface Anti Res Positive
[2023-12-08] MEDS: EPOETIN ALFA-EPBX 10,000 UNITS/ML VIAL 10000 UNITS IV PUSH (16:20)
--- NOTE | 2023-12-08 16:28 | PM.IMHP ---
H&P: HPI History of Present Illness Date/Time: 12/08/23 18:30 Chief Complaint: Chest pain and shortness of breath. Narrative: This is a 58-year-old male with a complicated medical history to include end-stage renal disease on hemodialysis (M-W-F), coronary artery disease status post CABG, valvular heart disease status post replacement, paroxysmal atrial fibrillation, diastolic dysfunction, pericardial effusion status post drain placement in August 2023, hypertension, anemia of chronic disease, peripheral vascular disease, hyperlipidemia, chronic obstructive pulmonary disease, and TIA who presented to the emergency department via EMS from [facility] for evaluation of chest pain shortness a breath. The patient provides the following history. He presented to dialysis today and staff there did not think he looked like his usual self. He told them he had nonradiating, sharp, right-sided chest pain with shortness of breath and they called 911. On arrival to the emergency department he was in atrial tachycardia with rapid ventricular response. There were no significant electrolyte abnormalities and labs are on par with his baseline. Initial troponin was 0.088. His chest x-ray showed findings of congestive heart failure. He was sent for dialysis and while in dialysis he began complaining of cramps in his legs which is not necessarily unusual for him. He was able to complete dialysis and at the time my evaluation he is feeling fine and he is not having any chest pain. He remains tachycardic in the 130s and he has refused the IV Lopressor that I ordered for him. He tells me that his doctor's all know that his heart rate is fast and is because his heart is weak. He denies syncope, near syncope, fever, chills, sweats, cold and flu symptoms, pleuritic pain, nausea, vomiting, and edema. Review of Systems Review of Systems: Twelve systems were reviewed and are negative except for as per HPI. FORMERLY [facility] Past Medical History Medical History (Updated 12/08/23 @ 22:19 by Veda Laws PA-C) Abnormal magnetic resonance imaging of liver MRI taken 10/20/2023 at [facility] showed advanced diffuse iron accumulation within the liver; patient refused liver biopsy. Anemia Aortic valve regurgitation Chronic pain Coronary artery disease Diastolic dysfunction Emphysema lung End-stage renal disease on hemodialysis Gastroesophageal reflux disease History of myocardial infarction Hypertension Latent tuberculosis by blood test Myocardial infarction (2008) Osteonecrosis Pericardial effusion Status post drain in August 2023. Tricuspid valve regurgitation Surgical History Surgical History (Updated 12/08/23 @ 22:03 by Veda Laws PA-C) History of cardiac catheterization History of coronary artery bypass graft x 1 Saphenous vein to diagonal branch of LAD. History of coronary artery stent placement (2008) Left circumflex, done at [facility]. History of heart valve replacement Status post MitraClip, tricuspid valve ring annuloplasty, and bioprosthetic aortic valve replacement in 2022 at [facility]. History of removal of cyst Left wrist. History of tracheostomy Status post creation of arteriovenous fistula Family History Family History Mother No problems noted. Other Unknown family medical history Social History Social History (Updated 12/08/23 @ 22:06 by Veda Laws PA-C) Social History: Surrogate medical decision maker: Gwen Sagastume, aunt. Code status: Full code. Smoking packs per day: 0.5 Smoking cigarettes per day: 10.0 Years smoked: 20 Smoking pack-years: 10.00 Smoking status: Former smoker Additional smoking assessment comments: Not sure of amount of cigarettes he smoked. Alcohol intake: never Substance use: never Do You Feel Safe in your Home?: Yes Lack of Transportation: No Lack of Food: Never True Current Housing: I Have
--- NOTE | 2023-12-08 16:30 | PM.CNNEP ---
Assessment and Plan Assessment and plan (1) End stage renal disease: Code(s): N18.6 - End stage renal disease Status: Chronic Assessment and Plan: HD today and continue M/W/F dialysis schedule push fluid removal as tolerated byh hemodynamics given admission CXR findings follow electrolytes, volume status, and clearance (2) Chest pain: Code(s): R07.9 - Chest pain, unspecified Status: Acute Assessment and Plan: resolved at this time given complex cardiac history, Cardiology consulted seems less likely ACS follow troponins (3) Volume overload: Code(s): E87.70 - Fluid overload, unspecified Status: Acute Assessment and Plan: as noted by admission CXR findings possible etiology for chest pain and SOB fluid removal with HD today (4) Atrial tachycardia: Code(s): I47.19 - Other supraventricular tachycardia Status: Acute Assessment and Plan: noted on admission apparently somewhat of chronic issue rate control strategy (5) Hypertension: Code(s): I10 - Essential (primary) hypertension Status: Chronic Assessment and Plan: fluctuating at this time fluid removal with HD should help continue home medications follow trend of hemodynamics (6) Anemia: Qualifiers: Anemia type: unspecified type Qualified Code(s): D64.9 - Anemia, unspecified Code(s): D64.9 - Anemia, unspecified Status: Chronic Assessment and Plan: due to ESRD Epogen with HD follow trend of H/H I will continue to follow the patient with you while he remains hospitalized and make further recommendations as needed. Thank you for allowing me to participate in the care of this patient. History of Present Illness Reason for Consult Consult date: 12/08/23 Reason for consult: end stage renal disease Chief Complaint Chief complaint: Chest Pain/ESRD w Volume Overload History of Present Illness Narrative: The patient is a 58-year-old male with a complex medical history as outlined below who presented to [facility] Emergency room via EMS from his outpatient dialysis unit for complaints of chest pain and shortness of breath. The patient presented to his outpatient dialysis unit for his scheduled dialysis treatment. He told the nursing staff there that he was having sharp right-sided chest pain in association with shortness of breath. Given his complex medical history particular with regard to his cardiac issues, they called 911 for further assessment. He was subsequently transported to the emergency room for further evaluation. Workup and evaluation in the emergency room demonstrated the patient be hemodynamically stable but was tachycardic. His EKG showed atrial tachycardia with a rapid ventricular response but no evidence of ischemic changes. Routine blood test demonstrated labs consistent with his known history of end-stage renal disease without any critical electrolyte abnormalities. His troponin was mildly elevated but from review of his records, it is always mildly elevated presumably secondary to his end-stage renal disease. His chest x-ray showed evidence of volume overload and congestive heart failure. Given these constellation of symptoms as well as the fact that he was due for dialysis today, he was admitted the hospital for further evaluation and therapy. Renal consultation was requested due to his end-stage renal disease. The patient is quite familiar to me as I take care of his outpatient dialysis needs. He normally dialyzes on a Friday, Friday, Friday dialysis schedule at [facility] under my care. He is currently receiving dialysis at the time of this dictation in effort to maintain stability in his outpatient dialysis schedule of Friday, Friday, and Friday ane optimize his volume status given admission findings (he was seen on dialysis at 4:15PM). No
--- NOTE | 2023-12-08 16:48 | ECG_ITS ---
Measurements Intervals Edna Rate: 143 P: -43 ND: 128 QRS: 65 QRSD: 92 T: -24 QT: 341 QTc: 526 Interpretive Statements ATRIAL TACHYCARDIA/FLUTTER WITH RAPID VENTRICULAR RESPONSE RSR' IN V1 OR V2, CONSIDER RIGHT VENTRICULAR HYPERTROPHY OR RIGHT VCD MINIMAL Q WAVES- LAT/HIGH LAT LEADS BORDERLINE T WAVE ABNORMALITY- INF/HIGH LAT LEADS ABNORMAL ECG COMPARED TO ECG 12/08/2023 08:27:33 NO SIGNIFICANT CHANGES Electronically Signed On 12-08-2023 17:14:19 FIELD TRAINER by Ford Fletcher D.O.
[2023-12-08 18:04] LABS: Glucose Point of Care 63 mg/dl (65-105)
--- NOTE | 2023-12-08 20:26 | ADMGEN ---
This patient, Tejas Yost, was admitted to IMU Room 202-01. Patient/family oriented to hospital policies and general routines including ID bracelet, bed and alarms, visiting hours, pain management, procedures, bathroom and other care routines, personal items, smoking policy, room service/diet, and visiting hours. Information on how to activate the Rapid Response Team has been discussed. Patient/Family are encouraged to report perceived risks to care and to ask questions if they do not understand what they are told or what they should do.
--- NOTE | 2023-12-08 21:00 | PC.NURSE ---
Patient refused to take ordered IV metoprolol. Patient stated, I've never seen it like that . This nurse explained iv medication and the purpose of the metoprolol. Patient stated his primary doctor doesn't want him to take anything to slow his heart. Patient continued arguing regardles off explanation given. Called Charge Nurse, Ceferino, who went to talk to patient. Patient denied any of the things he said. This nurse attempted to give metoprolol iv. Iv is infiltrated. Patient refuses to let anyone start an IV without an ultrasound. Nursing tunnel form placing supervisor stated she would start the IV. Patient stated, No, I'm not going to be just stuck for no reason Veda Laws NP aware.
[2023-12-08] MEDS: GABAPENTIN 100 MG CAPSULE PO (23:27)
[2023-12-09] VITALS (14 sets, daily range): BP systolic 119–132; BP diastolic 74–86; PULSE 110–144; RESP 14–18; TEMP 36.5–37.1; O2SAT 95–100
--- NOTE | 2023-12-09 04:22 | PC.NURSE ---
Patient had an emesis of about 200ml of undigested food. Asked for something for nausea. Dr. Uribe stated we couldn't give him anything for nausea for risk of increasing his QT interval. Cool cloth given to patient to put on his forehead. patient asked if he could have a pill to slow down his heart rate. Continues to refuse an IV or IV medication. Dr. Uribe states she will order PO metoprolol. Patient states, I don't care at this point. I'll take it
[2023-12-09] MEDS: METOPROLOL TARTRATE 50 MG TAB PO ×2 (05:04→08:37)
[2023-12-09 05:57] LABS: Troponin I 0.109 ng/mL (0.000-0.034)
[2023-12-09] MEDS: METOCLOPRAMIDE HCL 2.5 MG TABLET PO ×2 (06:06→16:54)
[2023-12-09 07:36] LABS: Alanine Aminotransferase 14 U/L (6-50); Albumin Level 3.8 g/dL (3.5-5.1); Alkaline Phosphatase 89 U/L (38-126); Anion Gap 12 mmol/L (8-16); Aspartate Amino Transferase 29 U/L (17-59); Bilirubin,Total 1.6 mg/dL (0.2-1.3); Blood Urea Nitrogen 46 mg/dL (9-20); Calcium 10.1 mg/dL (8.4-10.2); Carbon Dioxide 29 mmol/L (22-30); Chloride 98 mmol/L (98-107); Estimated CRCL calculation 11 ml/min; Estimated Glomerular Filt Rate 11; Glucose 88 mg/dL (65-110); Phosphorus 4.6 mg/dL (2.5-4.5); Potassium 4.2 mmol/L (3.4-5.0); Sodium 139 mmol/L (137-145)
[2023-12-09 07:58] LABS: Basophils Percent Auto 0.7 % (0.2-1.2); Eosinophils Absolute Auto 0.1 K/mm3 (0-0.3); Hematocrit 27.8 % (42.0-52.0); Hemoglobin 8.4 g/dL (14.0-18.0); Immature Granulocyte Absolute 0.01 K/mm3 (0.00-0.031); Immature Granulocyte Percent A 0.2 % (0-0.5); Lymphocytes Absolute Auto 0.88 K/mm3 (0.9-3.2); Mean Corpuscular HGB Conc 30.2 g/dl (32-36); Mean Corpuscular Volume 102.6 fl (80-100); Mean Platelet Volume 10.9 fl (7.4-10.4); Monocytes Absolute Auto 0.4 K/mm3 (0.1-0.6); Monocytes Percent Auto 9.8 % (2.6-8.5); Neutrophils Percent Auto 67.3 % (45.5-73.1); Platelet Count Result 128 k/mm3 (150-375); Red Blood Count 2.71 M/mm3 (4.6-6.20); Red Cell Distribution Width 17.5 % (11.5-14.5); White Blood Count 4.4 K/mm3 (4.5-10.0)
[2023-12-09] MEDS: APIXABAN 2.5 MG TABLET PO (08:38)
--- NOTE | 2023-12-09 09:02 | PM.PNNEP ---
Progress Note: A&P Assessment and Plan (1) End stage renal disease: Code(s): N18.6 - End stage renal disease Status: Chronic Assessment and Plan: HD tomorrow continue M/W/F dialysis schedule follow electrolytes, volume status, and clearance (2) Chest pain: Code(s): R07.9 - Chest pain, unspecified Status: Acute Assessment and Plan: resolved at this time given complex cardiac history, Cardiology consulted seems less likely ACS follow troponins (3) Volume overload: Code(s): E87.70 - Fluid overload, unspecified Status: Acute Assessment and Plan: as noted by admission CXR findings possible etiology for chest pain and SOB fluid removal/ultrafiltration with HD as tolerated (4) Atrial tachycardia: Code(s): I47.19 - Other supraventricular tachycardia Status: Acute Assessment and Plan: noted on admission apparently somewhat of chronic issue rate control strategy on oral metoprolol (5) Hypertension: Code(s): I10 - Essential (primary) hypertension Status: Chronic Assessment and Plan: better control at this time follow trend of hemodynamics (6) Anemia: Qualifiers: Anemia type: unspecified type Qualified Code(s): D64.9 - Anemia, unspecified Code(s): D64.9 - Anemia, unspecified Status: Chronic Assessment and Plan: due to ESRD Epogen with HD follow trend of H/H Will continue to follow. Subjective Date/time seen: 12/09/23 09:02 Interval history: Follow-up for end stage renal disease on hemodialysis. Rapid response towards the end of dialysis treatment yesterday necessitating end treatment about 10 minutes early -- developed chest pain rated 10/10 in association with leg cramps that resolved with returning his blood (suspect symptoms secondary to aggressive fluid removal with dialysis); noted issues with tachycardia (and refusing IV metoprolol); nausea earlier this morning as well; no further chest pain/discomfort. Exam Narrative: General: WD/WN male in NAD Heart: tachycardic, normal S1 and S2; no rub Lungs: clear anteriolry, decreased at bases Abdomen: soft, nontender, nondistended, positive bowel sounds Extremities: no cyanosis or clubbing; trace edema Skin: warm and dry Objective Data Vital Signs Vital Signs: Vital Signs Temp Pulse Resp BP Pulse Ox O2 Del Method FiO2 12/09/23 07:42 98.6 F 128 H 16 122/86 97 12/09/23 06:00 127 H 12/09/23 04:00 144 H 12/09/23 04:00 144 H 18 95 Room Air 12/09/23 05:04 144 H 12/09/23 04:00 97.7 F 143 H 18 132/79 95 12/09/23 02:00 110 H 12/09/23 00:00 142 H 12/08/23 22:00 143 H 12/08/23 20:00 146 H 12/09/23 00:00 142 H 18 97 Room Air 12/08/23 20:00 142 H 18 97 Room Air 12/09/23 00:00 98.1 F 142 H 18 119/74 97 12/08/23 20:56 145 H 12/08/23 20:00 98.4 F 146 H 18 133/65 95 12/08/23 19:12 97.3 F L 145 H 18 151/88 H 98 12/08/23 18:17 140 H 15 126/77 12/08/23 16:00 140 H 148/85 H 12/08/23 15:40 142 H 151/97 H 12/08/23 15:00 138 H 150/105 H 12/08/23 14:40 103 H 140/85 12/08/23 18:02 97.8 F 141 H 20 136/99 H 12/08/23 17:54 141 H 126/77 12/08/23 17:40 144 H 117/76 12/08/23 17:20 144 H 130/88 12/08/23 17:00 142 H 138/86 12/08/23 16:40 141 H 140/93 H 12/08/23 16:20 141 H 140/97 H 12/08/23 15:20 138 H 155/102 H 12/08/23 14:18 97.3 F L 106 H 20 152/94 H 12/08/23 14:33 106 H 156/97 H 12/08/23 11:44 134 H 18 142/92 H 96 12/08/23 10:33 104 H 12/08/23 10:04 98.2 F 109 H 20 140/86 99 Intake/Output Intake/Output: Intake & Output 12/06/23 12/07/23 12/08/23 12/09/23 23:59 23:59 23:59 23:59 Intake Total 690 Output Total 3480 Bal
[2023-12-09] MEDS: FLUTICASONE/UMECLIDIN/VILANTER 100-62.5-25 MCG ELLIPTA 1 PUFF INHALATION (09:56)
--- NOTE | 2023-12-09 10:13 | PM.CNCAR ---
Assessment and Plan Assessment and plan (1) Atrial tachycardia: Code(s): I47.19 - Other supraventricular tachycardia Status: Acute Assessment and Plan: He has atrial tachycardia. Has been placed on metoprolol already. Can increase as needed. (2) Elevated troponin: Code(s): R79.89 - Other specified abnormal findings of blood chemistry Status: Acute Assessment and Plan: His troponin levels are chronically elevated, most likely secondary to his end stage renal disease. Levels on this admission are minimally elevated and flat. This does not represent ACS. (3) Chest pain: Code(s): R07.9 - Chest pain, unspecified Status: Acute Assessment and Plan: He had right sided chest pain yesterday that has resolved. Atypical pain, not ischemic. (4) Coronary artery disease: Code(s): I25.10 - Atherosclerotic heart disease of [place] coronary artery without angina pectoris Status: Acute Assessment and Plan: Stable. Continue ASA. Unsure why he is not on statin, but our office notes indicate he was taking atorvastatin 80mg daily, which should be resumed. History of Present Illness History of Present Illness Consult date/time: 12/09/23 10:13 Requesting physician: Veda Laws PA-C Consult reason: chest pain Reason For Visit: Chest Pain/ESRD w Volume Overload Narrative: Tejas Yost is a 58 year old male with coronary artery disease status post PCI in 2008 and single vessel bypass with a saphenous vein graft to the diagonal branch of the LAD in 2022. At that time he was also found to have severe mitral regurgitation and severe aortic stenosis and is now status post MitraClip and bio AVR. This is a patient who is also chronically dependent on hemodialysis. He was sent to the hospital yesterday from his dialysis treatment center because he complained of shortness of breath and he reports the staff told him he didn't look well. He states when he was leaving the dialysis center he experienced some right sided chest discomfort which he describes as feeling like his shirt was stuck to his skin and being pulled off. He denies any chest pain currently. He is fully dressed standing at his hospital room door when I arrived to see him. He states he wants to go to the vending machine but does not have any complaints. Review of Systems Review of Systems: All systems reviewed & are unremarkable except as noted in HPI and below PMFSH Past Medical History Medical History Abnormal magnetic resonance imaging of liver MRI taken 10/20/2023 at [facility] showed advanced diffuse iron accumulation within the liver; patient refused liver biopsy. Anemia Aortic valve regurgitation Chronic pain Coronary artery disease Diastolic dysfunction Emphysema lung End-stage renal disease on hemodialysis Gastroesophageal reflux disease History of myocardial infarction Hypertension Latent tuberculosis by blood test Myocardial infarction (2008) Osteonecrosis Pericardial effusion Status post drain in August 2023. Tricuspid valve regurgitation Surgical History Surgical History History of cardiac catheterization History of coronary artery bypass graft x 1 Saphenous vein to diagonal branch of LAD. History of coronary artery stent placement (2008) Left circumflex, done at [facility]. History of heart valve replacement Status post MitraClip, tricuspid valve ring annuloplasty, and bioprosthetic aortic valve replacement in 2022 at [place]. History of removal of cyst Left wrist. History of tracheostomy Status post creation of arteriovenous fistula Family History Family History Mother No problems noted. Other Unknown family medical history Social History Social History (Reviewed 12/09/23 @ 14:07 by Faith
[2023-12-09] MEDS: ASPIRIN 81 MG CHEWABLE TABLET PO (11:36)
--- NOTE | 2023-12-09 17:20 | PM.IMPN ---
Progress Note: A&P Assessment and Plan (1) Chest pain: Code(s): R07.9 - Chest pain, unspecified Status: Acute Assessment and Plan: Patient complained of sharp, nonradiating right-sided chest pain with dialysis. The 09/09 chest pain was associated with leg cramps that resolved with returning his blood. Nephrology felt symptoms related to aggressive fluid removal with dialysis. Nephrology states CP occurred at the end of HD but ED noted CP began on arrival to dialysis unit Troponin up to 0.109 but flat. CXR showing CMG and probably pulmonary edema (PNA felt much less likely) EKG showing atrial tachycardia with RVR, RVH and borderline ST-T wave changes in the inferolateral leads Pulmonary embolism is considered less likely as he is on Eliquis and states compliance. No further CP Given his complicated medical history, cardiology was consulted. Continue metoprolol. Not on ASA or statin for unclear reasons. Add ASA. Defer to Cardiology about statin therapy. (2) Atrial tachycardia: Code(s): I47.19 - Other supraventricular tachycardia Status: Acute Assessment and Plan: EKG as above. HR elevated and Metoprolol 5 mg IV ordered x1 but patient refused. Oral metoprolol ordered and toelrating this. HR better but still not controlled Suspect AFlutter Advance metoprolol (3) Elevated troponin: Code(s): R79.89 - Other specified abnormal findings of blood chemistry Status: Acute Assessment and Plan: As above. (4) Volume overload: Code(s): E87.70 - Fluid overload, unspecified Status: Acute Assessment and Plan: CXR showing pulmonary edema. Odd he would have fluid overload since he presumably just completed HD. Could be related to poorly controlled heart rate. He did received HD yesterday here. Continue HD to control fluid status. (5) Anemia: Qualifiers: Anemia type: unspecified type Qualified Code(s): D64.9 - Anemia, unspecified Code(s): D64.9 - Anemia, unspecified Status: Chronic Assessment and Plan: Patient has anemia of chronic disease. Hemoglobin is a bit lower than what he typically runs. Continue to monitor, nephrology input appreciated. (6) Chronic anticoagulation: Code(s): Z79.01 - longterm (current) use of anticoagulants Status: Acute Assessment and Plan: Continue apixaban. (7) End-stage renal disease on hemodialysis: Code(s): N18.6 - End stage renal disease; Z99.2 - Dependence on renal dialysis Status: Acute Assessment and Plan: As above. Nephrology consulted and appreciate their input Continue HD per nephrology instructions Plan DVT prophylaxis - Dominique Code status - full Subjective Date/time seen: 12/09/23 17:20 Interval history: 58yo male with ESRD, CAD, pAFib and valvular heart disease here for chest pain. Patient feels 'fine'. No CP or SOB currently. No shoulder or jaw pain. Exam Narrative: AF 98.4 127/84 127 16 100% ra Gen - NARD Chest - few basilar rhonchi, nml RR CV - regular, tachycardic. Tele showing sinus tach vs AFlutter (HR 130). Abd - Soft, NT/ND, Positive BS Ext - No pedal edema. Thrill and bruit LUE. Psych - unhappy mood Skin - Warm and dry Objective Data Vital Signs Vital Signs: Vital Signs - 24 hr 12/08/23 17:40 12/08/23 17:54 12/08/23 18:02 Temperature 97.8 F Pulse Rate 144 H 141 H 141 H Respiratory Rate 20 Blood Pressure 117/76 126/77 136/99 H Pulse Oximetry Oxygen Delivery Fraction of Inspired Oxygen 12/08/23 18:17 12/08/23 19:12 12/08/23 20:00 Temperature 97.3 F L 98.4 F Pulse Rate 140 H 145 H 146 H Respiratory Rate 15 18 18 Blood Pressure 126/77 151/88 H 133/65 Pulse Oximetry 98 95 Oxygen Delivery Fraction of Inspired Oxygen 12/08/23 20:56 12/09/23 00:00 12/08/23 20:00 Temperature 98.1 F Pulse Rate 145 H 142 H 142 H Respiratory Rate 18 18 Bl
[2023-12-09] MEDS: METOPROLOL TARTRATE 25 MG TABLET PO (18:05)
--- NOTE | 2023-12-11 15:11 | PM.DS ---
DS: Admitting Diagnosis Discharge Date 12/09/23 Admitting Diagnosis Chest Pain DS: Discharge Diagnosis Discharge Diagnosis (1) Chest pain: Code(s): R07.9 - Chest pain, unspecified Status: Acute (2) Atrial tachycardia: Code(s): I47.19 - Other supraventricular tachycardia Status: Acute (3) Elevated troponin: Code(s): R79.89 - Other specified abnormal findings of blood chemistry Status: Acute (4) Volume overload: Code(s): E87.70 - Fluid overload, unspecified Status: Acute (5) Anemia: Qualifiers: Anemia type: unspecified type Qualified Code(s): D64.9 - Anemia, unspecified Code(s): D64.9 - Anemia, unspecified Status: Chronic (6) Chronic anticoagulation: Code(s): Z79.01 - nursing home (current) use of anticoagulants Status: Acute (7) End-stage renal disease on hemodialysis: Code(s): N18.6 - End stage renal disease; Z99.2 - Dependence on renal dialysis Status: Acute DS: Summary Hospital Course Reason for hospitalization: 58yo male with ESRD, CAD, pAFib and valvular heart disease here for chest pain. Please see H&P for details. Hospital Course: Patient complained of sharp, nonradiating right-sided chest pain with dialysis. The 10/10 chest pain was associated with leg cramps that resolved with returning his blood. Nephrology felt symptoms related to aggressive fluid removal with dialysis. Troponin up to 0.109 but flat.? CXR showing CMG and probably pulmonary edema (PNA felt much less likely). EKG showing atrial tachycardia with RVR, RVH and borderline ST-T wave changes in the inferolateral leads. Pulmonary embolism is considered less likely as he is on Eliquis and states compliance. Patient presumably received dialysis prior to admission. CXR showing fluid overload. Odd he would have fluid overload since he presumably just completed HD. Nephrology consulted and appreciate their input. Patient had dialysis here on the day of admission. Could be related to poorly controlled heart rate. We used dialysis to control fluid status. Given his complicated medical history, cardiology was consulted. Not on ASA or statin for unclear reasons. ASA added. His heart rate was elevated and Metoprolol 5 mg IV ordered x1 but patient refused. Oral metoprolol ordered and he tolerated this well. Heart rate improved but still not controlled. Suspect AFlutter. He was advised that we will griselda to keep titrating his medications to control the heart rate. Patient refused and wished to sign out against medical advise. He was informed about the risks of leaving against medical advise. Patient was discharged home with a prescription for metoprolol. Status at Discharge Cognitive/behavioral status at discharge: stable Time Spent with Patient Time attestation: Total time spent providing and/or coordinating discharge services: 34 minutes Exam Narrative: AF 98.4 127/84 127 16 100% ra Gen - NARD Chest - few basilar rhonchi, nml RR CV - regular, tachycardic. Tele showing sinus tach vs AFlutter (HR 130). Abd - Soft, NT/ND, Positive BS Ext - No pedal edema. Thrill and bruit LUE. Psych - unhappy mood Skin - Warm and dry Discharge Plan Discharge Attending physician on discharge: Royce Weiner Consulting providers: Farideh Juarez; Melani Bhardwaj; Janet Luo; Veda Laws; Ford Fletcher; Ulysses Arboleda Patient Disposition: Left Against Medical Advice Discharge Instructions: CHF Patient Instructions: Apixaban (By mouth), Heart Failure (GEN) Discharge Medications: New metoprolol tartrate 75 mg tablet 75 mg PO Q12H Qty: 60 1RF Continued cholecalciferol (vitamin D3) 1,250 mcg (50,000 unit) tablet 1,250 mcg PO WEEKLY Rx Instructions: Friday Trelegy Ellipta 100-62.5-25 mcg blister with device 1 inh inhalation DAILY Eliquis 5 mg tablet 2.5 mg PO DAILY benzonatate 200 mg capsule
== END 2023-12-09 18:35 | disposition left against medical advice (07) | DRG 308 ==
LOC: ANHED 13:55 → ANHIMU 14:37
PROVIDERS: Internal Medicine Nephrology; Admitting Provider General Practice; Emergency Provider Emergency Medicine; PCP Internal Medicine; Visit Provider Internal Medicine
DX: I48.92 Unspecified atrial flutter (principal); N18.6 End stage renal disease; I12.0 Hypertensive chronic kidney disease with stage 5 chronic kidney disease or end stage renal disease; R07.9 Chest pain, unspecified; I47.19 Other supraventricular tachycardia; D63.1 Anemia in chronic kidney disease; E87.70 Fluid overload, unspecified; E78.5 Hyperlipidemia, unspecified; I25.2 Old myocardial infarction; I25.10 Atherosclerotic heart disease of native coronary artery without angina pectoris; I08.2 Rheumatic disorders of both aortic and tricuspid valves; I48.0 Paroxysmal atrial fibrillation; I73.9 Peripheral vascular disease, unspecified; J43.9 Emphysema, unspecified; R79.89 Other specified abnormal findings of blood chemistry; Z28.21 Immunization not carried out because of patient refusal; Z87.891 Personal history of nicotine dependence; Z95.1 Presence of aortocoronary bypass graft; Z99.2 Dependence on renal dialysis; Z95.5 Presence of coronary angioplasty implant and graft; Z95.4 Presence of other heart-valve replacement; Z86.73 Personal history of transient ischemic attack (TIA), and cerebral infarction without residual deficits; Z79.01 Long term (current) use of anticoagulants; Z93.0 Tracheostomy status
CPT/HCPCS: 36415; 71046; 80053; 82948; 83690; 83735; 84100; 84484; 85025; 85610; 85730; 86706; 87340; 93005; 94640; 96374; 99285; A9270; G0257; G0378; J7030; Q5105

== ENCOUNTER 2023-12-30 07:25 | Outpatient (CLI) | payer MEDICARE, MEDICAID, SELFPAY ==
--- NOTE | ~2023-12-30 | PE_ITS ---
EXAMINATION: PET skull to mid thigh DATE: 12/30/2023 09:58 INDICATION: Malignant neoplasm of left lower limb. TECHNIQUE: Blood glucose level was 76 mg/dL. 9.356 mCi of 18-fluorodeoxyglucose (18-FDG) was administ ered i.v. Low dose computed tomography (CT) images were acquired from the base of the brain to the pr oximal thighs for attenuation correction and anatomic localization. Automated exposure control was em ployed. Dose-length product (DLP) was 622 mGy-cm. Positron emission tomography (PET) images were acqu ired in the same distribution. COMPARISON: CT abdomen and pelvis 06/10/2022, 04/19/19 FINDINGS: Head/neck: There are no pathologically enlarged lymph nodes. Chest: There is mild atelectasis in the lungs bilaterally. No pleural effusion. Cardiomegaly is noted . There are changes of aortic and mitral valve replacements. There are coronary artery calcifications . No pericardial effusion. The central pulmonary arteries are enlarged, consistent with pulmonary art erial hypertension. There is a 12 x 12 mm lymph node in right superior mediastinum with maximum SUV o f 3.5, stable in size from 06/10/22. There is mild mediastinal lymphadenopathy without increased activ ity, likely reactive. There is a healing fracture of left first rib. Abdomen/pelvis/proximal thighs: The liver is normal. There are gallstones in the gallbladder, which i s normal in size. The spleen, pancreas, and adrenal glands are normal. There are innumerable cysts an d hemorrhagic cysts in the kidneys measuring up to 4.0 cm on the left. There is a 4 mm stone in left kidney. There are no dilated loops of bowel. There are no pathologically enlarged lymph nodes. There is no free intraperitoneal fluid. There is no osseous malignancy. IMPRESSION: 1. Mildly enlarged mediastinal lymph node with increased activity, stable in size from 06/10/22, likel y reactive. 2. Polycystic kidney disease. Reviewed, dictated and finalized at location A. GER RISK MANAGEMENT IMPRESSION: 1. Mildly enlarged mediastinal lymph node with increased activity, stable in si ze from 06/10/22, likely reactive. 2. Polycystic kidney disease.
[2023-12-30 08:03] LABS: Glucose Point of Care 76 mg/dl (65-105)
== END 2023-12-30 07:26 | disposition home or self-care (01) ==
LOC: ANHIMG 07:28
PROVIDERS: PCP Internal Medicine; Visit Provider Nurse Practitioner
DX: C40.32 Malignant neoplasm of short bones of left lower limb (principal); Q61.2 Polycystic kidney, adult type
CPT/HCPCS: 78815; A9552

== ENCOUNTER → 2024-01-08 00:19 | Day surgery (SDC) | payer MEDICARE, MEDICAID, SELFPAY ==
[2024-01-07 15:33] VITALS: BMI 19.5
--- NOTE | 2024-01-08 08:30 | ECG_ITS ---
Measurements Intervals [place] Rate: 77 P: 74 [place]: 119 QRS: 53 QRSD: 93 T: 268 QT: 397 QTc: 452 Interpretive Statements SINUS RHYTHM WITH SHORT [place] INTERVAL WITH OCCASIONAL VENTRICULAR PREMATURE COMPLEXES POSSIBLE LEFT VENTRICULAR HYPERTROPHY [VOLTAGE CRITERIA PLUS LAE OR QRS WIDENING] POSSIBLE LATERAL MYOCARDIAL INFARCTION , PROBABLY OLD [30 ms Q WAVE IN I/aVL/V5/V6] COMPARED TO ECG 12/08/2023 17:05:35 SINUS RHYTHM NOW PRESENT Electronically Signed On 01-08-2024 11:28:01 MANAGER HI by Janet Luo M.D.
--- NOTE | 2024-01-08 09:35 | P.PNCROSS_ITS ---
Event Note Event Note Event Note: Patient presented for outpatient cardioversion. Pre-procedure EKG shows sinus r hythm, therefore, cardioversion canceled. Referring hole puncher strap notified.
--- NOTE | 2024-01-08 09:35 | PM.EVENT ---
Event Note Event Note Event Note: Patient presented for outpatient cardioversion. Pre-procedure EKG shows sinus rhythm, therefore, cardioversion canceled. Referring credit portfolio manager notified.
== END ==
PROVIDERS: PCP Internal Medicine; Visit Provider Internal Medicine
PROC: 5A2204Z Restoration of Cardiac Rhythm, Single (ICD-10-PCS; principal; 2024-01-08 10:00)
DX: I48.91 Unspecified atrial fibrillation (principal); Z53.8 Procedure and treatment not carried out for other reasons
CPT/HCPCS: 99211; G0463; J7030

== ENCOUNTER 2024-02-13 14:32 | Emergency (ER) | payer MEDICARE, MEDICAID, SELFPAY ==
[2024-02-13] VITALS (25 sets, daily range): BP systolic 133–156; BP diastolic 69–82; PULSE 62–74; RESP 11–30; TEMP 36.5; O2SAT 92–99
--- NOTE | ~2024-02-13 | XR_ITS ---
XR chest 2V 02/13/2024 15:06 Indication: Chest pain. History of stents. Procedure: 2 view chest Comparison: Comparison to multiple prior studies sequentially, with oldest reviewed study dated 10/01. Findings: Status post median sternotomy for CABG. Borderline heart size. There is a coronary artery s tent. There is left basilar atelectasis. Possible small effusion. No pneumothorax. No edema. Impression: 1: Left basilar atelectasis. 2: Blunting of the posterior costophrenic recess, suspicious for pleural effusions. Reviewed, dictated and finalized at location A. Impression: 1: Left basilar atelectasis. 2: Blunting of the posterior costophrenic recess, suspicious for pleural effus ions.
--- NOTE | 2024-02-13 14:35 | ECG_ITS ---
Measurements Intervals [place] Rate: 65 P: 30 [place]: 147 QRS: 37 QRSD: 95 T: -78 QT: 395 QTc: 411 Interpretive Statements SINUS RHYTHM CONSIDER HIGH LATERAL INFARCT, AGE INDETERMINATE BORDERLINE ST-T WAVE ABNORMALITY- ANTEROLAT/INF LEADS ABNORMAL ECG COMPARED TO ECG 01/08/2024 09:04:41 NO SIGNIFICANT CHANGES Electronically Signed On 02-13-2024 14:44:41 CDT by Ford Fletcher D.O.
[2024-02-13 14:58] LABS: Basophils Percent Auto 0.4 % (0.2-1.2); Eosinophils Absolute Auto 0.1 K/mm3 (0-0.3); Hematocrit 31.6 % (42.0-52.0); Immature Granulocyte Absolute 0.03 K/mm3 (0.00-0.031); Immature Granulocyte Percent A 0.4 % (0-0.5); Lymphocytes Absolute Auto 0.79 K/mm3 (0.9-3.2); Lymphocytes Percent Auto 11.5 % (18.3-44.2); Mean Corpuscular HGB Conc 31.6 g/dl (32-36); Mean Corpuscular Volume 104.3 fl (80-100); Mean Platelet Volume 11.2 fl (7.4-10.4); Monocytes Absolute Auto 0.5 K/mm3 (0.1-0.6); Monocytes Percent Auto 7.1 % (2.6-8.5); Neutrophils Absolute Auto 5.4 K/mm3 (1.3-6.7); Neutrophils Percent Auto 78.6 % (45.5-73.1); Platelet Count Result 110 k/mm3 (150-375); Red Blood Count 3.03 M/mm3 (4.6-6.20); Red Cell Distribution Width 18.1 % (11.5-14.5); White Blood Count 6.9 K/mm3 (4.5-10.0)
[2024-02-13 15:08] LABS: Alanine Aminotransferase 23 U/L (6-50); Alkaline Phosphatase 102 U/L (38-126); Anion Gap 6 mmol/L (8-16); Aspartate Amino Transferase 32 U/L (17-59); Bilirubin,Total 0.9 mg/dL (0.2-1.3); Blood Urea Nitrogen 32 mg/dL (9-20); Calcium 9.8 mg/dL (8.4-10.2); Carbon Dioxide 35 mmol/L (22-30); Chloride 95 mmol/L (98-107); Estimated CRCL calculation 18 ml/min; Estimated Glomerular Filt Rate 17; Glucose 120 mg/dL (65-110); INR 1.3; Lipase 146 U/L (23-300); Potassium 4.3 mmol/L (3.4-5.0); Sodium 136 mmol/L (137-145)
[2024-02-13 15:09] LABS: Partial Thromboplastin Time 38.1 Seconds (22.3-36.8)
[2024-02-13 15:22] LABS: Troponin I 0.036 ng/mL (0.000-0.034)
--- NOTE | 2024-02-13 16:42 | ED.CHESTPAIN ---
HPI - Chest Pain General Chief Complaint: Chest Pain Stated Complaint: Sharp CP Time Seen by Provider: 02/13/24 14:35 Source: patient Mode of arrival: EMS Limitations: no limitations History of Present Illness HPI narrative: 58-year-old with a history of CAD status post CABG single-vessel, status post bioprosthetic aortic valve, ESRD on hemodialysis presents to ER with complaints of 1 day history of chest pain. Patient states the pain started last night and being unsteady. He also complains of nausea and vomiting occasionally. He denies any shortness of breath. No history of fever or chills. He states he has been taking all his medication. 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 MD complaint: chest pain Pertinent past history: coronary artery disease Onset (ago): day(s) (1) Timing of current episode: constant Pain location: other (mid chest) Pain radiation: none Severity: moderate Quality: sharp Relieving factors: nothing Exacerbating factors: nothing Associated symptoms: nausea and vomiting Risk Factors Thoracic aortic dissection risk factors: none Related Data Home Medications Medication Instructions Recorded Confirmed cholecalciferol (vitamin D3) 1,250 1,250 mcg PO WEEKLY 11/18/23 01/07/24 mcg (50,000 unit) tablet apixaban 5 mg tablet (Eliquis) 2.5 mg PO DAILY 12/08/23 01/07/24 benzonatate 200 mg capsule 200 mg PO TID PRN Cough 12/08/23 01/07/24 metoclopramide HCl 5 mg tablet 2.5 mg PO BIDAC 12/08/23 01/07/24 aspirin 81 mg tablet,delayed 81 mg PO DAILY 01/07/24 01/07/24 release fluticasone fur. 100 mcg-umeclid 100 inh inhalation DAILY 01/07/24 01/07/24 62.5 mcg-vilant 25 mcg inhalat.powder (Trelegy Ellipta) Allergies Allergy/AdvReac Type Severity Reaction Status Date / Time adhesive Allergy Mild BLISTERS Verified 01/08/24 09:02 clonidine AdvReac Unknown Vomiting Verified 01/08/24 09:02 hydralazine AdvReac Unknown Vomiting Verified 01/08/24 09:02 Review of Systems Review of Systems: All systems reviewed & are unremarkable except as noted in HPI and below Constitutional: Constitutional: Reports no additional constitutional complaints Eyes: Eyes: Reports no additional eye complaints ENT: Reports system reviewed and no additional complaints, except as documented Cardiovascular: Cardiovascular: Reports as per HPI Respiratory: Respiratory: Reports no additional respiratory complaints Gastrointestinal: Gastrointestinal: Reports as per HPI Musculoskeletal: Musculoskeletal: Reports no additional musculoskeletal complaints Integumentary/Breasts: Skin/Breast: Reports system reviewed and no additional complaints, except as docu Neurologic: Reports system reviewed and no additional complaints, except as documented [facility] Past Medical History Medical History Abnormal magnetic resonance imaging of liver MRI taken 10/20/2023 at [facility] showed advanced diffuse iron accumulation within the liver; patient refused liver biopsy. Anemia Anemia in chronic kidney disease, on chronic dialysis Aortic valve regurgitation Chronic pain Coronary artery disease Diastolic dysfunction Emphysema lung End-stage renal disease on hemodialysis Gastroesophageal reflux disease History of myocardial infarction Hypertension Latent tuberculosis by blood test Myocardial infarction (2008) Osteonecrosis Pericardial effusion Status post drain in August 2023. Tricuspid valve regurgitation Surgical History Surgical History History of cardiac catheterization History of coronary artery bypass graft x 1 Saphenous vein to diagonal branch of LAD. History of coronary artery stent placement (2008) Left circumflex, done at [place]. History of heart valve replacement Status post MitraClip, tricuspid valve ring annuloplasty, and bioprosthetic aortic valve replacement in 2022 at [place]. History of rem
[2024-02-13 18:49] LABS: Troponin I 0.039 ng/mL (0.000-0.034)
== END 2024-02-13 19:24 | disposition home or self-care (01) ==
PROVIDERS: Emergency Medicine; Emergency Provider Family Medicine; PCP Internal Medicine
DX: I12.0 Hypertensive chronic kidney disease with stage 5 chronic kidney disease or end stage renal disease (principal); N18.6 End stage renal disease; R79.89 Other specified abnormal findings of blood chemistry; R07.89 Other chest pain; Z99.2 Dependence on renal dialysis; D63.1 Anemia in chronic kidney disease; I25.10 Atherosclerotic heart disease of native coronary artery without angina pectoris; I25.2 Old myocardial infarction; I08.2 Rheumatic disorders of both aortic and tricuspid valves; J43.9 Emphysema, unspecified; K21.9 Gastro-esophageal reflux disease without esophagitis; Z95.1 Presence of aortocoronary bypass graft; Z95.5 Presence of coronary angioplasty implant and graft; Z95.2 Presence of prosthetic heart valve; Z87.891 Personal history of nicotine dependence; R94.31 Abnormal electrocardiogram [ECG] [EKG]
CPT/HCPCS: 36415; 71046; 80053; 83690; 84484; 85025; 85610; 85730; 93005; 99284

== ENCOUNTER 2024-03-21 08:29 | Inpatient (IN) | payer MEDICARE, MEDICAID, SELFPAY ==
[2024-03-21] VITALS (29 sets, daily range): BP systolic 120–173; BP diastolic 61–83; PULSE 58–76; RESP 12–27; TEMP 35.8–36.4; O2SAT 93–100; BMI 19.5
--- NOTE | ~2024-03-21 | US_ITS ---
EXAMINATION: US abdomen limited DATE: 03/22/2024 15:36 INDICATION: Ascites TECHNIQUE: Multiple grayscale and Doppler ultrasound images of the abdomen were obtained for planned paracentesis. There is a minimal amount of fluid situated between the tip of the gallbladder in the i nferior right hepatic lobe. 3 mL 1% lidocaine was used for local anesthesia. Ultrasound imaging durin g advancement of the needle to the wall the peritoneum demonstrate relatively poor visualization of t he needle. In additional there was some gas-filled bowel in the gonzalez of which were difficult to rosasna rly visualize and which would intermittently shifted into the location of the fluid. For these reason s significant increase in the risk of complication due to bowel injury was elected to defer the plann ed paracentesis at this time. COMPARISON: 03/21/2024 FINDINGS/IMPRESSION: Suboptimally visualized mobile gas-filled bowel immediately adjacent to a tiny collection of ascites in the right upper quadrant. Planned paracentesis was deferred due to the minimal amount fluid and in creased risk of complication due to bowel injury. Reviewed, dictated and finalized at location A.
--- NOTE | ~2024-03-21 | CT_ITS ---
EXAMINATION: CT abdomen pelvis wo con DATE: 03/21/2024 10:13 INDICATION: Abdominal pain TECHNIQUE: Computed tomography (CT) of the abdomen and pelvis was performed without intravenous contr ast. The dose-length product was 302.05 mGy-cm. Automated exposure control and iterative reconstructi on technique were employed. COMPARISON: CT dated 06/10/2022 FINDINGS: there is lower lobe atelectasis. Small right pleural effusion. Small pericardial effusion. Cardiomegaly. Small size hiatal hernia. Innumerable bilateral renal masses of varying density are pre sent, consistent with adult polycystic kidney disease. There are gallstones. There is mild diffuse me senteric edema. Small amount of ascites. Diffuse bladder wall thickening. The liver, spleen, pancreas , adrenal glands are unremarkable. No nonobstructive bowel pattern. Moderate diffuse atherosclerosis. No aneurysm.. IMPRESSION: 1. Innumerable bilateral renal masses, most compatible with polycystic kidney disease. Cannot exclude underlying neoplasm. 2: Small right pleural effusion. Trace pericardial effusion. 3: Small amount of ascites. Mild mesenteric edema. 4: Bladder wall thickening, suspicious for underlying cystitis. 5: Cholelithiasis. 6: Small size hiatal hernia. Reviewed, dictated and finalized at location A. IMPRESSION: 1. Innumerable bilateral renal masses, most compatible with polycystic kidney d isease. Cannot exclude underlying neoplasm. 2: Small right pleural effusion. Trace pericardial effusion. 3: Small amount of ascites. Mild mesenteric edema. 4: Bladder wall thickening, suspicious for underlying cystitis. 5: Cholelithiasis. 6: Small size hiatal hernia.
--- NOTE | ~2024-03-21 | CT_ITS ---
EXAMINATION: CTA abdomen pelvis DATE: 03/21/2024 13:22 CDT INDICATION: Diffuse abdominal pain TECHNIQUE: Computed tomographic angiography (CTA) of the abdomen and pelvis was performed without and with 100 mL Omnipaque-350 intravenous contrast. The dose-length product was 364.00 mGy-cm. Maximum i ntensity projection 3D-reconstructions of the aorta and other arteries were constructed by the techno logist on a separate workstation. COMPARISON: CT dated 03/21/2024 and PET/CT dated 12/30/2023. FINDINGS: There is dependent atelectasis. Small right pleural effusion. Cardiomegaly. There is athero sclerosis of the aorta without evidence for aneurysm or dissection. There is moderate stenosis at the origin of the celiac axis and SMA. There is bilateral renal artery stenosis. The CORETTA is patent. Ther e is a large amount of debris in the bowel. There are gallstones. There is ascites. Mild mesenteric e chaka. Innumerable low-density masses are present in both kidneys, consistent with polycystic kidney d isease. There is a hiatal hernia. Bladder wall thickening, suspicious for cystitis. IMPRESSION: 1. Diffuse atherosclerosis with moderate stenosis at the origin of the celiac axis and SMA. Bilateral renal artery stenosis. 2: Innumerable bilateral renal masses, compatible with polycystic kidney disease. 3: Ascites with mesenteric edema. 4: Cholelithiasis. 5: Bladder wall thickening, suspicious for cystitis. Reviewed, dictated and finalized at location A. IMPRESSION: 1. Diffuse atherosclerosis with moderate stenosis at the origin of the celiac a xis and SMA. Bilateral renal artery stenosis. 2: Innumerable bilateral renal masses, compatible with polycystic kidney diseas e. 3: Ascites with mesenteric edema. 4: Cholelithiasis. 5: Bladder wall thickening, suspicious for cystitis.
--- NOTE | 2024-03-21 08:35 | ECG_ITS ---
SEE SCANNED COPY FOR CONFIRMED REPORT MTDD
[2024-03-21 09:19] LABS: Basophils Percent Auto 0.8 % (0.2-1.2); Eosinophils Absolute Auto 0.1 K/mm3 (0-0.3); Eosinophils Percent Auto 1.4 % (0-4.4); Hematocrit 35.2 % (42.0-52.0); Hemoglobin 11.3 g/dL (14.0-18.0); Immature Granulocyte Absolute 0.02 K/mm3 (0.00-0.031); Immature Granulocyte Percent A 0.4 % (0-0.5); Immature Platelet Fraction Pct 4.2 % (0.9-11.2); Lymphocytes Absolute Auto 0.97 K/mm3 (0.9-3.2); Lymphocytes Percent Auto 19.1 % (18.3-44.2); Mean Corpuscular HGB Conc 32.1 g/dl (32-36); Mean Corpuscular Hemoglobin 32.2 pg (26-34); Mean Corpuscular Volume 100.3 fl (80-100); Mean Platelet Volume 10.9 fl (7.4-10.4); Monocytes Absolute Auto 0.7 K/mm3 (0.1-0.6); Monocytes Percent Auto 14.4 % (2.6-8.5); Neutrophils Absolute Auto 3.3 K/mm3 (1.3-6.7); Neutrophils Percent Auto 63.9 % (45.5-73.1); Platelet Count Result 89 k/mm3 (150-375); Red Blood Count 3.51 M/mm3 (4.6-6.20); Red Cell Distribution Width 16.9 % (11.5-14.5); White Blood Count 5.1 K/mm3 (4.5-10.0)
[2024-03-21 09:28] LABS: INR 1.4
[2024-03-21 09:29] LABS: Partial Thromboplastin Time 39.7 Seconds (22.3-36.8)
[2024-03-21 09:35] LABS: Alanine Aminotransferase 19 U/L (6-50); Albumin Level 4.1 g/dL (3.5-5.1); Alkaline Phosphatase 122 U/L (38-126); Anion Gap 10 mmol/L (4-12); Aspartate Amino Transferase 33 U/L (17-59); Bilirubin,Total 0.9 mg/dL (0.2-1.3); Blood Urea Nitrogen 73 mg/dL (9-20); Calcium 8.9 mg/dL (8.4-10.2); Carbon Dioxide 30 mmol/L (22-30); Chloride 92 mmol/L (98-107); Estimated CRCL calculation 9 ml/min; Estimated Glomerular Filt Rate 7; Glucose 79 mg/dL (65-110); Lipase 263 U/L (23-300); Potassium 6.8 mmol/L (3.4-5.0); Sodium 132 mmol/L (137-145)
[2024-03-21 09:45] LABS: Troponin I 0.035 ng/mL (0.000-0.034)
[2024-03-21] MEDS: CALCIUM GLUCONATE 1,000 MG/10 ML VIAL 1000 MG IV PUSH (10:18)
[2024-03-21] MEDS: FAMOTIDINE 20 MG/2 ML VIAL IV PUSH (10:18)
[2024-03-21] MEDS: INSULIN HUMAN REGULAR (*BKC) 100 UNITS/ML 10 UNITS IV PUSH (10:19)
[2024-03-21] MEDS: DEXTROSE 50% 25 GM/50 ML SYRINGE IV PUSH ×2 (10:19→12:01)
--- NOTE | 2024-03-21 10:38 | ED.GENADULT ---
HPI - General Adult General Chief complaint: Abdominal Pain Stated complaint: abd pain Time Seen by Provider: 03/21/24 08:57 History of Present Illness HPI narrative: Tejas Yost is a 58 y/o male with PMHx of HD MWF who presents today with reports of being in his normal state of health up until this morning when he woke up with abdominal distension/ pain all over. He states he has felt a little nausea/ no vomiting/ he states he had a normal BM today. Related Data Home Medications Medication Instructions Recorded Confirmed cholecalciferol (vitamin D3) 1,250 1,250 mcg PO WEEKLY 11/18/23 03/21/24 mcg (50,000 unit) tablet apixaban 5 mg tablet (Eliquis) 2.5 mg PO Q12H 12/08/23 03/21/24 benzonatate 200 mg capsule 200 mg PO TID PRN Cough 12/08/23 03/21/24 amiodarone 400 mg tablet 400 mg PO Q12H 03/21/24 03/21/24 calcium acetate(phosphat bind) 667 667 mg PO TID 03/21/24 03/21/24 mg capsule Allergies Allergy/AdvReac Type Severity Reaction Status Date / Time adhesive Allergy Mild BLISTERS Verified 01/08/24 09:02 clonidine AdvReac Unknown Vomiting Verified 01/08/24 09:02 hydralazine AdvReac Unknown Vomiting Verified 01/08/24 09:02 Review of Systems Review of Systems: CONSTITUTIONAL: Denies fever, chills, or sweats. EYES: Denies visual changes, redness, or discharge. ENT: Denies rhinorrhea, congestion, sore throat, or otalgia. CARDIOVASCULAR: Denies chest pain, palpitations, or edema. RESPIRATORY: Denies cough or dyspnea. GASTROINTESTINAL: + abdominal pain, nausea, abdominal bloating and last BM today normal GENITOURINARY: Does not make urine SKIN: Denies rash or itching. MUSCULOSKELETAL: Denies back pain, joint pain, or myalgia. NEUROLOGIC: Denies headache, numbness, dizziness, or weakness. PSYCHIATRIC: Denies anxiety or depression. [facility] Past Medical History Medical History Abnormal magnetic resonance imaging of liver MRI taken 10/20/2023 at [facility] showed advanced diffuse iron accumulation within the liver; patient refused liver biopsy. Anemia Anemia in chronic kidney disease, on chronic dialysis Aortic valve regurgitation Chronic pain Coronary artery disease Diastolic dysfunction Emphysema lung End-stage renal disease on hemodialysis Gastroesophageal reflux disease History of myocardial infarction Hypertension Latent tuberculosis by blood test Myocardial infarction (2008) Osteonecrosis Pericardial effusion Status post drain in August 2023. Tricuspid valve regurgitation Surgical History Surgical History History of cardiac catheterization History of coronary artery bypass graft x 1 Saphenous vein to diagonal branch of LAD. History of coronary artery stent placement (2008) Left circumflex, done at [place]. History of heart valve replacement Status post MitraClip, tricuspid valve ring annuloplasty, and bioprosthetic aortic valve replacement in 2022 at [place]. History of removal of cyst Left wrist. History of tracheostomy Status post creation of arteriovenous fistula Family History Family History Mother No problems noted. Other Unknown family medical history Social History Social History Social History: Surrogate medical decision maker: Gwen Sagastume, aunt. Code status: Full code. Smoking packs per day: 0.5 Smoking cigarettes per day: 10.0 Years smoked: 20 Smoking pack-years: 10.00 Smoking status: Former smoker Alcohol intake: never Substance use: never Substance use type: does not use Do You Feel Safe in your Home?: Yes Lack of Transportation: No Lack of Food: Never True Current Housing: I Have Housing Concerned About Future Housing: Decline to Answer Difficulty Paying Gas/Electric Bills: Decline to Answer D
[2024-03-21] MEDS: SODIUM ZIRCONIUM CYCLOSILICATE 10 GM POWD.PACK PO ×2 (11:38→16:02)
[2024-03-21 11:46] LABS: Glucose Point of Care 53 mg/dl (65-105)
--- NOTE | 2024-03-21 11:48 | PM.CNNEP ---
Assessment and Plan Assessment and plan (1) Abdominal pain: Code(s): R10.9 - Unspecified abdominal pain Status: Acute Assessment and Plan: The patient has abdominal pain. It is diffuse and very tender. He does not seem very toxic otherwise. His white count is okay, he does not have a fever, and his blood pressure is okay. CT without contrast shows mesenteric edema. Discussed with Dr. Tejada. This is a nonspecific finding. With his extensive and complex history, we have to rule out vascular issues so we will order a CT angio of the abdomen and pelvis. He does have ascites as well. He could have spontaneous bacterial peritonitis as well. Consider tapping? discussed with Dr. Hylton. I will leave this decision up to him depending on how the CTA turns out. His pancreas was okay and lipase was okay. His gallbladder looked okay on CT. I will order a CT angio. His repeat potassium is okay so it is all right to give the contrast today. Will also order a surgery consult and Dr. Tejada will see him today. (2) ESRD (end stage renal disease): Code(s): N18.6 - End stage renal disease Status: Acute Assessment and Plan: The patient has end-stage renal disease. Go to dialysis on Friday. He does have ascites and pleural effusion but I do not think dialysis is going to help him today especially since his potassium came down. He has no swelling at all. He is not short of breath and is not on oxygen. And because of its going on is belly I do not want to risk something bad happening during dialysis. If something else happens and requires dialysis we can always come and do it at that point. I will order dialysis for tomorrow. (3) HTN (hypertension), benign: Code(s): I10 - Essential (primary) hypertension Status: Acute Assessment and Plan: The patient's blood pressure is a bit high. He is in a lot of pain. Typically his blood pressure is under very good control when he is in dialysis. His systolics run between 120 and 140. I do not think we need to adjust his medications. (4) Anemia: Qualifiers: Anemia type: unspecified type Qualified Code(s): D64.9 - Anemia, unspecified Code(s): D64.9 - Anemia, unspecified Status: Chronic Assessment and Plan: Hemoglobin is 11.3. No need to give GRACIE right now. (5) Coronary artery disease: Code(s): I25.10 - Atherosclerotic heart disease of [place] coronary artery without angina pectoris Status: Acute Assessment and Plan: The patient is not having any chest pain. Dr. Vuong sees him if needed. (6) Polycystic kidney disease: Code(s): Q61.3 - Polycystic kidney, unspecified Status: Acute Assessment and Plan: Noted on CT (7) Emphysema lung: Code(s): J43.9 - Emphysema, unspecified Status: Acute Assessment and Plan: He does not smoke anymore (8) Renal osteodystrophy: Code(s): N25.0 - Renal osteodystrophy Status: Acute Assessment and Plan: Will check a phosphorus in the History of Present Illness Reason for Consult Consult date: 03/21/24 Chief Complaint Chief complaint: Hyperkalemia History of Present Illness Narrative: Tejas is a very pleasant 58-year-old gentleman who has multiple medical problems including end-stage renal disease on peritoneal dialysis for a while and now on hemodialysis using a left upper arm fistula, hepatic iron accumulation but no biopsy done, hypertension, coronary disease status post 7 myocardial infarctions with multiple stents, diastolic dysfunction, history of tricuspid regurgitation and aortic regurgitation status post valve replacement last fall at [facility], history of pericardial effusion, anemia of chronic kidney disease, renal osteodystrophy, positive PPD, emphysema, GERD and what sounds like he had a volvulus several years ago repaired with surgery elsewhere. The patient has been on hemodialysis
[2024-03-21 11:50] LABS: Potassium 4.7 mmol/L (3.4-5.0)
--- NOTE | 2024-03-21 12:06 | ADMGEN ---
This patient, Tejas Yost, was admitted to IMU Room 213-01 at 1150. Patient/family oriented to hospital policies and general routines including ID bracelet, bed and alarms, visiting hours, pain management, procedures, bathroom and other care routines, personal items, smoking policy, room service/diet, and visiting hours. Information on how to activate the Rapid Response Team has been discussed. Patient/Family are encouraged to report perceived risks to care and to ask questions if they do not understand what they are told or what they should do.
[2024-03-21 12:14] LABS: Procalcitonin 1.4 ng/mL
--- NOTE | 2024-03-21 12:15 | PC.NURSE ---
blood glucose noted to be 53 as patient was being moved from ER room, apple juice given at this time
[2024-03-21 12:21] LABS: Troponin I 0.046 ng/mL (0.000-0.034)
[2024-03-21 12:25] LABS: Glucose Point of Care 52 mg/dl (65-105)
[2024-03-21 12:50] LABS: Glucose Point of Care 103 mg/dl (65-105)
--- NOTE | 2024-03-21 13:49 | PM.CNGS ---
Assessment and Plan Assessment and plan (1) Acute abdominal pain: Code(s): R10.9 - Unspecified abdominal pain Status: Acute Assessment and Plan: I have reviewed the patient's imaging. The findings on the CT are nonspecific. 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 The patient is on chronic anticoagulation, therefore I think thromboembolism to the mesenteric vessels is less likely. He does not have an elevated white blood count or fevers to suggest an infectious source. Would recommend treating symptomatically. No surgical intervention needed at this time. Will follow as needed. (2) Abnormal CT of the abdomen: Code(s): R93.5 - Abnormal findings on diagnostic imaging of other abdominal regions, including retroperitoneum Status: Acute (3) ESRD (end stage renal disease): Code(s): N18.6 - End stage renal disease Status: Acute (4) Coronary artery disease: Code(s): I25.10 - Atherosclerotic heart disease of [place] coronary artery without angina pectoris Status: Acute History of Present Illness Consult details Consult date: 03/21/24 Reason for consult: abdominal pain Requesting physician: Rl Daniel MD Narrative: This is a 58-year-old man who I am asked to see for diffuse abdominal pain. He presented to the emergency department this morning with abdominal pain and distension and that woke him up from sleep around 2:00 a.m. this morning. He did have a normal BM this morning. He had some nausea but no vomiting. Denies any fevers. He has an extensive medical history including end-stage renal disease on hemodialysis, history of ID, status post multiple coronary artery stents and aortic valve replacement. The patient has had a major abdominal surgery and he says that his stomach was flipped. He has a long vertical midline scar in his abdomen. A CT abdomen and pelvis without contrast was performed in the emergency department which showed a small amount of ascites and mild mesenteric edema. He then underwent CT angiogram of the abdomen and pelvis and this showed moderate stenosis at the origin of the celiac artery and SMA. Review of Systems Review of Systems: All systems reviewed & are unremarkable except as noted in HPI and below Constitutional: Constitutional: Denies chills and Denies fever(s) Eyes: Eyes: Denies change in vision ENT: Denies hearing loss, Denies neck pain and Denies sore throat Cardiovascular: Cardiovascular: Denies chest pain and Denies dyspnea Respiratory: Respiratory: Denies cough, Denies dyspnea and Denies wheezing Gastrointestinal: Gastrointestinal: Reports as per HPI Genitourinary: Genitourinary: Denies hematuria and Denies dysuria Musculoskeletal: Musculoskeletal: Denies arthralgias, Denies joint swelling and Denies neck pain Allergic/Immunologic: Allergic/Immunologic: Denies wheezing [facility] Past Medical History Medical History Abnormal magnetic resonance imaging of liver MRI taken 10/20/2023 at [facility] showed advanced diffuse iron accumulation within the liver; patient refused liver biopsy. Anemia Anemia in chronic kidney disease, on chronic dialysis Aortic valve regurgitation Chronic pain Coronary artery disease Diastolic dysfunction Emphysema lung End-stage renal disease on hemodialysis Gastroesophageal reflux disease History of myocardial infarction Hypertension Latent tuberculosis by blood test Myocardial infarction (2008) Osteonecrosis Pericardial effusion Status post drain in August 2023. Tricuspid valve regurgitation Surgical History Surgical History History of cardiac catheterization History of coronary artery bypass graft x 1 Saphenous vein to diagonal branch of LAD. History of coronary artery stent placement (2008) Left circumflex, done at [place]. History of h
[2024-03-21 15:33] LABS: Potassium 5.2 mmol/L (3.4-5.0)
--- NOTE | 2024-03-21 15:38 | PM.IMHP ---
H&P: HPI History of Present Illness Date/Time: 03/21/24 22:37 Chief Complaint: Abdominal Pain Narrative: 58 y/o F presents here with abdominal pain, nausea, and vomiting with PMH of chronic anemia secondary to CKD, ESRD on HD (MWF), emphysema, diastolic dysfunction, GERD, OR, HTN, latent TB, pericardial effusion (s/p drain in 2022), CABG x1, cardiac stent x1, heart valve replacement, tracheostomy (now reversed), and tricuspid regurgitation. Patient presents here with abdominal distension, abdominal discomfort, and nausea with one episode of emesis. That began this morning around 0200. Abdominal pain described as diffuse, anterior, nonradiating, constant, varies in intensity, aggravated with palpation and becomes sharp, dull at rest, and no alleviating factors. Pain so severe it was limiting to his mobility. Took patient multiple attempts to get up to use the restroom, while in restroom has a BM, while walking back to his bedroom he had to lay down on the ground due to the severity of his abdominal pain. Associated nausea with one episode of vomiting this evening. BM today was brown and normal consistency. Denies fever, chills, body aches. Patient no longer makes urine - stopped approximately 3 years ago. No previous knowledge of polycystic kidney disease. Patient has hx of surgery to his stomach (previously on peritoneal dialysis and had an infection that flipped his stomach , surgery done sometime before 2003). ETOH: last drink 5-6 years ago, previously was daily for approximately 40 years. Initial VS at presentation: 97.6? F, HR 67, RR 16, 173/80, and 99% on RA. ED workup showed: no leukocytosis, anemia (improved compared to previous, 10.0 on 02/13/24), platelet count 89, INR 1.4, sodium 132, initial potassium 6.8 (repeat 5.2), creatinine 9.2 and GFR 7, procalcitonin 1.4. CTA of the abdomen/ pelvis showed bilateral renal artery stenosis, innumerable bilateral renal masses (compatible with PCKD), ascites with mesenteric edema, cholelithiasis, and bladder wall thickening suspicious for cystitis. Review of Systems Review of Systems: All systems reviewed & are unremarkable except as noted in HPI and below PMFSH Past Medical History Medical History Abnormal magnetic resonance imaging of liver MRI taken 10/20/2023 at [facility] showed advanced diffuse iron accumulation within the liver; patient refused liver biopsy. Anemia Anemia in chronic kidney disease, on chronic dialysis Aortic valve regurgitation Chronic pain Coronary artery disease Diastolic dysfunction Emphysema lung End-stage renal disease on hemodialysis Gastroesophageal reflux disease History of myocardial infarction Hypertension Latent tuberculosis by blood test Myocardial infarction (2008) Osteonecrosis Pericardial effusion Status post drain in August 2023. Tricuspid valve regurgitation Surgical History Surgical History History of abdominal surgery secondary to infection r/t peritoneal dialysis, stomach flipped , unknown year - believes it was before 2003 History of cardiac catheterization History of coronary artery bypass graft x 1 Saphenous vein to diagonal branch of LAD. History of coronary artery stent placement (2008) Left circumflex, done at [place]. History of heart valve replacement Status post MitraClip, tricuspid valve ring annuloplasty, and bioprosthetic aortic valve replacement in 2022 at [place]. History of removal of cyst Left wrist. History of tracheostomy Status post creation of arteriovenous fistula Family History Family History Mother No problems noted. Other Unknown family medical history Social History Social History Social History: Surrogate medical decision maker: Gwen Sagastume, aunt. Code st
[2024-03-21 16:07] LABS: Troponin I 0.048 ng/mL (0.000-0.034)
[2024-03-21 16:33] LABS: Glucose Point of Care 73 mg/dl (65-105)
[2024-03-21] MEDS: PANTOPRAZOLE 40 MG TABLET PO (18:05)
[2024-03-21] MEDS: ERGOCALCIFEROL 50,000 UNITS CAPSULE 50000 UNITS PO (18:05)
[2024-03-21] MEDS: CALCIUM ACETATE 667 MG TABLET PO (18:05)
[2024-03-21 18:29] LABS: Glucose Point of Care 123 mg/dl (65-105)
[2024-03-21] MEDS: ONDANSETRON HCL ODT 4 MG TABLET PO (19:44)
[2024-03-21 20:20] LABS: Glucose Point of Care 107 mg/dl (65-105)
[2024-03-21] MEDS: AMIODARONE HCL 200 MG TABLET 400 MG BY MOUTH (20:46)
[2024-03-21] MEDS: METOPROLOL TARTRATE 25 MG TABLET 75 MG PO (20:47)
[2024-03-21 21:48] LABS: Albumin Level 4.5 g/dL (3.5-5.1)
[2024-03-21 23:57] LABS: Glucose Point of Care 88 mg/dl (65-105)
[2024-03-22] VITALS (30 sets, daily range): BP systolic 120–166; BP diastolic 51–75; PULSE 58–67; RESP 16–18; TEMP 35.9–37; O2SAT 95–100
[2024-03-22] MEDS: PIPERACILLIN/TAZ 2.25G/NS 50ML 2.25 GM/50 ML BAG IVPB ×2 (01:17→15:59)
[2024-03-22 07:46] LABS: Glucose Point of Care 85 mg/dl (65-105)
[2024-03-22] MEDS: FLUTICASONE/UMECLIDIN/VILANTER 100-62.5-25 MCG ELLIPTA 1 PUFF INHALATION (07:48)
[2024-03-22 08:30] LABS: Basophils Absolute Auto 0.1 K/mm3 (0.0-0.1); Basophils Percent Auto 1.3 % (0.2-1.2); Eosinophils Absolute Auto 0.1 K/mm3 (0-0.3); Eosinophils Percent Auto 1.3 % (0-4.4); Hematocrit 32.9 % (42.0-52.0); Hemoglobin 10.5 g/dL (14.0-18.0); Immature Granulocyte Absolute 0.02 K/mm3 (0.00-0.031); Immature Granulocyte Percent A 0.4 % (0-0.5); Immature Platelet Fraction Pct 5.1 % (0.9-11.2); Lymphocytes Absolute Auto 0.85 K/mm3 (0.9-3.2); Lymphocytes Percent Auto 18.2 % (18.3-44.2); Mean Corpuscular HGB Conc 31.9 g/dl (32-36); Mean Corpuscular Volume 100.3 fl (80-100); Mean Platelet Volume 12.1 fl (7.4-10.4); Monocytes Absolute Auto 0.6 K/mm3 (0.1-0.6); Monocytes Percent Auto 13.5 % (2.6-8.5); Neutrophils Absolute Auto 3.1 K/mm3 (1.3-6.7); Neutrophils Percent Auto 65.3 % (45.5-73.1); Platelet Count Result 92 k/mm3 (150-375); Red Blood Count 3.28 M/mm3 (4.6-6.20); Red Cell Distribution Width 17.1 % (11.5-14.5); White Blood Count 4.7 K/mm3 (4.5-10.0)
[2024-03-22 08:51] LABS: Alanine Aminotransferase 19 U/L (6-50); Albumin Level 4.1 g/dL (3.5-5.1); Alkaline Phosphatase 113 U/L (38-126); Anion Gap 14 mmol/L (4-12); Aspartate Amino Transferase 29 U/L (17-59); Bilirubin,Total 0.9 mg/dL (0.2-1.3); Blood Urea Nitrogen 83 mg/dL (9-20); Calcium 8.9 mg/dL (8.4-10.2); Carbon Dioxide 25 mmol/L (22-30); Chloride 92 mmol/L (98-107); Estimated CRCL calculation 8 ml/min; Estimated Glomerular Filt Rate 6; Glucose 83 mg/dL (65-110); Potassium 5.3 mmol/L (3.4-5.0); Sodium 131 mmol/L (137-145)
[2024-03-22 09:18] LABS: Procalcitonin 2.2 ng/mL
--- NOTE | 2024-03-22 09:24 | PM.IMPN ---
Progress Note: A&P Assessment and Plan (1) Hyperkalemia: Code(s): E87.5 - Hyperkalemia Status: Acute (2) Acute pulmonary edema: Code(s): J81.0 - Acute pulmonary edema Status: Acute (3) ESRD (end stage renal disease): Code(s): N18.6 - End stage renal disease Status: Acute (4) GERD (gastroesophageal reflux disease): Code(s): K21.9 - Gastro-esophageal reflux disease without esophagitis Status: Acute Plan (1) Acute abdominal pain: ?Code(s): R10.9 - Unspecified abdominal pain ?Status:?Acute ?Assessment and Plan: - did not meet SIRS criteria - CT abd/pelvis: 1. Innumerable bilateral renal masses, most compatible with polycystic kidney disease. Cannot exclude underlying neoplasm. 2: Small right pleural effusion. Trace pericardial effusion. 3: Small amount of ascites. Mild mesenteric edema. 4:?Bladder wall thickening, suspicious for underlying cystitis. 5: Cholelithiasis. 6: Small size hiatal hernia. - CTA abd/pelvis: 1. Diffuse atherosclerosis with moderate stenosis at the origin of the celiac axis and SMA. Bilateral renal artery stenosis. 2: Innumerable bilateral renal masses, compatible with polycystic kidney disease. 3: Ascites with mesenteric edema. 4: Cholelithiasis. 5: Bladder wall thickening, suspicious for cystitis. - WBC 5.1, procalcitonin 1.4 (has ESRD, cut off 0.5) - trend - General Surgery consulted, Mallory POE reviewed imaging, findings nonspecific no surgical intervention at this time pending diagnostic paracentesis given pain and elevation in procalcitonin, hold Eliquis 2.5 mg b.i.d. and daily ASA - obtain blood cultures - start abx: Zosyn on 03/21 (2) ESRD (end stage renal disease): ?Code(s): N18.6 - End stage renal disease ?Status:?Acute ?Assessment and Plan: - creatinine 9.2, previously 4.4 on 02/13/2024 - GFR 7, previously 17 on 02/13/2024 - nephrology consulted for inpatient HD and hyperkalemia - dialysis on MWF, plan for next treatment tomorrow (03/22, Mon) - polycystic kidney disease seen on CT, no prior knowledge of this diagnosis per patient - trend renal function - trend electrolytes, correct as needed (3) Hyperkalemia: ?Code(s): E87.5 - Hyperkalemia ?Status:?Acute ?Assessment and Plan: - K 6.8 -> 4.7 -> 5.2>5.3 on 03/22 patient received calcium, insulin/dextrose, Lokelma x2 patient also received hemodialysis today follow-up BMP a.m. tomorrow - nephrology following case (4) Anemia in chronic kidney disease, on chronic dialysis: ?Code(s): N18.6 - End stage renal disease; D63.1 - Anemia in chronic kidney disease; Z99.2 - Dependence on renal dialysis ?Status:?Acute ?Assessment and Plan: - hemoglobin 11.3, previously 10.0 on 02/13/2024 - chronic secondary to CKD - trend (5) CHF (congestive heart failure): ?Qualifiers: ?Heart failure chronicity:?chronic??Heart failure type:?systolic? Qualified Code(s):?I50.22 - Chronic systolic (congestive) heart failure ?Code(s): I50.9 - Heart failure, unspecified ?Status:?Acute ?Assessment and Plan: - most recent echo (2021): mild enlargement of LV cavity, mild global LV systolic dysfunction, impaired diastolic relaxation grade 1, EF 45% moderate enlargement of LA moderate MV regurgitation and moderate to severe AV regurgitation compared to prior exam the mitral and aortic regurgitation worsened LV systolic function has declined. - on HD - daily weights - does not make urine - trend renal function (6) HTN (hypertension), benign: ?Code(s): I10 - Essential (primary) hypertension ?Status:?Acute ?Assessment and Plan: - chronic, currently 158/77 - continue home medications: metoprolol 75 mg b.i.d., amiodarone 400 mg q.12 - monitor Patient presents here with diffuse abdominal pain, CT findings showing mild mesenteric edema, general surgery evaluated patient and no immedia
[2024-03-22 09:26] LABS: Hepatitis B Surface Antigen Negative (Negative)
[2024-03-22 09:49] LABS: Hepatitis B Surface Anti Res Positive
--- NOTE | 2024-03-22 10:01 | PM.PNNEP ---
Progress Note: A&P Assessment and Plan (1) End stage renal disease: Code(s): N18.6 - End stage renal disease Status: Chronic Assessment and Plan: HD today continue M/W/F dialysis schedule follow electrolytes, volume status, and clearance (2) Hyperkalemia: Code(s): E87.5 - Hyperkalemia Status: Acute Assessment and Plan: s/p medical therapy yesterday dialysis to maintain stability follow trend of repeat K+ levels (3) Abdominal pain: Code(s): R10.9 - Unspecified abdominal pain Status: Acute Assessment and Plan: longstanding and somewhat of a chronic issue CT imaging noted Surgery recommendations noted clinically better (4) Hypertension: Qualifiers: Hypertension type: primary hypertension Qualified Code(s): I10 - Essential (primary) hypertension Code(s): I10 - Essential (primary) hypertension Status: Chronic Assessment and Plan: better control at this time follow trend of hemodynamics (5) Anemia: Qualifiers: Anemia type: unspecified type Qualified Code(s): D64.9 - Anemia, unspecified Code(s): D64.9 - Anemia, unspecified Status: Chronic Assessment and Plan: due to ESRD Epogen with HD follow trend of H/H Will continue to follow. Subjective Date/time seen: 03/22/24 10:01 Interval history: Follow-up for end stage renal disease on hemodialysis. Chart reviewed -- assuming care from Dr. Daniel; tolerating dialysis treatment at the time of my visit (seen on HD at 9:50AM); still with some intermittent abdominal pain but doing better in comparison to yesterday; noted plans for paracentesis later today; no apparent distress noted; no issues/events overnight or earlier this morning. Exam Narrative: General: WD/WN male in NAD Heart: tachycardic, normal S1 and S2; no rub Lungs: clear anteriolry, decreased at bases Abdomen: soft, mild TTP, nondistended, positive bowel sounds Extremities: no cyanosis or clubbing; trace edema Skin: warm and dry Objective Data Vital Signs Vital Signs: Vital Signs Temp Pulse Resp BP Pulse Ox O2 Del Method 03/22/24 10:00 61 127/64 03/22/24 09:45 58 L 137/70 03/22/24 09:33 60 143/70 H 03/22/24 09:23 96.8 F L 59 L 16 135/68 03/22/24 10:00 62 03/22/24 08:00 59 L 03/22/24 08:00 Room Air 03/22/24 07:50 97 Room Air 03/22/24 07:38 97.6 F 58 L 16 146/65 H 99 03/22/24 06:00 59 L 03/22/24 04:00 Room Air 03/22/24 04:00 65 03/22/24 02:00 61 03/22/24 04:00 97.6 F 61 18 136/64 95 03/22/24 00:00 61 03/21/24 22:00 60 03/22/24 00:00 Room Air 03/21/24 20:00 Room Air 03/21/24 20:00 64 03/21/24 23:46 97.6 F 58 L 16 120/71 95 03/21/24 20:47 67 03/21/24 20:46 67 03/21/24 20:06 97.0 F L 65 16 143/65 H 96 03/21/24 18:00 68 03/21/24 16:00 66 03/21/24 16:00 Room Air 03/21/24 16:02 96.9 F L 66 16 158/77 H 96 03/21/24 14:00 61 Intake/Output Intake/Output: Intake & Output 03/19/24 03/20/24 03/21/24 03/22/24 23:59 23:59 23:59 23:59 Intake Total 440 150 Balance 440 150 Meds/Results Medications: Active Medications Generic Name Dose Route Start Last Admin Trade Name Freq PRN Reason Stop Dose Admin Amiodarone HCl 400 mg 03/21/24 21:00 03/22/24 08:52 Amiodarone Hcl 200 Mg Tablet BY MOUTH Not Given Q12HR POWER Benzonatate 200 mg 03/21/24 16:52 Benzonatate 100 Mg Capsule PO TID PRN Cough Calcium Acetate 667 mg 03/21/24 17:00 03/22/24 12:46 Calcium Acetate 667 Mg Tablet PO Not Given TID POWER Dextrose 12.5 gm 03/21/24 12:02 Dextrose 50% 25 Gm/50 Ml Syringe IV PUSH PRN PRN Hypoglycemia Protocol Epoetin Stephon-epbx 4,000 units 03/22/24 20:00 03/22/24 12:28 Epoet
[2024-03-22] MEDS: EPOETIN ALFA-EPBX 4,000 UNITS/ML VIAL 4000 UNITS IV PUSH (12:28)
--- NOTE | 2024-03-22 14:39 | PC.NURSE ---
This patient, Tejas Yost, was transferred to [[id number]] on 03/22/24 at 1439. Personal belongings sent with patient. Report given to [Aileen BARRETO ]. Appropriate documentation sent with patient.
--- NOTE | 2024-03-22 14:50 | PC.NURSE ---
This patient, Tejas Yost, was received from [[id number] PT WAS IN DIALYSIS AND THEN WENT STRAIGHT TO [facility].] on 03/22/24 at 1440. Patient/family oriented to unit policies and routines. Report from Aileen.
[2024-03-22] MEDS: PANTOPRAZOLE 40 MG TABLET PO (16:04)
[2024-03-22] MEDS: CALCIUM ACETATE 667 MG TABLET PO (16:04)
[2024-03-22] MEDS: METOCLOPRAMIDE HCL 2.5 MG TABLET PO (16:05)
[2024-03-22] MEDS: METOPROLOL TARTRATE 25 MG TABLET 75 MG PO (21:32)
[2024-03-22] MEDS: AMIODARONE HCL 200 MG TABLET 400 MG BY MOUTH (21:43)
--- NOTE | 2024-03-22 21:45 | PC.NURSE ---
Pt refused HS medications and told staff to get out!!! Pt was educated on importance of heart medications and still refused x3 attempts. Pt also refused to be assessed. Appears to be resting comfortably with call light in place.
[2024-03-23] VITALS (7 sets, daily range): BP systolic 123–144; BP diastolic 54–93; PULSE 56–82; RESP 16; TEMP 35.6–36.3; O2SAT 94–100
--- NOTE | 2024-03-23 05:06 | PC.NURSE ---
Pt refused his midnight antibiotic, his AM medication, and his AM vital signs. Pt educated on importance of his prescribed medications and that his vital signs help us to measure his progress. Pt uncooperative and stated ill take what i need .
--- NOTE | 2024-03-23 08:02 | PM.IMPN ---
Progress Note: A&P Assessment and Plan (1) Hyperkalemia: Code(s): E87.5 - Hyperkalemia Status: Acute (2) Acute pulmonary edema: Code(s): J81.0 - Acute pulmonary edema Status: Acute (3) ESRD (end stage renal disease): Code(s): N18.6 - End stage renal disease Status: Acute (4) GERD (gastroesophageal reflux disease): Code(s): K21.9 - Gastro-esophageal reflux disease without esophagitis Status: Acute Plan # Acute abdominal pain: ?- did not meet SIRS criteria - CT abd/pelvis: 1. Innumerable bilateral renal masses, most compatible with polycystic kidney disease. Cannot exclude underlying neoplasm. 2: Small right pleural effusion. Trace pericardial effusion. 3: Small amount of ascites. Mild mesenteric edema. 4:?Bladder wall thickening, suspicious for underlying cystitis. 5: Cholelithiasis. 6: Small size hiatal hernia. - CTA abd/pelvis: 1. Diffuse atherosclerosis with moderate stenosis at the origin of the celiac axis and SMA. Bilateral renal artery stenosis. 2: Innumerable bilateral renal masses, compatible with polycystic kidney disease. 3: Ascites with mesenteric edema. 4: Cholelithiasis. 5: Bladder wall thickening, suspicious for cystitis. - WBC 5.1, procalcitonin 1.4 (has ESRD, cut off 0.5) - trend - General Surgery consulted, Mallory POE reviewed imaging, findings nonspecific no surgical intervention at this time diagnostic paracentesis attempted but could not be done due to minimal fluid. blood cultures was not obtained empirically started on zosyn for GI/ coverage. Clinical improvement on Zosyn continue same the etiology unclear The plan to switch to Augmentin at discharge for GI/ coverage complete the course # ESRD (end stage renal disease): - nephrology consulted for inpatient HD and hyperkalemia - dialysis on MWF - polycystic kidney disease seen on CT, no prior knowledge of this diagnosis per patient - trend renal function - trend electrolytes, correct as needed # Hyperkalemia: - K 6.8 -> 4.7 -> 5.2>5.3 on 03/22 patient received calcium, insulin/dextrose, Lokelma x2 patient also received hemodialysis today follow-up BMP a.m. tomorrow - nephrology following case # Anemia in chronic kidney disease, on chronic dialysis: - hemoglobin 11.3, previously 10.0 on 02/13/2024 - chronic secondary to CKD - trend # CHF (congestive heart failure): - most recent echo (2021): mild enlargement of LV cavity, mild global LV systolic dysfunction, impaired diastolic relaxation grade 1, EF 45% moderate enlargement of LA moderate MV regurgitation and moderate to severe AV regurgitation compared to prior exam the mitral and aortic regurgitation worsened LV systolic function has declined. - on HD - daily weights - does not make urine - trend renal function # HTN (hypertension), benign: - chronic, currently 158/77 - continue home medications: metoprolol 75 mg b.i.d., amiodarone 400 mg q.12 - monitor # chronic thrombocytopenia # bladder wall thickening hardly makes any urine due to end-stage renal disease. # DVT prophylaxis will resume Eliquis # disposition is to get to eye appointment the stay. If remains pain-free may discharge Subjective Date/time seen: 03/23/24 08:02 Interval history: No overnight events. Reports he has feels overall well. Denies any abdominal pain today. Tried paracentesis yesterday but did not have much fluid to remove. No nausea vomiting. Was resistant to examination and treatment plan yesterday. Review of Systems Review of Systems: All systems reviewed & are unremarkable except as noted in HPI and below Exam Narrative: GENERAL:well-nourished, and in no acute distress. HEAD: Normocephalic, atraumatic. EYES: PERRLA and EOMI. ENT: Nares clear, no rhinorrhea or epistaxis.? Mucous membranes moist.? NECK: Supple.? No adenopathy or masses.? No carotid bruits or JVD CHEST: Clear to auscultation.? No respiratory distress.? No
[2024-03-23] MEDS: AMIODARONE HCL 200 MG TABLET 400 MG BY MOUTH (08:12)
[2024-03-23] MEDS: FLUTICASONE/UMECLIDIN/VILANTER 100-62.5-25 MCG ELLIPTA 1 PUFF INHALATION (08:12)
[2024-03-23] MEDS: CALCIUM ACETATE 667 MG TABLET PO ×3 (08:12→16:42)
[2024-03-23] MEDS: PANTOPRAZOLE 40 MG TABLET PO ×2 (08:12→16:42)
[2024-03-23] MEDS: METOPROLOL TARTRATE 25 MG TABLET 75 MG PO (08:14)
[2024-03-23] MEDS: PIPERACILLIN/TAZ 2.25G/NS 50ML 2.25 GM/50 ML BAG IVPB ×2 (08:17→15:59)
--- NOTE | 2024-03-23 09:31 | PM.PNNEP ---
Progress Note: A&P Assessment and Plan (1) End stage renal disease: Code(s): N18.6 - End stage renal disease Status: Chronic Assessment and Plan: HD tomorrow continue M/W/F dialysis schedule follow electrolytes, volume status, and clearance (2) Hyperkalemia: Code(s): E87.5 - Hyperkalemia Status: Acute Assessment and Plan: s/p medical therapy yesterday dialysis to maintain stability follow trend of repeat K+ levels (3) Abdominal pain: Code(s): R10.9 - Unspecified abdominal pain Status: Acute Assessment and Plan: longstanding and somewhat of a chronic issue CT imaging noted Surgery recommendations noted clinically better (4) Hypertension: Qualifiers: Hypertension type: primary hypertension Qualified Code(s): I10 - Essential (primary) hypertension Code(s): I10 - Essential (primary) hypertension Status: Chronic Assessment and Plan: better control at this time follow trend of hemodynamics (5) Anemia: Qualifiers: Anemia type: unspecified type Qualified Code(s): D64.9 - Anemia, unspecified Code(s): D64.9 - Anemia, unspecified Status: Chronic Assessment and Plan: due to ESRD Epogen with HD follow trend of H/H Will continue to follow. Subjective Date/time seen: 03/23/24 09:31 Interval history: Follow-up for end stage renal disease on hemodialysis. Tolerated dialysis treatment yesterday without any issues or problems; paracentesis not done due to minimal ascites noted by ultrasound; abdominal pain better in general; as noted by nursing, refusing some care (vital signs, medications, assessments...etc); wondering about discharge as he does not want to his eye doctor appointment on (apparently has bleeding in the back of his eyes that needs to be evaulated). Exam Narrative: General: WD/WN male in NAD Heart: tachycardic, normal S1 and S2; no rub Lungs: clear anteriolry, decreased at bases Abdomen: soft, mild TTP, nondistended, positive bowel sounds Extremities: no cyanosis or clubbing; trace edema Skin: warm and dry Objective Data Vital Signs Vital Signs: Vital Signs Temp Pulse Resp BP Pulse Ox O2 Del Method 03/23/24 08:14 72 Room Air 03/23/24 08:12 72 03/22/24 21:43 66 03/22/24 21:32 66 03/22/24 19:55 98.1 F 64 16 120/51 L 98 Room Air 03/22/24 15:46 96.7 F L 67 16 166/63 H 100 03/22/24 13:06 60 139/67 03/22/24 13:00 60 142/64 H 03/22/24 13:16 97.9 F 60 16 139/65 03/22/24 12:45 60 139/69 03/22/24 12:30 60 141/69 H Intake/Output Intake/Output: Intake & Output 03/20/24 03/21/24 03/22/24 03/23/24 23:59 23:59 23:59 23:59 Intake Total 440 440 360 Output Total 3000 Balance 440 -2560 360 Meds/Results Medications: Active Medications Generic Name Dose Route Start Last Admin Trade Name Freq PRN Reason Stop Dose Admin Amiodarone HCl 400 mg 03/21/24 21:00 03/23/24 08:12 Amiodarone Hcl 200 Mg Tablet BY MOUTH 400 mg Q12HR POWER Administration Benzonatate 200 mg 03/21/24 16:52 Benzonatate 100 Mg Capsule PO TID PRN Cough Calcium Acetate 667 mg 03/21/24 17:00 03/23/24 08:12 Calcium Acetate 667 Mg Tablet PO 667 mg TID POWER Administration Dextrose 12.5 gm 03/21/24 12:02 Dextrose 50% 25 Gm/50 Ml Syringe IV PUSH PRN PRN Hypoglycemia Protocol Ergocalciferol 50,000 units 03/21/24 17:00 03/21/24 18:05 Ergocalciferol 50,000 Units Capsule PO 50,000 units WEEKLY POWER Administration Fluticasone/Umeclidinium/Vilanterol 1 puff 03/22/24 08:00 03/23/24 08:12 Fluticasone/Umeclidin/Vilanter 100-62.5-25 Mcg Ellipta INHALATION 1 puff DAILYRT POWER Administration Gabapentin 100 mg 03/22/24 08:00 Gabapentin 100 Mg Capsule PO MoWeFr@0800,2100 PRN DIALYSIS DAYS
[2024-03-23] MEDS: METOCLOPRAMIDE HCL 2.5 MG TABLET PO (15:59)
[2024-03-23] MEDS: ASPIRIN 81 MG ENTERIC TABLET BY MOUTH (16:42)
--- NOTE | 2024-03-23 20:24 | PC.NURSE ---
Patient refused HS medications and assessment. Patient stated he does not take anything after 5 pm . Patient sitting on bedside, call light within reach.
--- NOTE | 2024-03-23 23:34 | PC.NURSE ---
This RN preceptor has read over and agrees with student nurse Nicholas's notes and assessment.
[2024-03-24] VITALS (17 sets, daily range): BP systolic 107–145; BP diastolic 51–80; PULSE 56–92; RESP 18–20; TEMP 36.4–37.2; O2SAT 93–98
[2024-03-24 08:08] LABS: Basophils Percent Auto 0.5 % (0.2-1.2); Eosinophils Absolute Auto 0.1 K/mm3 (0-0.3); Eosinophils Percent Auto 2.3 % (0-4.4); Hematocrit 34.2 % (42.0-52.0); Hemoglobin 10.5 g/dL (14.0-18.0); Immature Granulocyte Absolute 0.01 K/mm3 (0.00-0.031); Immature Granulocyte Percent A 0.3 % (0-0.5); Lymphocytes Absolute Auto 0.76 K/mm3 (0.9-3.2); Lymphocytes Percent Auto 19.2 % (18.3-44.2); Mean Corpuscular HGB Conc 30.7 g/dl (32-36); Mean Corpuscular Hemoglobin 31.5 pg (26-34); Mean Corpuscular Volume 102.7 fl (80-100); Mean Platelet Volume 11.4 fl (7.4-10.4); Monocytes Absolute Auto 0.5 K/mm3 (0.1-0.6); Monocytes Percent Auto 13.1 % (2.6-8.5); Neutrophils Absolute Auto 2.6 K/mm3 (1.3-6.7); Neutrophils Percent Auto 64.6 % (45.5-73.1); Platelet Count Result 119 k/mm3 (150-375); Red Blood Count 3.33 M/mm3 (4.6-6.20); Red Cell Distribution Width 16.6 % (11.5-14.5)
[2024-03-24] MEDS: FLUTICASONE/UMECLIDIN/VILANTER 100-62.5-25 MCG ELLIPTA 1 PUFF INHALATION (08:10)
[2024-03-24] MEDS: AMIODARONE HCL 200 MG TABLET 400 MG BY MOUTH (08:11)
[2024-03-24] MEDS: CALCIUM ACETATE 667 MG TABLET PO ×3 (08:11→19:13)
[2024-03-24] MEDS: METOCLOPRAMIDE HCL 2.5 MG TABLET PO ×2 (08:11→19:13)
[2024-03-24] MEDS: PANTOPRAZOLE 40 MG TABLET PO ×2 (08:11→19:13)
[2024-03-24] MEDS: METOPROLOL TARTRATE 25 MG TABLET 75 MG PO (08:11)
[2024-03-24] MEDS: ASPIRIN 81 MG ENTERIC TABLET BY MOUTH ×2 (08:12→19:13)
[2024-03-24] MEDS: APIXABAN 2.5 MG TABLET PO (08:12)
[2024-03-24] MEDS: PIPERACILLIN/TAZ 2.25G/NS 50ML 2.25 GM/50 ML BAG IVPB (08:12)
[2024-03-24 08:31] LABS: Alanine Aminotransferase 17 U/L (6-50); Alkaline Phosphatase 97 U/L (38-126); Anion Gap 11 mmol/L (4-12); Aspartate Amino Transferase 26 U/L (17-59); Bilirubin,Total 0.8 mg/dL (0.2-1.3); Blood Urea Nitrogen 55 mg/dL (9-20); Calcium 9.1 mg/dL (8.4-10.2); Carbon Dioxide 29 mmol/L (22-30); Chloride 98 mmol/L (98-107); Estimated CRCL calculation 9 ml/min; Estimated Glomerular Filt Rate 8; Glucose 88 mg/dL (65-110); Magnesium 2.3 mg/dL (1.6-2.3); Potassium 4.4 mmol/L (3.4-5.0); Sodium 138 mmol/L (137-145)
[2024-03-24] MEDS: LOPERAMIDE HCL 2 MG CAPSULE PO (09:27)
--- NOTE | 2024-03-24 13:03 | PM.DS ---
DS: Admitting Diagnosis Discharge Date 03/24/24 Admitting Diagnosis Abdominal pain DS: Discharge Diagnosis Discharge Diagnosis (1) Acute abdominal pain: Code(s): R10.9 - Unspecified abdominal pain Status: Acute (2) Hyperkalemia: Code(s): E87.5 - Hyperkalemia Status: Acute (3) Acute pulmonary edema: Code(s): J81.0 - Acute pulmonary edema Status: Acute (4) ESRD (end stage renal disease): Code(s): N18.6 - End stage renal disease Status: Acute (5) GERD (gastroesophageal reflux disease): Code(s): K21.9 - Gastro-esophageal reflux disease without esophagitis Status: Acute DS: Summary Hospital Course Reason for hospitalization: 58yo male with PCKD with ESRD here for abominal pain. Please see H&P for details. Hospital Course: Patient presents with acute abdominal pain. He did not meet SIRS criteria. CT abd/pelvis showing polycystic kidney disease but cannot exclude underlying neoplasm (negative PET scan in December); small right pleural effusion; trace pericardial effusion; small amount of ascites with mild mesenteric edema and bladder wall thickening, suspicious for underlying cystitis. He does not make much urine. General surgery was consulted and felt no surgical intervention at this time. A diagnostic paracentesis attempted but could not be done due to minimal fluid. CTA abd/pelvis showed diffuse atherosclerosis with moderate stenosis at the origin of the celiac axis and SMA with bilateral renal artery stenosis. WBC 5.1, procalcitonin 1.4. Blood cultures were not obtained. He was empirically started on zosyn for GI/ coverage and had clinical improvement. Patient was having loose stools with the abx. Nephrology consulted for inpatient HD and hyperkalemia. Potassium wsa 6.8 on admission treated with calcium, insulin/dextrose, Lokelma x2 with improvement. HD to control potassium and fluid status. Patient with CHF related to ESRD. Echo from 2021 noted but he has had valve surgery in 2022. He overall did well and was able to be discharged home on 03/24/24. Status at Discharge Cognitive/behavioral status at discharge: stable Time Spent with Patient Time attestation: Total time spent providing and/or coordinating discharge services: 34 minutes Time spent: Greater than 30 minutes Exam Narrative: AF 97.3 143/69 60 20 98% ra Gen - NARD walking in the room unassisted Chest - decreased BS in the bases otherwise clear. nml RR CV - RRR S1/S2 with 2/6 systolic murmur throughout Abd - Soft, minimal diffuse tenderness but no guarding Ext - No pedal edema. thrill and bruit LUE Psych - Nml mood and affect Skin - Warm and dry DS: Data Data Completed and Pending Pending studies at discharge: Pending at discharge 03/21/24 16:24 Cytology [PTH] Routine Labs on day of discharge: Labs from last 24 hours 03/24/24 07:51 WBC 4.0 L RBC 3.33 L Hgb 10.5 L Hct 34.2 L MCV 102.7 H MCH 31.5 MCHC 30.7 L RDW 16.6 H Plt Count 119 L MPV 11.4 H Immature Gran % (Auto) 0.3 Neut % (Auto) 64.6 Lymph % (Auto) 19.2 Isabella % (Auto) 13.1 H Eos % (Auto) 2.3 Baso % (Auto) 0.5 Lymph # (Auto) 0.76 L Isabella # (Auto) 0.5 Eos # (Auto) 0.1 Baso # (Auto) 0.0 Abs Immat Gran (auto) 0.01 Absolute Neuts (auto) 2.6 Absolute Nucleated RBC 0.000 Nucleated RBC % 0.0 Sodium 138 Potassium 4.4 Chloride 98 Carbon Dioxide 29 Anion Gap 11 BUN 55 H D Creatinine 8.80 H Estim Creat Clear Calc 9 Estimated GFR 8 L Glucose 88 Calcium 9.1 Magnesium 2.3 Total Bilirubin 0.8 AST 26 ALT 17 Alkaline Phosphatase 97 Total Protein 7.0 Albumin 4.0 Discharge Plan Discharge Attending physician on discharge: Royce Weiner Consulting providers: Rl Daniel Discharging Clinician: Royce Weiner Anticipated Discharge Date/Time: 03/24/24 13:20 Patient Disposition: Home, Self-Care Activity: as tolerated
--- NOTE | 2024-03-24 14:30 | PC.NURSE ---
To dialysis via bed.
--- NOTE | 2024-03-24 15:30 | PM.PNNEP ---
Progress Note: A&P Assessment and Plan (1) End stage renal disease: Code(s): N18.6 - End stage renal disease Status: Chronic Assessment and Plan: HD today continue M/W/F dialysis schedule follow electrolytes, volume status, and clearance (2) Hyperkalemia: Code(s): E87.5 - Hyperkalemia Status: Acute Assessment and Plan: s/p medical therapy yesterday dialysis to maintain stability follow trend of repeat K+ levels (3) Abdominal pain: Code(s): R10.9 - Unspecified abdominal pain Status: Acute Assessment and Plan: longstanding and somewhat of a chronic issue CT imaging noted Surgery recommendations noted clinically better (4) Hypertension: Qualifiers: Hypertension type: primary hypertension Qualified Code(s): I10 - Essential (primary) hypertension Code(s): I10 - Essential (primary) hypertension Status: Chronic Assessment and Plan: better control at this time follow trend of hemodynamics (5) Anemia: Qualifiers: Anemia type: unspecified type Qualified Code(s): D64.9 - Anemia, unspecified Code(s): D64.9 - Anemia, unspecified Status: Chronic Assessment and Plan: due to ESRD Epogen with HD follow trend of H/H Not opposed to discharge today following dialysis if otherwise medically stable. Will continue to follow. Subjective Date/time seen: 03/24/24 15:30 Interval history: Follow-up for end stage renal disease on hemodialysis. Tolerating dialysis treatment at the time of my visit (seen on HD at 3:20PM); no apparent distress noted when seen - resting comfortably; no issues/events overnight or earlier this morning; noted plan for discharge after dialysis today. Exam Narrative: General: WD/WN male in NAD Heart: tachycardic, normal S1 and S2; no rub Lungs: clear anteriolry, decreased at bases Abdomen: soft, nontender, nondistended, positive bowel sounds Extremities: no cyanosis or clubbing; trace edema Skin: warm and intact Objective Data Vital Signs Vital Signs: Vital Signs Temp Pulse Resp BP Pulse Ox O2 Del Method 03/24/24 15:30 57 L 119/63 03/24/24 15:15 59 L 138/66 03/24/24 14:54 59 L 132/80 03/24/24 14:39 97.5 F L 56 L 18 119/70 03/24/24 14:00 98.9 F 92 20 145/67 H 93 03/24/24 08:10 Room Air 03/24/24 08:11 60 20 03/24/24 08:11 98 Room Air 03/24/24 08:11 60 03/24/24 08:11 60 03/23/24 21:15 99 Room Air 03/23/24 20:23 97.3 F L 63 16 143/69 H 100 Intake/Output Intake/Output: Intake & Output 03/21/24 03/22/24 03/23/24 03/24/24 23:59 23:59 23:59 23:59 Intake Total 440 862 800 3039 Output Total 3000 Balance 440 -2560 700 1490 Meds/Results Medications: Active Medications Generic Name Dose Route Start Last Admin Trade Name Freq PRN Reason Stop Dose Admin Amiodarone HCl 400 mg 03/21/24 21:00 03/24/24 08:11 Amiodarone Hcl 200 Mg Tablet BY MOUTH 400 mg Q12HR POWER Administration Apixaban 2.5 mg 03/23/24 21:00 03/24/24 08:12 Apixaban 2.5 Mg Tablet PO 2.5 mg Q12H POWER Administration Aspirin 81 mg 03/23/24 17:00 03/24/24 08:12 Aspirin 81 Mg Enteric Tablet BY MOUTH 81 mg BID POWER Administration Benzonatate 200 mg 03/21/24 16:52 Benzonatate 100 Mg Capsule PO TID PRN Cough Calcium Acetate 667 mg 03/21/24 17:00 03/24/24 12:18 Calcium Acetate 667 Mg Tablet PO 667 mg TID POWER Administration Dextrose 12.5 gm 03/21/24 12:02 Dextrose 50% 25 Gm/50 Ml Syringe IV PUSH PRN PRN Hypoglycemia Protocol Epoetin Stephon-epbx 4,000 units 03/24/24 20:00 03/24/24 15:48 Epoetin Stephon-Epbx 4,000 Units/Ml Vial IV PUSH 03/24/24 20:01 4,000 units ONCE ONE Administration Ergocalciferol 50,000 units 03/21/24 17:00 03/21/24 18:05 Ergocalciferol 50,000 Units Capsule PO
[2024-03-24] MEDS: EPOETIN ALFA-EPBX 4,000 UNITS/ML VIAL 4000 UNITS IV PUSH (15:48)
--- NOTE | 2024-03-24 18:20 | PC.NURSE ---
Back from dialysis via bed.
== END 2024-03-24 19:30 | disposition home or self-care (01) | DRG 689 ==
LOC: ANHED 11:10 → ANHIMU 11:30 → ANH3MEDSUR 03-22 14:32
PROVIDERS: Internal Medicine; Internal Medicine Nephrology; Preventive Medicine Aerospace Medicine; Student in an Organized Health Care Education/Training Program; Admitting Provider General Practice; Emergency Provider Nurse Practitioner Family; PCP Internal Medicine; Visit Provider Internal Medicine
DX: N30.90 Cystitis, unspecified without hematuria (principal); N18.6 End stage renal disease; Q61.3 Polycystic kidney, unspecified; R18.8 Other ascites; I13.2 Hypertensive heart and chronic kidney disease with heart failure and with stage 5 chronic kidney disease, or end stage renal disease; I50.22 Chronic systolic (congestive) heart failure; I70.1 Atherosclerosis of renal artery; R10.9 Unspecified abdominal pain; D63.1 Anemia in chronic kidney disease; E87.5 Hyperkalemia; G89.29 Other chronic pain; I25.10 Atherosclerotic heart disease of native coronary artery without angina pectoris; I25.2 Old myocardial infarction; I08.2 Rheumatic disorders of both aortic and tricuspid valves; J43.9 Emphysema, unspecified; K21.9 Gastro-esophageal reflux disease without esophagitis; Z95.1 Presence of aortocoronary bypass graft; Z95.5 Presence of coronary angioplasty implant and graft; Z95.2 Presence of prosthetic heart valve; Z87.891 Personal history of nicotine dependence; Z99.2 Dependence on renal dialysis; Z53.8 Procedure and treatment not carried out for other reasons
CPT/HCPCS: 36415; 74174; 74176; 76705; 80053; 82040; 82948; 83690; 83735; 84100; 84132; 84145; 84484; 85025; 85055; 85610; 85730; 86706; 87340; 93005; 94640; 96374; 96375; 99285; A9270; G0257; J0612; J1815; J2543; J7030; Q5105; Q9967

== ENCOUNTER 2024-04-21 04:32 | Inpatient (IN) | payer MEDICARE, MEDICAID, SELFPAY ==
[2024-04-21] VITALS (33 sets, daily range): BP systolic 107–161; BP diastolic 58–93; PULSE 76–112; RESP 18–26; TEMP 35.6–39.4; O2SAT 93–97; BMI 20.4
--- NOTE | ~2024-04-21 | CT_ITS ---
Non-contrast CT scan of the Abdomen and Pelvis Clinical indication: Abdominal pain Technique: 2.5 mm axial scans were obtained through the abdomen and pelvis without intravenous or or al contrast. Dose reduction technique was used on this scan by utilizing automated exposure control a nd iterative reconstruction technique. The dose-length product (DLP) was 343.58 mGy-cm. COMPARISON: 03/21/2024 Findings: Images through the lung bases reveal minimal right pleural effusion. There is extensive co nsolidation of the visualized left lower lobe. There is additional area of consolidation in the right middle lobe and small focal areas of consolidation in the right lower lobe. There are additional mil d patchy ground glass opacities in the right middle lobe. Stable cardiomegaly. Innumerable bilateral renal cysts are present, similar to prior exam. Stable nonobstructing left selene l stone. The liver, spleen, pancreas, and adrenals appear normal. Gallstones and gallbladder sludge are presen t. Stable suspected cystic mass in the letitia hepatis/subhepatic region, measuring 7.3 x 5.5 cm (axial image 78 for example). There are atherosclerotic calcifications of the aorta. There is no evidence of bowel obstruction. Images through the pelvis were performed. No pelvic ascites. Urinary bladder unremarkable. No pelvic mass seen. Impression: Multifocal pneumonia in the lung bases, most extensive in the left lower lobe, with additional right middle lobe and right lower lobe involvement. Minimal right pleural effusion. Polycystic kidney disease with stable nonobstructing left renal stone. Cholelithiasis. Suspected 7.3 cm cystic mass in the letitia hepatis region versus loculated ascites, unchanged from devaughn or exam. Consider pseudocyst or duplication cyst. Reviewed, dictated and finalized at [facility]. Impression: Multifocal pneumonia in the lung bases, most extensive in the left lower lobe, with additional right middle lobe and right lower lobe involvement. Minimal right pleural effusion. Polycystic kidney disease with stable nonobstructing left renal stone. Cholelithiasis. Suspected 7.3 cm cystic mass in the letitia hepatis region versus loculated ascit es, unchanged from prior exam. Consider pseudocyst or duplication cyst.
--- NOTE | ~2024-04-21 | XR_ITS ---
Portable chest x-ray Comparison: 02/13/2024 Clinical History: Pneumonia Findings: Right basilar consolidation is compatible with pneumonia. Questionable minimal haziness le ft lung base. Cardiomediastinal silhouette is stable, status post valve replacements. Bones and soft tissues are unremarkable. Impression: Right basilar pneumonia. Questionable minimal involvement left lung base. Stable cardiomegaly, status post valve replacements. Reviewed, dictated and finalized at location . Impression: Right basilar pneumonia. Questionable minimal involvement left lung base. Stable cardiomegaly, status post valve replacements.
[2024-04-21 05:01] LABS: Basophils Percent Auto 0.4 % (0.2-1.2); Eosinophils Absolute Auto 0.1 K/mm3 (0-0.3); Eosinophils Percent Auto 1.1 % (0-4.4); Hematocrit 37.7 % (42.0-52.0); Hemoglobin 11.9 g/dL (14.0-18.0); Immature Granulocyte Absolute 0.02 K/mm3 (0.00-0.031); Immature Granulocyte Percent A 0.3 % (0-0.5); Lymphocytes Absolute Auto 0.86 K/mm3 (0.9-3.2); Mean Corpuscular HGB Conc 31.6 g/dl (32-36); Mean Corpuscular Hemoglobin 31.6 pg (26-34); Mean Platelet Volume 12.6 fl (7.4-10.4); Monocytes Absolute Auto 0.8 K/mm3 (0.1-0.6); Monocytes Percent Auto 11.2 % (2.6-8.5); Neutrophils Absolute Auto 5.4 K/mm3 (1.3-6.7); Platelet Count Result 104 k/mm3 (150-375); Red Blood Count 3.77 M/mm3 (4.6-6.20); Red Cell Distribution Width 15.8 % (11.5-14.5); White Blood Count 7.2 K/mm3 (4.5-10.0)
[2024-04-21 05:12] LABS: Lactic Acid Reflex 1.2 mmol/L (0.7-2.0)
[2024-04-21 05:34] LABS: Alanine Aminotransferase 19 U/L (6-50); Alkaline Phosphatase 128 U/L (38-126); Anion Gap 10 mmol/L (4-12); Aspartate Amino Transferase 30 U/L (17-59); Blood Urea Nitrogen 58 mg/dL (9-20); Calcium 8.6 mg/dL (8.4-10.2); Carbon Dioxide 31 mmol/L (22-30); Chloride 96 mmol/L (98-107); Estimated CRCL calculation 8 ml/min; Estimated Glomerular Filt Rate 7; Glucose 95 mg/dL (65-110); Lipase 169 U/L (23-300); Sodium 137 mmol/L (137-145)
--- NOTE | 2024-04-21 05:44 | ED.ABDPAIN ---
HPI - Abdominal Pain General Chief Complaint: Abdominal Pain Stated Complaint: ABD BLOATING, DUE FOR HD Time Seen by Provider: 04/21/24 05:39 History of Present Illness HPI narrative: Patient is a 59-year-old male who presents to the emergency department this morning complaining of abdominal pain and distention since 2:00 a.m. this morning. Patient denies any nausea or vomiting episodes, denies any constipation or diarrhea. He is an end-stage renal disease on hemodialysis patient and goes to dialysis on Mondays, Wednesdays and Fridays. Patient admits that his dialysis session today was at 6:00 a.m. patient no longer makes urine. He denies any fevers or chills at home, denies any chest pain or shortness of breath and is currently denying any additional symptoms or concerns. Related Data Home Medications Medication Instructions Recorded Confirmed cholecalciferol (vitamin D3) 1,250 1,250 mcg PO WEEKLY 11/18/23 04/13/24 mcg (50,000 unit) tablet apixaban 5 mg tablet (Eliquis) 2.5 mg PO Q12H 12/08/23 04/13/24 benzonatate 200 mg capsule 200 mg PO TID PRN Cough 12/08/23 04/13/24 amiodarone 400 mg tablet 400 mg PO Q12H 03/21/24 04/13/24 calcium acetate(phosphat bind) 667 667 mg PO TID 03/21/24 04/13/24 mg capsule Allergies Allergy/AdvReac Type Severity Reaction Status Date / Time adhesive Allergy Mild BLISTERS Verified 04/13/24 11:04 clonidine AdvReac Unknown Vomiting Verified 04/13/24 11:04 hydralazine AdvReac Unknown Vomiting Verified 04/13/24 11:04 Review of Systems Review of Systems: All systems are reviewed and are negative unless stated otherwise in the HPI. [facility] Past Medical History Medical History Abnormal magnetic resonance imaging of liver MRI taken 10/20/2023 at [facility] showed advanced diffuse iron accumulation within the liver; patient refused liver biopsy. Anemia Anemia in chronic kidney disease, on chronic dialysis Aortic valve regurgitation Chronic pain Coronary artery disease Diastolic dysfunction Emphysema lung End-stage renal disease on hemodialysis Gastroesophageal reflux disease History of myocardial infarction History of positive PPD Hypertension Latent tuberculosis by blood test Myocardial infarction (2008) Osteonecrosis Pericardial effusion Status post drain in August 2023. Tricuspid valve regurgitation Surgical History Surgical History History of abdominal surgery secondary to infection r/t peritoneal dialysis, stomach flipped , unknown year - believes it was before 2003 History of cardiac catheterization History of coronary artery bypass graft x 1 Saphenous vein to diagonal branch of LAD. History of coronary artery stent placement (2008) Left circumflex, done at [facility]. History of heart valve replacement Status post MitraClip, tricuspid valve ring annuloplasty, and bioprosthetic aortic valve replacement in 2022 at [facility]. History of removal of cyst Left wrist. History of tracheostomy Status post creation of arteriovenous fistula Family History Family History Mother No problems noted. Other Unknown family medical history Social History Social History Social History: Surrogate medical decision maker: Gwen Sagastume, aunt. Code status: Full code. Smoking packs per day: 0.5 Smoking cigarettes per day: 10.0 Years smoked: 20 Smoking pack-years: 10.00 Smoking status: Former smoker Alcohol intake: never Substance use: never Substance use type: does not use Do You Feel Safe in your Home?: Yes Lack of Transportation: No Lack of Food: Never True Current Housing: I Have Housing Concerned About Future Housing: Decline to Answer Difficulty Paying Gas/Electric Bills: Decline to Answer Difficulty Paying for
[2024-04-21] MEDS: ONDANSETRON INJ 4 MG/2 ML VIAL IV PUSH (05:48)
[2024-04-21] MEDS: MORPHINE SULFATE (*CRX) 2 MG/ML INJ IV PUSH (05:48)
--- NOTE | 2024-04-21 07:10 | PC.NURSE ---
unable to obtain blood cultures after multiple sticks. lab at bedside
[2024-04-21] MEDS: AZITHROMYCIN 500 MG/NS 250 ML 500 MG/250 ML BAG 250 MG IVPB (07:58)
--- NOTE | 2024-04-21 08:16 | PM.IMHP ---
H&P: HPI History of Present Illness Date/Time: 04/21/24 08:16 Chief Complaint: Abdominal pain Narrative: 59 year old male with past medical history of chronic anemia secondary to CKD, polycystic kidney disease, ESRD on HD (MWF), emphysema, diastolic dysfunction, GERD, [place], HTN, latent TB, pericardial effusion (s/p drain in 2022), CABG x1, cardiac stent x1, heart valve replacement, tracheostomy (now reversed), and tricuspid regurgitation. Patient presents to the hospital on 04/21/24 with abdominal pain and distention. Patient did not have any vomiting associated with his abdominal pain, but did experience some nausea. When asking about the type of abdominal pain or location he was unable to answer. He was admitted approximately 1 month ago for similar symptoms and imaging showed suspicion for polycystic kidney disease. On chart review it does appear as if patient does have some chronic abdominal pain. On day of admission he was post be getting dialysis at 6 this morning but decided to be seen in the ED instead. Nephrology consulted to help manage hemodialysis. Vital signs in the ED: BP 137/73, pulse 77, RR 26, temp 99.3?, O2 sat 94 RA ED findings: H&H stable, normal white blood cell count, potassium 6, chloride 96, carbon dioxide 31, BUN and creatinine 58/9.6, lactic acid 1.2, alk-phos of 128. CT abdomen pelvis multifocal pneumonia in the lung bases, most extensive in left lower lobe, Polycystic kidney disease stable with nonobstructing left renal stone, suspected 7.3 cm cystic mass in the letitia hepaticus region versus loculated ascites unchanged from prior exam. [facility] Past Medical History Medical History (Updated 04/21/24 @ 11:37 by Yanet Grant PA-C) Abnormal magnetic resonance imaging of liver MRI taken 10/20/2023 at [facility] showed advanced diffuse iron accumulation within the liver; patient refused liver biopsy. Anemia Anemia in chronic kidney disease, on chronic dialysis Aortic valve regurgitation Chronic pain Coronary artery disease Diastolic dysfunction Emphysema lung End-stage renal disease on hemodialysis Gastroesophageal reflux disease History of myocardial infarction History of positive PPD Hypertension Latent tuberculosis by blood test Myocardial infarction (2008) Osteonecrosis Pericardial effusion Status post drain in August 2023. Polycystic kidney disease Tricuspid valve regurgitation Surgical History Surgical History History of abdominal surgery secondary to infection r/t peritoneal dialysis, stomach flipped , unknown year - believes it was before 2003 History of cardiac catheterization History of coronary artery bypass graft x 1 Saphenous vein to diagonal branch of LAD. History of coronary artery stent placement (2008) Left circumflex, done at [place]. History of heart valve replacement Status post MitraClip, tricuspid valve ring annuloplasty, and bioprosthetic aortic valve replacement in 2022 at [place]. History of removal of cyst Left wrist. History of tracheostomy Status post creation of arteriovenous fistula Family History Family History Mother No problems noted. Other Unknown family medical history Social History Social History Social History: Surrogate medical decision maker: Gwen Mitesh, aunt. Code status: Full code. Smoking packs per day: 0.5 Smoking cigarettes per day: 10.0 Years smoked: 20 Smoking pack-years: 10.00 Smoking status: Former smoker Alcohol intake: never Substance use: never Substance use type: does not use Do You Feel Safe in your Home?: Yes Lack of Transportation: No Lack of Food: Never True Current Housing: I Have Housing Concerned About Future Housing: No Difficulty Paying Gas/Electric Bills: No Difficulty Paying for Meds: No Currently
[2024-04-21 08:43] LABS: Hepatitis B Surface Antigen Negative (Negative)
[2024-04-21 09:05] LABS: Hepatitis B Surface Anti Res Positive
--- NOTE | 2024-04-21 09:30 | PC.NURSE ---
pt to dialysis
--- NOTE | 2024-04-21 10:25 | ADMGEN ---
This patient, Tejas Yost, was admitted to IMU Room 209-01. Patient/family oriented to hospital policies and general routines including ID bracelet, bed and alarms, visiting hours, pain management, procedures, bathroom and other care routines, personal items, smoking policy, room service/diet, and visiting hours. Information on how to activate the Rapid Response Team has been discussed. Patient/Family are encouraged to report perceived risks to care and to ask questions if they do not understand what they are told or what they should do.
[2024-04-21] MEDS: ACETAMINOPHEN 325 MG TABLET 650 MG PO (11:14)
[2024-04-21 12:14] LABS: Influenza A QL RT-PCR Negative (Negative); Influenza B QL RT-PCR Negative (Negative); RSV RNA, RT-PCR Negative (Negative); SARS-CoV-2 RNA PCR Negative (Negative)
--- NOTE | 2024-04-21 12:40 | PM.CNNEP ---
Assessment and Plan Assessment and plan (1) End stage renal disease: Code(s): N18.6 - End stage renal disease Status: Chronic Assessment and Plan: HD today and continue M/W/F dialysis schedule follow electrolytes, volume status, and clearance (2) Hyperkalemia: Code(s): E87.5 - Hyperkalemia Status: Acute Assessment and Plan: as noted by admission labs should correct with dialysis today follow repeat K+ levels (3) Multifocal pneumonia: Code(s): J18.9 - Pneumonia, unspecified organism Status: Acute Assessment and Plan: as noted by admission CT scan started on ceftriaxone and azithromycin follow culture data monitor respiratory status (4) Abdominal pain: Qualifiers: Abdominal location: generalized Qualified Code(s): R10.84 - Generalized abdominal pain Code(s): R10.9 - Unspecified abdominal pain Status: Chronic Assessment and Plan: somehat of a chronic issue at baseline CT of abdomen/pelvis without any acute findings/changes noted continue supportive therapy (5) Hypertension: Qualifiers: Hypertension type: primary hypertension Qualified Code(s): I10 - Essential (primary) hypertension Code(s): I10 - Essential (primary) hypertension Status: Chronic Assessment and Plan: fluctuating at this time fluid removal with HD should help continue home medications follow trend of hemodynamics (6) Anemia: Qualifiers: Anemia type: unspecified type Qualified Code(s): D64.9 - Anemia, unspecified Code(s): D64.9 - Anemia, unspecified Status: Chronic Assessment and Plan: due to ESRD Epogen with HD if Hgb < 10 follow trend of H/H I will continue to follow the patient with you while he remains hospitalized and make further recommendations as needed. Thank you for allowing me to participate in the care of this patient. History of Present Illness Reason for Consult Consult date: 04/21/24 Reason for consult: end stage renal disease Chief Complaint Chief complaint: multifocal pneumonia,eng stage renal disease on HD History of Present Illness Narrative: The patient is a 59-year-old male with a past medical history as outlined below who presented to [facility] Emergency room with complaints of abdominal pain and distension. The patient is known to have chronic issues with abdominal pain at baseline but this time he seems to have more issues with his abdominal pain in association with nausea. He was admitted to [facility] about a month ago for similar symptoms and they seem to resolve with just supportive therapy. As the symptoms seemed to persistently worsen, the patient came to the emergency room for further assessment although he was due to go to dialysis earlier today for his scheduled treatment. Workup and evaluation in the emergency room demonstrated the patient being hemodynamically stable and in no acute distress. Routine blood test demonstrated a normal white blood cell count, stable H&H, and a chemistry that was consistent with his known history of end-stage renal disease although he was noted be hyperkalemia with a potassium of 6.0. A CT scan of the abdomen pelvis did not show any acute intra-abdominal findings in comparison previous findings but did note multifocal pneumonia at the lung bases more, more extensively in the left lower lobe. Given these findings, appropriate cultures were obtained and he was started on antibiotic therapy and subsequently admitted to the hospital for further evaluation and therapy. Renal consultation was requested due to his end-stage renal disease. The patient is quite familiar to me as I take care of his outpatient dialysis needs. He normally dialyzes on a Friday, Friday, Friday dialysis schedule at [facility] under my care. He is currently receiving dialysis at the
--- NOTE | 2024-04-21 14:12 | PC.NURSE ---
patient back from dialysis. 1.5L removed 151/71 87HR 100.9 were the vitals reported from the urinalysis technician.
[2024-04-21] MEDS: guaiFENesin 600 MG/DEXTROMETHORPHAN 30 MG SR TAB 12 HR 1 TAB PO ×2 (15:30→20:07)
[2024-04-21 16:16] LABS: Potassium 5.2 mmol/L (3.4-5.0)
--- NOTE | 2024-04-21 16:24 | PC.NURSE ---
Notified BERNARDO Holt about patients temp 101.8. Potassium level down to 5.2. Orders to apply ice packs.
[2024-04-21] MEDS: CALCIUM ACETATE 667 MG TABLET PO (18:14)
[2024-04-21] MEDS: ASPIRIN 81 MG ENTERIC TABLET PO (18:15)
[2024-04-21] MEDS: CEFEPIME 1 GM/NS 50 ML 1 GM/50 ML BAG IVPB (18:15)
[2024-04-21] MEDS: ACETAMINOPHEN 500 MG TABLET 1000 MG PO (18:17)
[2024-04-21] MEDS: GABAPENTIN 100 MG CAPSULE PO (18:17)
[2024-04-21] MEDS: METOCLOPRAMIDE HCL 2.5 MG TABLET PO (18:21)
--- NOTE | 2024-04-21 18:22 | PC.NURSE ---
Spoke with Bren Rojo NP about patients temperature. Orders to increase tylenol to 1g. More ice packs applied to patient.
[2024-04-21] MEDS: AMIODARONE HCL 200 MG TABLET 400 MG PO (20:07)
[2024-04-21] MEDS: METOPROLOL TARTRATE 25 MG TABLET 75 MG PO (20:07)
[2024-04-21] MEDS: APIXABAN 2.5 MG TABLET PO (20:08)
[2024-04-22] VITALS (19 sets, daily range): BP systolic 113–132; BP diastolic 63–69; PULSE 67–85; RESP 20; TEMP 36.3–36.8; O2SAT 90–100
[2024-04-22 04:35] LABS: Hematocrit 37.9 % (42.0-52.0); Mean Corpuscular HGB Conc 31.7 g/dl (32-36); Mean Corpuscular Hemoglobin 31.6 pg (26-34); Mean Corpuscular Volume 99.7 fl (80-100); Mean Platelet Volume 13.1 fl (7.4-10.4); Platelet Count Result 103 k/mm3 (150-375); Red Cell Distribution Width 15.9 % (11.5-14.5); White Blood Count 10.2 K/mm3 (4.5-10.0)
[2024-04-22 05:02] LABS: Anion Gap 13 mmol/L (4-12); Blood Urea Nitrogen 38 mg/dL (9-20); Calcium 9.2 mg/dL (8.4-10.2); Carbon Dioxide 25 mmol/L (22-30); Chloride 100 mmol/L (98-107); Estimated CRCL calculation 11 ml/min; Estimated Glomerular Filt Rate 9; Glucose 101 mg/dL (65-110); Potassium 5.3 mmol/L (3.4-5.0); Sodium 138 mmol/L (137-145)
[2024-04-22] MEDS: FLUTICASONE/UMECLIDIN/VILANTER 100-62.5-25 MCG ELLIPTA 1 PUFF INHALATION (08:16)
[2024-04-22] MEDS: guaiFENesin/DEXTROMETHORPHAN 10 ML UDC PO ×3 (10:02→18:08)
[2024-04-22] MEDS: AMIODARONE HCL 200 MG TABLET 400 MG PO (10:02)
[2024-04-22] MEDS: ASPIRIN 81 MG ENTERIC TABLET PO ×2 (10:03→16:27)
[2024-04-22] MEDS: METOPROLOL TARTRATE 25 MG TABLET 75 MG PO ×2 (10:03→20:29)
[2024-04-22] MEDS: CALCIUM ACETATE 667 MG TABLET PO ×3 (10:03→16:27)
[2024-04-22] MEDS: AZITHROMYCIN 250 MG TABLET PO (10:04)
[2024-04-22] MEDS: APIXABAN 2.5 MG TABLET PO ×2 (10:04→20:29)
--- NOTE | 2024-04-22 12:14 | P.PNNP_ITS ---
Progress Note: A&P Assessment and Plan (1) End stage renal disease: Code(s): N18.6 - End stage renal disease Status: Chronic Assessment and Plan: * HD tomorrow and continue M/W/ dialysis schedule * follow electrolytes, volume status, and clearance (2) Hyperkalemia: Code(s): E87.5 - Hyperkalemia Status: Acute Assessment and Plan: * resolving * as noted by admission labs * should correct with dialysis today * follow repeat K+ levels (3) Multifocal pneumonia: Code(s): J18.9 - Pneumonia, unspecified organism Status: Acute Assessment and Plan: * as noted by admission CT scan * on antibiotics * follow culture data * monitor respiratory status (4) Abdominal pain: Qualifiers: Abdominal location: generalized Qualified Code(s): R10.84 - Generalized abdominal pain Code(s): R10.9 - Unspecified abdominal pain Status: Chronic Assessment and Plan: * somehat of a chronic issue at baseline * CT of abdomen/pelvis without any acute findings/changes noted * continue supportive therapy (5) Hypertension: Qualifiers: Hypertension type: primary hypertension Qualified Code(s): I10 - Essential (primary) hypertension Code(s): I10 - Essential (primary) hypertension Status: Chronic Assessment and Plan: * reasonable control * continue home medications * follow trend of hemodynamics (6) Anemia: Qualifiers: Anemia type: unspecified type Qualified Code(s): D64.9 - Anemia, unspecified Code(s): D64.9 - Anemia, unspecified Status: Chronic Assessment and Plan: * due to ESRD * Epogen with HD if Hgb < 10 * follow trend of H/H Will continue to follow. Subjective Date/time seen: 04/22/24 12:14 Interval history: Follow-up for end stage renal disease on hemodialysis. Tolerated dialysis treatment yesterday without any issues or problems; abdominal pain still present but seems better overall; no other acute complaints voiced at the time of my visit. Exam 2 Narrative: General: WD/WN male in NAD Heart: normal S1 and S2; no rub Lungs: clear anteriorly, decreased at bases Abdomen: soft, nontender, nondistended, positive bowel sounds Extremities: no cyanosis or clubbing; trace edema Skin: warm and dry Objective Data Vital Signs Vital Signs: Vital Signs Temp Pulse Resp BP Pulse Ox O2 Del Method 04/22/24 12:00 73 04/22/24 10:00 67 04/22/24 08:00 84 04/22/24 10:03 85 04/22/24 10:02 85 04/22/24 08:16 81 20 04/22/24 07:45 98.2 F 81 20 128/67 93 04/22/24 06:00 80 04/22/24 04:00 80 04/22/24 04:47 97.8 F 78 20 120/65 90 04/22/24 02:00 75 04/22/24 00:00 75 04/22/24 00:45 97.5 F L 74 20 127/63 96 04/21/24 22:00 76 04/21/24 20:00 95 04/21/24 20:07 98.0 F 91 20 108/63 93 04/21/24 20:07 92 04/21/24 20:07 92 Intake/Output Intake/Output: Intake & Output 04/19/24 04/20/24 04/21/24 04/22/24 23:59 23:59 23:59 23:59 Intake Total 240 1140 Output Total
--- NOTE | 2024-04-22 12:14 | PM.PNNEP ---
Progress Note: A&P Assessment and Plan (1) End stage renal disease: Code(s): N18.6 - End stage renal disease Status: Chronic Assessment and Plan: HD tomorrow and continue M/W/F dialysis schedule follow electrolytes, volume status, and clearance (2) Hyperkalemia: Code(s): E87.5 - Hyperkalemia Status: Acute Assessment and Plan: resolving as noted by admission labs should correct with dialysis today follow repeat K+ levels (3) Multifocal pneumonia: Code(s): J18.9 - Pneumonia, unspecified organism Status: Acute Assessment and Plan: as noted by admission CT scan on antibiotics follow culture data monitor respiratory status (4) Abdominal pain: Qualifiers: Abdominal location: generalized Qualified Code(s): R10.84 - Generalized abdominal pain Code(s): R10.9 - Unspecified abdominal pain Status: Chronic Assessment and Plan: somehat of a chronic issue at baseline CT of abdomen/pelvis without any acute findings/changes noted continue supportive therapy (5) Hypertension: Qualifiers: Hypertension type: primary hypertension Qualified Code(s): I10 - Essential (primary) hypertension Code(s): I10 - Essential (primary) hypertension Status: Chronic Assessment and Plan: reasonable control continue home medications follow trend of hemodynamics (6) Anemia: Qualifiers: Anemia type: unspecified type Qualified Code(s): D64.9 - Anemia, unspecified Code(s): D64.9 - Anemia, unspecified Status: Chronic Assessment and Plan: due to ESRD Epogen with HD if Hgb < 10 follow trend of H/H Will continue to follow. Subjective Date/time seen: 04/22/24 12:14 Interval history: Follow-up for end stage renal disease on hemodialysis. Tolerated dialysis treatment yesterday without any issues or problems; abdominal pain still present but seems better overall; no other acute complaints voiced at the time of my visit. Exam Narrative: General: WD/WN male in NAD Heart: normal S1 and S2; no rub Lungs: clear anteriorly, decreased at bases Abdomen: soft, nontender, nondistended, positive bowel sounds Extremities: no cyanosis or clubbing; trace edema Skin: warm and dry Objective Data Vital Signs Vital Signs: Vital Signs Temp Pulse Resp BP Pulse Ox O2 Del Method 04/22/24 12:00 73 04/22/24 10:00 67 04/22/24 08:00 84 04/22/24 10:03 85 04/22/24 10:02 85 04/22/24 08:16 81 20 04/22/24 07:45 98.2 F 81 20 128/67 93 04/22/24 06:00 80 04/22/24 04:00 80 04/22/24 04:47 97.8 F 78 20 120/65 90 04/22/24 02:00 75 04/22/24 00:00 75 04/22/24 00:45 97.5 F L 74 20 127/63 96 04/21/24 22:00 76 04/21/24 20:00 95 04/21/24 20:07 98.0 F 91 20 108/63 93 04/21/24 20:07 92 04/21/24 20:07 92 Intake/Output Intake/Output: Intake & Output 04/19/24 04/20/24 04/21/24 04/22/24 23:59 23:59 23:59 23:59 Intake Total 240 1140 Output Total 1500 0 Balance -1260 1140 Meds/Results Medications: Active Medications Generic Name Dose Route Start Last Admin Trade Name Freq PRN Reason Stop Dose Admin Acetaminophen 1,000 mg 04/21/24 18:05 04/22/24 16:27 Acetaminophen 500 Mg Tablet PO 1,000 mg Q6H PRN Administration Mild Pain (1-3) or Fever Hydrocodone Bitart/Acetaminophen 1 tab 04/21/24 08:35 Hydrocodone/Acetaminophen (*Crx) 5-325 Mg Tablet PO Q6H PRN Pain Rated 4-6 Albuterol 2.5 mg 04/21/24 08:33 Albuterol Sulfate Neb 2.5 Mg/3 Ml Inh INHALATION Q6HRT PRN Shortness Of Breath Amiodarone HCl 400 mg 04/21/24 21:00 04/22/24 10:02 Amiodarone Hcl 200 Mg Tablet PO 400 mg Q12H POWER Administration Apixaban 2.5 mg 04/21/24 21:00 04/22/24 10:04 Apixaban 2.5 Mg Tablet
--- NOTE | 2024-04-22 14:40 | PC.NURSE ---
This patient, Tejas Yost, was admitted to [facility] Surg Room 320-01. Patient/family oriented to hospital policies and general routines including ID bracelet, bed and alarms, visiting hours, pain management, procedures, bathroom and other care routines, personal items, smoking policy, room service/diet, and visiting hours. Information on how to activate the Rapid Response Team has been discussed. Patient/Family are encouraged to report perceived risks to care and to ask questions if they do not understand what they are told or what they should do.
--- NOTE | 2024-04-22 14:55 | PC.NURSE ---
This patient, Tejas Yost, was transferred to [3rd med surg ] on 04/22/24 at 1435. Personal belongings sent with patient. Report given to [MARY LOU Eng ]. Appropriate documentation sent with patient.
[2024-04-22] MEDS: METOCLOPRAMIDE HCL 2.5 MG TABLET PO (16:27)
[2024-04-22] MEDS: ACETAMINOPHEN 500 MG TABLET 1000 MG PO (16:27)
[2024-04-22] MEDS: CEFEPIME 1 GM/NS 50 ML 1 GM/50 ML BAG IVPB (16:28)
--- NOTE | 2024-04-22 17:45 | PM.IMPN ---
Progress Note: A&P Assessment and Plan (1) Multifocal pneumonia: Code(s): J18.9 - Pneumonia, unspecified organism Status: Acute Assessment and Plan: CT abdomen pelvis multifocal pneumonia in the lung bases. Patient received dose of ceftriaxone and azithromycin on 04/21 in a.m. Continue antibiotic therapy. Obtain sputum culture if possible. Mucinex PRN Albuterol neb PRN 04/22/24: Continue Cefepime and Azithromycin; (2) Abdominal pain: Code(s): R10.9 - Unspecified abdominal pain Status: Acute Assessment and Plan: CT abdomen pelvis showing polycystic kidney disease that is stable. This could be cause of patient's abdominal pain. Analgesics p.r.n.. He was found to have pneumonia and being treated for this (see above) Previous charts do state that abdominal pain is chronic to some degree. (3) Hyperkalemia: Code(s): E87.5 - Hyperkalemia Status: Acute Assessment and Plan: On presentation patient was found to have a potassium of 6.0. Patient is supposed to be getting dialysis today but ended up going to the ED instead. Potassium could be due to the need for dialysis. Nephrology consulted. Will withhold treating right now until Nephrology sees the patient. (4) ESRD on hemodialysis: Code(s): N18.6 - End stage renal disease; Z99.2 - Dependence on renal dialysis Status: Acute Assessment and Plan: Nephrology consulted. Hemodialysis on Friday (5) Polycystic kidney disease: Code(s): Q61.3 - Polycystic kidney, unspecified Status: Acute Assessment and Plan: Stable. Plan will reconcile medications as appropriate once med rec is complete. Time Spent With Patient Time with patient: 25 - 35 minutes Subjective Date/time seen: 04/22/24 17:45 Interval history: 04/22/24: Seen and examined; He is being managed for bilateral community acquired pneumonia Review of Systems Constitutional: Constitutional: Reports fatigue, Denies lethargy and Denies night sweats Eyes: Eyes: Reports no additional eye complaints ENT: Reports system reviewed and no additional complaints, except as documented, Denies dysphagia, Denies epistaxis and Denies nasal congestion Cardiovascular: Cardiovascular: Denies leg edema, Denies lightheadedness and Denies palpitations Respiratory: Respiratory: Reports no additional respiratory complaints, Reports chest congestion and Denies cough Gastrointestinal: Gastrointestinal: Reports no additional gastrointestinal complaints, Reports abdominal pain, Denies constipation, Denies heartburn, Denies nausea, Denies vomiting and Reports hematemesis Integumentary/Breasts: Skin/Breast: Denies dry skin and Denies pruritus Neurologic: Reports abnormal gait, Reports confusion and Reports vertigo Psychiatric: Psychiatric: Reports no additional psychiatric complaints, Denies anxiety and Denies behavioral changes Exam Narrative: GENERAL: Comfortable, no acute distress HENMT: moist mucous membranes EYES: EOM intact b/l NECK: no lymphadenopathy RESPIRATORY: clear to auscultation, no increased respiratory effort CARDIO: Regular rate and rhythm, murmur GI: soft, mild tenderness, bowel sounds present SKIN/EXTREMITIES: no rashes, no edema, no redness or tenderness, dialysis port in the left arm NEURO: PROM intact, answers questions appropriately, A&O x4 Objective Data Vital Signs Vital Signs: Vital Signs - 24 hr 04/21/24 18:17 04/21/24 18:00 04/21/24 18:00 Temperature 103.0 F H 103 F H Pulse Rate 94 Respiratory Rate Blood Pressure Pulse Oximetry Oxygen Delivery 04/21/24 20:07 04/21/24 20:07 04/21/24 20:07 Temperature 98.0 F Pulse Rate 92 92 91 Respiratory Rate 20 Blood Pressure 108/63 Pulse Oximetry 93 Oxygen Delivery 04/21/24 20:00 04/21/24 22:00 04/22/24 00:45 Temperature 97.5 F L Pulse Rate 95 76 74 Re
[2024-04-22] MEDS: PROCHLORPERAZINE EDISYLATE 10 MG/2 ML VIAL IV PUSH (18:08)
[2024-04-23] VITALS (27 sets, daily range): BP systolic 98–159; BP diastolic 53–97; PULSE 61–80; RESP 14–20; TEMP 34–37; O2SAT 95–98
[2024-04-23] MEDS: METOCLOPRAMIDE HCL 2.5 MG TABLET PO ×2 (05:45→16:29)
[2024-04-23 06:27] LABS: Basophils Absolute Auto 0.1 K/mm3 (0.0-0.1); Basophils Percent Auto 0.5 % (0.2-1.2); Eosinophils Absolute Auto 0.1 K/mm3 (0-0.3); Eosinophils Percent Auto 0.8 % (0-4.4); Hematocrit 41.3 % (42.0-52.0); Hemoglobin 12.8 g/dL (14.0-18.0); Immature Granulocyte Absolute 0.04 K/mm3 (0.00-0.031); Immature Granulocyte Percent A 0.4 % (0-0.5); Immature Platelet Fraction Pct 9.9 % (0.9-11.2); Lymphocytes Absolute Auto 0.75 K/mm3 (0.9-3.2); Lymphocytes Percent Auto 7.9 % (18.3-44.2); Mean Corpuscular Hemoglobin 30.8 pg (26-34); Mean Corpuscular Volume 99.3 fl (80-100); Mean Platelet Volume 12.9 fl (7.4-10.4); Monocytes Absolute Auto 0.9 K/mm3 (0.1-0.6); Monocytes Percent Auto 9.5 % (2.6-8.5); Neutrophils Absolute Auto 7.7 K/mm3 (1.3-6.7); Neutrophils Percent Auto 80.9 % (45.5-73.1); Platelet Count Result 114 k/mm3 (150-375); Red Blood Count 4.16 M/mm3 (4.6-6.20); Red Cell Distribution Width 15.4 % (11.5-14.5); White Blood Count 9.5 K/mm3 (4.5-10.0)
[2024-04-23 06:43] LABS: Alanine Aminotransferase 27 U/L (6-50); Albumin Level 3.7 g/dL (3.5-5.1); Alkaline Phosphatase 112 U/L (38-126); Anion Gap 11 mmol/L (4-12); Aspartate Amino Transferase 38 U/L (17-59); Bilirubin,Total 1.1 mg/dL (0.2-1.3); Blood Urea Nitrogen 57 mg/dL (9-20); Calcium 8.8 mg/dL (8.4-10.2); Carbon Dioxide 23 mmol/L (22-30); Chloride 96 mmol/L (98-107); Estimated CRCL calculation 9 ml/min; Estimated Glomerular Filt Rate 8; Glucose 83 mg/dL (65-110); Potassium 5.5 mmol/L (3.4-5.0); Sodium 130 mmol/L (137-145)
[2024-04-23] MEDS: AZITHROMYCIN 250 MG TABLET PO (08:02)
[2024-04-23] MEDS: CALCIUM ACETATE 667 MG TABLET PO ×3 (08:02→16:29)
[2024-04-23] MEDS: METOPROLOL TARTRATE 25 MG TABLET 75 MG PO (08:02)
[2024-04-23] MEDS: APIXABAN 2.5 MG TABLET PO (08:02)
[2024-04-23] MEDS: ASPIRIN 81 MG ENTERIC TABLET PO ×2 (08:02→16:29)
[2024-04-23] MEDS: AMIODARONE HCL 200 MG TABLET 400 MG PO (08:05)
[2024-04-23] MEDS: FLUTICASONE/UMECLIDIN/VILANTER 100-62.5-25 MCG ELLIPTA 1 PUFF INHALATION (08:07)
[2024-04-23] MEDS: GABAPENTIN 100 MG CAPSULE PO ×2 (08:15→16:29)
--- NOTE | 2024-04-23 09:30 | P.PNNP_ITS ---
Progress Note: A&P Assessment and Plan (1) End stage renal disease: Code(s): N18.6 - End stage renal disease Status: Chronic Assessment and Plan: * HD today and continue M/W/ dialysis schedule * follow electrolytes, volume status, and clearance (2) Hyperkalemia: Code(s): E87.5 - Hyperkalemia Status: Acute Assessment and Plan: * resolving * as noted by admission labs * should correct with dialysis today * follow repeat K+ levels (3) Multifocal pneumonia: Code(s): J18.9 - Pneumonia, unspecified organism Status: Acute Assessment and Plan: * as noted by admission CT scan * on antibiotics * follow culture data * monitor respiratory status (4) Abdominal pain: Qualifiers: Abdominal location: generalized Qualified Code(s): R10.84 - Generalized abdominal pain Code(s): R10.9 - Unspecified abdominal pain Status: Chronic Assessment and Plan: * somehat of a chronic issue at baseline * CT of abdomen/pelvis without any acute findings/changes noted * continue supportive therapy (5) Hypertension: Qualifiers: Hypertension type: primary hypertension Qualified Code(s): I10 - Essential (primary) hypertension Code(s): I10 - Essential (primary) hypertension Status: Chronic Assessment and Plan: * reasonable control * continue home medications * follow trend of hemodynamics (6) Anemia: Qualifiers: Anemia type: unspecified type Qualified Code(s): D64.9 - Anemia, unspecified Code(s): D64.9 - Anemia, unspecified Status: Chronic Assessment and Plan: * due to ESRD * Epogen with HD if Hgb < 10 * follow trend of H/H Will continue to follow. Subjective Date/time seen: 04/23/24 09:30 Interval history: Follow-up for end stage renal disease on hemodialysis. Tolerating dialysis treatment at the time of my visit (seen on HD at 9:20M); overall, feels reasonably well; no issues/events overnight or earlier this morning; no distress noted. Exam Narrative: General: WD/WN male in NAD Heart: normal S1 and S2; no rub Lungs: clear anteriorly, decreased at bases Abdomen: soft, nontender, nondistended, positive bowel sounds Extremities: no cyanosis or clubbing; trace edema Skin: warm and intact Objective Data Vital Signs Vital Signs: Vital Signs Temp Pulse Resp BP Pulse Ox O2 Del Method 04/23/24 09:30 66 104/68 04/23/24 09:15 65 116/71 04/23/24 09:01 68 116/69 04/23/24 08:46 97.3 F L 62 18 116/67 97 04/23/24 08:00 Room Air 04/23/24 08:09 68 20 04/23/24 08:09 96 Room Air 04/23/24 08:05 66 04/23/24 08:02 66 04/23/24 06:00 97 F L 80 20 159/60 H 98 04/23/24 04:00 63 04/23/24 00:00 61 04/22/24 20:00 72 04/22/24 20:29 71 04/22/24 20:03 97.3 F L 71 20 113/69 100 04/22/24 16:00 73 04/22/24 17:00 74 20 Room Air 04/22/24 16:00 98 F 74 20 132/64 94 04/22/24 14:00 71 Intake/Output Intake/Output: Intake & Output 04/20/24 04/21/24 04/22/24 04/23/24 2
--- NOTE | 2024-04-23 09:30 | PM.PNNEP ---
Progress Note: A&P Assessment and Plan (1) End stage renal disease: Code(s): N18.6 - End stage renal disease Status: Chronic Assessment and Plan: HD today and continue M/W/F dialysis schedule follow electrolytes, volume status, and clearance (2) Hyperkalemia: Code(s): E87.5 - Hyperkalemia Status: Acute Assessment and Plan: resolving as noted by admission labs should correct with dialysis today follow repeat K+ levels (3) Multifocal pneumonia: Code(s): J18.9 - Pneumonia, unspecified organism Status: Acute Assessment and Plan: as noted by admission CT scan on antibiotics follow culture data monitor respiratory status (4) Abdominal pain: Qualifiers: Abdominal location: generalized Qualified Code(s): R10.84 - Generalized abdominal pain Code(s): R10.9 - Unspecified abdominal pain Status: Chronic Assessment and Plan: somehat of a chronic issue at baseline CT of abdomen/pelvis without any acute findings/changes noted continue supportive therapy (5) Hypertension: Qualifiers: Hypertension type: primary hypertension Qualified Code(s): I10 - Essential (primary) hypertension Code(s): I10 - Essential (primary) hypertension Status: Chronic Assessment and Plan: reasonable control continue home medications follow trend of hemodynamics (6) Anemia: Qualifiers: Anemia type: unspecified type Qualified Code(s): D64.9 - Anemia, unspecified Code(s): D64.9 - Anemia, unspecified Status: Chronic Assessment and Plan: due to ESRD Epogen with HD if Hgb < 10 follow trend of H/H Will continue to follow. Subjective Date/time seen: 04/23/24 09:30 Interval history: Follow-up for end stage renal disease on hemodialysis. Tolerating dialysis treatment at the time of my visit (seen on HD at 9:20M); overall, feels reasonably well; no issues/events overnight or earlier this morning; no distress noted. Exam Narrative: General: WD/WN male in NAD Heart: normal S1 and S2; no rub Lungs: clear anteriorly, decreased at bases Abdomen: soft, nontender, nondistended, positive bowel sounds Extremities: no cyanosis or clubbing; trace edema Skin: warm and intact Objective Data Vital Signs Vital Signs: Vital Signs Temp Pulse Resp BP Pulse Ox O2 Del Method 04/23/24 09:30 66 104/68 04/23/24 09:15 65 116/71 04/23/24 09:01 68 116/69 04/23/24 08:46 97.3 F L 62 18 116/67 97 04/23/24 08:00 Room Air 04/23/24 08:09 68 20 04/23/24 08:09 96 Room Air 04/23/24 08:05 66 04/23/24 08:02 66 04/23/24 06:00 97 F L 80 20 159/60 H 98 04/23/24 04:00 63 04/23/24 00:00 61 04/22/24 20:00 72 04/22/24 20:29 71 04/22/24 20:03 97.3 F L 71 20 113/69 100 04/22/24 16:00 73 04/22/24 17:00 74 20 Room Air 04/22/24 16:00 98 F 74 20 132/64 94 04/22/24 14:00 71 Intake/Output Intake/Output: Intake & Output 04/20/24 04/21/24 04/22/24 04/23/24 23:59 23:59 23:59 23:59 Intake Total 240 1412 726 Output Total 1500 0 Balance -1260 1412 726 Meds/Results Medications: Active Medications Generic Name Dose Route Start Last Admin Trade Name Freq PRN Reason Stop Dose Admin Acetaminophen 1,000 mg 04/21/24 18:05 04/22/24 16:27 Acetaminophen 500 Mg Tablet PO 1,000 mg Q6H PRN Administration Mild Pain (1-3) or Fever Hydrocodone Bitart/Acetaminophen 1 tab 04/21/24 08:35 Hydrocodone/Acetaminophen (*Crx) 5-325 Mg Tablet PO Q6H PRN Pain Rated 4-6 Albuterol 2.5 mg 04/21/24 08:33 Albuterol Sulfate Neb 2.5 Mg/3 Ml Inh INHALATION Q6HRT PRN Shortness Of Breath Amiodarone HCl 400 mg 04/21/24 21:00 04/23/24 08:05 Amiodarone Hcl 200 Mg Tablet PO 400 mg Q12H [facility] Administrati
--- NOTE | 2024-04-23 15:11 | PM.IMPN ---
Progress Note: A&P Assessment and Plan (1) Multifocal pneumonia: Code(s): J18.9 - Pneumonia, unspecified organism Status: Acute Assessment and Plan: CT abdomen pelvis multifocal pneumonia in the lung bases. Patient received dose of ceftriaxone and azithromycin on 04/21 in a.m. Continue antibiotic therapy. Obtain sputum culture if possible. Mucinex PRN Albuterol neb PRN 04/22/24: Continue Cefepime and Azithromycin; 04/23/24: Will continue Abx; will switch to PO tomorrow (2) Abdominal pain: Code(s): R10.9 - Unspecified abdominal pain Status: Acute Assessment and Plan: CT abdomen pelvis showing polycystic kidney disease that is stable. This could be cause of patient's abdominal pain. Analgesics p.r.n.. He was found to have pneumonia and being treated for this (see above) Previous charts do state that abdominal pain is chronic to some degree. 04/23/24: Improved; tolerating diet (3) Hyperkalemia: Code(s): E87.5 - Hyperkalemia Status: Acute Assessment and Plan: On presentation patient was found to have a potassium of 6.0. Patient is supposed to be getting dialysis today but ended up going to the ED instead. Potassium could be due to the need for dialysis. Nephrology consulted. Will withhold treating right now until Nephrology sees the patient. (4) ESRD on hemodialysis: Code(s): N18.6 - End stage renal disease; Z99.2 - Dependence on renal dialysis Status: Acute Assessment and Plan: Nephrology consulted. Hemodialysis on Friday (5) Polycystic kidney disease: Code(s): Q61.3 - Polycystic kidney, unspecified Status: Acute Assessment and Plan: Stable. Plan will reconcile medications as appropriate once med rec is complete. Time Spent With Patient Time with patient: 25 - 35 minutes Subjective Date/time seen: 04/23/24 15:11 Interval history: 04/23/24: Seen and examined; being managed for Pneumonia, Physical deconditioning Review of Systems Constitutional: Constitutional: Reports fatigue, Denies lethargy and Denies night sweats Eyes: Eyes: Reports no additional eye complaints ENT: Reports system reviewed and no additional complaints, except as documented, Denies dysphagia, Reports vertigo, Denies epistaxis and Denies nasal congestion Cardiovascular: Cardiovascular: Denies leg edema, Denies lightheadedness and Denies palpitations Respiratory: Respiratory: Reports no additional respiratory complaints, Reports chest congestion and Denies cough Gastrointestinal: Gastrointestinal: Reports no additional gastrointestinal complaints, Reports abdominal pain, Denies constipation, Denies dysphagia, Denies heartburn, Denies nausea, Denies vomiting and Reports hematemesis Musculoskeletal: Musculoskeletal: Reports abnormal gait Integumentary/Breasts: Skin/Breast: Denies dry skin and Denies pruritus Neurologic: Reports abnormal gait, Denies behavioral changes, Reports confusion and Reports vertigo Psychiatric: Psychiatric: Reports no additional psychiatric complaints, Denies anxiety, Denies behavioral changes and Reports confusion Endocrine: Endocrine: Reports fatigue and Denies palpitations Exam Narrative: GENERAL: Comfortable, no acute distress HENMT: moist mucous membranes EYES: EOM intact b/l NECK: no lymphadenopathy RESPIRATORY: clear to auscultation, no increased respiratory effort CARDIO: Regular rate and rhythm, murmur GI: soft, mild tenderness, bowel sounds present SKIN/EXTREMITIES: no rashes, no edema, no redness or tenderness, dialysis port in the left arm NEURO: PROM intact, answers questions appropriately, A&O x4 Const: General: confusion Orientation/consciousness: confusion Eyes: General: appearance normal, both eyes and all related structures Pupils: Equal, round and reactive pupils present Resp: Auscultation: no crackles, rales, rhonchi, no wheezes
[2024-04-23] MEDS: CEFEPIME 1 GM/NS 50 ML 1 GM/50 ML BAG IVPB (16:28)
--- NOTE | 2024-04-23 17:22 | PM.DS ---
DS: Admitting Diagnosis Discharge Date 04/23/24 Admitting Diagnosis 1. Community acquired pneumonia 2. Hyperkalemia. DS: Discharge Diagnosis Discharge Diagnosis (1) Multifocal pneumonia: Code(s): J18.9 - Pneumonia, unspecified organism Status: Acute Assessment and Plan: CT abdomen pelvis multifocal pneumonia in the lung bases. Patient received dose of ceftriaxone and azithromycin on 04/21 in a.m. Continue antibiotic therapy. Obtain sputum culture if possible. Mucinex PRN Albuterol neb PRN 04/22/24: Continue Cefepime and Azithromycin; 04/23/24: Will continue Abx; will switch to PO tomorrow (2) Abdominal pain: Code(s): R10.9 - Unspecified abdominal pain Status: Acute Assessment and Plan: CT abdomen pelvis showing polycystic kidney disease that is stable. This could be cause of patient's abdominal pain. Analgesics p.r.n.. He was found to have pneumonia and being treated for this (see above) Previous charts do state that abdominal pain is chronic to some degree. 04/23/24: Improved; tolerating diet (3) Hyperkalemia: Code(s): E87.5 - Hyperkalemia Status: Acute Assessment and Plan: On presentation patient was found to have a potassium of 6.0. Patient is supposed to be getting dialysis today but ended up going to the ED instead. Potassium could be due to the need for dialysis. Nephrology consulted. Will withhold treating right now until Nephrology sees the patient. (4) ESRD on hemodialysis: Code(s): N18.6 - End stage renal disease; Z99.2 - Dependence on renal dialysis Status: Acute Assessment and Plan: Nephrology consulted. Hemodialysis on Friday (5) Polycystic kidney disease: Code(s): Q61.3 - Polycystic kidney, unspecified Status: Acute Assessment and Plan: Stable. Plan will reconcile medications as appropriate once med rec is complete. DS: Summary Hospital Course Reason for hospitalization: 1. Community acquired pneumonia 2. Hyperkalemia Hospital Course: Chief Complaint: Abdominal pain Narrative: 59 year old male with past medical history of chronic anemia secondary to CKD, polycystic kidney disease, ESRD on HD (MWF), emphysema, diastolic dysfunction, GERD, NV, HTN, latent TB, pericardial effusion (s/p drain in 2022), CABG x1, cardiac stent x1, heart valve replacement, tracheostomy (now reversed), and tricuspid regurgitation. Patient presents to the hospital on 04/21/24 with abdominal pain and distention. Patient did not have any vomiting associated with his abdominal pain, but did experience some nausea. When asking about the type of abdominal pain or location he was unable to answer.? He was admitted approximately 1 month ago for similar symptoms and imaging showed suspicion for polycystic kidney disease.? On chart review it does appear as if patient does have some chronic abdominal pain.? On day of admission he was post be getting dialysis at 6 this morning but decided to be seen in the ED instead.? Nephrology consulted to help manage hemodialysis. Significant findings: Vital signs in the ED:? BP 137/73, pulse 77, RR 26, temp 99.3?, O2 sat 94 RA H&H stable, normal white blood cell count, potassium 6, chloride 96, carbon dioxide 31, BUN and creatinine 58/9.6, lactic acid 1.2, alk-phos of 128.? CT abdomen pelvis multifocal pneumonia in the lung bases, most extensive in left lower lobe,? Polycystic kidney disease stable with nonobstructing left renal stone, suspected 7.3 cm cystic mass in the letitia hepaticus region versus loculated ascites unchanged from prior exam. Procedures performed: None Treatment rendered: Underwent HD; Antibiotics Status at Discharge Overall status at discharge: patient is progressing back to baseline Time Spent with Patient Time attestation: Total time spent providing and/or coordinating discharge services: Time spent: Greater than 30 jessica
--- NOTE | 2024-04-23 18:25 | PC.NURSE ---
On 04/23/24, the HOT REPAIRMAN, Homa Rodriguez, provided care and completed [facility] documentation on this patient. I have reviewed the HOT REPAIRMAN's documentation and agree with the findings.
== END 2024-04-23 18:20 | disposition home or self-care (01) | DRG 193 ==
LOC: ANHED 05:55 → ANHIMU 07:07 → ANH3MEDSUR 04-22 14:38
PROVIDERS: Internal Medicine Critical Care Medicine; Internal Medicine Nephrology; Admitting Provider Internal Medicine; Emergency Provider Emergency Medicine; PCP Clinical Nurse Specialist; Visit Provider Internal Medicine
DX: J18.9 Pneumonia, unspecified organism (principal); N18.6 End stage renal disease; Q61.3 Polycystic kidney, unspecified; I12.0 Hypertensive chronic kidney disease with stage 5 chronic kidney disease or end stage renal disease; Z20.822 Contact with and (suspected) exposure to COVID-19; D63.1 Anemia in chronic kidney disease; K21.9 Gastro-esophageal reflux disease without esophagitis; J43.9 Emphysema, unspecified; I25.10 Atherosclerotic heart disease of native coronary artery without angina pectoris; E87.5 Hyperkalemia; I25.2 Old myocardial infarction; Z95.1 Presence of aortocoronary bypass graft; Z99.2 Dependence on renal dialysis; Z95.5 Presence of coronary angioplasty implant and graft; Z95.2 Presence of prosthetic heart valve
CPT/HCPCS: 36415; 71045; 74176; 80048; 80053; 82248; 83605; 83690; 84132; 85025; 85027; 85055; 86706; 87040; 87340; 87637; 94640; 96374; 96375; 99285; A9270; G0257; J0456; J0692; J0696; J0780; J2270; J2405; J7030

== ENCOUNTER 2024-06-06 10:42 | Outpatient (CLI) | payer MEDICARE, MEDICAID, SELFPAY ==
--- NOTE | ~2024-06-06 | MR_ITS ---
MRI of the brain Clinical History: Branch retinal artery occlusion Technique: Axial and sagittal T1-weighted images were acquired. These were followed by axial T2-weigh roberto, diffusion weighted, gradient, and FLAIR images. Following intravenous administration of 15 cc Mu ltiHance gadolinium, T1-weighted fat-sat imaging was performed in the axial and coronal planes. Findings: There is no acute infarct, intracranial hemorrhage, mass lesion. There are mild chronic simeon rovascular ischemic changes in the periventricular white matter bilaterally. Ventricles and subarachnoid spaces are diffusely dilated. Ventricular system may be somewhat dilated out of proportion to the remaining subarachnoid spaces. Orbits are unremarkable. Paranasal sinuses an d mastoid air cells are clear. Major intracranial flow voids are grossly intact. Sagittal midline structures are intact. No abnormal postcontrast enhancement identified. IMPRESSION: No acute infarct, intracranial hemorrhage, mass lesion. Mild chronic microvascular ischemic change. Moderate generalized atrophy. Element of normal pressure hydrocephalus cannot be excluded. Reviewed, dictated and finalized at location . IMPRESSION: No acute infarct, intracranial hemorrhage, mass lesion. Mild chronic microvascular ischemic change. Moderate generalized atrophy. Element of normal pressure hydrocephalus cannot b e excluded.
--- NOTE | ~2024-06-06 | MR_ITS ---
MRI of the orbits CLINICAL HISTORY: Branch retinal artery occlusion TECHNIQUE: Coronal and axial T1-weighted and T2 fat-sat images were acquired through the orbits. Foll owing intravenous administration of 15 cc MultiHance gadolinium, T1-weighted fat-sat imaging was perf ormed in the axial and coronal planes. FINDINGS: The globes are symmetric in size and position. Extraocular muscles are unremarkable bilater ally. Optic nerve sheath complex is unremarkable bilaterally. No intraorbital or intraconal mass lesi on identified. No abnormal postcontrast enhancement identified. Optic chiasm unremarkable. No mass id entified in the sella turcica region. IMPRESSION: No significant abnormality identified involving the orbits. Reviewed, dictated and finalized at location .
== END 2024-06-06 10:43 | disposition home or self-care (01) ==
PROVIDERS: PCP Internal Medicine
DX: H34.231 Retinal artery branch occlusion, right eye (principal); I67.82 Cerebral ischemia; G31.9 Degenerative disease of nervous system, unspecified
CPT/HCPCS: 70543; 70553; A9577

== ENCOUNTER 2024-07-22 20:56 | Inpatient (IN) | payer MEDICARE, MEDICAID, SELFPAY ==
--- NOTE | ~2024-07-22 | XR_ITS ---
EXAMINATION: XR chest 2V Exam Date/Time: 07/22/2024 21:15 CDT HISTORY: sob dizzy cp Comparison: None. RESULT: Lines, tubes, and devices: Coronary stent. Cardiac valve replacements. Intact sternotomy wires. Lungs and pleura: Mild diffuse reticular opacities. Mild right costophrenic angle blunting. Cardiomediastinal silhouette: Stable. Other: No acute osseous or upper abdominal finding. IMPRESSION: Mild interstitial edema. Small right pleural effusion. Reviewed, dictated and finalized at location K.
--- NOTE | ~2024-07-22 | MR_ITS ---
EXAMINATION: MR abdomen wo con DATE: 07/27/2024 08:46 INDICATION: Letitia hepatis mass/cyst. TECHNIQUE: Magnetic resonance imaging (MRI) of the abdomen was performed without intravenous contrast . Sequences included coronal T2-weighted SS-FSE, coronal and axial FS 2D-FIESTA, axial STIR FSE, axi al T2-weighted SS-FSE, axial T2-weighted FS SS-FSE, axial diffusion-weighted SE, axial dual-echo T1-w eighted FSPGR, and axial and coronal T1-weighted LAVA. COMPARISON: CT dated 07/22/2024,, 03/21/2024, 05/31/2022 and PET/CT dated 12/30/2023. FINDINGS: Cardiomegaly. Comment magnetic field artifact associated with likely mitral and tricuspid valve repai rs. No pericardial effusion. Small right pleural effusion. Decreased diffuse decreased signal through out the liver, more prominently in the spleen as well as in the bone marrow on the more delayed dual echo T1-weighted FSPGR sequences consistent with secondary hemachromatosis. Multiple scattered small T2 hyperintense lesions in the spleen which could represent splenic cysts or hemangiomas or sequela o f granulomatous disease. There are couple low signal intensity gallstones within the normal decompres sed gallbladder. No intra or extrahepatic biliary ductal dilation. There are innumerable bilateral re nal cysts a few of which demonstrate increased T1 signal and less intense than typical T2 signal cons istent with complex proteinaceous/hemorrhagic cysts. Pancreas is normal. There is a large multilocula roberto cyst/cysts in the lesser sac situated between the stomach, head of the pancreas and the inferior margin of the left hepatic lobe also extending into the letitia hepatis. The largest cystic component m easures 8.3 x 7.0 x 5.0 cm. The origin of the cystic lesion/lesions is indeterminate. Visualized port ions of bowels are unremarkable no obstruction. No pathologically enlarged abdominal lymphadenopathy. Surgical scar along the midline anterior abdominal wall. IMPRESSION: 1. Cardiomegaly with likely mitral and tricuspid valve repairs. 2. Small right pleural effusion. 3. Likely autosomal dominant polycystic kidney disease with numerous simple and complex proteinaceous /hemorrhagic cysts in both kidneys. 4. Large multilobulated cystic lesion in the right upper quadrant situated between the liver, has the pancreas and stomach. Differential would include pancreatic pseudocyst related to prior pancreatitis , seroma or less likely cyst arising from the liver, right kidney or pancreas. No evident solid soft tissue component. 5. Secondary hemachromatosis involving the liver, spleen and bone marrow. Reviewed, dictated and finalized at location A. IMPRESSION: 1. Cardiomegaly with likely mitral and tricuspid valve repairs. 2. Small right pleural effusion. 3. Likely autosomal dominant polycystic kidney disease with numerous simple and complex proteinaceous/hemorrhagic cysts in both kidneys. 4. Large multilobulated cystic lesion in the right upper quadrant situated betw een the liver, has the pancreas and stomach. Differential would include pancrea tic pseudocyst related to prior pancreatitis, seroma or less likely cyst arisin g from the liver, right kidney or pancreas. No evident solid soft tissue compon ent. 5. Secondary hemachromatosis involving the liver, spleen and bone marrow.
--- NOTE | ~2024-07-22 | CT_ITS ---
EXAMINATION: CT chest abdomen pelvis wo con DATE: 07/22/2024 22:27 INDICATION: cough, chest pain, abdominal pain . TECHNIQUE: Computed tomography (CT) of the chest, abdomen, and pelvis was performed with 100 mL Omnip aque-350 intravenous contrast. Automated exposure control and iterative reconstruction technique were employed. The dose-length product was 357.39 mGy-cm. COMPARISON: None FINDINGS: CHEST: Thoracic aorta: No significant dilation. Moderate arch calcification. Lung parenchyma and airways: Motion artifact. Mild patchy groundglass opacities. Pain and airways. Thoracic inlet, axillae and chest wall: No thyroid or soft tissue mass. No axillary lymphadenopathy. Mild bilateral symmetric gynecomastia. Mediastinum: Dilated central pulmonary arteries as can be seen with pulmonary arterial hypertension. Mediastinal lymphadenopathy. Heart and pericardium: Cardiomegaly. Aortic and tricuspid valve replacements. Radiopacity over the mi tral valve, of uncertain etiology. No pericardial effusion. Coronary artery calcifications: Heavy. Pleura: Small right pleural effusion. Thoracic bones: No acute osseous finding in the chest. ABDOMEN/PELVIS: Liver: Normal. Biliary/Gallbladder: Partially collapsed gallbladder with stones. No bile duct dilation. Pancreas: No mass or duct dilation. Spleen: Normal. Adrenals:No mass. Kidneys: 2.5 cm indeterminate density left midpole lesion. Multiple additional subcentimeter renal hy podensities likely representing a combination of hemorrhagic/proteinaceous cysts and indeterminate le sions. No hydronephrosis. Nonobstructing 5 mm left lower pole calcification. Innumerable bilateral si mple cysts and lesions that are too small to characterize but also likely represent cysts. GI tract: Small hiatal hernia. No small or large bowel dilation. Appendix not confidently visualized. Mesentery/Peritoneum: Redemonstration of the subhepatic/letitia hepatic cystic mass which is increased in size now measuring 9.1 x 6.4 cm (axial image 149/169) mild generalized mesenteric edema. Retroperitoneum: No mass Atherosclerotic abdominal aortic and/or arterial calcifications. Pelvis: Incompletely distended urinary bladder with wall thickening and surrounding stranding. Perito roselyn calcifications superior to the bladder. Soft Tissues: Mild body wall edema. Abdominopelvic bones: No acute osseous finding in the abdomen/pelvis. IMPRESSION: Mild diffuse patchy bibasilar opacities, may represent edema or infection. Small right pleural effusion. Mediastinal lymphadenopathy. Increasing size of the subhepatic/letitia hepatic cystic mass measuring up to 9.[address], duplication cyst, or biloma the differential. Multiple indeterminate density renal lesions, largest in the left mid renal pole measuring 2.5 cm. Co nsider nonemergent but timely MR or CT without and with contrast for further evaluation. Possible cystitis. Reviewed, dictated and finalized at location K. IMPRESSION: Mild diffuse patchy bibasilar opacities, may represent edema or infection. Small right pleural effusion. Mediastinal lymphadenopathy. Increasing size of the subhepatic/letitia hepatic cystic mass measuring up to 9.1 cm. Consider pseudocyst, duplication cyst, or biloma the differential. Multiple indeterminate density renal lesions, largest in the left mid renal elizabeth e measuring 2.5 cm. Consider nonemergent but timely MR or CT without and with c ontrast for further evaluation. Possible cystitis.
--- NOTE | 2024-07-22 20:57 | ECG_ITS ---
Test Date: 2024-07-22 21:03:22 Measurements Intervals [place] Rate: 67 P: 92 UT: 122 QRS: 33 QRSD: 109 T: 266 QT: 447 QTc: 475 Interpretive Statements SINUS RHYTHM PROBABLE LATERAL MYOCARDIAL INFARCTION , OF INDETERMINATE AGE [35 ms Q WAVE IN I/aVL/V5/V6] MODERATE T-WAVE ABNORMALITY, CONSIDER INFERIOR ISCHEMIA [-0.1+ mV T WAVE IN II/aVF] ABNORMAL ELECTROCARDIOGRAM No previous ECG available for comparison Electronically Signed On 07-23-2024 12:47:24 CDT by Juan Adams M.D.
[2024-07-22 20:59] VITALS: BP 150/66; PULSE 65; RESP 15; TEMP 36.4; O2SAT 95
[2024-07-22 21:32] VITALS: O2SAT 98
[2024-07-22 21:36] VITALS: BP 154/76; PULSE 66; RESP 21; TEMP 36.9; O2SAT 97
--- NOTE | 2024-07-22 22:00 | ED.GENADULT ---
HPI - General Adult General Chief complaint: Shortness of Breath/Dyspnea Stated complaint: sob, cough, dizziness Time Seen by Provider: 07/22/24 21:50 History of Present Illness HPI narrative: Patient 59-year-old gentleman who presents emergency department with chief complaint of shortness of breath chest pain and abdominal pain and cough. Patient reports symptoms started this morning after he woke up patient states more of a sharp type pain he reports that the cough has been nonproductive patient denies fever denies vomiting denies diarrhea. Related Data Home Medications Medication Instructions Recorded Confirmed cholecalciferol (vitamin D3) 1,250 1,250 mcg PO WEEKLY 11/18/23 07/23/24 mcg (50,000 unit) tablet amiodarone 400 mg tablet 400 mg PO Q12H 03/21/24 07/23/24 calcium acetate(phosphat bind) 667 667 mg PO TID 03/21/24 07/23/24 mg capsule apixaban 5 mg tablet (Eliquis) 2.5 mg PO BID 07/23/24 07/23/24 aspirin 81 mg tablet,delayed 81 mg PO BID 07/23/24 07/23/24 release cefpodoxime 200 mg tablet 200 mg PO DAILY 07/23/24 07/23/24 gabapentin 100 mg capsule 100 mg PO QMWF 07/23/24 07/23/24 metoprolol tartrate 75 mg tablet 75 mg PO Q12H 07/23/24 07/23/24 Allergies Allergy/AdvReac Type Severity Reaction Status Date / Time adhesive Allergy Mild BLISTERS Verified 06/29/24 08:16 clonidine AdvReac Unknown Vomiting Verified 06/29/24 08:16 hydralazine AdvReac Unknown Vomiting Verified 06/29/24 08:16 Review of Systems Review of Systems: A 10 system review of systems was completed on the patient and is negative except for what is stated in the HPI. Nursing and ancillary documentation was reviewed. [facility] Past Medical History Medical History Abnormal magnetic resonance imaging of liver MRI taken 10/20/2023 at [facility] showed advanced diffuse iron accumulation within the liver; patient refused liver biopsy. Anemia Anemia in chronic kidney disease, on chronic dialysis Aortic valve regurgitation Atrial fibrillation Chronic pain Coronary artery disease Diastolic dysfunction Emphysema lung End-stage renal disease on hemodialysis Gastroesophageal reflux disease History of myocardial infarction History of positive PPD Hypertension Latent tuberculosis by blood test Myocardial infarction (2008) Osteonecrosis Pericardial effusion Status post drain in August 2023. Polycystic kidney disease Tricuspid valve regurgitation Surgical History Surgical History History of abdominal surgery secondary to infection r/t peritoneal dialysis, stomach flipped , unknown year - believes it was before 2003 History of cardiac catheterization History of coronary artery bypass graft x 1 Saphenous vein to diagonal branch of LAD. History of coronary artery stent placement (2008) Left circumflex, done at [place]. History of heart valve replacement Status post MitraClip, tricuspid valve ring annuloplasty, and bioprosthetic aortic valve replacement in 2022 at [place]. History of removal of cyst Left wrist. History of tracheostomy Status post creation of arteriovenous fistula Family History Family History (Updated 07/23/24 @ 01:52 by Shannon Bains RN) Mother Hypertension Other Unknown family medical history Social History Social History Social History: Surrogate medical decision maker: Gwen Sagastume, aunt. Code status: Full code. Smoking packs per day: 0.5 Smoking cigarettes per day: 10.0 Years smoked: 20 Smoking pack-years: 10.00 Smoking status: Former smoker Tobacco type: cigarettes Alcohol intake: never Substance use: never Substance use type: does not use Do You Feel Safe in your Home?: Yes Lack of Transportation: No Lack of Food: Never True Current Housing: I Have Housing Concern
[2024-07-22 22:33] VITALS: BP 161/78; PULSE 67; RESP 22; O2SAT 98
[2024-07-22 23:15] VITALS: BP 159/75; PULSE 67; RESP 22; TEMP 36.9; O2SAT 99
[2024-07-22 23:16] VITALS: O2SAT 99
[2024-07-22 23:19] LABS: Hemoglobin 11.3 g/dL (14.0-18.0); Immature Platelet Fraction Pct 5.6 % (0.9-11.2); Mean Corpuscular HGB Conc 31.4 g/dl (32-36); Mean Corpuscular Hemoglobin 30.4 pg (26-34); Mean Corpuscular Volume 96.8 fl (80-100); Mean Platelet Volume 12.6 fl (7.4-10.4); Red Blood Count 3.72 M/mm3 (4.6-6.20); Red Cell Distribution Width 17.4 % (11.5-14.5); White Blood Count 3.9 K/mm3 (4.5-10.0)
[2024-07-22] MEDS: MORPHINE SULFATE (*CRX) 4 MG/ML INJ IV PUSH (23:27)
[2024-07-22 23:28] LABS: Alanine Aminotransferase 14 U/L (6-50); Alkaline Phosphatase 110 U/L (38-126); Anion Gap 14 mmol/L (4-12); Aspartate Amino Transferase 39 U/L (17-59); Bilirubin,Total 1.2 mg/dL (0.2-1.3); Blood Urea Nitrogen 36 mg/dL (9-20); Calcium 8.9 mg/dL (8.4-10.2); Carbon Dioxide 30 mmol/L (22-30); Chloride 92 mmol/L (98-107); Estimated CRCL calculation 11 ml/min; Estimated Glomerular Filt Rate 8; Glucose 84 mg/dL (65-110); Potassium 4.1 mmol/L (3.4-5.0); Sodium 136 mmol/L (137-145)
[2024-07-22 23:39] LABS: Platelet Count Result 80 k/mm3 (150-375)
[2024-07-22 23:40] LABS: Lipase 296 U/L (23-300)
[2024-07-22 23:51] LABS: Anisocytosis 1+; Band Neutrophils Percent 1 % (0-6); Eosinophils Absolute Manual 0.03 K/mm3 (0.02-0.50); Eosinophils Percent Manual 1 % (0-4); Hypochromasia 1+; Lymphocytes Absolute Manual 1.09 K/mm3 (1.1-4.5); Microcytosis 1+ (NORMAL); Monocytes Absolute Manual 0.11 K/mm3 (0.1-0.90); Monocytes Percent Manual 3 % (3-9); Neutrophils Absolute Manual 2.65 K/mm3 (1.3-6.7); Neutrophils Percent Manual 67 % (46-73); Platelet Estimate Decreased (Adequate); Schistocytes None Seen; Smudge Cells PRESENT; Total Cells Counted 100
[2024-07-22 23:58] LABS: Lactic Acid Reflex 1.4 mmol/L (0.7-2.0)
[2024-07-22 23:59] LABS: INR 1.5; Prothrombin Time 18.3 Seconds (11.1-14.7)
[2024-07-23] VITALS (30 sets, daily range): BP systolic 131–175; BP diastolic 61–86; PULSE 64–75; RESP 16–21; TEMP 36.1–37; O2SAT 95–100
[2024-07-23] LABS: Partial Thromboplastin Time 40.9 Seconds (22.3-36.8)
[2024-07-23 00:02] LABS: Troponin I 0.063 ng/mL (0.000-0.034)
[2024-07-23] MEDS: ASPIRIN 81 MG CHEWABLE TABLET 324 MG PO (00:34)
--- NOTE | 2024-07-23 01:01 | PM.IMHP ---
H&P: HPI History of Present Illness Date/Time: 07/23/24 01:01 Chief Complaint: cough Narrative: This is a 59-year-old male with past medical history significant for end-stage renal disease on hemodialysis dialyzes Friday, anemia of chronic disease, atrial fibrillation, aortic valve regurg, coronary artery disease, diastolic dysfunction, emphysema, latent tuberculosis, polycystic kidney disease. Patient presents to the emergency room due to cough, epigastric discomfort or, chills. Preliminary workup was significant for chest x-ray with infiltrates, troponin was mildly elevated. Patient has been admitted for further evaluation management and treatment EXAMINATION: XR chest 2V Exam Date/Time: 07/22/2024 21:15 CDT HISTORY: sob dizzy cp Comparison: None. RESULT: Lines, tubes, and devices: Coronary stent. Cardiac valve replacements. Intact sternotomy wires. Lungs and pleura: Mild diffuse reticular opacities. Mild right costophrenic angle blunting. Cardiomediastinal silhouette: Stable. Other: No acute osseous or upper abdominal finding. IMPRESSION: Mild interstitial edema. Small right pleural effusion. EXAMINATION: CT chest abdomen pelvis wo con DATE: 07/22/2024 22:27 INDICATION: cough, chest pain, abdominal pain . TECHNIQUE: Computed tomography (CT) of the chest, abdomen, and pelvis was performed with 100 mL Omnipaque-350 intravenous contrast. Automated exposure control and iterative reconstruction technique were employed. The dose-length product was 357.39 mGy-cm. COMPARISON: None FINDINGS: CHEST: Thoracic aorta: No significant dilation. Moderate arch calcification. Lung parenchyma and airways: Motion artifact. Mild patchy groundglass opacities. Pain and airways. Thoracic inlet, axillae and chest wall: No thyroid or soft tissue mass. No axillary lymphadenopathy. Mild bilateral symmetric gynecomastia. Mediastinum: Dilated central pulmonary arteries as can be seen with pulmonary arterial hypertension. Mediastinal lymphadenopathy. Heart and pericardium: Cardiomegaly. Aortic and tricuspid valve replacements. Radiopacity over the mitral valve, of uncertain etiology. No pericardial effusion. Coronary artery calcifications: Heavy. Pleura: Small right pleural effusion. Thoracic bones: No acute osseous finding in the chest. ABDOMEN/PELVIS: Liver: Normal. Biliary/Gallbladder: Partially collapsed gallbladder with stones. No bile duct dilation. Pancreas: No mass or duct dilation. Spleen: Normal. Adrenals:No mass. Kidneys: 2.5 cm indeterminate density left midpole lesion. Multiple additional subcentimeter renal hypodensities likely representing a combination of hemorrhagic/proteinaceous cysts and indeterminate lesions. No hydronephrosis. Nonobstructing 5 mm left lower pole calcification. Innumerable bilateral simple cysts and lesions that are too small to characterize but also likely represent cysts. GI tract: Small hiatal hernia. No small or large bowel dilation. Appendix not confidently visualized. Mesentery/Peritoneum: Redemonstration of the subhepatic/letitia hepatic cystic mass which is increased in size now measuring 9.1 x 6.4 cm (axial image 149/169) mild generalized mesenteric edema. Retroperitoneum: No mass Atherosclerotic abdominal aortic and/or arterial calcifications. Pelvis: Incompletely distended urinary bladder with wall thickening and surrounding stranding. Peritoneal calcifications superior to the bladder. Soft Tissues: Mild body wall edema. Abdominopelvic bones: No acute osseous finding in the abdomen/pelvis. IMPRESSION: Mild diffuse patchy bibasilar opacities, may represent edema or infection. Small right pleural effusion. Mediastinal lymphadenopathy. Increasing size of the subhepatic/letitia hepatic cystic mass measuring up to 9.1 cm. Consider pseudocyst, duplication cyst, or biloma the differential. Multiple indeterminate density renal lesions, largest in the left mid sonya
--- NOTE | 2024-07-23 01:53 | ADMGEN ---
This patient, Tejas Yost, was admitted to IMU Room 201-01. Patient/family oriented to hospital policies and general routines including ID bracelet, bed and alarms, visiting hours, pain management, procedures, bathroom and other care routines, personal items, smoking policy, room service/diet, and visiting hours. Information on how to activate the Rapid Response Team has been discussed. Patient/Family are encouraged to report perceived risks to care and to ask questions if they do not understand what they are told or what they should do. Pt arrived to the unit at 0145.
[2024-07-23 05:01] LABS: Troponin I 0.065 ng/mL (0.000-0.034)
[2024-07-23] MEDS: AZITHROMYCIN 500 MG/NS 250 ML 500 MG/250 ML BAG 250 MG IVPB (05:07)
[2024-07-23 06:58] LABS: Troponin I 0.064 ng/mL (0.000-0.034)
[2024-07-23] MEDS: CEFEPIME 0.5 GM in SODIUM CHLORIDE 0.9% IV 50 ML IVPB (08:34)
[2024-07-23 08:51] LABS: Hepatitis B Surface Antigen Negative (Negative)
[2024-07-23] MEDS: VANCOMYCIN 1,500 MG/NS 500 ML 1,500 MG/500 ML BAG 250 MG IVPB (09:00)
[2024-07-23 09:17] LABS: Hepatitis B Surface Anti Res Positive
--- NOTE | 2024-07-23 15:08 | PC.NURSE ---
Pt refusing PO meds, vitals, MRSA PCR. Agreeable to IV antibiotics and dialysis. Dr. Andrade aware
--- NOTE | 2024-07-23 15:28 | PM.IMPN ---
Progress Note: A&P Assessment and Plan (1) Multifocal pneumonia: Code(s): J18.9 - Pneumonia, unspecified organism Status: Acute (2) Atrial fibrillation: Qualifiers: Atrial fibrillation type: paroxysmal Qualified Code(s): I48.0 - Paroxysmal atrial fibrillation Code(s): I48.91 - Unspecified atrial fibrillation Status: Acute (3) Polycystic kidney disease: Code(s): Q61.3 - Polycystic kidney, unspecified Status: Acute (4) End stage renal disease: Code(s): N18.6 - End stage renal disease Status: Acute (5) GERD (gastroesophageal reflux disease): Code(s): K21.9 - Gastro-esophageal reflux disease without esophagitis Status: Acute (6) Chronic generalized abdominal pain: Code(s): R10.84 - Generalized abdominal pain; G89.29 - Other chronic pain Status: Acute (7) Aortic stenosis: Code(s): I35.0 - Nonrheumatic aortic (valve) stenosis Status: Acute (8) REFUGIO (obstructive sleep apnea): Code(s): G47.33 - Obstructive sleep apnea (adult) (pediatric) Status: Acute (9) Anemia in chronic kidney disease, on chronic dialysis: Code(s): N18.6 - End stage renal disease; D63.1 - Anemia in chronic kidney disease; Z99.2 - Dependence on renal dialysis Status: Acute Plan 59-year-old gentleman presents to the ED with complaint of shortness of breath chest pain abdominal pain cough. Symptoms started this morning after he woke up. Cough is nonproductive. Vitals were stable on arrival to the ED. Laboratory of revealed WBC of 3.9 hemoglobin 11.3 platelet count of 8000 creatinine of 8.0. INR 1.5 PTT 40.9 lactate was 1.4 troponin was elevated at 0.063 lipase was normal at 296. Chest x-ray showed mild interstitial edema small right pleural effusion. CT chest abdomen pelvis was performed without contrast which showed mild diffuse patchy bibasilar opacities may represent edema or infection small right pleural effusion mediastinal lymphadenopathy increasing size of subhepatic portohepatic cystic mass measuring up to 9.1 cm consider pseudocyst duplication cyst or biloma. Multiple indeterminate renal lesions largest in the left mid renal pole measuring 0.5 cm consider nonemergent but timely MR or CT without and with contrast for further evaluation. Possible cystitis. Patient had been started on cefepime and azithromycin and vancomycin. Will check MRSA nares. Procalcitonin is pending. Elevated troponin with flat trajectory. Likely due to underlying end-stage renal disease. End-stage renal disease on hemodialysis Friday related to polycystic kidney disease Anemia chronic disease Congestive heart failure systolic and diastolic EF 45% 2021. Moderate to severe AV aortic valve regurgitation. History of aortic and tricuspid valve replacement Hypertension Chronic thrombocytopenia DVT prophylaxis on Eliquis GERD Coronary artery disease status post CABG and stent placement Status post MitraClip tricuspid valve ring annuloplasty and bioprosthetic aortic valve replacement in 2022 COPD Code status full code Subjective Date/time seen: 07/23/24 15:28 Interval history: Patient lying in bed does not want to talk. No fever chills. Review of Systems Review of Systems: All systems reviewed & are unremarkable except as noted in HPI and below Exam Narrative: GENERAL: Well-appearing, well-nourished, and in no acute distress. HEAD: Normocephalic, atraumatic. EYES: PERRLA and EOMI. NECK: Supple. CHEST: No respiratory distress. HEART: Regular rate and rhythm. ABDOMEN: Did not let me examine EXTREMITIES: Normal range of motion. No edema. SKIN: Warm, dry, no rash. NEURO: No focal deficits. Alert PSYCH: Does not talk much Objective Data Vital Signs Vital Signs: Vital Signs - 24 hr 07/22/24 20:59 07/22/24 21:32 07/22/24 21:36 Temperature 97.6 F 98.4 F Pulse Rate 65 66 Respiratory Rate 15 21 H Blood Pres
--- NOTE | 2024-07-23 16:20 | PM.CNNEP ---
Assessment and Plan Assessment and plan (1) End stage renal disease: Code(s): N18.6 - End stage renal disease Status: Chronic Assessment and Plan: HD today and continue M/W/F dialysis schedule follow electrolytes, volume status, and clearance (2) Shortness of breath: Code(s): R06.02 - Shortness of breath Status: Acute Assessment and Plan: due to mild interstitial edema +/- pneumonia fluid removal with dialysis antibiotics follo respiratory status (3) Abdominal pain: Qualifiers: Abdominal location: generalized Qualified Code(s): R10.84 - Generalized abdominal pain Code(s): R10.9 - Unspecified abdominal pain Status: Chronic Assessment and Plan: somehat of a chronic issue at baseline CT of abdomen/pelvis without any acute findings/changes noted continue supportive therapy (4) Pneumonia: Qualifiers: Laterality: right Lung location: lower lobe of lung Pneumonia type: due to unspecified organism Qualified Code(s): J18.9 - Pneumonia, unspecified organism Code(s): J18.9 - Pneumonia, unspecified organism Status: Acute Assessment and Plan: suspected base on admission imaging follow culture data on antibiotics (5) Hypertension: Qualifiers: Hypertension type: primary hypertension Qualified Code(s): I10 - Essential (primary) hypertension Code(s): I10 - Essential (primary) hypertension Status: Chronic Assessment and Plan: fluctuating at this time fluid removal with HD should help continue home medications follow trend of hemodynamics (6) Anemia: Qualifiers: Anemia type: unspecified type Qualified Code(s): D64.9 - Anemia, unspecified Code(s): D64.9 - Anemia, unspecified Status: Chronic Assessment and Plan: due to ESRD Epogen with HD follow trend of H/H I will continue to follow the patient with you while he remains hospitalized and make further recommendations as needed. Thank you for allowing me to participate in the care of this patient. History of Present Illness Reason for Consult Consult date: 07/23/24 Reason for consult: end stage renal disease Chief Complaint Chief complaint: Chest pain, ESRD History of Present Illness Narrative: The patient is a 59-year-old male with a past medical history as outlined below who presented to [facility] Emergency room with complaints of shortness of breath, chest pain, and abdominal pain. The patient's symptoms apparently started earlier today after he woke up. He states the cough has been nonproductive and the chest pain seems to occur in conjunction with his coughing. His shortness of breath seemed also, on somewhat suddenly but states that it may have been present even yesterday evening as well. He reported no overt fevers, chills, diarrhea, hematochezia, or melena. Due to these constellation of symptoms, he presented to the emergency room for further assessment. Workup and evaluation emergency room demonstrated the patient being hemodynamically stable but in mild distress secondary to pain. His CBC showed a white blood count 3.9, hemoglobin 11.3, platelet count of 8000 and his chemistry was consistent with his known history of end-stage renal disease. His initial troponin was mildly elevated as was his lipase. Chest x-ray demonstrated mild interstitial edema and small right pleural effusion. Due to his ongoing complaints of abdominal pain when he is in the emergency room, a CT scan of the chest/abdomen/ pelvis was done which demonstrated mild diffuse patchy bibasilar opacities which may represent edema or infection, small right pleural effusion, mediastinal lymphadenopathy, and increasing side of a subhepatic Jazzy a pad excess stick mass measuring up to 9.1 cm. He also had multiple indeterminate renal lesions in the left renal pole which were somewhat larger in
[2024-07-23 16:59] LABS: Vancomycin Random 10.8 ug/mL (10-20)
[2024-07-23] MEDS: CALCIUM ACETATE 667 MG TABLET PO (18:22)
[2024-07-23 18:53] LABS: Procalcitonin 1.2 ng/mL
--- NOTE | 2024-07-23 20:43 | PC.NURSE ---
Patient brought to unit from dialysis around 1999. During assessment, patient refused oral medications but agreed to the IV vancomycin. Refusing care until morning because he just wants to sleep .
[2024-07-23] MEDS: VANCOMYCIN 500 MG/NS 100 ML 500 MG/100 ML BAG 100 MG IVPB (20:50)
[2024-07-24] VITALS (8 sets, daily range): BP systolic 121–144; BP diastolic 66–75; PULSE 68–79; RESP 16–20; TEMP 36.3–36.8; O2SAT 96–100
[2024-07-24 05:37] LABS: Basophils Percent Auto 1.7 % (0.2-1.2); Eosinophils Percent Auto 4.2 % (0-4.4); Hematocrit 37.9 % (42.0-52.0); Hemoglobin 11.9 g/dL (14.0-18.0); Immature Granulocyte Absolute 0.01 K/mm3 (0.00-0.031); Immature Granulocyte Percent A 0.2 % (0-0.5); Immature Platelet Fraction Pct 6.3 % (0.9-11.2); Lymphocytes Absolute Auto 0.93 K/mm3 (0.9-3.2); Lymphocytes Percent Auto 22.8 % (18.3-44.2); Mean Corpuscular HGB Conc 31.4 g/dl (32-36); Mean Corpuscular Hemoglobin 30.2 pg (26-34); Mean Corpuscular Volume 96.2 fl (80-100); Mean Platelet Volume 11.9 fl (7.4-10.4); Neutrophils Absolute Auto 2.4 K/mm3 (1.3-6.7); Neutrophils Percent Auto 59.1 % (45.5-73.1); Platelet Count Result 88 k/mm3 (150-375); Red Blood Count 3.94 M/mm3 (4.6-6.20); Red Cell Distribution Width 17.2 % (11.5-14.5); White Blood Count 4.1 K/mm3 (4.5-10.0)
[2024-07-24 05:38] LABS: Basophils Absolute Auto 0.1 K/mm3 (0.0-0.1); Eosinophils Absolute Auto 0.2 K/mm3 (0-0.3); Monocytes Absolute Auto 0.5 K/mm3 (0.1-0.6)
[2024-07-24 05:47] LABS: Alanine Aminotransferase 15 U/L (6-50); Alkaline Phosphatase 112 U/L (38-126); Anion Gap 15 mmol/L (4-12); Aspartate Amino Transferase 44 U/L (17-59); Bilirubin,Total 1.5 mg/dL (0.2-1.3); Blood Urea Nitrogen 26 mg/dL (9-20); Calcium 9.3 mg/dL (8.4-10.2); Carbon Dioxide 26 mmol/L (22-30); Chloride 96 mmol/L (98-107); Estimated CRCL calculation 12 ml/min; Estimated Glomerular Filt Rate 11; Glucose 80 mg/dL (65-110); Potassium 3.9 mmol/L (3.4-5.0); Sodium 137 mmol/L (137-145)
[2024-07-24] MEDS: AZITHROMYCIN 500 MG/NS 250 ML 500 MG/250 ML BAG 250 MG IVPB (06:51)
--- NOTE | 2024-07-24 09:20 | PM.IMPN ---
Progress Note: A&P Assessment and Plan (1) Multifocal pneumonia: Code(s): J18.9 - Pneumonia, unspecified organism Status: Acute (2) Atrial fibrillation: Qualifiers: Atrial fibrillation type: paroxysmal Qualified Code(s): I48.0 - Paroxysmal atrial fibrillation Code(s): I48.91 - Unspecified atrial fibrillation Status: Acute (3) Polycystic kidney disease: Code(s): Q61.3 - Polycystic kidney, unspecified Status: Acute (4) End stage renal disease: Code(s): N18.6 - End stage renal disease Status: Acute (5) GERD (gastroesophageal reflux disease): Code(s): K21.9 - Gastro-esophageal reflux disease without esophagitis Status: Acute (6) Chronic generalized abdominal pain: Code(s): R10.84 - Generalized abdominal pain; G89.29 - Other chronic pain Status: Acute (7) Aortic stenosis: Code(s): I35.0 - Nonrheumatic aortic (valve) stenosis Status: Acute (8) REFUGIO (obstructive sleep apnea): Code(s): G47.33 - Obstructive sleep apnea (adult) (pediatric) Status: Acute (9) Anemia in chronic kidney disease, on chronic dialysis: Code(s): N18.6 - End stage renal disease; D63.1 - Anemia in chronic kidney disease; Z99.2 - Dependence on renal dialysis Status: Acute Plan 59-year-old gentleman presents to the ED with complaint of shortness of breath chest pain abdominal pain cough. Symptoms started this morning after he woke up. Cough is nonproductive. Vitals were stable on arrival to the ED. Laboratory of revealed WBC of 3.9 hemoglobin 11.3 platelet count of 8000 creatinine of 8.0. INR 1.5 PTT 40.9 lactate was 1.4 troponin was elevated at 0.063 lipase was normal at 296. Chest x-ray showed mild interstitial edema small right pleural effusion. CT chest abdomen pelvis was performed without contrast which showed mild diffuse patchy bibasilar opacities may represent edema or infection small right pleural effusion mediastinal lymphadenopathy increasing size of subhepatic portohepatic cystic mass measuring up to 9.1 cm consider pseudocyst duplication cyst or biloma. Multiple indeterminate renal lesions largest in the left mid renal pole measuring 0.5 cm consider nonemergent but timely MR or CT without and with contrast for further evaluation. Possible cystitis. Subhepatic letitia hepatic cystic mass: Will get MRI. The size is increased from 7.5-9.1 cm since March 2024. Will consult GI. MRI abdomen this area Patient had been started on cefepime and azithromycin and vancomycin. Will check MRSA nares which is pending. Procalcitonin is 1.2 Elevated troponin with flat trajectory. Likely due to underlying end-stage renal disease. End-stage renal disease on hemodialysis Friday related to polycystic kidney disease Anemia chronic disease Congestive heart failure systolic and diastolic EF 45% 2021. Moderate to severe AV aortic valve regurgitation. History of aortic and tricuspid valve replacement Hypertension Chronic thrombocytopenia DVT prophylaxis on Eliquis GERD Coronary artery disease status post CABG and stent placement Status post MitraClip tricuspid valve ring annuloplasty and bioprosthetic aortic valve replacement in 2022 COPD Code status full code Subjective Date/time seen: 07/24/24 09:20 Interval history: Underwent dialysis yesterday. No overnight events reported. Labs reviewed. Patient reports some nausea and abdominal discomfort. Review of Systems Review of Systems: All systems reviewed & are unremarkable except as noted in HPI and below Exam Narrative: GENERAL: Well-appearing, well-nourished, and in no acute distress. HEAD: Normocephalic, atraumatic. EYES: PERRLA and EOMI. NECK: Supple. CHEST: No respiratory distress. HEART: Regular rate and rhythm. ABDOMEN: Did not let me examine EXTREMITIES: Normal range of motion. No edema. SKIN: Warm, dry, no rash. NEURO: No focal deficits. Alert PSYCH:
[2024-07-24] MEDS: AMIODARONE HCL 200 MG TABLET BY MOUTH (10:05)
[2024-07-24] MEDS: ASPIRIN 81 MG ENTERIC TABLET PO ×2 (10:06→17:46)
[2024-07-24] MEDS: ONDANSETRON INJ 4 MG/2 ML VIAL IV PUSH (13:32)
--- NOTE | 2024-07-24 15:06 | PM.PNNEP ---
Progress Note: A&P Assessment and Plan (1) End stage renal disease: Code(s): N18.6 - End stage renal disease Status: Chronic Assessment and Plan: HD tomoroow and continue M/W/F dialysis schedule follow electrolytes, volume status, and clearance (2) Shortness of breath: Code(s): R06.02 - Shortness of breath Status: Acute Assessment and Plan: improving due to mild interstitial edema +/- pneumonia fluid removal with dialysis antibiotics follo respiratory status (3) Abdominal pain: Qualifiers: Abdominal location: generalized Qualified Code(s): R10.84 - Generalized abdominal pain Code(s): R10.9 - Unspecified abdominal pain Status: Chronic Assessment and Plan: somehat of a chronic issue at baseline CT of abdomen/pelvis without any acute findings/changes noted GI consulted continue supportive therapy (4) Pneumonia: Qualifiers: Laterality: right Lung location: lower lobe of lung Pneumonia type: due to unspecified organism Qualified Code(s): J18.9 - Pneumonia, unspecified organism Code(s): J18.9 - Pneumonia, unspecified organism Status: Acute Assessment and Plan: suspected base on admission imaging follow culture data on antibiotics (5) Hypertension: Qualifiers: Hypertension type: primary hypertension Qualified Code(s): I10 - Essential (primary) hypertension Code(s): I10 - Essential (primary) hypertension Status: Chronic Assessment and Plan: fluctuating at this time fluid removal with HD should help continue home medications follow trend of hemodynamics (6) Anemia: Qualifiers: Anemia type: unspecified type Qualified Code(s): D64.9 - Anemia, unspecified Code(s): D64.9 - Anemia, unspecified Status: Chronic Assessment and Plan: due to ESRD Epogen with HD follow trend of H/H Will continue to follow. Subjective Date/time seen: 07/24/24 15:06 Interval history: Follow-up for end stage renal disease on hemodialysis. Tolerated dialysis treatment yesterday without any issues or problems; major complaint is that of abdominal pain that feels like his stomach is being turned upside down -- reports he was seeing a surgeon at [facility] in the past for this issue but has not seen him recently; no acute issues/events overnight or earlier this AM. Exam Narrative: General: WD/WN male in NAD Heart: normal S1 and S2; no rub Lungs: clear anteriorly, decreased at bases Abdomen: did not want me to examine/touch at this time Extremities: no cyanosis or clubbing; trace edema Skin: warm and dry Objective Data Vital Signs Vital Signs: Vital Signs Temp Pulse Resp BP Pulse Ox O2 Del Method 07/24/24 13:05 97.3 F L 70 20 134/68 99 07/24/24 10:05 69 07/24/24 08:35 97.3 F L 69 16 140/69 100 07/24/24 04:00 98.1 F 79 16 141/68 H 97 07/24/24 00:00 98.3 F 71 18 144/66 H 96 07/23/24 20:00 Room Air 07/23/24 20:00 97.8 F 70 18 145/61 H 98 07/23/24 18:55 66 175/78 H 07/23/24 19:30 97.5 F L 69 16 153/86 H 97 07/23/24 18:45 68 156/70 H 07/23/24 18:30 67 157/77 H 07/23/24 18:15 70 170/76 H 07/23/24 18:00 69 163/75 H 07/23/24 17:45 71 168/81 H 07/23/24 17:30 65 167/83 H 07/23/24 17:15 69 162/83 H Intake/Output Intake/Output: Intake & Output 07/21/24 07/22/24 07/23/24 07/24/24 23:59 23:59 23:59 23:59 Intake Total 450 880 Output Total 3016 0 Balance -2566 880 Meds/Results Medications: Active Medications Generic Name Dose Route Start Last Admin Trade Name Freq PRN Reason Stop Dose Admin Amiodarone HCl 200 mg 07/23/24 08:00 07/24/24 10:05 Amiodarone Hcl 200 Mg Tablet BY MOUTH 200 mg DAILY@0800 POWER Administration Apixaban 2.5 mg 07/23/24 09:00 07/24/24 10:06 Apixa
--- NOTE | 2024-07-24 15:06 | P.PNNP_ITS ---
Progress Note: A&P Assessment and Plan (1) End stage renal disease: Code(s): N18.6 - End stage renal disease Status: Chronic Assessment and Plan: * HD tomoroow and continue M/W/ dialysis schedule * follow electrolytes, volume status, and clearance (2) Shortness of breath: Code(s): R06.02 - Shortness of breath Status: Acute Assessment and Plan: * improving * due to mild interstitial edema +/- pneumonia * fluid removal with dialysis * antibiotics * follo respiratory status (3) Abdominal pain: Qualifiers: Abdominal location: generalized Qualified Code(s): R10.84 - Generalized abdominal pain Code(s): R10.9 - Unspecified abdominal pain Status: Chronic Assessment and Plan: * somehat of a chronic issue at baseline * CT of abdomen/pelvis without any acute findings/changes noted * GI consulted * continue supportive therapy (4) Pneumonia: Qualifiers: Laterality: right Lung location: lower lobe of lung Pneumonia type: due to unspecified organism Qualified Code(s): J18.9 - Pneumonia, unspecified organism Code(s): J18.9 - Pneumonia, unspecified organism Status: Acute Assessment and Plan: * suspected base on admission imaging * follow culture data * on antibiotics (5) Hypertension: Qualifiers: Hypertension type: primary hypertension Qualified Code(s): I10 - Essential (primary) hypertension Code(s): I10 - Essential (primary) hypertension Status: Chronic Assessment and Plan: * fluctuating at this time * fluid removal with HD should help * continue home medications * follow trend of hemodynamics (6) Anemia: Qualifiers: Anemia type: unspecified type Qualified Code(s): D64.9 - Anemia, unsp ecified Code(s): D64.9 - Anemia, unspecified Status: Chronic Assessment and Plan: * due to ESRD * Epogen with HD * follow trend of H/H Will continue to follow. Subjective Date/time seen: 07/24/24 15:06 Interval history: Follow-up for end stage renal disease on hemodialysis. Tolerated dialysis treatment yesterday without any issues or problems; major complaint is that of abdominal pain that feels like his stomach is being turned upside down -- reports he was seeing a surgeon at [facility] in the past for this issue but has not seen him recently; no acute issues/events overnight or earlier this AM. Exam Narrative: General: WD/WN male in NAD Heart: normal S1 and S2; no rub Lungs: clear anteriorly, decreased at bases Abdomen: did not want me to examine/touch at this time Extremities: no cyanosis or clubbing; trace edema Skin: warm and dry Objective Data Vital Signs Vital Signs: Vital Signs Temp Pulse Resp BP Pulse Ox O2 Del Method 07/24/24 13:05 97.3 F L 70 20 134/68 99 07/24/24 10:05 69 07/24/24 08:35 97.3 F L 69 16 140/69 100 07/24/24 04:00 98.1 F 79 16 141/68 H 97 07/24/24 00:00 98.3 F 71 18 144/66 H 96 07/23/24 20:00 Room Air 07/23/24 20:00 97.8 F 70 18 145/61 H 98 07/23/24 18:55 66 175/78 H 07/23/24 19:30 97.5 F L 69 16 153/86 H 97 07/23/24 18:45 68 156/70 H 07/23/24 18:30 67 157/77 H 07/23/24 18:15 70 170/76
[2024-07-24] MEDS: DICYCLOMINE HCL 10 MG CAPSULE PO (17:44)
[2024-07-24] MEDS: CEFEPIME 0.5 GM in SODIUM CHLORIDE 0.9% IV 50 ML IVPB (17:46)
[2024-07-24] MEDS: PANTOPRAZOLE 40 MG TABLET PO (17:46)
[2024-07-25 04:00] VITALS: BP 130/68; PULSE 69; RESP 16; TEMP 37.2; O2SAT 100
[2024-07-25] MEDS: AZITHROMYCIN 500 MG/NS 250 ML 500 MG/250 ML BAG 250 MG IVPB (05:12)
[2024-07-25] MEDS: ONDANSETRON INJ 4 MG/2 ML VIAL IV PUSH (05:12)
[2024-07-25 09:03] VITALS: PULSE 72
[2024-07-25] MEDS: APIXABAN 2.5 MG TABLET PO (09:03)
[2024-07-25] MEDS: PANTOPRAZOLE 40 MG TABLET PO (09:03)
[2024-07-25] MEDS: CALCIUM ACETATE 667 MG TABLET PO (09:03)
[2024-07-25] MEDS: ROSUVASTATIN 5 MG TABLET PO (09:03)
[2024-07-25] MEDS: ASPIRIN 81 MG ENTERIC TABLET PO (09:03)
[2024-07-25] MEDS: AMIODARONE HCL 200 MG TABLET BY MOUTH (09:03)
--- NOTE | 2024-07-25 11:52 | PM.IMPN ---
Progress Note: A&P Assessment and Plan (1) Multifocal pneumonia: Code(s): J18.9 - Pneumonia, unspecified organism Status: Acute (2) Atrial fibrillation: Qualifiers: Atrial fibrillation type: paroxysmal Qualified Code(s): I48.0 - Paroxysmal atrial fibrillation Code(s): I48.91 - Unspecified atrial fibrillation Status: Acute (3) Polycystic kidney disease: Code(s): Q61.3 - Polycystic kidney, unspecified Status: Acute (4) End stage renal disease: Code(s): N18.6 - End stage renal disease Status: Acute (5) GERD (gastroesophageal reflux disease): Code(s): K21.9 - Gastro-esophageal reflux disease without esophagitis Status: Acute (6) Chronic generalized abdominal pain: Code(s): R10.84 - Generalized abdominal pain; G89.29 - Other chronic pain Status: Acute (7) Aortic stenosis: Code(s): I35.0 - Nonrheumatic aortic (valve) stenosis Status: Acute (8) REFUGIO (obstructive sleep apnea): Code(s): G47.33 - Obstructive sleep apnea (adult) (pediatric) Status: Acute (9) Anemia in chronic kidney disease, on chronic dialysis: Code(s): N18.6 - End stage renal disease; D63.1 - Anemia in chronic kidney disease; Z99.2 - Dependence on renal dialysis Status: Acute Plan 59-year-old gentleman presents to the ED with complaint of shortness of breath chest pain abdominal pain cough. Symptoms started this morning after he woke up. Cough is nonproductive. Vitals were stable on arrival to the ED. Laboratory of revealed WBC of 3.9 hemoglobin 11.3 platelet count of 8000 creatinine of 8.0. INR 1.5 PTT 40.9 lactate was 1.4 troponin was elevated at 0.063 lipase was normal at 296. Chest x-ray showed mild interstitial edema small right pleural effusion. CT chest abdomen pelvis was performed without contrast which showed mild diffuse patchy bibasilar opacities may represent edema or infection small right pleural effusion mediastinal lymphadenopathy increasing size of subhepatic portohepatic cystic mass measuring up to 9.1 cm consider pseudocyst duplication cyst or biloma. Multiple indeterminate renal lesions largest in the left mid renal pole measuring 0.5 cm consider nonemergent but timely MR or CT without and with contrast for further evaluation. Possible cystitis. Subhepatic letitia hepatic cystic mass: Will get MRI. The size is increased from 7.5-9.1 cm since March 2024. Consulted t GI. MRI abdomen ordered which is is pending at this time. Patient had been started on cefepime and azithromycin and vancomycin. Will check MRSA nares which is pending. Procalcitonin is 1.2 Elevated troponin with flat trajectory. Likely due to underlying end-stage renal disease. End-stage renal disease on hemodialysis Friday related to polycystic kidney disease Anemia chronic disease Congestive heart failure systolic and diastolic EF 45% 2021. Moderate to severe AV aortic valve regurgitation. History of aortic and tricuspid valve replacement Hypertension Chronic thrombocytopenia DVT prophylaxis on Eliquis GERD Coronary artery disease status post CABG and stent placement Status post MitraClip tricuspid valve ring annuloplasty and bioprosthetic aortic valve replacement in 2022 COPD Code status full code Subjective Date/time seen: 07/25/24 11:52 Interval history: No overnight events reported. Gets annoyed with any questioning. Does not let me examine him. Review of Systems Review of Systems: All systems reviewed & are unremarkable except as noted in HPI and below Exam Narrative: GENERAL: Well-appearing, well-nourished, and in no acute distress. HEAD: Normocephalic, atraumatic. EYES: PERRLA and EOMI. NECK: Supple. CHEST: No respiratory distress. HEART: Regular rate and rhythm. ABDOMEN: Did not let me examine EXTREMITIES: Normal range of motion. No edema. SKIN: Warm, dry, no rash. NEURO: No focal deficits. Alert PSYCH: Vo
[2024-07-25 12:00] VITALS: BP 124/69; PULSE 66; RESP 16; TEMP 36.6; O2SAT 100
--- NOTE | 2024-07-25 14:11 | WPDGICN ---
Assessment and Plan Assessment and plan (1) Polycystic kidney disease: Code(s): Q61.3 - Polycystic kidney, unspecified Status: Acute Assessment and Plan: It is non uncommon to have liver cyst in setting of PCKD, last time about 7 cm and now 9 cm. I will recommend to monitor with imaging probably in 6 months and also for any worsening pain or discomfort that will prompt percutaneous drainage. will follow as needed (2) Abnormal CT of the abdomen: Code(s): R93.5 - Abnormal findings on diagnostic imaging of other abdominal regions, including retroperitoneum Status: Acute (3) End stage renal disease: Code(s): N18.6 - End stage renal disease Status: Acute Assessment and Plan: on dialysis (4) Multifocal pneumonia: Code(s): J18.9 - Pneumonia, unspecified organism Status: Acute Assessment and Plan: by primary (5) GERD (gastroesophageal reflux disease): Code(s): K21.9 - Gastro-esophageal reflux disease without esophagitis Status: Acute Assessment and Plan: ppi GI Consult Note Consult date/time: 07/25/24 14:11 Reason for consult: liver cyst HPI: Tejas Yost is a 59 year old male with history significant for end-stage renal disease on hemodialysis dialyzes Friday, anemia of chronic disease, atrial fibrillation on eliquis, aortic valve regurgitation, coronary artery disease, diastolic dysfunction, emphysema, polycystic kidney disease with a known subhepatic/letitia hepatic cystic lesion. He is here for cough and diagnosed again with pneumonia (recent hospitalization at [facility] with pleural effusion s/p thoracentesis). Right now he denies any abdominal pain and in fact just finished his lunch. He is comfortable but does not want to talk much or answer most of my questions. He is non-cooperative. Review of Systems Constitutional: Constitutional: Denies headache(s) and Denies weakness Eyes: Eyes: Denies blurry vision ENT: Reports Normal hearing present, Denies headache(s) and Denies neck pain Cardiovascular: Cardiovascular: Denies chest pain and Denies dyspnea Respiratory: Respiratory: Denies dyspnea Gastrointestinal: Gastrointestinal: Reports no additional gastrointestinal complaints Genitourinary: Comments: on dialysis Musculoskeletal: Musculoskeletal: Denies neck pain Integumentary/Breasts: Skin/Breast: Denies dry skin Neurologic: Reports Normal hearing present, Denies headache(s) and Denies weakness Psychiatric: Psychiatric: Denies anxiety Endocrine: Endocrine: Denies change in body appearance Hematologic/Lymphatic: Hematologic/Lymphatic: Denies easy bleeding Allergic/Immunologic: Allergic/Immunologic: Denies urticaria PMFSH Past Medical History Medical History Abnormal magnetic resonance imaging of liver MRI taken 10/20/2023 at [facility] showed advanced diffuse iron accumulation within the liver; patient refused liver biopsy. Anemia Anemia in chronic kidney disease, on chronic dialysis Aortic valve regurgitation Atrial fibrillation Chronic pain Coronary artery disease Diastolic dysfunction Emphysema lung End-stage renal disease on hemodialysis Gastroesophageal reflux disease History of myocardial infarction History of positive PPD Hypertension Latent tuberculosis by blood test Myocardial infarction (2008) Osteonecrosis Pericardial effusion Status post drain in August 2023. Polycystic kidney disease Tricuspid valve regurgitation Surgical History Surgical History History of abdominal surgery secondary to infection r/t peritoneal dialysis, stomach flipped , unknown year - believes it was before 2003 History of cardiac catheterization History of coronary artery bypass graft x 1 Saphenous vein to diagonal branch of LAD. History of coronar
--- NOTE | 2024-07-25 14:16 | P.PNNP_ITS ---
Progress Note: A&P Assessment and Plan (1) End stage renal disease: Code(s): N18.6 - End stage renal disease Status: Chronic Assessment and Plan: * HD tomorrow and continue M/W/ dialysis schedule * follow electrolytes, volume status, and clearance (2) Shortness of breath: Code(s): R06.02 - Shortness of breath Status: Acute Assessment and Plan: * improving * due to mild interstitial edema +/- pneumonia * fluid removal with dialysis * antibiotics * follo respiratory status (3) Abdominal pain: Qualifiers: Abdominal location: generalized Qualified Code(s): R10.84 - Generalized abdominal pain Code(s): R10.9 - Unspecified abdominal pain Status: Chronic Assessment and Plan: * somehat of a chronic issue at baseline * CT of abdomen/pelvis without any acute findings/changes noted * GI consulted * continue supportive therapy (4) Pneumonia: Qualifiers: Laterality: right Lung location: lower lobe of lung Pneumonia type: due to unspecified organism Qualified Code(s): J18.9 - Pneumonia, unspecified organism Code(s): J18.9 - Pneumonia, unspecified organism Status: Acute Assessment and Plan: * suspected base on admission imaging * follow culture data * on antibiotics (5) Hypertension: Qualifiers: Hypertension type: primary hypertension Qualified Code(s): I10 - Essential (primary) hypertension Code(s): I10 - Essential (primary) hypertension Status: Chronic Assessment and Plan: * fluctuating at this time * fluid removal with HD should help * continue home medications * follow trend of hemodynamics (6) Anemia: Qualifiers: Anemia type: unspecified type Qualified Code(s): D64.9 - Anemia, unspecified Code(s): D64.9 - Anemia, unspecified Status: Chronic Assessment and Plan: * due to ESRD * Epogen with HD * follow trend of H/H Will continue to follow. Subjective Date/time seen: 07/25/24 14:16 Interval history: Follow-up for end stage renal disease on hemodialysis. No new issues or problems voiced at this time; his abdominal pain seems to be doing better as he was able to eat lunch without any significant issues or problems; issues with abdominal crampling overnight but resolved with medical management; resting comfortably on bedside couch when seen. Exam Narrative: General: WD/WN male in NAD Heart: normal S1 and S2; no rub Lungs: clear anteriorly, decreased at bases Abdomen: did not want me to examine/touch at this time Extremities: no cyanosis or clubbing; trace edema Skin: warm and intact Objective Data Vital Signs Vital Signs: Vital Signs - 24 hr 07/24/24 20:00 07/24/24 23:40 07/24/24 20:00 Temperature 98 F 98 F Pulse Rate 68 70 Respiratory Rate 16 18 Blood Pressure 121/66 122/73 Pulse Oximetry 100 100 Oxygen Delivery Room Air 07/25/24 04:00 07/25/24 09:03 07/25/24 09:03 Temperature 98.9 F Pulse Rate 69 72 Respiratory Rate 16 Blood Pressure 130/68 Pulse Oximetry 100 Oxygen Delivery Room Air 07/25/24 12:00 Temperature 97.8 F Pulse Rate 66 Respiratory Rate 16 Blood Pressu
--- NOTE | 2024-07-25 14:16 | PM.PNNEP ---
Progress Note: A&P Assessment and Plan (1) End stage renal disease: Code(s): N18.6 - End stage renal disease Status: Chronic Assessment and Plan: HD tomorrow and continue M/W/F dialysis schedule follow electrolytes, volume status, and clearance (2) Shortness of breath: Code(s): R06.02 - Shortness of breath Status: Acute Assessment and Plan: improving due to mild interstitial edema +/- pneumonia fluid removal with dialysis antibiotics follo respiratory status (3) Abdominal pain: Qualifiers: Abdominal location: generalized Qualified Code(s): R10.84 - Generalized abdominal pain Code(s): R10.9 - Unspecified abdominal pain Status: Chronic Assessment and Plan: somehat of a chronic issue at baseline CT of abdomen/pelvis without any acute findings/changes noted GI consulted continue supportive therapy (4) Pneumonia: Qualifiers: Laterality: right Lung location: lower lobe of lung Pneumonia type: due to unspecified organism Qualified Code(s): J18.9 - Pneumonia, unspecified organism Code(s): J18.9 - Pneumonia, unspecified organism Status: Acute Assessment and Plan: suspected base on admission imaging follow culture data on antibiotics (5) Hypertension: Qualifiers: Hypertension type: primary hypertension Qualified Code(s): I10 - Essential (primary) hypertension Code(s): I10 - Essential (primary) hypertension Status: Chronic Assessment and Plan: fluctuating at this time fluid removal with HD should help continue home medications follow trend of hemodynamics (6) Anemia: Qualifiers: Anemia type: unspecified type Qualified Code(s): D64.9 - Anemia, unspecified Code(s): D64.9 - Anemia, unspecified Status: Chronic Assessment and Plan: due to ESRD Epogen with HD follow trend of H/H Will continue to follow. Subjective Date/time seen: 07/25/24 14:16 Interval history: Follow-up for end stage renal disease on hemodialysis. No new issues or problems voiced at this time; his abdominal pain seems to be doing better as he was able to eat lunch without any significant issues or problems; issues with abdominal crampling overnight but resolved with medical management; resting comfortably on bedside couch when seen. Exam Narrative: General: WD/WN male in NAD Heart: normal S1 and S2; no rub Lungs: clear anteriorly, decreased at bases Abdomen: did not want me to examine/touch at this time Extremities: no cyanosis or clubbing; trace edema Skin: warm and intact Objective Data Vital Signs Vital Signs: Vital Signs - 24 hr 07/24/24 20:00 07/24/24 23:40 07/24/24 20:00 Temperature 98 F 98 F Pulse Rate 68 70 Respiratory Rate 16 18 Blood Pressure 121/66 122/73 Pulse Oximetry 100 100 Oxygen Delivery Room Air 07/25/24 04:00 07/25/24 09:03 07/25/24 09:03 Temperature 98.9 F Pulse Rate 69 72 Respiratory Rate 16 Blood Pressure 130/68 Pulse Oximetry 100 Oxygen Delivery Room Air 07/25/24 12:00 Temperature 97.8 F Pulse Rate 66 Respiratory Rate 16 Blood Pressure 124/69 Pulse Oximetry 100 Oxygen Delivery Intake/Output Intake/Output: Intake & Output 07/22/24 07/23/24 07/24/24 07/25/24 23:59 23:59 23:59 23:59 Intake Total 450 1190 320 Output Total 3016 0 0 Balance -2566 1190 320 Meds/Results Medications: Active Medications Generic Name Dose Route Start Last Admin Trade Name Freq PRN Reason Stop Dose Admin Amiodarone HCl 200 mg 07/23/24 08:00 07/25/24 09:03 Amiodarone Hcl 200 Mg Tablet BY MOUTH 200 mg DAILY@0800 POWER Administration Apixaban 2.5 mg 07/23/24 09:00 07/25/24 09:03 Apixaban 2.5 Mg Tablet PO 2.5 mg Q12HR POWER Administration Aspirin 81 mg 07/23/24 09:00 07/25/24 09:03 Aspirin 81 Mg Enteric Tablet PO 81 mg BID S
[2024-07-25 14:29] LABS: Basophils Absolute Auto 0.1 K/mm3 (0.0-0.1); Basophils Percent Auto 1.4 % (0.2-1.2); Eosinophils Absolute Auto 0.1 K/mm3 (0-0.3); Eosinophils Percent Auto 2.5 % (0-4.4); Hematocrit 37.3 % (42.0-52.0); Hemoglobin 11.8 g/dL (14.0-18.0); Lymphocytes Absolute Auto 0.98 K/mm3 (0.9-3.2); Lymphocytes Percent Auto 27.5 % (18.3-44.2); Mean Corpuscular HGB Conc 31.6 g/dl (32-36); Mean Corpuscular Hemoglobin 30.2 pg (26-34); Mean Corpuscular Volume 95.4 fl (80-100); Mean Platelet Volume 11.8 fl (7.4-10.4); Monocytes Absolute Auto 0.5 K/mm3 (0.1-0.6); Monocytes Percent Auto 12.6 % (2.6-8.5); Platelet Count Result 109 k/mm3 (150-375); Red Blood Count 3.91 M/mm3 (4.6-6.20); Red Cell Distribution Width 17.5 % (11.5-14.5); White Blood Count 3.6 K/mm3 (4.5-10.0)
[2024-07-25 14:58] LABS: Alanine Aminotransferase 23 U/L (6-50); Albumin Level 3.8 g/dL (3.5-5.1); Alkaline Phosphatase 108 U/L (38-126); Anion Gap 15 mmol/L (4-12); Aspartate Amino Transferase 57 U/L (17-59); Bilirubin,Total 0.9 mg/dL (0.2-1.3); Blood Urea Nitrogen 41 mg/dL (9-20); Calcium 9.2 mg/dL (8.4-10.2); Carbon Dioxide 27 mmol/L (22-30); Chloride 93 mmol/L (98-107); Estimated CRCL calculation 9 ml/min; Estimated Glomerular Filt Rate 8; Glucose 120 mg/dL (65-110); Magnesium 2.1 mg/dL (1.6-2.3); Potassium 3.9 mmol/L (3.4-5.0); Sodium 135 mmol/L (137-145)
[2024-07-25 16:00] VITALS: BP 149/64; PULSE 68; RESP 18; TEMP 36.3; O2SAT 100
[2024-07-25] MEDS: CEFEPIME 0.5 GM in SODIUM CHLORIDE 0.9% IV 50 ML IVPB (18:32)
[2024-07-25 20:00] VITALS: BP 145/69; PULSE 65; PULSE 66; RESP 16; TEMP 36.5; O2SAT 100
[2024-07-26] VITALS (21 sets, daily range): BP systolic 116–175; BP diastolic 49–84; PULSE 59–78; RESP 12–16; TEMP 36.1–37; O2SAT 59–100
[2024-07-26] MEDS: ACETAMINOPHEN 325 MG TABLET 650 MG PO (00:30)
[2024-07-26] MEDS: AZITHROMYCIN 500 MG/NS 250 ML 500 MG/250 ML BAG 250 MG IVPB (05:58)
[2024-07-26] MEDS: ASPIRIN 81 MG ENTERIC TABLET PO ×2 (08:50→18:47)
[2024-07-26] MEDS: PANTOPRAZOLE 40 MG TABLET PO (08:50)
--- NOTE | 2024-07-26 09:08 | P.CDI_ITS ---
CDI Query Clarification Request Please specify acuity of heart failure if known. Risk Factors: hx CHF Clinical Indicators: CXR shows Mild interstitial edema. Treatment: none * Acute * Chronic * Acute on Chronic * Unknown <Ana María Stoll RN - Last Filed: 07/26/24 09:12> Provider Comments Acute on chronic <Bill Andrade MD - Last Filed: 07/26/24 18:54>
[2024-07-26 10:46] LABS: Vancomycin Random 11.4 ug/mL (10-20)
--- NOTE | 2024-07-26 11:20 | P.PNNP_ITS ---
Progress Note: A&P Assessment and Plan (1) End stage renal disease: Code(s): N18.6 - End stage renal disease Status: Chronic Assessment and Plan: * HD today and continue M/W/ dialysis schedule * follow electrolytes, volume status, and clearance (2) Shortness of breath: Code(s): R06.02 - Shortness of breath Status: Acute Assessment and Plan: * improving * due to mild interstitial edema +/- pneumonia * fluid removal with dialysis * antibiotics * follo respiratory status (3) Abdominal pain: Qualifiers: Abdominal location: generalized Qualified Code(s): R10.84 - Generalized abdominal pain Code(s): R10.9 - Unspecified abdominal pain Status: Chronic Assessment and Plan: * somehat of a chronic issue at baseline * CT of abdomen/pelvis without any acute findings/changes noted * GI recommendations noted * continue supportive therapy (4) Pneumonia: Qualifiers: Laterality: right Lung location: lower lobe of lung Pneumonia type: due to unspecified organism Qualified Code(s): J18.9 - Pneumonia, unspecified organism Code(s): J18.9 - Pneumonia, unspecified organism Status: Acute Assessment and Plan: * suspected base on admission imaging * follow culture data - negative to date * on antibiotics (5) Hypertension: Qualifiers: Hypertension type: primary hypertension Qualified Code(s): I10 - Essential (primary) hypertension Code(s): I10 - Essential (primary) hypertension Status: Chronic Assessment and Plan: * reasonable control at this time * continue home medications * follow trend of hemodynamics (6) Anemia: Qualifiers: Anemia type: unspecified type Qualified Code(s): D64.9 - Anemia, unsp ecified Code(s): D64.9 - Anemia, unspecified Status: Chronic Assessment and Plan: * due to ESRD * Epogen with HD * follow trend of H/H Not opposed to discharge from renal perspective if otherwise medically stable. Will continue to follow. Subjective Date/time seen: 07/26/24 11:20 Interval history: Follow-up for end stage renal disease on hemodialysis. Tolerating dialysis treatment at the time of my visit (seen on HD at 11:10AM); sleeping/resting comfortably when seen; no apparent distress noted; no reported issues/events overnight or earlier this morning. Exam Narrative: General: WD/WN male in NAD Heart: normal S1 and S2; no rub Lungs: clear anteriorly, decreased at bases Abdomen: did not want me to examine/touch this area Extremities: no cyanosis or clubbing; trace edema Skin: no nodules Objective Data Vital Signs Vital Signs: Vital Signs Temp Pulse Resp BP Pulse Ox O2 Del Method FiO2 07/26/24 11:15 62 157/75 H 07/26/24 11:00 60 157/68 H 07/26/24 10:45 60 116/75 07/26/24 10:30 64 168/76 H 07/26/24 10:15 64 118/84 07/26/24 10:00 61 161/81 H 07/26/24 09:45 62 153/75 H 07/26/24 09:28 60 151/75 H 07/26/24 09:20 97 F L 59 L 16 153/78 H 59 L 07/26/24 09:20 100 07/26/24 04:00 97 F L 62 16 148/68 H 100 07/25/24 20:00 66 16 100 Room Air 21 07/26/24 00:00 98 F 66 16 148/74 H 100
--- NOTE | 2024-07-26 11:20 | PM.PNNEP ---
Progress Note: A&P Assessment and Plan (1) End stage renal disease: Code(s): N18.6 - End stage renal disease Status: Chronic Assessment and Plan: HD today and continue M/W/F dialysis schedule follow electrolytes, volume status, and clearance (2) Shortness of breath: Code(s): R06.02 - Shortness of breath Status: Acute Assessment and Plan: improving due to mild interstitial edema +/- pneumonia fluid removal with dialysis antibiotics follo respiratory status (3) Abdominal pain: Qualifiers: Abdominal location: generalized Qualified Code(s): R10.84 - Generalized abdominal pain Code(s): R10.9 - Unspecified abdominal pain Status: Chronic Assessment and Plan: somehat of a chronic issue at baseline CT of abdomen/pelvis without any acute findings/changes noted GI recommendations noted continue supportive therapy (4) Pneumonia: Qualifiers: Laterality: right Lung location: lower lobe of lung Pneumonia type: due to unspecified organism Qualified Code(s): J18.9 - Pneumonia, unspecified organism Code(s): J18.9 - Pneumonia, unspecified organism Status: Acute Assessment and Plan: suspected base on admission imaging follow culture data - negative to date on antibiotics (5) Hypertension: Qualifiers: Hypertension type: primary hypertension Qualified Code(s): I10 - Essential (primary) hypertension Code(s): I10 - Essential (primary) hypertension Status: Chronic Assessment and Plan: reasonable control at this time continue home medications follow trend of hemodynamics (6) Anemia: Qualifiers: Anemia type: unspecified type Qualified Code(s): D64.9 - Anemia, unspecified Code(s): D64.9 - Anemia, unspecified Status: Chronic Assessment and Plan: due to ESRD Epogen with HD follow trend of H/H Not opposed to discharge from renal perspective if otherwise medically stable. Will continue to follow. Subjective Date/time seen: 07/26/24 11:20 Interval history: Follow-up for end stage renal disease on hemodialysis. Tolerating dialysis treatment at the time of my visit (seen on HD at 11:10AM); sleeping/resting comfortably when seen; no apparent distress noted; no reported issues/events overnight or earlier this morning. Exam Narrative: General: WD/WN male in NAD Heart: normal S1 and S2; no rub Lungs: clear anteriorly, decreased at bases Abdomen: did not want me to examine/touch this area Extremities: no cyanosis or clubbing; trace edema Skin: no nodules Objective Data Vital Signs Vital Signs: Vital Signs Temp Pulse Resp BP Pulse Ox O2 Del Method FiO2 07/26/24 11:15 62 157/75 H 07/26/24 11:00 60 157/68 H 07/26/24 10:45 60 116/75 07/26/24 10:30 64 168/76 H 07/26/24 10:15 64 118/84 07/26/24 10:00 61 161/81 H 07/26/24 09:45 62 153/75 H 07/26/24 09:28 60 151/75 H 07/26/24 09:20 97 F L 59 L 16 153/78 H 59 L 07/26/24 09:20 100 07/26/24 04:00 97 F L 62 16 148/68 H 100 07/25/24 20:00 66 16 100 Room Air 21 07/26/24 00:00 98 F 66 16 148/74 H 100 07/25/24 20:00 97.7 F 65 16 145/69 H 100 07/25/24 16:00 97.4 F L 68 18 149/64 H 100 Intake/Output Intake/Output: Intake & Output 07/23/24 07/24/24 07/25/24 07/26/24 23:59 23:59 23:59 23:59 Intake Total 450 1190 860 490 Output Total 3016 0 350 0 Balance -2566 1190 510 490 Meds/Results Medications: Active Medications Generic Name Dose Route Start Last Admin Trade Name Molly PRN Reason Stop Dose Admin Acetaminophen 650 mg 07/25/24 18:41 07/26/24 00:30 Acetaminophen 325 Mg Tablet PO 650 mg Q6H PRN Administration Mild Pain (1-3) or Fever Amiodarone HCl 200 mg 07/23/24 08:00 07/25/24 09:03 Amiodarone Hcl 200 Mg
--- NOTE | 2024-07-26 11:32 | PC.NURSE ---
Addendum entered by Efrain Moreno RN 07/26/24 11:41: Attempted to flush IV access during assessment. Overnight the nurse stated the IV was becoming difficult to flush. Patient refused a new IV or for the old IV to be assessed. Patient has orders for IV antibiotics and is refusing remaining treatment. Provider notified. Addendum entered by Efrain Moreno RN 07/26/24 11:40: In addition to morning medication refusal, patient refused MRSA swab, additional MRI consent and vitals. Original Note: During morning med pass and assessment the patient refused multiple meds. I clarified if there were apprehensions or if I could help educate on meds or his refusal for treatments. He stated he had a problem with pharmacy and timing of his meds. I provided medication information regarding his medications and reasons why the medication may need to be timed at different times. Patient appeared agitated and then refused all of his morning medication.
[2024-07-26 12:19] LABS: Estimated CRCL calculation 11 ml/min; Estimated Glomerular Filt Rate 10
--- NOTE | 2024-07-26 18:20 | PM.IMPN ---
Progress Note: A&P Assessment and Plan (1) Multifocal pneumonia: Code(s): J18.9 - Pneumonia, unspecified organism Status: Acute (2) Atrial fibrillation: Qualifiers: Atrial fibrillation type: paroxysmal Qualified Code(s): I48.0 - Paroxysmal atrial fibrillation Code(s): I48.91 - Unspecified atrial fibrillation Status: Acute (3) Polycystic kidney disease: Code(s): Q61.3 - Polycystic kidney, unspecified Status: Acute (4) End stage renal disease: Code(s): N18.6 - End stage renal disease Status: Acute (5) GERD (gastroesophageal reflux disease): Code(s): K21.9 - Gastro-esophageal reflux disease without esophagitis Status: Acute (6) Chronic generalized abdominal pain: Code(s): R10.84 - Generalized abdominal pain; G89.29 - Other chronic pain Status: Acute (7) Aortic stenosis: Code(s): I35.0 - Nonrheumatic aortic (valve) stenosis Status: Acute (8) REFUGIO (obstructive sleep apnea): Code(s): G47.33 - Obstructive sleep apnea (adult) (pediatric) Status: Acute (9) Anemia in chronic kidney disease, on chronic dialysis: Code(s): N18.6 - End stage renal disease; D63.1 - Anemia in chronic kidney disease; Z99.2 - Dependence on renal dialysis Status: Acute Plan 59-year-old gentleman presents to the ED with complaint of shortness of breath chest pain abdominal pain cough. Symptoms started this morning after he woke up. Cough is nonproductive. Vitals were stable on arrival to the ED. Laboratory of revealed WBC of 3.9 hemoglobin 11.3 platelet count of 8000 creatinine of 8.0. INR 1.5 PTT 40.9 lactate was 1.4 troponin was elevated at 0.063 lipase was normal at 296. Chest x-ray showed mild interstitial edema small right pleural effusion. CT chest abdomen pelvis was performed without contrast which showed mild diffuse patchy bibasilar opacities may represent edema or infection small right pleural effusion mediastinal lymphadenopathy increasing size of subhepatic portohepatic cystic mass measuring up to 9.1 cm consider pseudocyst duplication cyst or biloma. Multiple indeterminate renal lesions largest in the left mid renal pole measuring 0.5 cm consider nonemergent but timely MR or CT without and with contrast for further evaluation. Possible cystitis. Subhepatic letitia hepatic cystic mass: Will get MRI. However was refused by the patient. The size is increased from 7.5-9.1 cm since March 2024. Consulted t GI. MRI abdomen ordered which is is pending at this time. Your follow-up with her surgeon and at [facility] has been following his hepatic cyst. He is now agreeable for an MRI and will be ordered Patient had been started on cefepime and azithromycin and vancomycin. Will check MRSA nares which is pending. This was also refused by the patient. Procalcitonin is 1.2. Not hypoxic. Will switch antibiotics to Augmentin. Finished course of azithromycin during the hospital stay. Elevated troponin with flat trajectory. Likely due to underlying end-stage renal disease. End-stage renal disease on hemodialysis Friday related to polycystic kidney disease Anemia chronic disease Congestive heart failure systolic and diastolic EF 45% 2021. Moderate to severe AV aortic valve regurgitation. History of aortic and tricuspid valve replacement Hypertension Chronic thrombocytopenia DVT prophylaxis on Eliquis GERD Coronary artery disease status post CABG and stent placement Status post MitraClip tricuspid valve ring annuloplasty and bioprosthetic aortic valve replacement in 2022 COPD Code status full code Subjective Date/time seen: 07/26/24 18:20 Interval history: Irritable. Seen during the dialysis. Denies any new complaint discussed with Jessica over the phone. Later he was agreeable for an MRI Review of Systems Review of Systems: All systems reviewed & are unremarkable except as noted in HPI and below Exam Narrativ
--- NOTE | 2024-07-27 06:19 | PC.NURSE ---
Pt refused his HS medications. Pt stated that he does not take medications after 5 PM.
[2024-07-27 09:12] VITALS: BP 156/71; PULSE 69; RESP 18; TEMP 36.1; O2SAT 100
--- NOTE | 2024-07-27 10:23 | PC.NURSE ---
Patient refused morning med pass. Patient states he will take his medicine at home when he wants to . Explained to the patient that there are risks in not taking medications as prescribed.
--- NOTE | 2024-07-27 10:56 | PM.PNNEP ---
Progress Note: A&P Assessment and Plan (1) End stage renal disease: Code(s): N18.6 - End stage renal disease Status: Chronic Assessment and Plan: HD tomorrow and continue M/W/F dialysis schedule follow electrolytes, volume status, and clearance (2) Shortness of breath: Code(s): R06.02 - Shortness of breath Status: Acute Assessment and Plan: improving due to mild interstitial edema +/- pneumonia fluid removal with dialysis antibiotics follo respiratory status (3) Abdominal pain: Qualifiers: Abdominal location: generalized Qualified Code(s): R10.84 - Generalized abdominal pain Code(s): R10.9 - Unspecified abdominal pain Status: Chronic Assessment and Plan: somehat of a chronic issue at baseline CT of abdomen/pelvis without any acute findings/changes noted GI recommendations noted MRI results noted -- large multilobulated cystic lesion in the right upper quadrant situated between the liver, has the pancreas and stomach recommend follow-up with surgeon at [facility] for further evaluation continue supportive therapy (4) Pneumonia: Qualifiers: Laterality: right Lung location: lower lobe of lung Pneumonia type: due to unspecified organism Qualified Code(s): J18.9 - Pneumonia, unspecified organism Code(s): J18.9 - Pneumonia, unspecified organism Status: Acute Assessment and Plan: suspected base on admission imaging follow culture data - negative to date on antibiotics (5) Hypertension: Qualifiers: Hypertension type: primary hypertension Qualified Code(s): I10 - Essential (primary) hypertension Code(s): I10 - Essential (primary) hypertension Status: Chronic Assessment and Plan: reasonable control at this time continue home medications follow trend of hemodynamics (6) Anemia: Qualifiers: Anemia type: unspecified type Qualified Code(s): D64.9 - Anemia, unspecified Code(s): D64.9 - Anemia, unspecified Status: Chronic Assessment and Plan: due to ESRD Epogen with HD follow trend of H/H Not opposed to discharge from renal perspective if otherwise medically stable. Will continue to follow. Subjective Date/time seen: 07/27/24 10:56 Interval history: Follow-up for end stage renal disease on hemodialysis. Tolerated dialysis treatment yesterday without any issues or problems; was tentatively scheduled for discharge but then agreed to doing MRI of abdomen (had been refusing previously); no apparent distress at the time of my visit; MRI done earlier this AM with results noted. Exam Narrative: General: WD/WN male in NAD Heart: normal S1 and S2; no rub Lungs: clear anteriorly, decreased at bases Abdomen: did not want me to examine/touch this area Extremities: no cyanosis or clubbing; trace edema Skin: warm and dry Objective Data Vital Signs Vital Signs: Vital Signs Temp Pulse Resp BP Pulse Ox O2 Del Method FiO2 07/27/24 10:15 Room Air 07/27/24 09:12 97.0 F L 69 18 156/71 H 100 07/26/24 20:00 66 12 100 Room Air 100 07/26/24 12:58 59 L 167/72 H 07/26/24 12:45 63 158/78 H 07/26/24 13:11 97.2 F L 60 16 167/76 H 100 07/26/24 12:30 62 163/74 H 07/26/24 15:02 66 12 175/66 H 100 Intake/Output Intake/Output: Intake & Output 07/24/24 07/25/24 07/26/24 07/27/24 23:59 23:59 23:59 23:59 Intake Total 7617 176 0659 360 Output Total 0 350 3002 Balance 1190 510 -1772 360 Meds/Results Medications: Active Medications Generic Name Dose Route Start Last Admin Trade Name Freq PRN Reason Stop Dose Admin Acetaminophen 650 mg 07/25/24 18:41 07/26/24 00:30 Acetaminophen 325 Mg Tablet PO 650 mg Q6H PRN Administration Mild Pain (1-3) or Fever Amiodarone HCl 200 mg 07/23/24 08:00 07/27/24 10:21 Amiodarone Hc
--- NOTE | 2024-07-27 10:56 | P.PNNP_ITS ---
Progress Note: A&P Assessment and Plan (1) End stage renal disease: Code(s): N18.6 - End stage renal disease Status: Chronic Assessment and Plan: * HD tomorrow and continue M// dialysis schedule * follow electrolytes, volume status, and clearance (2) Shortness of breath: Code(s): R06.02 - Shortness of breath Status: Acute Assessment and Plan: * improving * due to mild interstitial edema +/- pneumonia * fluid removal with dialysis * antibiotics * follo respiratory status (3) Abdominal pain: Qualifiers: Abdominal location: generalized Qualified Code(s): R10.84 - Generalized abdominal pain Code(s): R10.9 - Unspecified abdominal pain Status: Chronic Assessment and Plan: * somehat of a chronic issue at baseline * CT of abdomen/pelvis without any acute findings/changes noted * GI recommendations noted * MRI results noted -- large multilobulated cystic lesion in the right upper quadrant situated between the liver, has the pancreas and stomach * recommend follow-up with surgeon at [facility] for further evaluation * continue supportive therapy (4) Pneumonia: Qualifiers: Laterality: right Lung location: lower lobe of lung Pneumonia type: due to unspecified organism Qualified Code(s): J18.9 - Pneumonia, unspecified organism Code(s): J18.9 - Pneumonia, unspecified organism Status: Acute Assessment and Plan: * suspected base on admission imaging * follow culture data - negative to date * on antibiotics (5) Hypertension: Qualifiers: Hypertension type: primary hypertension Qualified Code(s): I10 - Essential (primary) hypertension Code(s): I10 - Essential (primary) hypertension Status: Chronic Assessment and Plan: * reasonable control at this time * continue home medications * follow trend of hemodynamics (6) Anemia: Qualifiers: Anemia type: unspecified type Qualified Code(s): D64.9 - Anemia, unspecified Code(s): D64.9 - Anemia, unspecified Status: Chronic Assessment and Plan: * due to ESRD * Epogen with HD * follow trend of H/H Not opposed to discharge from renal perspective if otherwise medically stable. Will continue to follow. Subjective Date/time seen: 07/27/24 10:56 Interval history: Follow-up for end stage renal disease on hemodialysis. Tolerated dialysis treatment yesterday without any issues or problems; was tentatively scheduled for discharge but then agreed to doing MRI of abdomen (had been refusing previously); no apparent distress at the time of my visit; MRI done earlier this AM with results noted. Exam Narrative: General: WD/WN male in NAD Heart: normal S1 and S2; no rub Lungs: clear anteriorly, decreased at bases Abdomen: did not want me to examine/touch this area Extremities: no cyanosis or clubbing; trace edema Skin: warm and dry Objective Data Vital Signs Vital Signs: Vital Signs Temp Pulse Resp BP Pulse Ox O2 Del Method FiO2 07/27/24 10:15 Room Air 07/27/24 09:12 97.0 F L 69 18 156/71 H 100 07/26/24 20:00 66 12 100 Room Air 100 07/26/24 12:58 59 L 167/72 H 07/26/24 12:45 63 158/78 H 07/26/24 13:11 97.2 F L 60 16 167/76 H 100 07/26/24 12:30
[2024-07-27 12:00] VITALS: BP 148/59; PULSE 69; RESP 18; TEMP 36.8; O2SAT 100
--- NOTE | 2024-07-27 12:32 | PM.DS ---
DS: Admitting Diagnosis Discharge Date 07/27/2024 Admitting Diagnosis Shortness of breath DS: Discharge Diagnosis Discharge Diagnosis (1) Multifocal pneumonia: Code(s): J18.9 - Pneumonia, unspecified organism Status: Acute (2) Atrial fibrillation: Qualifiers: Atrial fibrillation type: paroxysmal Qualified Code(s): I48.0 - Paroxysmal atrial fibrillation Code(s): I48.91 - Unspecified atrial fibrillation Status: Acute (3) Polycystic kidney disease: Code(s): Q61.3 - Polycystic kidney, unspecified Status: Acute (4) End stage renal disease: Code(s): N18.6 - End stage renal disease Status: Acute (5) GERD (gastroesophageal reflux disease): Code(s): K21.9 - Gastro-esophageal reflux disease without esophagitis Status: Acute (6) Chronic generalized abdominal pain: Code(s): R10.84 - Generalized abdominal pain; G89.29 - Other chronic pain Status: Acute (7) Aortic stenosis: Code(s): I35.0 - Nonrheumatic aortic (valve) stenosis Status: Acute (8) REFUGIO (obstructive sleep apnea): Code(s): G47.33 - Obstructive sleep apnea (adult) (pediatric) Status: Acute (9) Anemia in chronic kidney disease, on chronic dialysis: Code(s): N18.6 - End stage renal disease; D63.1 - Anemia in chronic kidney disease; Z99.2 - Dependence on renal dialysis Status: Acute DS: Summary Hospital Course Hospital Course: 59-year-old gentleman presents to the ED with complaint of shortness of breath chest pain abdominal pain cough. Symptoms started this morning after he woke up. Cough is nonproductive. Vitals were stable on arrival to the ED. Laboratory of revealed WBC of 3.9 hemoglobin 11.3 platelet count of 8000 creatinine of 8.0. INR 1.5 PTT 40.9 lactate was 1.4 troponin was elevated at 0.063 lipase was normal at 296. Chest x-ray showed mild interstitial edema small right pleural effusion. CT chest abdomen pelvis was performed without contrast which showed mild diffuse patchy bibasilar opacities may represent edema or infection small right pleural effusion mediastinal lymphadenopathy increasing size of subhepatic portohepatic cystic mass measuring up to 9.1 cm consider pseudocyst duplication cyst or biloma. Multiple indeterminate renal lesions largest in the left mid renal pole measuring 0.5 cm consider nonemergent but timely MR or CT without and with contrast for further evaluation. Possible cystitis. Subhepatic letitia hepatic cystic mass: Will get MRI. However was refused by the patient. The size is increased from 7.5-9.1 cm since March 2024. Consulted t GI. MRI abdomen performed which showed large multilobulated cystic lesion in right upper quadrant situated between liver and the pancreas and stomach. Could be pseudocyst seroma or cyst arising from liver kidney or pancreas. This will need to be followed up as an outpatient basis. Your follow-up with her surgeon and at [facility] has been following his hepatic cyst Patient had been started on cefepime and azithromycin and vancomycin. Will check MRSA nares which is pending. This was also refused by the patient. Procalcitonin is 1.2. Not hypoxic. Will switch antibiotics to Augmentin. Finished course of azithromycin during the hospital stay. Elevated troponin with flat trajectory. Likely due to underlying end-stage renal disease. End-stage renal disease on hemodialysis Friday related to polycystic kidney disease Anemia chronic disease Congestive heart failure systolic and diastolic EF 45% 2021. Moderate to severe AV aortic valve regurgitation. History of aortic and tricuspid valve replacement Hypertension Chronic thrombocytopenia DVT prophylaxis on Eliquis GERD Coronary artery disease status post CABG and stent placement Status post MitraClip tricuspid valve ring annuloplasty and bioprosthetic aortic valve replacement in 2022 COPD Code status full code Time Spent with Patient
[2024-07-29 18:33] LABS: Mycoplasma IgM Antibody Titer 36 U/mL
== END 2024-07-27 15:45 | disposition home or self-care (01) | DRG 193 ==
LOC: ANHED 07-23 00:28 → ANHIMU 07-23 01:13 → ANH2MED 07-23 18:20
PROVIDERS: Internal Medicine Nephrology; Admitting Provider Internal Medicine; Emergency Provider Emergency Medicine; PCP Internal Medicine; Visit Provider Internal Medicine
DX: J18.9 Pneumonia, unspecified organism (principal); N18.6 End stage renal disease; I50.42 Chronic combined systolic (congestive) and diastolic (congestive) heart failure; I13.2 Hypertensive heart and chronic kidney disease with heart failure and with stage 5 chronic kidney disease, or end stage renal disease; K76.89 Other specified diseases of liver; N30.90 Cystitis, unspecified without hematuria; I48.0 Paroxysmal atrial fibrillation; K21.9 Gastro-esophageal reflux disease without esophagitis; G47.33 Obstructive sleep apnea (adult) (pediatric); D63.1 Anemia in chronic kidney disease; I25.10 Atherosclerotic heart disease of native coronary artery without angina pectoris; J43.9 Emphysema, unspecified; D69.6 Thrombocytopenia, unspecified; Z99.2 Dependence on renal dialysis; Z95.1 Presence of aortocoronary bypass graft; Z95.2 Presence of prosthetic heart valve; I25.2 Old myocardial infarction; Z95.5 Presence of coronary angioplasty implant and graft; Z87.891 Personal history of nicotine dependence
CPT/HCPCS: 36415; 71046; 71250; 74176; 74181; 80053; 80202; 82565; 83605; 83690; 83735; 84145; 84484; 85025; 85055; 85610; 85730; 86706; 86738; 87340; 93005; 96375; 96376; 99285; A9270; G0257; G0378; J0456; J0692; J2270; J2405; J3370; J7030

== ENCOUNTER 2024-07-31 19:20 | Inpatient (IN) | payer MEDICARE, MEDICAID, SELFPAY ==
--- NOTE | ~2024-07-31 | CT_ITS ---
EXAMINATION: CT abdomen pelvis wo con DATE: 07/31/2024 21:55 INDICATION: Diffuse abdominal pain TECHNIQUE: Computed tomography (CT) of the abdomen and pelvis was performed without intravenous contr ast. Automated exposure control and iterative reconstruction technique were employed. The dose-length product was 303.40 mGy-cm. COMPARISON: CT dated 07/22/2024 and MRI dated 07/27/2024 FINDINGS: Small right pleural effusion. Cardiomegaly. Atherosclerotic coronary artery calcifications. Tricuspid valve repair. No pericardial effusion. Small sliding-type hiatal hernia. Couple gallstones in the pa rtially decompressed gallbladder. Tiny splenic calcifications consistent with old granulomatous disea se. Liver, spleen, pancreas and bilateral adrenal glands are normal. Numerous bilateral renal cysts i ncluding a few with higher attenuation consistent with proteinaceous/hemorrhagic cyst is seen on prio r MRI. Again seen is a multilobulated large cystic lesion situated between the liver, letitia hepatis, stomach and head of the pancreas. No dilated bowel to suggest obstruction. Normal appendix. There is diffuse bladder wall thickening and stranding in the fat surrounding the bladder suspicious for cysti tis. There is diffuse body wall, mesenteric and retroperitoneal edema. No pathologically enlarged abd ominal or pelvic lymphadenopathy. Again seen are scattered small dystrophic peritoneal calcifications along the anterior abdominal and pelvic wall. Likely physiologic chronic mild anterior wedging at T1 1 and T12. Sclerosis at the apex of the bilateral femoral heads consistent with osteonecrosis. IMPRESSION: 1. Small right pleural effusion and diffuse body wall, mesenteric and retroperitoneal edema which cou ld be related to congestive heart failure. 2. Cardiomegaly. 3. Cholelithiasis. 4. Small sliding-type hiatal hernia. 5. Diffuse bladder wall thickening with stranding in the surrounding fat suspicious for cystitis. Cor relate with urinalysis. 6. Osteonecrosis at the bilateral femoral heads. Reviewed, dictated and finalized at location A. IMPRESSION: 1. Small right pleural effusion and diffuse body wall, mesenteric and retroperi toneal edema which could be related to congestive heart failure. 2. Cardiomegaly. 3. Cholelithiasis. 4. Small sliding-type hiatal hernia. 5. Diffuse bladder wall thickening with stranding in the surrounding fat suspic ious for cystitis. Correlate with urinalysis. 6. Osteonecrosis at the bilateral femoral heads.
--- NOTE | ~2024-07-31 | XR_ITS ---
EXAMINATION: XR chest 1V portable DATE: 07/31/2024 20:23 INDICATION: Abdominal pain TECHNIQUE: frontal view of the chest was obtained. COMPARISON: Chest radiograph and CT dated 07/22/2024 FINDINGS: Small right pleural effusion. Mild increased interstitial pattern in the bilateral lower lung zones c onsistent with mild pulmonary edema. No focal airspace opacities, pneumothorax or left-sided pleural effusion. Tiny likely. Median sternotomy wires and prior aortic valve and tricuspid valve repairs. Un changed Mitraclip. Coronary artery stenting. IMPRESSION: 1. Likely congestive heart failure with tiny minimally and mild pulmonary edema at the bilateral lowe r lung zones. 2. Small right pleural effusion. Reviewed, dictated and finalized at location A. IMPRESSION: 1. Likely congestive heart failure with tiny minimally and mild pulmonary edema at the bilateral lower lung zones. 2. Small right pleural effusion.
--- NOTE | ~2024-07-31 | CT_ITS ---
CT of the Abdomen and Pelvis: Indication: Abdominal pain Technique: 2.5 mm axial scans were obtained through the abdomen and pelvis following intravenous adm inistration of 100 cc of Omnipaque 350. Dose reduction technique was used on this scan by utilizing a utomated exposure control and iterative reconstruction technique. The dose-length product (DLP) was 2 72.38 mGy-cm. COMPARISON: 07/31/2024 Findings: Scans through the lung bases demonstrate moderate right pleural effusion and minimal right basilar atelectasis. The liver, pancreas, and adrenal glands are within normal limits. Small gallstones. There are multipl e subcentimeter splenic hypodense lesions. Bilateral kidneys are atrophic, with innumerable renal cys ts present bilaterally. There is a large cystic mass in the letitia hepatis/infrahepatic region measuri ng up to approximately 13.2 x 6.3 x 6.5 cm in size. There are atherosclerotic calcifications of the a faith. No lymphadenopathy. No bowel obstruction or bowel wall thickening. There is no evidence to suggest acute appendicitis. Images through the pelvis were performed. Mild urinary bladder wall thickening present diffusely. No pelvic mass evident. No pelvic ascites. Impression: 13.2 x 6.3 x 6.5 cm cystic mass in the infrahepatic/letitia hepatis region. This could reflect a large pseudocyst versus possibly duplication cyst of some sort. Abscess is a potential consideration, thoug h felt to be somewhat less likely given the overall appearance. Clinical correlation required. Cholelithiasis. Atrophic kidneys with innumerable bilateral renal cysts. Moderate right pleural effusion. Possible cystitis. Correlate with urinalysis. Reviewed, dictated and finalized at location . Impression: 13.2 x 6.3 x 6.5 cm cystic mass in the infrahepatic/letitia hepatis region. This could reflect a large pseudocyst versus possibly duplication cyst of some sort. Abscess is a potential consideration, though felt to be somewhat less likely g iven the overall appearance. Clinical correlation required. Cholelithiasis. Atrophic kidneys with innumerable bilateral renal cysts. Moderate right pleural effusion. Possible cystitis. Correlate with urinalysis.
[2024-07-31 19:20] VITALS: BP 150/84; PULSE 74; RESP 27; TEMP 37.1; O2SAT 97
[2024-07-31 19:56] VITALS: BP 148/82; PULSE 73; RESP 30; O2SAT 96; O2SAT 97
--- NOTE | 2024-07-31 19:58 | ECG_ITS ---
Test Date: 2024-07-31 19:26:09 Measurements Intervals [place] Rate: 73 P: 94 GA: 103 QRS: 34 QRSD: 110 T: 60 QT: 436 QTc: 481 Interpretive Statements SINUS RHYTHM WITH SHORT GA INTERVAL INTRAVENTRICULAR CONDUCTION DELAY DELAYED PRECORDIAL R/S TRANSITION HIGH LATERAL INFARCT, AGE INDETERMINATE BORDERLINE ST-T WAVE ABNORMALITY- ANT/INF LEADS BASELINE ARTIFACT- I, II, AVR ABNORMAL ECG Compared to ECG 07/22/2024 21:03:22 NO SIGNIFICANT CHANGE Electronically Signed On 08-01-2024 07:23:41 CDT by Ford Fletcher D.O.
--- NOTE | 2024-07-31 19:59 | ED.GENADULT ---
HPI - General Adult General Chief complaint: Shortness of Breath/Dyspnea Stated complaint: SOB, WEAKNESS, ABD PAIN, MISSED HD Time Seen by Provider: 07/31/24 19:43 History of Present Illness HPI narrative: This is a 59-year-old male with a history of end-stage renal disease due to polycystic kidney disease dialysis Friday presenting for abdominal pain. Patient says he is having diffuse abdominal pain that is sharp, nonradiating, 8 out 10 intensity and constant. Pain got worse this morning but he has had this in the past. Is not associated with nausea vomiting or diarrhea. He has not have any fevers chills chest pain or difficulty breathing. Patient last underwent dialysis on Friday but missed his Friday appointment since he was at [facility] ED for abdominal pain. Patient is disagreeable and confrontational during the interview. Related Data Home Medications Medication Instructions Recorded Confirmed cholecalciferol (vitamin D3) 1,250 1,250 mcg PO WEEKLY 11/18/23 07/23/24 mcg (50,000 unit) tablet calcium acetate(phosphat bind) 667 667 mg PO TID 03/21/24 07/23/24 mg capsule apixaban 5 mg tablet (Eliquis) 2.5 mg PO BID 07/23/24 07/23/24 gabapentin 100 mg capsule 100 mg PO QMWF 07/23/24 07/23/24 metoprolol tartrate 75 mg tablet 75 mg PO Q12H 07/23/24 07/23/24 Allergies Allergy/AdvReac Type Severity Reaction Status Date / Time adhesive Allergy Mild BLISTERS Verified 06/29/24 08:16 clonidine AdvReac Unknown Vomiting Verified 06/29/24 08:16 hydralazine AdvReac Unknown Vomiting Verified 06/29/24 08:16 [facility] Past Medical History Medical History Abnormal magnetic resonance imaging of liver MRI taken 10/20/2023 at [facility] showed advanced diffuse iron accumulation within the liver; patient refused liver biopsy. Anemia Anemia in chronic kidney disease, on chronic dialysis Aortic valve regurgitation Atrial fibrillation Chronic pain Coronary artery disease Diastolic dysfunction Emphysema lung End-stage renal disease on hemodialysis Gastroesophageal reflux disease History of myocardial infarction History of positive PPD Hypertension Latent tuberculosis by blood test Myocardial infarction (2008) Osteonecrosis Pericardial effusion Status post drain in August 2023. Polycystic kidney disease Tricuspid valve regurgitation Surgical History Surgical History History of abdominal surgery secondary to infection r/t peritoneal dialysis, stomach flipped , unknown year - believes it was before 2003 History of cardiac catheterization History of coronary artery bypass graft x 1 Saphenous vein to diagonal branch of LAD. History of coronary artery stent placement (2008) Left circumflex, done at [place]. History of heart valve replacement Status post MitraClip, tricuspid valve ring annuloplasty, and bioprosthetic aortic valve replacement in 2022 at [place]. History of removal of cyst Left wrist. History of tracheostomy Status post creation of arteriovenous fistula Family History Family History (Updated 07/23/24 @ 01:52 by Shannon Bains RN) Mother Hypertension Other Unknown family medical history Social History Social History Social History: Surrogate medical decision maker: Gwen Sagastume, aunt. Code status: Full code. Smoking packs per day: 0.5 Smoking cigarettes per day: 10.0 Years smoked: 20 Smoking pack-years: 10.00 Smoking status: Former smoker Tobacco type: cigarettes Alcohol intake: never Substance use: never Substance use type: does not use Do You Feel Safe in your Home?: Yes Lack of Transportation: No Lack of Food: Never True Current Housing: I Have Housing Concerned About Future Housing: No Difficulty Paying Gas/Electric Bills: No Difficu
[2024-07-31 20:30] LABS: Basophils Absolute Auto 0.1 K/mm3 (0.0-0.1); Basophils Percent Auto 1.5 % (0.2-1.2); Eosinophils Absolute Auto 0.1 K/mm3 (0-0.3); Eosinophils Percent Auto 2.3 % (0-4.4); Hematocrit 36.7 % (42.0-52.0); Immature Granulocyte Absolute 0.02 K/mm3 (0.00-0.031); Immature Granulocyte Percent A 0.4 % (0-0.5); Immature Platelet Fraction Pct 6.1 % (0.9-11.2); Lymphocytes Absolute Auto 1.11 K/mm3 (0.9-3.2); Lymphocytes Percent Auto 23.1 % (18.3-44.2); Mean Corpuscular HGB Conc 32.7 g/dl (32-36); Mean Corpuscular Volume 94.8 fl (80-100); Mean Platelet Volume 11.8 fl (7.4-10.4); Monocytes Absolute Auto 0.5 K/mm3 (0.1-0.6); Neutrophils Percent Auto 62.7 % (45.5-73.1); Platelet Count Result 105 k/mm3 (150-375); Red Blood Count 3.87 M/mm3 (4.6-6.20); Red Cell Distribution Width 17.5 % (11.5-14.5); White Blood Count 4.8 K/mm3 (4.5-10.0)
[2024-07-31 20:45] LABS: Lactic Acid Reflex 3.4 mmol/L (0.7-2.0)
[2024-07-31 20:48] LABS: Alanine Aminotransferase 26 U/L (6-50); Albumin Level 4.2 g/dL (3.5-5.1); Alkaline Phosphatase 137 U/L (38-126); Anion Gap 21 mmol/L (4-12); Aspartate Amino Transferase 49 U/L (17-59); Bilirubin,Total 1.5 mg/dL (0.2-1.3); Blood Urea Nitrogen 53 mg/dL (9-20); Calcium 9.4 mg/dL (8.4-10.2); Carbon Dioxide 24 mmol/L (22-30); Chloride 89 mmol/L (98-107); Estimated CRCL calculation 8 ml/min; Estimated Glomerular Filt Rate 7; Glucose 96 mg/dL (65-110); Lipase 147 U/L (23-300); Potassium 4.9 mmol/L (3.4-5.0); Sodium 134 mmol/L (137-145)
[2024-07-31 21:30] VITALS: BP 160/99; PULSE 65; RESP 18; O2SAT 100
[2024-07-31 23:23] LABS: Reflex Lactic Acid Yes or No Add Lactic
[2024-07-31 23:41] VITALS: BP 155/80; PULSE 64; RESP 29; TEMP 36.8; O2SAT 100
[2024-07-31] MEDS: HYDROmorphone HCL INJ (*CRX) 1 MG/ML SYR IV PUSH (23:43)
[2024-07-31] MEDS: GABAPENTIN 100 MG CAPSULE PO (23:44)
--- NOTE | 2024-07-31 23:47 | PC.NURSE ---
Pt refusing to get undressed and into a gown at this time
[2024-07-31 23:54] VITALS: BP 154/84; PULSE 66; RESP 23; O2SAT 100
[2024-07-31 23:59] LABS: Lactic Acid 3.6 mmol/L (0.7-2.0)
[2024-08-01] VITALS (27 sets, daily range): BP systolic 103–162; BP diastolic 45–88; PULSE 57–85; RESP 16–20; TEMP 0–36.7; O2SAT 92–100
--- NOTE | 2024-08-01 00:57 | PM.IMHP ---
H&P: HPI History of Present Illness Date/Time: 08/01/24 00:57 Chief Complaint: Dyspnea Missed dialysis Abdominal pain Narrative: This 89-year-old male patient with past medical history of end-stage renal disease secondary to polycystic kidney disease, chronic anemia, chronic atrial fibrillation anticoagulated with Eliquis, coronary artery disease, diastolic dysfunction, GERD, mi, hypertension, osteonecrosis, pericardial effusion status post drainage August 2023 and tricuspid valve regurgitation who is well known to this facility presents to the emergency room today with complaints of having dyspnea, abdominal pain that is continuing and stating that he missed his dialysis on Friday that was scheduled. Patient states he chose to miss his dialysis to go to [facility] secondary to abdominal pain that he describes as aching and over the entire abdomen. He states they did not do anything therefore him and he continues to have pain and now feels dyspneic as he has dialysis. He denies any nausea, vomiting, diarrhea and states his last bowel movement was today and was normal. There has been no melena stools or hematochezia. Patient was evaluated in the emergency room. Chest x-ray shows likely congestive heart failure with tiny minimally and mild pulmonary edema to bilateral lower lung zones with a small right pleural effusion. CT abdomen pelvis also showing small right effusion with diffuse body wall, mesenteric and retroperitoneal edema which could be related to congestive heart failure. Patient does have cardiomegaly, cholelithiasis small sliding-type hiatal hernia, diffuse bladder wall thickening with stranding in the surrounding fat suspicious for cystitis, however patient does not make any urine and there is osteonecrosis present at bilateral heads. His labs are reviewed it is noted that he has no leukocytosis and instead has normal wbc's, preserved hemoglobin and hematocrit at 12.0 at 36.7. His metabolic panel is significant for creatinine of 10.0 and BUN of 53 with GFR of 7. This is expected in this patient as he is end-stage renal and he misses dialysis. He has preserved potassium of 4.9 and sodium of 134. Patient does have an elevated lactic acid, however I suspect this is due to the fact that patient needs dialysis. Lipase is normal at 147. Patient has been slightly hypertensive with blood pressure running 140s to 160s systolic over 80s to 90s diastolic. Review of Systems Review of Systems: All systems reviewed & are unremarkable except as noted in HPI and below PMFSH Past Medical History Medical History (Updated 08/01/24 @ 01:19 by LISA Glover) Abnormal magnetic resonance imaging of liver MRI taken 10/20/2023 at [facility] showed advanced diffuse iron accumulation within the liver; patient refused liver biopsy. Anemia Anemia in chronic kidney disease, on chronic dialysis Aortic valve regurgitation Atrial fibrillation Chronic pain Coronary artery disease Diastolic dysfunction Emphysema lung End-stage renal disease on hemodialysis Gastroesophageal reflux disease History of myocardial infarction History of positive PPD Hypertension Lactic acidosis Latent tuberculosis by blood test Myocardial infarction (2008) Osteonecrosis Pericardial effusion Status post drain in August 2023. Polycystic kidney disease Tricuspid valve regurgitation Surgical History Surgical History History of abdominal surgery secondary to infection r/t peritoneal dialysis, stomach flipped , unknown year - believes it was before 2003 History of cardiac catheterization History of coronary artery bypass graft x 1 Saphenous vein to diagonal branch of LAD. History of coronary artery stent placement (2008) Left circumflex, done at [place]. History of heart valve replacement Status post MitraClip, tricuspid valve ring annuloplasty, and bioprosthetic aortic valve
--- NOTE | 2024-08-01 01:09 | ADMGEN ---
This patient, Tejas Yost, was admitted to 2 Medical Room 260-01. Patient/family oriented to hospital policies and general routines including ID bracelet, bed and alarms, visiting hours, pain management, procedures, bathroom and other care routines, personal items, smoking policy, room service/diet, and visiting hours. Information on how to activate the Rapid Response Team has been discussed. Patient/Family are encouraged to report perceived risks to care and to ask questions if they do not understand what they are told or what they should do.
--- NOTE | 2024-08-01 08:39 | P.PNIM_ITS ---
Progress Note: A&P Assessment and Plan (1) Acute pulmonary edema: Code(s): J81.0 - Acute pulmonary edema Status: Acute Assessment and Plan: * As visualized on chest x-ray and CT abdomen and pelvis as well. * Likely related to missed HD. * Nephrology consulted for dialysis management. * Continue to monitor and trend labs and vital signs. * Replace electrolytes as needed. (2) ESRD (end stage renal disease): Code(s): N18.6 - End stage renal disease Status: Acute Assessment and Plan: * HD M,W,F. * Missed last HD session as he went to another hospital for abdominal pain. * Remotely Piloted Vehicle Controller consulted for HD mgt. * Further mgt per lens coating technician. * Appreciate lens coating technician assistance. (3) Lactic acidosis: Code(s): E87.20 - Acidosis, unspecified Status: Acute Assessment and Plan: * Likely related to ESRD. * Monitor levels. * No signs of acute infection noted. * Continue to monitor labs and vital signs. (4) Abdominal pain: Code(s): R10.9 - Unspecified abdominal pain Status: Acute Assessment and Plan: * CT abd/pelvis: Small right pleural effusion and diffuse body wall with mesenteric and retroperitoneal edema which could be related to congestive heart failure.There is diffuse bladder wall thickening with stranding in the surrounding suspicious for cystitis, however patient does not make any urine to correlate with urinalysis. * CT abd/pelvis also shows cholelithiasis. Pt states he has had cholelithiasis for > 1 year now without any problems. * Possibly related to missed HD session. * Tolerating foods without any symptoms. * Supportive care for now. (5) Atrial fibrillation: Qualifiers: Atrial fibrillation type: paroxysmal Qualified Code(s): I48.0 - Paroxysmal atrial fibrillation Code(s): I48.91 - Unspecified atrial fibrillation Status: Chronic Assessment and Plan: * Continue Telemetry * Continue Amiodarone and Eliquis. (6) Coronary artery disease: Qualifiers: Coronary Disease-Associated Artery/Lesion type: [place] artery [place] vs. transplanted heart: [place] heart Associated angina: without angina Qualified Code(s): I25.10 - Atherosclerotic heart disease of [place] coronary artery without angina pectoris Code(s): I25.10 - Atherosclerotic heart disease of [place] coronary artery without angina pectoris Status: Chronic Assessment and Plan: * No chest pain or SOB. * Continue aspirin and statin. (7) Chronic anticoagulation: Code(s): Z79.01 - ocean transportation intermediary (current) use of anticoagulants Status: Chronic Assessment and Plan: * Eliquis b.i.d. for AFib. Plan HD per lens coating technician scheduling. Time Spent With Patient Time with patient: 25 - 35 minutes Subjective Date/time seen: 08/01/24 08:39 Interval history: Patient presented to the emergency room today with complaints of having dyspnea, abdominal pain that is continuing and stating that he missed his dialysis on Friday that was scheduled. Patient states he chose to miss his dialysis to go to [facility] secondary to abdominal pain [facility] so he came here because of the missed dialysis. Review of Systems Review of Systems: All systems reviewed & are unremarkable except as noted in HPI and below Exam Narrative: CONSTITUTIONAL: Chronically ill appearing, no acute distress. HEENT: Atraumatic, PERRL, OEMI, non icteric. NECK: Supple. RESPIRATORY: C
--- NOTE | 2024-08-01 08:39 | PM.IMPN ---
Progress Note: A&P Assessment and Plan (1) Acute pulmonary edema: Code(s): J81.0 - Acute pulmonary edema Status: Acute Assessment and Plan: As visualized on chest x-ray and CT abdomen and pelvis as well. Likely related to missed HD. Nephrology consulted for dialysis management. Continue to monitor and trend labs and vital signs. Replace electrolytes as needed. (2) ESRD (end stage renal disease): Code(s): N18.6 - End stage renal disease Status: Acute Assessment and Plan: HD M,W,F. Missed last HD session as he went to another hospital for abdominal pain. Furnace Setter consulted for HD mgt. Further mgt per party plan sales director. Appreciate party plan sales director assistance. (3) Lactic acidosis: Code(s): E87.20 - Acidosis, unspecified Status: Acute Assessment and Plan: Likely related to ESRD. Monitor levels. No signs of acute infection noted. Continue to monitor labs and vital signs. (4) Abdominal pain: Code(s): R10.9 - Unspecified abdominal pain Status: Acute Assessment and Plan: CT abd/pelvis: Small right pleural effusion and diffuse body wall with mesenteric and retroperitoneal edema which could be related to congestive heart failure.There is diffuse bladder wall thickening with stranding in the surrounding suspicious for cystitis, however patient does not make any urine to correlate with urinalysis. CT abd/pelvis also shows cholelithiasis. Pt states he has had cholelithiasis for > 1 year now without any problems. Possibly related to missed HD session. Tolerating foods without any symptoms. Supportive care for now. (5) Atrial fibrillation: Qualifiers: Atrial fibrillation type: paroxysmal Qualified Code(s): I48.0 - Paroxysmal atrial fibrillation Code(s): I48.91 - Unspecified atrial fibrillation Status: Chronic Assessment and Plan: Continue Telemetry Continue Amiodarone and Eliquis. (6) Coronary artery disease: Qualifiers: Coronary Disease-Associated Artery/Lesion type: [place] artery [place] vs. transplanted heart: [place] heart Associated angina: without angina Qualified Code(s): I25.10 - Atherosclerotic heart disease of [place] coronary artery without angina pectoris Code(s): I25.10 - Atherosclerotic heart disease of [place] coronary artery without angina pectoris Status: Chronic Assessment and Plan: No chest pain or SOB. Continue aspirin and statin. (7) Chronic anticoagulation: Code(s): Z79.01 - long-term (current) use of anticoagulants Status: Chronic Assessment and Plan: Dominique ward for AFib. Plan HD per party plan sales director scheduling. Time Spent With Patient Time with patient: 25 - 35 minutes Subjective Date/time seen: 08/01/24 08:39 Interval history: Patient presented to the emergency room today with complaints of having dyspnea, abdominal pain that is continuing and stating that he missed his dialysis on Friday that was scheduled. Patient states he chose to miss his dialysis to go to [facility] secondary to abdominal pain but [facility] did not do anything about the pain so he came here because of the missed dialysis. Review of Systems Review of Systems: All systems reviewed & are unremarkable except as noted in HPI and below Exam Narrative: CONSTITUTIONAL: Chronically ill appearing, no acute distress. HEENT: Atraumatic, PERRL, OEMI, non icteric. NECK: Supple. RESPIRATORY: Clear bilaterally. CARDIAC: RRR, Apical murmur, GI: Soft, minimal tenderness to palpation. Bowel sounds are present 4 quadrants. : Deferred, patient anuric SKIN: Without lesion, rash, warm and pink NEURO: No focal abnormalities. CN II-XII Grossly intact. EXTREMITIES: Feeling equally moves all extremities well without deficits. Trace peripheral edema. PSYCH: Flat affect. Objective Data Vital Signs Vital Signs: Vital Signs - 24 hr
[2024-08-01] MEDS: AMIODARONE HCL 200 MG TABLET PO (10:14)
[2024-08-01] MEDS: ASPIRIN 81 MG ENTERIC TABLET PO (10:15)
[2024-08-01] MEDS: APIXABAN 2.5 MG TABLET PO (10:16)
[2024-08-01] MEDS: CALCIUM ACETATE 667 MG TABLET PO (10:16)
[2024-08-01] MEDS: ROSUVASTATIN 5 MG TABLET PO (10:23)
[2024-08-01] MEDS: HYDROmorphone HCL INJ (*CRX) 1 MG/ML SYR 0.5 MG IV PUSH ×2 (12:25→18:55)
--- NOTE | 2024-08-01 12:45 | PC.NURSE ---
RN took pt to dialysis
--- NOTE | 2024-08-01 13:45 | P.CONNP_ITS ---
Assessment and Plan Assessment and plan (1) End stage renal disease: Code(s): N18.6 - End stage renal disease Status: Chronic Assessment and Plan: * HD tomorrow * continue M/W/F dialysis schedule * follow electrolytes, volume status, and clearance (2) Acute pulmonary edema: Code(s): J81.0 - Acute pulmonary edema Status: Acute Assessment and Plan: * suspected etiology of shortness of breath/dyspnea * however, no evidence of hypoxia * as noted by admission imaging studies (CXR and CT abd/pelvis) * DUF (dry ultrafiltration) today for fluid removal and then dialysis tomorrow * will attempt aggressive ultrafiltration/fluid removal as tolerated * follow respiratory status (3) Abdominal pain: Code(s): R10.9 - Unspecified abdominal pain Status: Acute Assessment and Plan: * chronic and long-standing issue at baseline * previous evaluation/testing has been unrevealing * CT abd/pelvis with diffuse body wall with mesenteric and retroperitoneal edema and diffuse bladder wall thickening with stranding in the surrounding suspicious for cystitis * given #4, would not be opposed to further imaging (i.e. CT of abd/pelvis with IV contrast) to ensure no evidence of mesenteric ischemia later today since he will get dialysis tomorrow * pain control (4) Lactic acidosis: Code(s): E87.20 - Acidosis, unspecified Status: Acute Assessment and Plan: * elevated on admission by testing in ER * etiology not clear * follow trend * not opposed to CT of abd/pelvis with IV contrast later today (since he will get dialysis tomorrow) particularly if abdominal pain persists.... (5) Hypertension: Qualifiers: Hypertension type: primary hypertension Qualified Code(s): I10 - Essential (primary) hypertension Code(s): I10 - Essential (primary) hypertension Status: Chronic Assessment and Plan: * fluctuating at this time * possibly precipitated by pain and fluid * fluid removal with HD may help * continue home medications * follow trend of hemodynamics (6) Anemia: Qualifiers: Anemia type: unspecified type Qualified Code(s): D64.9 - Anemia, unspecified Code(s): D64.9 - Anemia, unspecified Status: Chronic Assessment and Plan: * due to ESRD * H/H supratherapeutic at this time for a dialysis patient * hold GRACIE with HD for now * follow trend of H/H I will continue to follow the patient with you while he remains hospitalized and make further recommendations as needed. Thank you for allowing me to participate in the care of this patient. History of Present Illness Reason for Consult Consult date: 08/01/24 Reason for consult: end stage renal disease Chief Complaint Chief complaint: ESRD History of Present Illness Narrative: The patient is a 59-year-old male patient with an extensive past medical history as outlined below who presented to [facility] emergency room yesterday with complaints of shortness of breath and ongoing abdominal pain. The patient was just recently discharged from [facility] earlier this week for similar complaints but more so with regard to his abdominal pain. He was seen in consultation by Gastroenterology and had extensive imaging studies done as well but this did not really seem to correlate with a specific cause for his abdominal pain. He reported that he was going to see a surgeon at [facility] who had helped him in the past with regard to this issue on discharge. Shannon
--- NOTE | 2024-08-01 13:45 | PM.CNNEP ---
Assessment and Plan Assessment and plan (1) End stage renal disease: Code(s): N18.6 - End stage renal disease Status: Chronic Assessment and Plan: HD tomorrow continue M/W/F dialysis schedule follow electrolytes, volume status, and clearance (2) Acute pulmonary edema: Code(s): J81.0 - Acute pulmonary edema Status: Acute Assessment and Plan: suspected etiology of shortness of breath/dyspnea however, no evidence of hypoxia as noted by admission imaging studies (CXR and CT abd/pelvis) DUF (dry ultrafiltration) today for fluid removal and then dialysis tomorrow will attempt aggressive ultrafiltration/fluid removal as tolerated follow respiratory status (3) Abdominal pain: Code(s): R10.9 - Unspecified abdominal pain Status: Acute Assessment and Plan: chronic and long-standing issue at baseline previous evaluation/testing has been unrevealing CT abd/pelvis with diffuse body wall with mesenteric and retroperitoneal edema and diffuse bladder wall thickening with stranding in the surrounding suspicious for cystitis given #4, would not be opposed to further imaging (i.e. CT of abd/pelvis with IV contrast) to ensure no evidence of mesenteric ischemia later today since he will get dialysis tomorrow pain control (4) Lactic acidosis: Code(s): E87.20 - Acidosis, unspecified Status: Acute Assessment and Plan: elevated on admission by testing in ER etiology not clear follow trend not opposed to CT of abd/pelvis with IV contrast later today (since he will get dialysis tomorrow) particularly if abdominal pain persists.... (5) Hypertension: Qualifiers: Hypertension type: primary hypertension Qualified Code(s): I10 - Essential (primary) hypertension Code(s): I10 - Essential (primary) hypertension Status: Chronic Assessment and Plan: fluctuating at this time possibly precipitated by pain and fluid fluid removal with HD may help continue home medications follow trend of hemodynamics (6) Anemia: Qualifiers: Anemia type: unspecified type Qualified Code(s): D64.9 - Anemia, unspecified Code(s): D64.9 - Anemia, unspecified Status: Chronic Assessment and Plan: due to ESRD H/H supratherapeutic at this time for a dialysis patient hold GRACIE with HD for now follow trend of H/H I will continue to follow the patient with you while he remains hospitalized and make further recommendations as needed. Thank you for allowing me to participate in the care of this patient. History of Present Illness Reason for Consult Consult date: 08/01/24 Reason for consult: end stage renal disease Chief Complaint Chief complaint: ESRD History of Present Illness Narrative: The patient is a 59-year-old male patient with an extensive past medical history as outlined below who presented to [facility] emergency room yesterday with complaints of shortness of breath and ongoing abdominal pain. The patient was just recently discharged from [facility] earlier this week for similar complaints but more so with regard to his abdominal pain. He was seen in consultation by Gastroenterology and had extensive imaging studies done as well but this did not really seem to correlate with a specific cause for his abdominal pain. He reported that he was going to see a surgeon at [facility] who had helped him in the past with regard to this issue on discharge. Following his discharge, he did go to his scheduled outpatient dialysis treatment on Friday (07/28/24) but his abdominal pain seemed to worsen over the last day and so he went to [facility] ER on Friday as opposed to his scheduled dialysis treatment for further assessment. The abdominal pain was achy and present over his entire abdomen. I am not clear what was done for his symptoms at the ER at [facility] but according
--- NOTE | 2024-08-01 17:58 | PC.NURSE ---
RN educated pt on Calcium
[2024-08-02] VITALS (26 sets, daily range): BP systolic 124–161; BP diastolic 71–88; PULSE 57–68; RESP 16–18; TEMP 35.7–37; O2SAT 100
[2024-08-02] MEDS: HYDROmorphone HCL INJ (*CRX) 1 MG/ML SYR 0.5 MG IV PUSH ×3 (04:54→18:31)
--- NOTE | 2024-08-02 08:37 | P.PNIM_ITS ---
Progress Note: A&P Assessment and Plan (1) Acute pulmonary edema: Code(s): J81.0 - Acute pulmonary edema Status: Acute Assessment and Plan: * As visualized on chest x-ray and CT abdomen and pelvis as well. * Likely related to missed HD. * Nephrology assisting with dialysis management. * Dialysed yesterday and will repeat today for M,W,F schedule per director machine. * Continue to monitor and trend labs. * Replace electrolytes as needed with HD. (2) ESRD (end stage renal disease): Code(s): N18.6 - End stage renal disease Status: Acute Assessment and Plan: * HD M,W,F. * Ultrafiltration done yesterday and will receive HD with fluid removal per director machine. * Continue further mgt per director machine. * Appreciate director machine assistance. (3) Lactic acidosis: Code(s): E87.20 - Acidosis, unspecified Status: Acute Assessment and Plan: * Likely related to ESRD vs other. * Slightly trended up. * No signs of acute infection noted. * CT abd/pelvis with contrast today prior to HD. * Continue to monitor for acute changes. (4) Abdominal pain: Code(s): R10.9 - Unspecified abdominal pain Status: Acute Assessment and Plan: * Unclear etiology. * Previous work-up unrevealing. * CT abd/pelvis: Small right pleural effusion and diffuse body wall with mesenteric and retroperitoneal edema which could be related to congestive heart failure.There is diffuse bladder wall thickening with stranding in the surrounding suspicious for cystitis, however patient does not make any urine to correlate with urinalysis. * CT abd/pelvis also shows cholelithiasis. Pt states he has had cholelithiasis for > 1 year now without any problems. * CT abd/pelvis with contrast ordered today. * Continue to monitor for acute symptoms. * Supportive care. (5) Atrial fibrillation: Qualifiers: Atrial fibrillation type: paroxysmal Qualified Code(s): I48.0 - Paroxysmal atrial fibrillation Code(s): I48.91 - Unspecified atrial fibrillation Status: Chronic Assessment and Plan: * Continue Telemetry * Continue Amiodarone and Eliquis. (6) Coronary artery disease: Qualifiers: Coronary Disease-Associated Artery/Lesion type: [place] artery [place] vs. transplanted heart: [place] heart Associated angina: without angina Qualified Code(s): I25.10 - Atherosclerotic heart disease of [place] coronary artery without angina pectoris Code(s): I25.10 - Atherosclerotic heart disease of [place] coronary artery without angina pectoris Status: Chronic Assessment and Plan: * No chest pain or SOB. * Continue aspirin and statin. (7) Chronic anticoagulation: Code(s): Z79.01 - dedicated intermodal truck driver (current) use of anticoagulants Status: Chronic Assessment and Plan: * Eliquis b.i.d. for AFib. Plan HD per director machine scheduling. Time Spent With Patient Time with patient: 25 - 35 minutes Subjective Date/time seen: 08/02/24 08:35 Interval history: Patient presented to the emergency room today with complaints of having dyspnea, abdominal pain that is continuing. Patient states he missed his dialysis on Friday that was scheduled as he went to [facility] for evaluation regarding his abdominal pain but nothing was done. Patient currently on bedrest without acute distress but states still has abdominal pain. Review of Systems Review of Systems: All systems reviewed & are unremarkable except as noted in HPI and below Exam
--- NOTE | 2024-08-02 08:37 | PM.IMPN ---
Progress Note: A&P Assessment and Plan (1) Acute pulmonary edema: Code(s): J81.0 - Acute pulmonary edema Status: Acute Assessment and Plan: As visualized on chest x-ray and CT abdomen and pelvis as well. Likely related to missed HD. Nephrology assisting with dialysis management. Dialysed yesterday and will repeat today for M,W,F schedule per inner diameter grinder tool. Continue to monitor and trend labs. Replace electrolytes as needed with HD. (2) ESRD (end stage renal disease): Code(s): N18.6 - End stage renal disease Status: Acute Assessment and Plan: HD M,W,F. Ultrafiltration done yesterday and will receive HD with fluid removal per inner diameter grinder tool. Continue further mgt per inner diameter grinder tool. Appreciate inner diameter grinder tool assistance. (3) Lactic acidosis: Code(s): E87.20 - Acidosis, unspecified Status: Acute Assessment and Plan: Likely related to ESRD vs other. Slightly trended up. No signs of acute infection noted. CT abd/pelvis with contrast today prior to HD. Continue to monitor for acute changes. (4) Abdominal pain: Code(s): R10.9 - Unspecified abdominal pain Status: Acute Assessment and Plan: Unclear etiology. Previous work-up unrevealing. CT abd/pelvis: Small right pleural effusion and diffuse body wall with mesenteric and retroperitoneal edema which could be related to congestive heart failure.There is diffuse bladder wall thickening with stranding in the surrounding suspicious for cystitis, however patient does not make any urine to correlate with urinalysis. CT abd/pelvis also shows cholelithiasis. Pt states he has had cholelithiasis for > 1 year now without any problems. CT abd/pelvis with contrast ordered today. Continue to monitor for acute symptoms. Supportive care. (5) Atrial fibrillation: Qualifiers: Atrial fibrillation type: paroxysmal Qualified Code(s): I48.0 - Paroxysmal atrial fibrillation Code(s): I48.91 - Unspecified atrial fibrillation Status: Chronic Assessment and Plan: Continue Telemetry Continue Amiodarone and Eliquis. (6) Coronary artery disease: Qualifiers: Coronary Disease-Associated Artery/Lesion type: [place] artery [place] vs. transplanted heart: [place] heart Associated angina: without angina Qualified Code(s): I25.10 - Atherosclerotic heart disease of [place] coronary artery without angina pectoris Code(s): I25.10 - Atherosclerotic heart disease of [place] coronary artery without angina pectoris Status: Chronic Assessment and Plan: No chest pain or SOB. Continue aspirin and statin. (7) Chronic anticoagulation: Code(s): Z79.01 - intermediate (current) use of anticoagulants Status: Chronic Assessment and Plan: Eliquis b.i.d. for AFib. Plan HD per inner diameter grinder tool scheduling. Time Spent With Patient Time with patient: 25 - 35 minutes Subjective Date/time seen: 08/02/24 08:35 Interval history: Patient presented to the emergency room today with complaints of having dyspnea, abdominal pain that is continuing. Patient states he missed his dialysis on Friday that was scheduled as he went to [facility] for evaluation regarding his abdominal pain but nothing was done. Patient currently on bedrest without acute distress but states still has abdominal pain. Review of Systems Review of Systems: All systems reviewed & are unremarkable except as noted in HPI and below Exam Narrative: CONSTITUTIONAL: Chronically ill appearing, no acute distress. HEENT: Atraumatic, PERRL, OEMI, non icteric. NECK: Supple. RESPIRATORY: Clear bilaterally. CARDIAC: RRR, 3+ Apical murmur, GI: Soft, tenderness to palpation. Bowel sounds are present 4 quadrants. SKIN: Without lesion, rash, warm and pink NEURO: No focal abnormalities. CN II-XII Grossly intact. EXTREMITIES: Feeling equally moves all extremities well without deficits. Trace mike
[2024-08-02] MEDS: ASPIRIN 81 MG ENTERIC TABLET PO (09:40)
[2024-08-02] MEDS: PANTOPRAZOLE 40 MG TABLET PO (09:41)
[2024-08-02] MEDS: AMIODARONE HCL 200 MG TABLET PO (09:41)
[2024-08-02] MEDS: APIXABAN 2.5 MG TABLET PO ×2 (09:41→21:15)
[2024-08-02] MEDS: GABAPENTIN 100 MG CAPSULE PO ×2 (09:44→18:32)
--- NOTE | 2024-08-02 14:25 | PC.NURSE ---
Patient off floor to dialysis via bed.
--- NOTE | 2024-08-02 15:10 | P.PNNP_ITS ---
Progress Note: A&P Assessment and Plan (1) End stage renal disease: Code(s): N18.6 - End stage renal disease Status: Chronic Assessment and Plan: * HD today * continue M/W/F dialysis schedule * follow electrolytes, volume status, and clearance (2) Acute pulmonary edema: Code(s): J81.0 - Acute pulmonary edema Status: Acute Assessment and Plan: * suspected etiology of shortness of breath/dyspnea * however, no evidence of hypoxia * as noted by admission imaging studies (CXR and CT abd/pelvis) * DUF (dry ultrafiltration) yesterday for fluid removal and dialysis today * will attempt aggressive ultrafiltration/fluid removal as tolerated * possible DUF tomorrow for further fluid removal * follow respiratory status (3) Abdominal pain: Code(s): R10.9 - Unspecified abdominal pain Status: Acute Assessment and Plan: * chronic and long-standing issue at baseline * previous evaluation/testing has been unrevealing * CT abd/pelvis with diffuse body wall with mesenteric and retroperitoneal edema and diffuse bladder wall thickening with stranding in the surrounding suspicious for cystitis * repeat imaging (CT of abd/pelvis with IV contrast) done this AM unrevealing as well * would CT angio of abdomen be better to assess for mesenteric ischemia(?) -- however, lactic acid has normalized * pain control (4) Lactic acidosis: Code(s): E87.20 - Acidosis, unspecified Status: Acute Assessment and Plan: * resolved * elevated on admission by testing in ER * etiology not clear * follow trend (5) Hypertension: Qualifiers: Hypertension type: primary hypertension Qualified Code(s): I10 - Essential (primary) hypertension Code(s): I10 - Essential (primary) hypertension Status: Chronic Assessment and Plan: * fluctuating at this time * possibly precipitated by pain and fluid * fluid removal with HD may help * continue home medications * follow trend of hemodynamics (6) Anemia: Qualifiers: Anemia type: unspecified type Qualified Code(s): D64.9 - Anemia, unspecified Code(s): D64.9 - Anemia, unspecified Status: Chronic Assessment and Plan: * due to ESRD * H/H supratherapeutic at this time for a dialysis patient * hold GRACIE with HD for now * follow trend of H/H Will continue to follow. Subjective Date/time seen: 08/02/24 15:10 Interval history: Follow-up for end stage renal disease on hemodialysis. Tolerated dry ultrafiltration yesterday with 4L fluid removal; tolerating hemodialysis treatment at this time without any issues or problems (seen on HD at 3:00PM); still with intermittent abdominal pain and CT of A/P with contrast done this AM did not demonstrate any new pathology or findings (and his lactic a jadiel has normalized); he seems frustrated by the lack of answers related to his abdominal pain. Exam Narrative: General: WD/WN male in NAD Heart: normal S1 and S2; no rub Lungs: clear anteriorly, decreased at bases Abdomen: soft, + bowel sounds Extremities: no cyanosis or clubbing; trace edema Skin: warm and dry Objective Data Vital Signs Vital Signs: Vital Signs Temp Pulse Resp BP Pulse Ox O2 Del Method FiO2 08/02/24 12:00 62 08/02/24 08:00 63 08/02/24 09:
--- NOTE | 2024-08-02 15:10 | PM.PNNEP ---
Progress Note: A&P Assessment and Plan (1) End stage renal disease: Code(s): N18.6 - End stage renal disease Status: Chronic Assessment and Plan: HD today continue M/W/F dialysis schedule follow electrolytes, volume status, and clearance (2) Acute pulmonary edema: Code(s): J81.0 - Acute pulmonary edema Status: Acute Assessment and Plan: suspected etiology of shortness of breath/dyspnea however, no evidence of hypoxia as noted by admission imaging studies (CXR and CT abd/pelvis) DUF (dry ultrafiltration) yesterday for fluid removal and dialysis today will attempt aggressive ultrafiltration/fluid removal as tolerated possible DUF tomorrow for further fluid removal follow respiratory status (3) Abdominal pain: Code(s): R10.9 - Unspecified abdominal pain Status: Acute Assessment and Plan: chronic and long-standing issue at baseline previous evaluation/testing has been unrevealing CT abd/pelvis with diffuse body wall with mesenteric and retroperitoneal edema and diffuse bladder wall thickening with stranding in the surrounding suspicious for cystitis repeat imaging (CT of abd/pelvis with IV contrast) done this AM unrevealing as well would CT angio of abdomen be better to assess for mesenteric ischemia(?) -- however, lactic acid has normalized pain control (4) Lactic acidosis: Code(s): E87.20 - Acidosis, unspecified Status: Acute Assessment and Plan: resolved elevated on admission by testing in ER etiology not clear follow trend (5) Hypertension: Qualifiers: Hypertension type: primary hypertension Qualified Code(s): I10 - Essential (primary) hypertension Code(s): I10 - Essential (primary) hypertension Status: Chronic Assessment and Plan: fluctuating at this time possibly precipitated by pain and fluid fluid removal with HD may help continue home medications follow trend of hemodynamics (6) Anemia: Qualifiers: Anemia type: unspecified type Qualified Code(s): D64.9 - Anemia, unspecified Code(s): D64.9 - Anemia, unspecified Status: Chronic Assessment and Plan: due to ESRD H/H supratherapeutic at this time for a dialysis patient hold GRACIE with HD for now follow trend of H/H Will continue to follow. Subjective Date/time seen: 08/02/24 15:10 Interval history: Follow-up for end stage renal disease on hemodialysis. Tolerated dry ultrafiltration yesterday with 4L fluid removal; tolerating hemodialysis treatment at this time without any issues or problems (seen on HD at 3:00PM); still with intermittent abdominal pain and CT of A/P with contrast done this AM did not demonstrate any new pathology or findings (and his lactic acid has normalized); he seems frustrated by the lack of answers related to his abdominal pain. Exam Narrative: General: WD/WN male in NAD Heart: normal S1 and S2; no rub Lungs: clear anteriorly, decreased at bases Abdomen: soft, + bowel sounds Extremities: no cyanosis or clubbing; trace edema Skin: warm and dry Objective Data Vital Signs Vital Signs: Vital Signs Temp Pulse Resp BP Pulse Ox O2 Del Method FiO2 08/02/24 12:00 62 08/02/24 08:00 63 08/02/24 09:40 Room Air 08/02/24 09:41 65 08/02/24 05:26 97.4 F L 60 18 137/81 100 08/02/24 04:00 57 L 08/02/24 00:00 57 L 08/01/24 23:49 97.5 F L 57 L 18 121/61 100 08/01/24 20:00 57 L 16 92 Room Air 0 08/01/24 20:00 57 L 08/01/24 16:29 97.9 F 77 16 162/79 H 92 Intake/Output Intake/Output: Intake & Output 07/30/24 07/31/24 08/01/24 08/02/24 23:59 23:59 23:59 23:59 Intake Total 120 980 Output Total 4000 Balance -3880 980 Meds/Results Medications: Active Medications Generic Name Dose Route Start Last Admin Trade Name Freq
[2024-08-02 15:30] LABS: Basophils Percent Auto 1.1 % (0.2-1.2); Eosinophils Absolute Auto 0.1 K/mm3 (0-0.3); Eosinophils Percent Auto 3.7 % (0-4.4); Hematocrit 37.3 % (42.0-52.0); Hemoglobin 12.6 g/dL (14.0-18.0); Immature Granulocyte Absolute 0.01 K/mm3 (0.00-0.031); Immature Granulocyte Percent A 0.3 % (0-0.5); Immature Platelet Fraction Pct 5.3 % (0.9-11.2); Lymphocytes Absolute Auto 0.78 K/mm3 (0.9-3.2); Lymphocytes Percent Auto 22.2 % (18.3-44.2); Mean Corpuscular HGB Conc 33.8 g/dl (32-36); Mean Corpuscular Hemoglobin 30.9 pg (26-34); Mean Corpuscular Volume 91.4 fl (80-100); Mean Platelet Volume 12.8 fl (7.4-10.4); Monocytes Absolute Auto 0.2 K/mm3 (0.1-0.6); Monocytes Percent Auto 6.5 % (2.6-8.5); Neutrophils Absolute Auto 2.3 K/mm3 (1.3-6.7); Neutrophils Percent Auto 66.2 % (45.5-73.1); Platelet Count Result 90 k/mm3 (150-375); Red Blood Count 4.08 M/mm3 (4.6-6.20); Red Cell Distribution Width 17.2 % (11.5-14.5); White Blood Count 3.5 K/mm3 (4.5-10.0)
[2024-08-02 15:51] LABS: Lactic Acid Reflex 0.8 mmol/L (0.7-2.0)
[2024-08-02 15:53] LABS: Alanine Aminotransferase 20 U/L (6-50); Albumin Level 3.3 g/dL (3.5-5.1); Alkaline Phosphatase 108 U/L (38-126); Anion Gap 15 mmol/L (4-12); Aspartate Amino Transferase 36 U/L (17-59); Blood Urea Nitrogen 55 mg/dL (9-20); Calcium 8.7 mg/dL (8.4-10.2); Carbon Dioxide 27 mmol/L (22-30); Chloride 91 mmol/L (98-107); Estimated CRCL calculation 9 ml/min; Estimated Glomerular Filt Rate 7; Glucose 100 mg/dL (65-110); Magnesium 2.1 mg/dL (1.6-2.3); Potassium 3.7 mmol/L (3.4-5.0); Sodium 133 mmol/L (137-145)
[2024-08-03] VITALS (22 sets, daily range): BP systolic 114–158; BP diastolic 56–83; PULSE 63–77; RESP 18; TEMP 0–36.6; O2SAT 98–100
[2024-08-03] MEDS: HYDROmorphone HCL INJ (*CRX) 1 MG/ML SYR 0.5 MG IV PUSH ×4 (01:12→21:01)
--- NOTE | 2024-08-03 07:45 | PC.NURSE ---
Patient off floor to dialysis unit via bed.
[2024-08-03] MEDS: SODIUM CHLORIDE 0.9% IV 1,000 ML 999 ML IV CONT (09:22)
--- NOTE | 2024-08-03 09:25 | P.PNNP_ITS ---
Progress Note: A&P Assessment and Plan (1) End stage renal disease: Code(s): N18.6 - End stage renal disease Status: Chronic Assessment and Plan: * HD tomorrow * continue M/W/F dialysis schedule * follow electrolytes, volume status, and clearance (2) Acute pulmonary edema: Code(s): J81.0 - Acute pulmonary edema Status: Acute Assessment and Plan: * suspected etiology of shortness of breath/dyspnea * however, no evidence of hypoxia * as noted by admission imaging studies (CXR and CT abd/pelvis) * DUF (dry ultrafiltration) again today * will attempt aggressive ultrafiltration/fluid removal as tolerated * follow respiratory status (3) Abdominal pain: Code(s): R10.9 - Unspecified abdominal pain Status: Acute Assessment and Plan: * chronic and long-standing issue at baseline * previous evaluation/testing has been unrevealing to date * CT abd/pelvis with diffuse body wall with mesenteric and retroperitoneal edema and diffuse bladder wall thickening with stranding in the surrounding suspicious for cystitis * repeat imaging (CT of abd/pelvis with IV contrast) done this AM unrevealing as well * would CT angio of abdomen be better to assess for mesenteric ischemia(?) -- however, lactic acid has normalized * is fluid/edema as noted by initial CT scan partly to blame?? * pain control (4) Lactic acidosis: Code(s): E87.20 - Acidosis, unspecified Status: Acute Assessment and Plan: * resolved * elevated on admission by testing in ER * etiology not clear * follow trend (5) Hypertension: Qualifiers: Hypertension type: primary hypertension Qualified Code(s): I10 - Essential (primary) hypertension Code(s): I10 - Essential (primary) hypertension Status: Chronic Assessment and Plan: * fluctuating at this time * possibly precipitated by pain and fluid * fluid removal with HD/DUF may help * continue home medications * follow trend of hemodynamics (6) Anemia: Qualifiers: Anemia type: unspecified type Qualified Code(s): D64.9 - Anemia, unspecified Code(s): D64.9 - Anemia, unspecified Status: Chronic Assessment and Plan: * due to ESRD * H/H supratherapeutic at this time for a dialysis patient * hold GRACIE with HD for now * follow trend of H/H Will continue to follow. Subjective Date/time seen: 08/03/24 09:25 Interval history: Follow-up for end stage renal disease on hemodialysis. Tolerated dialysis treatment yesterday and tolerating dry ultrafiltration session at the time of my visit (seen on HD at 9:15AM); difficult for him to say if abdominal pain any better or not when asked; no acute distress noted; no other issues/events overnight or earlier this morning. Exam Narrative: General: WD/WN male in NAD Heart: normal S1 and S2; no rub Lungs: clear anteriorly, decreased at bases Abdomen: soft, + bowel sounds Extremities: no cyanosis or clubbing; trace edema Skin: warm and intact Objective Data Vital Signs Vital Signs: Vital Signs Temp Pulse Resp BP Pulse Ox O2 Del Method O2 Flow Rate 08/03/24 09:15 65 129/71 08/03/24 09:00 67 152/79 H 08/03/24 08:45 67 138/71 08/03/24 08:30 69 138/73 08/03/24 08:15 66 137/64
--- NOTE | 2024-08-03 09:25 | PM.PNNEP ---
Progress Note: A&P Assessment and Plan (1) End stage renal disease: Code(s): N18.6 - End stage renal disease Status: Chronic Assessment and Plan: HD tomorrow continue M/W/F dialysis schedule follow electrolytes, volume status, and clearance (2) Acute pulmonary edema: Code(s): J81.0 - Acute pulmonary edema Status: Acute Assessment and Plan: suspected etiology of shortness of breath/dyspnea however, no evidence of hypoxia as noted by admission imaging studies (CXR and CT abd/pelvis) DUF (dry ultrafiltration) again today will attempt aggressive ultrafiltration/fluid removal as tolerated follow respiratory status (3) Abdominal pain: Code(s): R10.9 - Unspecified abdominal pain Status: Acute Assessment and Plan: chronic and long-standing issue at baseline previous evaluation/testing has been unrevealing to date CT abd/pelvis with diffuse body wall with mesenteric and retroperitoneal edema and diffuse bladder wall thickening with stranding in the surrounding suspicious for cystitis repeat imaging (CT of abd/pelvis with IV contrast) done this AM unrevealing as well would CT angio of abdomen be better to assess for mesenteric ischemia(?) -- however, lactic acid has normalized is fluid/edema as noted by initial CT scan partly to blame?? pain control (4) Lactic acidosis: Code(s): E87.20 - Acidosis, unspecified Status: Acute Assessment and Plan: resolved elevated on admission by testing in ER etiology not clear follow trend (5) Hypertension: Qualifiers: Hypertension type: primary hypertension Qualified Code(s): I10 - Essential (primary) hypertension Code(s): I10 - Essential (primary) hypertension Status: Chronic Assessment and Plan: fluctuating at this time possibly precipitated by pain and fluid fluid removal with HD/DUF may help continue home medications follow trend of hemodynamics (6) Anemia: Qualifiers: Anemia type: unspecified type Qualified Code(s): D64.9 - Anemia, unspecified Code(s): D64.9 - Anemia, unspecified Status: Chronic Assessment and Plan: due to ESRD H/H supratherapeutic at this time for a dialysis patient hold GRACIE with HD for now follow trend of H/H Will continue to follow. Subjective Date/time seen: 08/03/24 09:25 Interval history: Follow-up for end stage renal disease on hemodialysis. Tolerated dialysis treatment yesterday and tolerating dry ultrafiltration session at the time of my visit (seen on HD at 9:15AM); difficult for him to say if abdominal pain any better or not when asked; no acute distress noted; no other issues/events overnight or earlier this morning. Exam Narrative: General: WD/WN male in NAD Heart: normal S1 and S2; no rub Lungs: clear anteriorly, decreased at bases Abdomen: soft, + bowel sounds Extremities: no cyanosis or clubbing; trace edema Skin: warm and intact Objective Data Vital Signs Vital Signs: Vital Signs Temp Pulse Resp BP Pulse Ox O2 Del Method O2 Flow Rate 08/03/24 09:15 65 129/71 08/03/24 09:00 67 152/79 H 08/03/24 08:45 67 138/71 08/03/24 08:30 69 138/73 08/03/24 08:15 66 137/64 08/03/24 08:00 67 08/03/24 08:00 68 141/71 H 08/03/24 07:46 97.2 F L 68 18 147/76 H 98 08/03/24 07:46 08/03/24 07:30 Room Air 08/03/24 05:52 97.6 F 65 18 122/56 L 100 08/03/24 04:00 63 08/03/24 00:00 65 08/02/24 20:00 63 08/02/24 20:00 67 16 100 Room Air 08/02/24 21:29 97.2 F L 67 16 132/78 100 08/02/24 18:17 66 148/73 H 08/02/24 18:00 68 134/76 08/02/24 17:45 67 124/78 08/02/24 17:30 66 126/75 08/02/24 17:15 63 132/72 08/02/24 17:00 63 147/75 H 08/02/24 16:45 62 155/71 H
--- NOTE | 2024-08-03 09:28 | PC.NURSE ---
MRSA swab ordered due to dialysis catheter present on admission. Patient refusing MRSA swab at this time.
--- NOTE | 2024-08-03 11:40 | PC.NURSE ---
Patient returned to floor via bed from dialysis. No patient complaints at this time.
--- NOTE | 2024-08-03 12:22 | P.PNIM_ITS ---
Progress Note: A&P Assessment and Plan (1) Acute pulmonary edema: Code(s): J81.0 - Acute pulmonary edema Status: Acute Assessment and Plan: * As visualized on chest x-ray and CT abdomen and pelvis as well. * Likely related to missed HD. * Nephrology assisting with dialysis management. * Dialysed today and further scheduling per clinical training coordinator. * Continue to monitor and trend labs. * Replace electrolytes as needed with HD. (2) ESRD (end stage renal disease): Code(s): N18.6 - End stage renal disease Status: Acute Assessment and Plan: * HD schedule normally M,W,F. * Current scheduling per clinical training coordinator. * Appreciate clinical training coordinator assistance. (3) Lactic acidosis: Code(s): E87.20 - Acidosis, unspecified Status: Acute Assessment and Plan: * Likely related to ESRD vs other. * Currently resolved. (4) Abdominal pain: Code(s): R10.9 - Unspecified abdominal pain Status: Acute Assessment and Plan: * CT abd/pelvis w/contrast: Impression: 13.2 x 6.3 x 6.5 cm cystic mass in the infrahepatic/leittia hepatis region. This could reflect a large pseudocyst versus possibly duplication cyst of some sort. Abscess is a potential consideration, though felt to be somewhat less likely given the overall appearance. Clinical correlation required. - General surgery consulted for further recommendations. - Supportive care for now. (5) Atrial fibrillation: Qualifiers: Atrial fibrillation type: paroxysmal Qualified Code(s): I48.0 - Paroxysmal atrial fibrillation Code(s): I48.91 - Unspecified atrial fibrillation Status: Chronic Assessment and Plan: * Continue Telemetry * Continue Amiodarone and Eliquis. (6) Coronary artery disease: Qualifiers: Coronary Disease-Associated Artery/Lesion type: [place] artery [place] vs. transplanted heart: [place] heart Associated angina: without angina Qualified Code(s): I25.10 - Atherosclerotic heart disease of [place] coronary artery without angina pectoris Code(s): I25.10 - Atherosclerotic heart disease of [place] coronary artery without angina pectoris Status: Chronic Assessment and Plan: * No chest pain or SOB. * Continue aspirin and statin. (7) Chronic anticoagulation: Code(s): Z79.01 - oysterman (current) use of anticoagulants Status: Chronic Assessment and Plan: * Eliquis b.i.d. for AFib. Plan HD per clinical training coordinator scheduling. Time Spent With Patient Time with patient: 15 - 25 minutes Subjective Date/time seen: 08/03/24 12:22 Interval history: Patient presented to the hospital after missing HD session. Patient reports he missed dialysis because he went to [facility] to be examined for abdominal pain but nothing was done. Patient states he still has abdominal pain and patient noted with abdominal tenderness on exam. Review of Systems Review of Systems: All systems reviewed & are unremarkable except as noted in HPI and below Exam Narrative: CONSTITUTIONAL: Chronically ill appearing, no acute distress. HEENT: Atraumatic, PERRL, OEMI, non icteric. NECK: Supple. RESPIRATORY: Clear bilaterally. CARDIAC: RRR, 3+ Apical murmur, GI: Soft, tenderness to palpation. Bowel sounds are present 4 quadrants. SKIN: Without lesion, rash, warm and pink NEURO: No focal abnormalities. CN II-XII Grossly intact. EXTREMITIES: Moves all extremities without deficits. Trace peripheral edema. PSYCH: Flat affect.
--- NOTE | 2024-08-03 12:22 | PM.IMPN ---
Progress Note: A&P Assessment and Plan (1) Acute pulmonary edema: Code(s): J81.0 - Acute pulmonary edema Status: Acute Assessment and Plan: As visualized on chest x-ray and CT abdomen and pelvis as well. Likely related to missed HD. Nephrology assisting with dialysis management. Dialysed today and further scheduling per polisher and sander. Continue to monitor and trend labs. Replace electrolytes as needed with HD. (2) ESRD (end stage renal disease): Code(s): N18.6 - End stage renal disease Status: Acute Assessment and Plan: HD schedule normally M,W,F. Current scheduling per polisher and sander. Appreciate polisher and sander assistance. (3) Lactic acidosis: Code(s): E87.20 - Acidosis, unspecified Status: Acute Assessment and Plan: Likely related to ESRD vs other. Currently resolved. (4) Abdominal pain: Code(s): R10.9 - Unspecified abdominal pain Status: Acute Assessment and Plan: CT abd/pelvis w/contrast: Impression: 13.2 x 6.3 x 6.5 cm cystic mass in the infrahepatic/letitia hepatis region. This could reflect a large pseudocyst versus possibly duplication cyst of some sort. Abscess is a potential consideration, though felt to be somewhat less likely given the overall appearance. Clinical correlation required. - General surgery consulted for further recommendations. - Supportive care for now. (5) Atrial fibrillation: Qualifiers: Atrial fibrillation type: paroxysmal Qualified Code(s): I48.0 - Paroxysmal atrial fibrillation Code(s): I48.91 - Unspecified atrial fibrillation Status: Chronic Assessment and Plan: Continue Telemetry Continue Amiodarone and Eliquis. (6) Coronary artery disease: Qualifiers: Coronary Disease-Associated Artery/Lesion type: [place] artery [place] vs. transplanted heart: [place] heart Associated angina: without angina Qualified Code(s): I25.10 - Atherosclerotic heart disease of [place] coronary artery without angina pectoris Code(s): I25.10 - Atherosclerotic heart disease of [place] coronary artery without angina pectoris Status: Chronic Assessment and Plan: No chest pain or SOB. Continue aspirin and statin. (7) Chronic anticoagulation: Code(s): Z79.01 - [facility] (current) use of anticoagulants Status: Chronic Assessment and Plan: Eliquis b.i.d. for AFib. Plan HD per polisher and sander scheduling. Time Spent With Patient Time with patient: 15 - 25 minutes Subjective Date/time seen: 08/03/24 12:22 Interval history: Patient presented to the hospital after missing HD session. Patient reports he missed dialysis because he went to [facility] to be examined for abdominal pain but nothing was done. Patient states he still has abdominal pain and patient noted with abdominal tenderness on exam. Review of Systems Review of Systems: All systems reviewed & are unremarkable except as noted in HPI and below Exam Narrative: CONSTITUTIONAL: Chronically ill appearing, no acute distress. HEENT: Atraumatic, PERRL, OEMI, non icteric. NECK: Supple. RESPIRATORY: Clear bilaterally. CARDIAC: RRR, 3+ Apical murmur, GI: Soft, tenderness to palpation. Bowel sounds are present 4 quadrants. SKIN: Without lesion, rash, warm and pink NEURO: No focal abnormalities. CN II-XII Grossly intact. EXTREMITIES: Moves all extremities without deficits. Trace peripheral edema. PSYCH: Flat affect. Objective Data Vital Signs Vital Signs: Vital Signs - 24 hr 08/02/24 14:41 08/02/24 14:41 08/02/24 14:54 Temperature 96.3 F L Pulse Rate 58 L 58 L Respiratory Rate 18 Blood Pressure 157/82 H 154/87 H Pulse Oximetry 100 Oxygen Delivery Oxygen Flow Rate 0 Fraction of Inspired Oxygen 0 08/02/24 18:15 08/02/24 18:58 08/02/24 16:00 Temperature 97 F L Pulse Rate 66 67 63 Respiratory Rate 16 Blood Pressure 124/76 134/73
[2024-08-03] MEDS: APIXABAN 2.5 MG TABLET PO (19:56)
[2024-08-04] VITALS (23 sets, daily range): BP systolic 102–157; BP diastolic 54–86; PULSE 63–80; RESP 12–20; TEMP 36.1–37; O2SAT 99–100
[2024-08-04] MEDS: HYDROmorphone HCL INJ (*CRX) 1 MG/ML SYR 0.5 MG IV PUSH ×4 (02:28→20:42)
--- NOTE | 2024-08-04 07:47 | P.PNIM_ITS ---
Progress Note: A&P Assessment and Plan (1) Acute pulmonary edema: Code(s): J81.0 - Acute pulmonary edema Status: Acute Assessment and Plan: * As visualized on chest x-ray and CT abdomen and pelvis as well. * Likely related to missed HD. * Nephrology assisting with dialysis management. * Dialysed today and further scheduling per learning analyst. * Continue to monitor and trend labs. * Replace electrolytes as needed with HD. (2) ESRD (end stage renal disease): Code(s): N18.6 - End stage renal disease Status: Acute Assessment and Plan: * HD schedule normally M,W,F. * Current scheduling per learning analyst. * Appreciate learning analyst assistance. (3) Lactic acidosis: Code(s): E87.20 - Acidosis, unspecified Status: Acute Assessment and Plan: * Likely related to ESRD vs other. * Currently resolved. * Consider further imaging if patient agreeable at some point (4) Abdominal pain: Code(s): R10.9 - Unspecified abdominal pain Status: Acute Assessment and Plan: * CT abd/pelvis w/contrast: Impression: 13.2 x 6.3 x 6.5 cm cystic mass in the infrahepatic/letitia hepatis region. This could reflect a large pseudocyst versus possibly duplication cyst of some sort. Abscess is a potential consideration, though felt to be somewhat less likely given the overall appearance. Clinical correlation required. - General surgery consult if not resolving - Supportive care for now. - Follow CBC, RFP, lactate. Draw from IV or with dialysis per patient request --Pain control with Tylenol, Oxy, dilaudid prn (5) Atrial fibrillation: Qualifiers: Atrial fibrillation type: paroxysmal Qualified Code(s): I48.0 - Paroxysmal atrial fibrillation Code(s): I48.91 - Unspecified atrial fibrillation Status: Chronic Assessment and Plan: * Continue Telemetry * Continue Amiodarone and Eliquis. (6) Coronary artery disease: Qualifiers: Associated angina: without angina Coronary Disease-Associated Artery/Lesion type: [place] artery [place] vs. transplanted heart: [place] heart Qualified Code(s): I25.10 - Atherosclerotic heart disease of [place] coronary artery without angina pectoris Code(s): I25.10 - Atherosclerotic heart disease of [place] coronary artery without angina pectoris Status: Chronic Assessment and Plan: * No chest pain or SOB. * Continue aspirin and statin. (7) Chronic anticoagulation: Code(s): Z79.01 - [employer] (current) use of anticoagulants Status: Chronic Assessment and Plan: * Eliquis b.i.d. for AFib. (8) Foot pain, right: Code(s): M79.671 - Pain in right foot Status: Acute Assessment and Plan: Right foot TTP, pulse not palpable, but has some blood flow, capillary refill <2seconds --Not interested in an arterial duplex but would try again if patient agreeable or lactate uptrending --Didn't want us to look at toe wound, wrapped Plan HD per learning analyst scheduling. Time Spent With Patient Time: 75 minutes Subjective Date/time seen: 08/04/24 07:47 Interval history: Expresses frustration about exams. Allowed me to remove his right sock but not the dressing on his toe. Limited abdominal exam, but still appears tender to low abdomen. Right foot is very tender with nonpalpable pulse but he expressed frustration with the idea of another ultrasound or more imaging. Extremities are pink but tender on exam. He asked why I was focusing on his foot when it wa
--- NOTE | 2024-08-04 07:47 | PM.IMPN ---
Progress Note: A&P Assessment and Plan (1) Acute pulmonary edema: Code(s): J81.0 - Acute pulmonary edema Status: Acute Assessment and Plan: As visualized on chest x-ray and CT abdomen and pelvis as well. Likely related to missed HD. Nephrology assisting with dialysis management. Dialysed today and further scheduling per yarn sizer. Continue to monitor and trend labs. Replace electrolytes as needed with HD. (2) ESRD (end stage renal disease): Code(s): N18.6 - End stage renal disease Status: Acute Assessment and Plan: HD schedule normally M,W,F. Current scheduling per yarn sizer. Appreciate yarn sizer assistance. (3) Lactic acidosis: Code(s): E87.20 - Acidosis, unspecified Status: Acute Assessment and Plan: Likely related to ESRD vs other. Currently resolved. Consider further imaging if patient agreeable at some point (4) Abdominal pain: Code(s): R10.9 - Unspecified abdominal pain Status: Acute Assessment and Plan: CT abd/pelvis w/contrast: Impression: 13.2 x 6.3 x 6.5 cm cystic mass in the infrahepatic/letitia hepatis region. This could reflect a large pseudocyst versus possibly duplication cyst of some sort. Abscess is a potential consideration, though felt to be somewhat less likely given the overall appearance. Clinical correlation required. - General surgery consult if not resolving - Supportive care for now. - Follow CBC, RFP, lactate. Draw from IV or with dialysis per patient request --Pain control with Tylenol, Oxy, dilaudid prn (5) Atrial fibrillation: Qualifiers: Atrial fibrillation type: paroxysmal Qualified Code(s): I48.0 - Paroxysmal atrial fibrillation Code(s): I48.91 - Unspecified atrial fibrillation Status: Chronic Assessment and Plan: Continue Telemetry Continue Amiodarone and Eliquis. (6) Coronary artery disease: Qualifiers: Associated angina: without angina Coronary Disease-Associated Artery/Lesion type: [place] artery [place] vs. transplanted heart: [place] heart Qualified Code(s): I25.10 - Atherosclerotic heart disease of [place] coronary artery without angina pectoris Code(s): I25.10 - Atherosclerotic heart disease of [place] coronary artery without angina pectoris Status: Chronic Assessment and Plan: No chest pain or SOB. Continue aspirin and statin. (7) Chronic anticoagulation: Code(s): Z79.01 - alf (current) use of anticoagulants Status: Chronic Assessment and Plan: Dominique wadr for AFib. (8) Foot pain, right: Code(s): M79.671 - Pain in right foot Status: Acute Assessment and Plan: Right foot TTP, pulse not palpable, but has some blood flow, capillary refill <2seconds --Not interested in an arterial duplex but would try again if patient agreeable or lactate uptrending --Didn't want us to look at toe wound, wrapped Plan HD per yarn sizer scheduling. Time Spent With Patient Time: 75 minutes Subjective Date/time seen: 08/04/24 07:47 Interval history: Expresses frustration about exams. Allowed me to remove his right sock but not the dressing on his toe. Limited abdominal exam, but still appears tender to low abdomen. Right foot is very tender with nonpalpable pulse but he expressed frustration with the idea of another ultrasound or more imaging. Extremities are pink but tender on exam. He asked why I was focusing on his foot when it was his abdomen that he came for. Still verbalizes that he wants to be a full code. Wants to go to SNF but wants to limit imaging and going back and forth to the hospital. Discussed the goal of preention with some of the studies. Patient presented to the hospital after missing HD session. Patient reports he missed dialysis because he went to [facility] to be examined for abdominal pain. Review of Systems Review
--- NOTE | 2024-08-04 07:50 | PC.NURSE ---
Patient off floor to dialysis via bed. Report given to Bree BARRETO.
--- NOTE | 2024-08-04 11:50 | PM.PNNEP ---
Progress Note: A&P Assessment and Plan (1) End stage renal disease: Code(s): N18.6 - End stage renal disease Status: Chronic Assessment and Plan: HD today continue M/W/F dialysis schedule follow electrolytes, volume status, and clearance (2) Acute pulmonary edema: Code(s): J81.0 - Acute pulmonary edema Status: Acute Assessment and Plan: suspected etiology of shortness of breath/dyspnea however, no evidence of hypoxia as noted by admission imaging studies (CXR and CT abd/pelvis) s/p DUF (dry ultrafiltration) x 2 (on 08/01 and 08/03) ~ 8.6L negative since admission follow respiratory status (3) Abdominal pain: Code(s): R10.9 - Unspecified abdominal pain Status: Acute Assessment and Plan: chronic and long-standing issue at baseline previous evaluation/testing has been unrevealing to date CT abd/pelvis with diffuse body wall with mesenteric and retroperitoneal edema and diffuse bladder wall thickening with stranding in the surrounding suspicious for cystitis repeat imaging (CT of abd/pelvis with IV contrast) done this AM unrevealing as well would CT angio of abdomen be better to assess for mesenteric ischemia(?) -- however, lactic acid has normalized is fluid/edema as noted by initial CT scan partly to blame?? not sure what other intervention/testing to do...he report that he saw a surgeon at [facility] that had helped him in the past -- maybe needs follow-up with him as an outpatient(?) pain control (4) Lactic acidosis: Code(s): E87.20 - Acidosis, unspecified Status: Acute Assessment and Plan: resolved elevated on admission by testing in ER etiology not clear follow trend (5) Hypertension: Qualifiers: Hypertension type: primary hypertension Qualified Code(s): I10 - Essential (primary) hypertension Code(s): I10 - Essential (primary) hypertension Status: Chronic Assessment and Plan: fluctuating at this time possibly precipitated by pain and fluid fluid removal with HD/DUF may help follow trend of hemodynamics (6) Anemia: Qualifiers: Anemia type: unspecified type Qualified Code(s): D64.9 - Anemia, unspecified Code(s): D64.9 - Anemia, unspecified Status: Chronic Assessment and Plan: due to ESRD H/H supratherapeutic at this time for a dialysis patient hold GRACIE with HD for now follow trend of H/H Will continue to follow. Subjective Date/time seen: 08/04/24 11:50 Interval history: Follow-up for end stage renal disease on hemodialysis. Tolerated dialysis treatment earlier this morning as well as dry ultrafiltration yesterday without any issue or problems; breathing/respiratory status seems stable; still with on/off abdominal pain and difficult to say if it really any better. Exam Narrative: General: WD/WN male in NAD Heart: normal S1 and S2; no rub Lungs: clear anteriorly, decreased at bases Abdomen: soft, + bowel sounds Extremities: no cyanosis or clubbing; trace edema Skin: no rash Objective Data Vital Signs Vital Signs: Vital Signs Temp Pulse Resp BP Pulse Ox O2 Del Method FiO2 08/04/24 11:00 69 150/85 H 08/04/24 10:45 71 151/76 H 08/04/24 10:30 69 157/74 H 08/04/24 10:15 69 140/85 08/04/24 10:00 68 147/72 H 08/04/24 09:45 70 141/75 H 08/04/24 09:30 67 134/78 08/04/24 09:15 70 139/75 08/04/24 12:00 72 08/04/24 11:14 97.9 F 72 16 145/73 H 100 08/04/24 09:00 70 126/73 08/04/24 08:45 70 135/77 08/04/24 08:00 63 08/04/24 08:30 68 129/68 08/04/24 08:15 64 146/76 H 08/04/24 07:59 63 150/84 H 08/04/24 07:49 97.9 F 67 16 138/86 100 08/04/24 07:49 100 08/04/24 07:40 Room Air 08/04/24 04:00 69 08/04/24 04:34 97.1 F L 69 16 102/54 L 100 09/0
--- NOTE | 2024-08-04 11:50 | P.PNNP_ITS ---
Progress Note: A&P Assessment and Plan (1) End stage renal disease: Code(s): N18.6 - End stage renal disease Status: Chronic Assessment and Plan: * HD today * continue M/W/F dialysis schedule * follow electrolytes, volume status, and clearance (2) Acute pulmonary edema: Code(s): J81.0 - Acute pulmonary edema Status: Acute Assessment and Plan: * suspected etiology of shortness of breath/dyspnea * however, no evidence of hypoxia * as noted by admission imaging studies (CXR and CT abd/pelvis) * s/p DUF (dry ultrafiltration) x 2 (on 08/01 and 08/03) * ~ 8.6L negative since admission * follow respiratory status (3) Abdominal pain: Code(s): R10.9 - Unspecified abdominal pain Status: Acute Assessment and Plan: * chronic and long-standing issue at baseline * previous evaluation/testing has been unrevealing to date * CT abd/pelvis with diffuse body wall with mesenteric and retroperitoneal edema and diffuse bladder wall thickening with stranding in the surrounding suspicious for cystitis * repeat imaging (CT of abd/pelvis with IV contrast) done this AM unrevealing as well * would CT angio of abdomen be better to assess for mesenteric ischemia(?) -- however, lactic acid has normalized * is fluid/edema as noted by initial CT scan partly to blame?? * not sure what other intervention/testing to do...he report that he saw a surgeon at [facility] that had helped him in the past -- maybe needs follow-up with him as an outpatient(?) * pain control (4) Lactic acidosis: Code(s): E87.20 - Acidosis, unspecified Status: Acute Assessment and Plan: * resolved * elevated on admission by testing in ER * etiology not clear * follow trend (5) Hypertension: Qualifiers: Hypertension type: primary hypertension Qualified Code(s): I10 - Essential (primary) hypertension Code(s): I10 - Essential (primary) hypertension Status: Chronic Assessment and Plan: * fluctuating at this time * possibly precipitated by pain and fluid * fluid removal with HD/DUF may help * follow trend of hemodynamics (6) Anemia: Qualifiers: Anemia type: unspecified type Qualified Code(s): D64.9 - Anemia, unspecified Code(s): D64.9 - Anemia, unspecified Status: Chronic Assessment and Plan: * due to ESRD * H/H supratherapeutic at this time for a dialysis patient * hold GRACIE with HD for now * follow trend of H/H Will continue to follow. Subjective Date/time seen: 08/04/24 11:50 Interval history: Follow-up for end stage renal disease on hemodialysis. Tolerated dialysis treatment earlier this morning as well as dry ultrafiltration yesterday without any issue or problems; breathing/respiratory status seems stable; still with on/off abdominal pain and difficult to say if it really any better. Exam Narrative: General: WD/WN male in NAD Heart: normal S1 and S2; no rub Lungs: clear anteriorly, decreased at bases Abdomen: soft, + bowel sounds Extremities: no cyanosis or clubbing; trace edema Skin: no rash Objective Data Vital Signs Vital Signs: Vital Signs Temp Pulse Resp BP Pulse Ox O2 Del Method FiO2 08/04/24 11:00 69 150/85 H 08/04/24 10:45 71 151/76 H 08/04/24 10:30 69 157/74 H
[2024-08-04] MEDS: APIXABAN 2.5 MG TABLET PO (20:42)
[2024-08-05] VITALS (7 sets, daily range): BP systolic 143–151; BP diastolic 78–83; PULSE 73–77; RESP 16–18; TEMP 35.6–36.1; O2SAT 100
[2024-08-05] MEDS: HYDROmorphone HCL INJ (*CRX) 1 MG/ML SYR 0.5 MG IV PUSH ×4 (03:48→21:13)
[2024-08-05] MEDS: ASPIRIN 81 MG ENTERIC TABLET PO (08:15)
[2024-08-05] MEDS: AMIODARONE HCL 200 MG TABLET PO (08:15)
[2024-08-05] MEDS: PANTOPRAZOLE 40 MG TABLET PO (08:15)
[2024-08-05] MEDS: APIXABAN 2.5 MG TABLET PO ×2 (08:15→21:13)
[2024-08-05] MEDS: ROSUVASTATIN 5 MG TABLET PO (08:16)
--- NOTE | 2024-08-05 08:58 | P.PNIM_ITS ---
Progress Note: A&P Assessment and Plan (1) Acute pulmonary edema: Code(s): J81.0 - Acute pulmonary edema Status: Acute Assessment and Plan: * As visualized on chest x-ray and CT abdomen and pelvis as well. * Likely related to missed HD. * Nephrology assisting with dialysis management. * Dialysed today and further scheduling per water/wastewater project manager. * Continue to monitor and trend labs. * Replace electrolytes as needed with HD. (2) ESRD (end stage renal disease): Code(s): N18.6 - End stage renal disease Status: Acute Assessment and Plan: * HD schedule normally M,W,F. * Current scheduling per water/wastewater project manager. * Appreciate water/wastewater project manager assistance. (3) Lactic acidosis: Code(s): E87.20 - Acidosis, unspecified Status: Acute Assessment and Plan: * Likely related to ESRD vs other. * Currently resolved. * Consider further imaging if patient agreeable at some point (4) Abdominal pain: Code(s): R10.9 - Unspecified abdominal pain Status: Acute Assessment and Plan: * CT abd/pelvis w/contrast: Impression: 13.2 x 6.3 x 6.5 cm cystic mass in the infrahepatic/letitia hepatis region. This could reflect a large pseudocyst versus possibly duplication cyst of some sort. Abscess is a potential consideration, though felt to be somewhat less likely given the overall appearance. Clinical correlation required. - General surgery consult if not resolving - Supportive care for now. - Follow CBC, RFP, lactate. Draw from IV or with dialysis per patient request --Pain control with Tylenol, Oxy, dilaudid prn (5) Atrial fibrillation: Qualifiers: Atrial fibrillation type: paroxysmal Qualified Code(s): I48.0 - Paroxysmal atrial fibrillation Code(s): I48.91 - Unspecified atrial fibrillation Status: Chronic Assessment and Plan: * Continue Telemetry * Continue Amiodarone and Eliquis. (6) Coronary artery disease: Qualifiers: Coronary Disease-Associated Artery/Lesion type: [place] artery [place] vs. transplanted heart: [place] heart Associated angina: without angina Qualified Code(s): I25.10 - Atherosclerotic heart disease of [place] coronary artery without angina pectoris Code(s): I25.10 - Atherosclerotic heart disease of [place] coronary artery without angina pectoris Status: Chronic Assessment and Plan: * No chest pain or SOB. * Continue aspirin and statin. (7) Chronic anticoagulation: Code(s): Z79.01 - combat information center officer (current) use of anticoagulants Status: Chronic Assessment and Plan: * Eliquis b.i.d. for AFib. (8) Foot pain, right: Code(s): M79.671 - Pain in right foot Status: Acute Assessment and Plan: Right foot TTP, pulse not palpable, but has some blood flow, capillary refill <2seconds --Not interested in an arterial duplex but would try again if patient agreeable or lactate uptrending --Didn't want us to look at toe wound, wrapped Plan HD per water/wastewater project manager scheduling. Time Spent With Patient Time with patient: Greater than 35 minutes Subjective Date/time seen: 08/05/24 08:58 Interval history: Expresses frustration about exams. Allowed me to remove his right sock but not the dressing on his toe. Limited abdominal exam, but still appears tender to low abdomen. Right foot is very tender with nonpalpable pulse but he expressed frustration with the idea of another ultrasound or more imaging. Extremities are pink but tender on exam. He asked why I was focusing on
--- NOTE | 2024-08-05 08:58 | PM.IMPN ---
Progress Note: A&P Assessment and Plan (1) Acute pulmonary edema: Code(s): J81.0 - Acute pulmonary edema Status: Acute Assessment and Plan: As visualized on chest x-ray and CT abdomen and pelvis as well. Likely related to missed HD. Nephrology assisting with dialysis management. Dialysed today and further scheduling per brim pouncing machine operator. Continue to monitor and trend labs. Replace electrolytes as needed with HD. (2) ESRD (end stage renal disease): Code(s): N18.6 - End stage renal disease Status: Acute Assessment and Plan: HD schedule normally M,W,F. Current scheduling per brim pouncing machine operator. Appreciate brim pouncing machine operator assistance. (3) Lactic acidosis: Code(s): E87.20 - Acidosis, unspecified Status: Acute Assessment and Plan: Likely related to ESRD vs other. Currently resolved. Consider further imaging if patient agreeable at some point (4) Abdominal pain: Code(s): R10.9 - Unspecified abdominal pain Status: Acute Assessment and Plan: CT abd/pelvis w/contrast: Impression: 13.2 x 6.3 x 6.5 cm cystic mass in the infrahepatic/letitia hepatis region. This could reflect a large pseudocyst versus possibly duplication cyst of some sort. Abscess is a potential consideration, though felt to be somewhat less likely given the overall appearance. Clinical correlation required. - General surgery consult if not resolving - Supportive care for now. - Follow CBC, RFP, lactate. Draw from IV or with dialysis per patient request --Pain control with Tylenol, Oxy, dilaudid prn (5) Atrial fibrillation: Qualifiers: Atrial fibrillation type: paroxysmal Qualified Code(s): I48.0 - Paroxysmal atrial fibrillation Code(s): I48.91 - Unspecified atrial fibrillation Status: Chronic Assessment and Plan: Continue Telemetry Continue Amiodarone and Eliquis. (6) Coronary artery disease: Qualifiers: Coronary Disease-Associated Artery/Lesion type: [place] artery [place] vs. transplanted heart: [place] heart Associated angina: without angina Qualified Code(s): I25.10 - Atherosclerotic heart disease of [place] coronary artery without angina pectoris Code(s): I25.10 - Atherosclerotic heart disease of [place] coronary artery without angina pectoris Status: Chronic Assessment and Plan: No chest pain or SOB. Continue aspirin and statin. (7) Chronic anticoagulation: Code(s): Z79.01 - halfway (current) use of anticoagulants Status: Chronic Assessment and Plan: Dominique ward for AFib. (8) Foot pain, right: Code(s): M79.671 - Pain in right foot Status: Acute Assessment and Plan: Right foot TTP, pulse not palpable, but has some blood flow, capillary refill <2seconds --Not interested in an arterial duplex but would try again if patient agreeable or lactate uptrending --Didn't want us to look at toe wound, wrapped Plan HD per brim pouncing machine operator scheduling. Time Spent With Patient Time with patient: Greater than 35 minutes Subjective Date/time seen: 08/05/24 08:58 Interval history: Expresses frustration about exams. Allowed me to remove his right sock but not the dressing on his toe. Limited abdominal exam, but still appears tender to low abdomen. Right foot is very tender with nonpalpable pulse but he expressed frustration with the idea of another ultrasound or more imaging. Extremities are pink but tender on exam. He asked why I was focusing on his foot when it was his abdomen that he came for. Still verbalizes that he wants to be a full code. Wants to go to SNF but wants to limit imaging and going back and forth to the hospital. Discussed the goal of preention with some of the studies. Patient presented to the hospital after missing HD session. Patient reports he missed dialysis because he went to [facility] to be examined for abdominal pain. 08/05
--- NOTE | 2024-08-05 12:15 | P.DS_ITS ---
DS: Admitting Diagnosis Discharge Date 08/05 Admitting Diagnosis abd pain DS: Discharge Diagnosis Discharge Diagnosis (1) Acute pulmonary edema: Code(s): J81.0 - Acute pulmonary edema Status: Acute Assessment and Plan: * As visualized on chest x-ray and CT abdomen and pelvis as well. * Likely related to missed HD. * Nephrology assisting with dialysis management. * Dialysed today and further scheduling per fishing rod assembler. * Continue to monitor and trend labs. * Replace electrolytes as needed with HD. * - improved (2) ESRD (end stage renal disease): Code(s): N18.6 - End stage renal disease Status: Acute Assessment and Plan: * HD schedule normally M,W,F. * Current scheduling per fishing rod assembler. * Appreciate fishing rod assembler assistance. * -continue HD (3) Lactic acidosis: Code(s): E87.20 - Acidosis, unspecified Status: Acute Assessment and Plan: * Likely related to ESRD vs other. * Currently resolved. * Consider further imaging if patient agreeable at some point * - resolved (4) Abdominal pain: Code(s): R10.9 - Unspecified abdominal pain Status: Acute Assessment and Plan: * CT abd/pelvis w/contrast: Impression: 13.2 x 6.3 x 6.5 cm cystic mass in the infrahepatic/letitia hepatis region. This could reflect a large pseudocyst versus possibly duplication cyst of some sort. Abscess is a potential consideration, though felt to be somewhat less likely given the overall appearance. Clinical correlation required. - General surgery consult if not resolving - Supportive care for now. - Follow CBC, RFP, lactate. Draw from IV or with dialysis per patient request --Pain control with Tylenol, Oxy, dilaudid prn - reports pain is OK - f/u outpt with pcp/surgeon at [facility] (5) Atrial fibrillation: Qualifiers: Atrial fibrillation type: paroxysmal Qualified Code(s): I48.0 - Paroxysmal atrial fibrillation Code(s): I48.91 - Unspecified atrial fibrillation Status: Chronic Assessment and Plan: * Continue Amiodarone and Eliquis. (6) Coronary artery disease: Qualifiers: Coronary Disease-Associated Artery/Lesion type: [place] artery [place] vs. transplanted heart: [place] heart Associated angina: without angina Qualified Code(s): I25.10 - Atherosclerotic heart disease of [place] coronary artery without angina pectoris Code(s): I25.10 - Atherosclerotic heart disease of [place] coronary artery without angina pectoris Status: Chronic Assessment and Plan: * No chest pain or SOB. * Continue aspirin and statin. (7) Chronic anticoagulation: Code(s): Z79.01 - MCFP (current) use of anticoagulants Status: Chronic Assessment and Plan: * Eliquis b.i.d. for AFib. (8) Foot pain, right: Code(s): M79.671 - Pain in right foot Status: Acute Assessment and Plan: Right foot TTP, pulse not palpable, but has some blood flow, capillary refill <2seconds --Not interested in an arterial duplex but would try again if patient agreeable or lactate uptrending --Didn't want us to look at toe wound, wrapped Plan HD per fishing rod assembler scheduling. DS: Summary Hospital Course Hospital Course: Narrative: This 89-year-old male patient with past medical history of end-stage renal disease secondary to polycystic kidney disease, chronic anemia, chronic atrial fibrillation anticoagulated with Eliquis, coronary artery disease, diastolic dysfunction, GERD, mi,
--- NOTE | 2024-08-05 12:15 | PM.DS ---
DS: Admitting Diagnosis Discharge Date 08/05 Admitting Diagnosis abd pain DS: Discharge Diagnosis Discharge Diagnosis (1) Acute pulmonary edema: Code(s): J81.0 - Acute pulmonary edema Status: Acute Assessment and Plan: As visualized on chest x-ray and CT abdomen and pelvis as well. Likely related to missed HD. Nephrology assisting with dialysis management. Dialysed today and further scheduling per plumber and tinner. Continue to monitor and trend labs. Replace electrolytes as needed with HD. - improved (2) ESRD (end stage renal disease): Code(s): N18.6 - End stage renal disease Status: Acute Assessment and Plan: HD schedule normally M,W,F. Current scheduling per plumber and tinner. Appreciate plumber and tinner assistance. -continue HD (3) Lactic acidosis: Code(s): E87.20 - Acidosis, unspecified Status: Acute Assessment and Plan: Likely related to ESRD vs other. Currently resolved. Consider further imaging if patient agreeable at some point - resolved (4) Abdominal pain: Code(s): R10.9 - Unspecified abdominal pain Status: Acute Assessment and Plan: CT abd/pelvis w/contrast: Impression: 13.2 x 6.3 x 6.5 cm cystic mass in the infrahepatic/letitia hepatis region. This could reflect a large pseudocyst versus possibly duplication cyst of some sort. Abscess is a potential consideration, though felt to be somewhat less likely given the overall appearance. Clinical correlation required. - General surgery consult if not resolving - Supportive care for now. - Follow CBC, RFP, lactate. Draw from IV or with dialysis per patient request --Pain control with Tylenol, Oxy, dilaudid prn - reports pain is OK - f/u outpt with pcp/surgeon at [facility] (5) Atrial fibrillation: Qualifiers: Atrial fibrillation type: paroxysmal Qualified Code(s): I48.0 - Paroxysmal atrial fibrillation Code(s): I48.91 - Unspecified atrial fibrillation Status: Chronic Assessment and Plan: Continue Amiodarone and Eliquis. (6) Coronary artery disease: Qualifiers: Coronary Disease-Associated Artery/Lesion type: [place] artery [place] vs. transplanted heart: [place] heart Associated angina: without angina Qualified Code(s): I25.10 - Atherosclerotic heart disease of [place] coronary artery without angina pectoris Code(s): I25.10 - Atherosclerotic heart disease of [place] coronary artery without angina pectoris Status: Chronic Assessment and Plan: No chest pain or SOB. Continue aspirin and statin. (7) Chronic anticoagulation: Code(s): Z79.01 - long term acute care registered nurse (current) use of anticoagulants Status: Chronic Assessment and Plan: Eliquis b.i.d. for AFib. (8) Foot pain, right: Code(s): M79.671 - Pain in right foot Status: Acute Assessment and Plan: Right foot TTP, pulse not palpable, but has some blood flow, capillary refill <2seconds --Not interested in an arterial duplex but would try again if patient agreeable or lactate uptrending --Didn't want us to look at toe wound, wrapped Plan HD per plumber and tinner scheduling. DS: Summary Hospital Course Hospital Course: Narrative: This 89-year-old male patient with past medical history of end-stage renal disease secondary to polycystic kidney disease, chronic anemia, chronic atrial fibrillation anticoagulated with Eliquis, coronary artery disease, diastolic dysfunction, GERD, mi, hypertension, osteonecrosis, pericardial effusion status post drainage August 2023 and tricuspid valve regurgitation who is well known to this facility presents to the emergency room today with complaints of having dyspnea, abdominal pain that is continuing and stating that he missed his dialysis on Friday that was scheduled. Patient states he chose to miss his dialysis to go to [facility] secondary to abdominal pain that he descri
[2024-08-06] VITALS (22 sets, daily range): BP systolic 145–201; BP diastolic 64–98; PULSE 70–778; RESP 12–18; TEMP 35.4–37.3; O2SAT 100
[2024-08-06] MEDS: HYDROmorphone HCL INJ (*CRX) 1 MG/ML SYR 0.5 MG IV PUSH ×3 (02:30→15:07)
--- NOTE | 2024-08-06 08:00 | PC.NURSE ---
pt taken to dialysis
[2024-08-06 09:25] LABS: Hematocrit 36.1 % (42.0-52.0); Hemoglobin 11.6 g/dL (14.0-18.0); Immature Platelet Fraction Pct 4.2 % (0.9-11.2); Mean Corpuscular HGB Conc 32.1 g/dl (32-36); Mean Corpuscular Hemoglobin 30.7 pg (26-34); Mean Corpuscular Volume 95.5 fl (80-100); Mean Platelet Volume 11.3 fl (7.4-10.4); Platelet Count Result 77 k/mm3 (150-375); Red Blood Count 3.78 M/mm3 (4.6-6.20); Red Cell Distribution Width 18.1 % (11.5-14.5); White Blood Count 3.3 K/mm3 (4.5-10.0)
--- NOTE | 2024-08-06 09:35 | PM.PNNEP ---
Progress Note: A&P Assessment and Plan (1) End stage renal disease: Code(s): N18.6 - End stage renal disease Status: Chronic Assessment and Plan: HD today continue M/W/F dialysis schedule follow electrolytes, volume status, and clearance (2) Acute pulmonary edema: Code(s): J81.0 - Acute pulmonary edema Status: Acute Assessment and Plan: suspected etiology of shortness of breath/dyspnea on presentation to ER however, no evidence of hypoxia as noted by admission imaging studies (CXR and CT abd/pelvis) s/p DUF (dry ultrafiltration) x 2 (on 08/01 and 08/03) follow respiratory status (appears stable) (3) Abdominal pain: Code(s): R10.9 - Unspecified abdominal pain Status: Acute Assessment and Plan: chronic and long-standing issue at baseline previous evaluation/testing has been unrevealing to date CT abd/pelvis with diffuse body wall with mesenteric and retroperitoneal edema and diffuse bladder wall thickening with stranding in the surrounding suspicious for cystitis repeat imaging (CT of abd/pelvis with IV contrast) done this AM unrevealing as well would CT angio of abdomen be better to assess for mesenteric ischemia(?) -- however, lactic acid has normalized is fluid/edema as noted by initial CT scan partly to blame?? not sure what other intervention/testing to do...he report that he saw a surgeon at [facility] that had helped him in the past -- suspect he needs follow-up with him as an outpatient pain control (4) Lactic acidosis: Code(s): E87.20 - Acidosis, unspecified Status: Acute Assessment and Plan: resolved elevated on admission by testing in ER etiology not clear follow trend (5) Hypertension: Qualifiers: Hypertension type: primary hypertension Qualified Code(s): I10 - Essential (primary) hypertension Code(s): I10 - Essential (primary) hypertension Status: Chronic Assessment and Plan: fluctuating at this time possibly precipitated by pain and fluid fluid removal with HD/DUF may help not on any BP medications at this time follow trend of hemodynamics (6) Anemia: Qualifiers: Anemia type: unspecified type Qualified Code(s): D64.9 - Anemia, unspecified Code(s): D64.9 - Anemia, unspecified Status: Chronic Assessment and Plan: due to ESRD H/H supratherapeutic at this time for a dialysis patient hold GRACIE with HD for now follow trend of H/H Not opposed to discharge from renal perspective if otherwise medically stable. Will continue to follow. Subjective Date/time seen: 08/06/24 09:35 Interval history: Follow-up for end stage renal disease on hemodialysis. Tolerating dialysis treatment at the time of my visit (seen on HD at 9:25AM); was tentatively scheduled for discharge yesterday (and hence I did not see him) but apparently his family wanted him to go to SNF so discharge cancelled for further PT/OT assessment along with determining placement options; no apparent distress when seen (resting comfortably in bed). Exam Narrative: General: WD/WN male in NAD Heart: normal S1 and S2; no rub Lungs: clear anteriorly, decreased at bases Abdomen: soft, + bowel sounds Extremities: no cyanosis or clubbing; trace edema Skin: no nodules Objective Data Vital Signs Vital Signs: Vital Signs Temp Pulse Resp BP Pulse Ox O2 Del Method 08/06/24 09:30 73 171/79 H 08/06/24 09:15 70 159/77 H 08/06/24 09:00 70 170/85 H 08/06/24 10:00 73 155/91 H 08/06/24 08:55 70 157/98 H 08/06/24 08:38 97.7 F 72 16 199/87 H 08/06/24 05:56 97.7 F 71 18 145/64 H 100 08/05/24 21:13 Room Air 08/05/24 20:46 96.8 F L 76 18 151/83 H 100 08/05/24 15:20 Room Air 08/05/24 14:00 96.0 F L 76 16 149/78 H 100 Intake/Output Intake/Output: Intake & Output 08/03/2408/04
--- NOTE | 2024-08-06 09:35 | P.PNNP_ITS ---
Progress Note: A&P Assessment and Plan (1) End stage renal disease: Code(s): N18.6 - End stage renal disease Status: Chronic Assessment and Plan: * HD today * continue M/W/F dialysis schedule * follow electrolytes, volume status, and clearance (2) Acute pulmonary edema: Code(s): J81.0 - Acute pulmonary edema Status: Acute Assessment and Plan: * suspected etiology of shortness of breath/dyspnea on presentation to ER * however, no evidence of hypoxia * as noted by admission imaging studies (CXR and CT abd/pelvis) * s/p DUF (dry ultrafiltration) x 2 (on 08/01 and 08/03) * follow respiratory status (appears stable) (3) Abdominal pain: Code(s): R10.9 - Unspecified abdominal pain Status: Acute Assessment and Plan: * chronic and long-standing issue at baseline * previous evaluation/testing has been unrevealing to date * CT abd/pelvis with diffuse body wall with mesenteric and retroperitoneal edema and diffuse bladder wall thickening with stranding in the surrounding suspicious for cystitis * repeat imaging (CT of abd/pelvis with IV contrast) done this AM unrevealing as well * would CT angio of abdomen be better to assess for mesenteric ischemia(?) -- however, lactic acid has normalized * is fluid/edema as noted by initial CT scan partly to blame?? * not sure what other intervention/testing to do...he report that he saw a surgeon at [facility] that had helped him in the past -- suspect he needs follow-up with him as an outpatient * pain control (4) Lactic acidosis: Code(s): E87.20 - Acidosis, unspecified Status: Acute Assessment and Plan: * resolved * elevated on admission by testing in ER * etiology not clear * follow trend (5) Hypertension: Qualifiers: Hypertension type: primary hypertension Qualified Code(s): I10 - Essential (primary) hypertension Code(s): I10 - Essential (primary) hypertension Status: Chronic Assessment and Plan: * fluctuating at this time * possibly precipitated by pain and fluid * fluid removal with HD/DUF may help * not on any BP medications at this time * follow trend of hemodynamics (6) Anemia: Qualifiers: Anemia type: unspecified type Qualified Code(s): D64.9 - Anemia, unspecified Code(s): D64.9 - Anemia, unspecified Status: Chronic Assessment and Plan: * due to ESRD * H/H supratherapeutic at this time for a dialysis patient * hold GRACIE with HD for now * follow trend of H/H Not opposed to discharge from renal perspective if otherwise medically stable. Will continue to follow. Subjective Date/time seen: 08/06/24 09:35 Interval history: Follow-up for end stage renal disease on hemodialysis. Tolerating dialysis treatment at the time of my visit (seen on HD at 9:25AM); was tentatively scheduled for discharge yesterday (and hence I did not see him) but apparently his family wanted him to go to SNF so discharge cancelled for further PT/OT assessment along with determining placement options; no apparent distress when seen (resting comfortably in bed). Exam Narrative: General: WD/WN male in NAD Heart: normal S1 and S2; no rub Lungs: clear anteriorly, decreased at bases Abdomen: soft, + bowel sounds Extremities: no cyanosis or clubbing; trace edema Skin: no nodules Objective Data Vital Signs Vital Signs:
[2024-08-06 10:00] LABS: Alanine Aminotransferase 20 U/L (6-50); Albumin Level 3.5 g/dL (3.5-5.1); Alkaline Phosphatase 110 U/L (38-126); Anion Gap 13 mmol/L (4-12); Aspartate Amino Transferase 42 U/L (17-59); Bilirubin,Total 0.9 mg/dL (0.2-1.3); Blood Urea Nitrogen 36 mg/dL (9-20); Calcium 9.6 mg/dL (8.4-10.2); Carbon Dioxide 26 mmol/L (22-30); Chloride 96 mmol/L (98-107); Estimated CRCL calculation 9 ml/min; Estimated Glomerular Filt Rate 7; Glucose 89 mg/dL (65-110); Magnesium 2.1 mg/dL (1.6-2.3); Phosphorus 5.7 mg/dL (2.5-4.5); Potassium 4.4 mmol/L (3.4-5.0); Sodium 135 mmol/L (137-145)
--- NOTE | 2024-08-06 10:42 | P.DS_ITS ---
DS: Admitting Diagnosis Discharge Date 08/06/24 Admitting Diagnosis Acute pulmonary edema ESRD Lactic acidosis Abdominal pain CAD A-fib Chronic anticoagulation DS: Discharge Diagnosis Discharge Diagnosis Plan (1) Acute pulmonary edema: Code(s): J81.0 - Acute pulmonary edema Status: Acute Assessment and Plan: * As visualized on chest x-ray and CT abdomen and pelvis as well. * Likely related to missed HD. * Nephrology assisting with dialysis management. * Dialysed today and further scheduling per mechanical manufacturing technician. * Continue to monitor and trend labs. * Replace electrolytes as needed with HD. * - improved(2) ESRD (end stage renal disease): * Continue dialysis schedule Code(s): N18.6 - End stage renal disease Status: Acute Assessment and Plan: * HD schedule normally M,W,F. * Current scheduling per mechanical manufacturing technician. * Appreciate mechanical manufacturing technician assistance. * -continue HD(3) Lactic acidosis: Code(s): E87.20 - Acidosis, unspecified Status: Acute Assessment and Plan: * Likely related to ESRD vs other. * Currently resolved. * Consider further imaging if patient agreeable at some point * - resolved(4) Abdominal pain: Code(s): R10.9 - Unspecified abdominal pain Status: Acute Assessment and Plan: * CT abd/pelvis w/contrast: Impression: 13.2 x 6.3 x 6.5 cm cystic mass in the infrahepatic/letitia hepatis region. This could reflect a large pseudocyst versus possibly duplication cyst of some sort. Abscess is a potential consideration, though felt to be somewhat less likely given the overall appearance. Clinical correlation required. - General surgery consult if not resolving - Supportive care for now. - Follow CBC, RFP, lactate. Draw from IV or with dialysis per patient request --Pain control with Tylenol, Oxy, dilaudid prn - reports pain is OK - f/u outpt with pcp/surgeon at [facility] (5) Atrial fibrillation: Qualifiers: Atrial fibrillation type: paroxysmal Qualified Code(s): I48.0 - Paroxysmal atrial fibrillation Code(s): I48.91 - Unspecified atrial fibrillation Status: Chronic Assessment and Plan: * Continue Amiodarone and Eliquis.(6) Coronary artery disease: Qualifiers: Coronary Disease-Associated Artery/Lesion type: [place] artery [place] vs. transplanted heart: [place] heart Associated angina: without angina Qualified Code(s): I25.10 - Atherosclerotic heart disease of [place] coronary artery without angina pectoris Code(s): I25.10 - Atherosclerotic heart disease of [place] coronary artery without angina pectoris Status: Chronic Assessment and Plan: * No chest pain or SOB. * Continue aspirin and statin. (7) Chronic anticoagulation: Code(s): Z79.01 - senior living (current) use of anticoagulants Status: Chronic Assessment and Plan: * Eliquis b.i.d. for AFib.(8) Foot pain, right: Code(s): M79.671 - Pain in right foot Status: Acute Assessment and Plan: Right foot TTP, pulse not palpable, but has some blood flow, capillary refill <2seconds --Not interested in an arterial duplex but would try again if patient agreeable or lactate uptrending --Didn't want us to look at toe wound, wrapped DS: Summary Hospital Course Reason for hospitalization: Acute pulmonary edema ESRD Lactic acidosis Abdominal pain CAD A-fib Chronic anticoagulation Hospital Course: From Admission: This 89-year-old male patient wi
--- NOTE | 2024-08-06 10:42 | PM.DS ---
DS: Admitting Diagnosis Discharge Date 08/06/24 Admitting Diagnosis Acute pulmonary edema ESRD Lactic acidosis Abdominal pain CAD A-fib Chronic anticoagulation DS: Discharge Diagnosis Discharge Diagnosis Plan (1) Acute pulmonary edema: Code(s): J81.0 - Acute pulmonary edema Status: Acute Assessment and Plan: As visualized on chest x-ray and CT abdomen and pelvis as well. Likely related to missed HD. Nephrology assisting with dialysis management. Dialysed today and further scheduling per fish icer. Continue to monitor and trend labs. Replace electrolytes as needed with HD. - improved(2) ESRD (end stage renal disease): Continue dialysis schedule Code(s): N18.6 - End stage renal disease Status: Acute Assessment and Plan: HD schedule normally M,W,F. Current scheduling per fish icer. Appreciate fish icer assistance. -continue HD(3) Lactic acidosis: Code(s): E87.20 - Acidosis, unspecified Status: Acute Assessment and Plan: Likely related to ESRD vs other. Currently resolved. Consider further imaging if patient agreeable at some point - resolved(4) Abdominal pain: Code(s): R10.9 - Unspecified abdominal pain Status: Acute Assessment and Plan: CT abd/pelvis w/contrast: Impression: 13.2 x 6.3 x 6.5 cm cystic mass in the infrahepatic/letitia hepatis region. This could reflect a large pseudocyst versus possibly duplication cyst of some sort. Abscess is a potential consideration, though felt to be somewhat less likely given the overall appearance. Clinical correlation required. - General surgery consult if not resolving - Supportive care for now. - Follow CBC, RFP, lactate. Draw from IV or with dialysis per patient request --Pain control with Tylenol, Oxy, dilaudid prn - reports pain is OK - f/u outpt with pcp/surgeon at [facility] (5) Atrial fibrillation: Qualifiers: Atrial fibrillation type: paroxysmal Qualified Code(s): I48.0 - Paroxysmal atrial fibrillation Code(s): I48.91 - Unspecified atrial fibrillation Status: Chronic Assessment and Plan: Continue Amiodarone and Eliquis.(6) Coronary artery disease: Qualifiers: Coronary Disease-Associated Artery/Lesion type: [place] artery [place] vs. transplanted heart: [place] heart Associated angina: without angina Qualified Code(s): I25.10 - Atherosclerotic heart disease of [place] coronary artery without angina pectoris Code(s): I25.10 - Atherosclerotic heart disease of [place] coronary artery without angina pectoris Status: Chronic Assessment and Plan: No chest pain or SOB. Continue aspirin and statin. (7) Chronic anticoagulation: Code(s): Z79.01 - shelter (current) use of anticoagulants Status: Chronic Assessment and Plan: Eliquis b.i.d. for AFib.(8) Foot pain, right: Code(s): M79.671 - Pain in right foot Status: Acute Assessment and Plan: Right foot TTP, pulse not palpable, but has some blood flow, capillary refill <2seconds --Not interested in an arterial duplex but would try again if patient agreeable or lactate uptrending --Didn't want us to look at toe wound, wrapped DS: Summary Hospital Course Reason for hospitalization: Acute pulmonary edema ESRD Lactic acidosis Abdominal pain CAD A-fib Chronic anticoagulation Hospital Course: From Admission: This 89-year-old male patient with past medical history of end-stage renal disease secondary to polycystic kidney disease, chronic anemia, chronic atrial fibrillation anticoagulated with Eliquis, coronary artery disease, diastolic dysfunction, GERD, mi, hypertension, osteonecrosis, pericardial effusion status post drainage August 2023 and tricuspid valve regurgitation who is well known to this facility presents to the emergency room today with complaints of having dyspnea, abdominal pain
--- NOTE | 2024-08-06 13:10 | PC.NURSE ---
pt returned to room from dialysis
[2024-08-06] MEDS: AMIODARONE HCL 200 MG TABLET PO (13:33)
[2024-08-06] MEDS: APIXABAN 2.5 MG TABLET PO (13:33)
[2024-08-06] MEDS: CALCIUM ACETATE 667 MG TABLET PO (13:33)
[2024-08-06] MEDS: ASPIRIN 81 MG ENTERIC TABLET PO (13:34)
[2024-08-06] MEDS: PANTOPRAZOLE 40 MG TABLET PO (13:34)
[2024-08-06] MEDS: ROSUVASTATIN 5 MG TABLET PO (13:34)
== END 2024-08-06 16:00 | DRG 189 ==
LOC: ANHED 23:41 → ANH2MED 08-01 00:27
PROVIDERS: Admitting Provider Internal Medicine; Emergency Provider Emergency Medicine; PCP Internal Medicine; Visit Provider Nurse Practitioner Adult Health
DX: J81.0 Acute pulmonary edema (principal); N18.6 End stage renal disease; I12.0 Hypertensive chronic kidney disease with stage 5 chronic kidney disease or end stage renal disease; I48.20 Chronic atrial fibrillation, unspecified; E87.21 Acute metabolic acidosis; Z91.158 Patient's noncompliance with renal dialysis for other reason; I25.10 Atherosclerotic heart disease of native coronary artery without angina pectoris; K21.9 Gastro-esophageal reflux disease without esophagitis; R10.9 Unspecified abdominal pain; D63.1 Anemia in chronic kidney disease; M79.671 Pain in right foot; Z99.2 Dependence on renal dialysis; I25.2 Old myocardial infarction; Z95.1 Presence of aortocoronary bypass graft; Z95.5 Presence of coronary angioplasty implant and graft; Z95.2 Presence of prosthetic heart valve; Z87.891 Personal history of nicotine dependence; Z79.01 Long term (current) use of anticoagulants
CPT/HCPCS: 36415; 71045; 74176; 74177; 80053; 83605; 83690; 83735; 84100; 85025; 85027; 85055; 93005; 96374; 96376; 97161; 99285; A9270; G0257; G0378; J1170; J7030; Q9967

== ENCOUNTER 2024-08-13 12:01 | Inpatient (IN) | payer MEDICARE, MEDICAID, SELFPAY ==
[2024-08-13] VITALS (11 sets, daily range): BP systolic 127–149; BP diastolic 67–109; PULSE 94–131; RESP 16–27; TEMP 36.6–37.2; O2SAT 94–97
--- NOTE | ~2024-08-13 | XR_ITS ---
XR foot RT min 3V Ordering provider: LISA Glover History: . distal 3rd and 4th metatarsal pain . Comparison: None. FINDINGS: BONES: No acute fracture or dislocation. JOINT SPACES: Normal. No tarsal coalition. SOFT TISSUES: Ossification of the insertion of the tendo Achilles. IMPRESSION: No acute osseous abnormality of the right foot. Reviewed, dictated and finalized at location A.
--- NOTE | ~2024-08-13 | XR_ITS ---
EXAMINATION: XR chest 2V DATE: 08/13/2024 13:25 INDICATION: Shortness of breath TECHNIQUE: frontal and lateral views of the chest were obtained. COMPARISON: Chest radiograph dated 07/31/2024 FINDINGS: There are opacities at the bilateral lower lung zones which appear to include small bilateral pleural effusions. No pneumothorax. Cardiomegaly. Postoperative change of prior median sternotomy, aortic va lve and tricuspid valve repairs and mary clip placement. IMPRESSION: 1. Opacities in bilateral lower lung zones which could represent atelectasis, pneumonia or mild pulmo nary edema likely superimposed over small bilateral pleural effusions. Reviewed, dictated and finalized at location B. IMPRESSION: 1. Opacities in bilateral lower lung zones which could represent atelectasis, p neumonia or mild pulmonary edema likely superimposed over small bilateral pleur al effusions.
--- NOTE | 2024-08-13 12:19 | ECG_ITS ---
Test Date: 2024-08-13 12:27:25 Measurements Intervals [place] Rate: 102 P: 0 CO: 0 QRS: 22 QRSD: 102 T: 79 QT: 356 QTc: 466 Interpretive Statements ATRIAL FLUTTER/TACHYCARDIA WITH RAPID VENTRICULAR RESPONSE INCOMPLETE RIGHT BUNDLE BRANCH BLOCK DELAYED PRECORDIAL R/S TRANSITION MINIMAL Q WAVES- LATERAL LEADS ABNORMAL ECG Compared to ECG 07/31/2024 19:26:09 Sinus rhythm no longer present Electronically Signed On 08-13-2024 12:35:14 CDT by Ford Fletcher D.O.
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
[2024-08-13] MEDS: IPRATROPIUM 0.5 MG/ALBUTEROL SULFATE 2.5 MG AMPUL.NEB 3 ML INHALATION ×2 (12:58→23:13)
[2024-08-13] MEDS: AZITHROMYCIN 250 MG TABLET 500 MG PO (13:41)
[2024-08-13] MEDS: predniSONE 20 MG TABLET 40 MG PO (13:41)
[2024-08-13 14:45] LABS: Basophils Percent Auto 0.4 % (0.2-1.2); Eosinophils Absolute Auto 0.1 K/mm3 (0-0.3); Eosinophils Percent Auto 2.1 % (0-4.4); Hematocrit 32.2 % (42.0-52.0); Hemoglobin 10.1 g/dL (14.0-18.0); Immature Granulocyte Absolute 0.01 K/mm3 (0.00-0.031); Immature Granulocyte Percent A 0.4 % (0-0.5); Immature Platelet Fraction Pct 6.6 % (0.9-11.2); Lymphocytes Absolute Auto 0.74 K/mm3 (0.9-3.2); Lymphocytes Percent Auto 31.2 % (18.3-44.2); Mean Corpuscular HGB Conc 31.4 g/dl (32-36); Mean Corpuscular Hemoglobin 30.1 pg (26-34); Mean Corpuscular Volume 95.8 fl (80-100); Mean Platelet Volume 10.6 fl (7.4-10.4); Monocytes Absolute Auto 0.2 K/mm3 (0.1-0.6); Neutrophils Absolute Auto 1.4 K/mm3 (1.3-6.7); Neutrophils Percent Auto 57.9 % (45.5-73.1); Platelet Count Result 62 k/mm3 (150-375); Red Blood Count 3.36 M/mm3 (4.6-6.20); Red Cell Distribution Width 17.1 % (11.5-14.5); White Blood Count 2.4 K/mm3 (4.5-10.0)
[2024-08-13 14:54] LABS: Alanine Aminotransferase 17 U/L (6-50); Albumin Level 3.5 g/dL (3.5-5.1); Alkaline Phosphatase 107 U/L (38-126); Anion Gap 10 mmol/L (4-12); Aspartate Amino Transferase 44 U/L (17-59); Bilirubin,Total 1.5 mg/dL (0.2-1.3); Blood Urea Nitrogen 25 mg/dL (9-20); Calcium 8.5 mg/dL (8.4-10.2); Carbon Dioxide 36 mmol/L (22-30); Chloride 89 mmol/L (98-107); Estimated CRCL calculation 12 ml/min; Estimated Glomerular Filt Rate 11; Glucose 86 mg/dL (65-110); Magnesium 1.8 mg/dL (1.6-2.3); Potassium 3.7 mmol/L (3.4-5.0); Sodium 135 mmol/L (137-145)
[2024-08-13 15:02] LABS: NT Pro B Type Natriuretic Pept > 30000 pg/mL (19.9-100)
[2024-08-13] MEDS: METOPROLOL TARTRATE INJ 5 MG/5 ML VIAL 2.5 MG IV PUSH (16:43)
--- NOTE | 2024-08-13 18:10 | PC.NURSE ---
Report called to MARY LOU Abbott on . pt's HR in the 120's. Milena questioned pt not having tele orders with high HR. Discussed with Dr. Obregon, orders put in for pt's metoprolol prior to leaving ED.
[2024-08-13] MEDS: METOPROLOL TARTRATE 25 MG TABLET PO (18:35)
--- NOTE | 2024-08-13 18:50 | ADMGEN ---
This patient, Tejas Yost, was admitted to Medical Room 246-01. Patient/family oriented to hospital policies and general routines including ID bracelet, bed and alarms, visiting hours, pain management, procedures, bathroom and other care routines, personal items, smoking policy, room service/diet, and visiting hours. Information on how to activate the Rapid Response Team has been discussed. Patient/Family are encouraged to report perceived risks to care and to ask questions if they do not understand what they are told or what they should do.
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
--- NOTE | 2024-08-13 21:22 | PM.IMHP ---
H&P: HPI History of Present Illness Date/Time: 08/13/24 21:22 Chief Complaint: SOB Narrative: 59 y/o M presents here with SOB with PMH of ESRD on HD, anemia in CKD, atrial fibrillation, CAD, diastolic dysfunction, emphysema, GERD, [place], HTN, latent TB, pericardial effusion, polycystic kidney disease. The patient presents here from [facility] via EMS for further evaluation of shortness of breath, cough, and COVID. Patient tested positive for COVID on 08/06/2024. Facility tested patient has a screening upon his return from a recent admission. He endorses an accompanying cough that is nonproductive that is accompanied by pleuritic chest pain as well as generalized weakness that began in 2003 per patient. Denies accompanying dizziness, palpitations, fever, chills, body aches. Denies any new medications or prescriptions with COVID diagnosis. Patient has history of ESRD on HD, currently receives treatments on Mondays, Wednesdays, and Fridays. Patient reports he was able to receive the full treatment today prior to arrival. Initial VS at presentation: 98.9? F, HR 123, RR 27, 140/87, and 97% on RA. ED workup showed: WBC 2.4, hemoglobin 10.1, sodium 135, creatinine 6.4 and GFR 11, BNP greater than 30,000. CXR showed opacities in bilateral lower lung zones which could represent atelectasis, pneumonia, or mild pulmonary edema likely superimposed over small bilateral pleural effusions. Review of Systems Review of Systems: All systems reviewed & are unremarkable except as noted in HPI and below [facility] Past Medical History Medical History Abnormal magnetic resonance imaging of liver MRI taken 10/20/2023 at [facility] showed advanced diffuse iron accumulation within the liver; patient refused liver biopsy. Acute pulmonary edema Anemia Anemia in chronic kidney disease, on chronic dialysis Aortic valve regurgitation Atrial fibrillation Chronic pain Coronary artery disease Diastolic dysfunction Emphysema lung End-stage renal disease on hemodialysis Gastroesophageal reflux disease History of myocardial infarction History of positive PPD Hypertension Idiopathic aseptic necrosis of unspecified bone Lactic acidosis Latent tuberculosis by blood test Myocardial infarction (2008) Osteonecrosis Pericardial effusion Status post drain in August 2023. Polycystic kidney disease Tricuspid valve regurgitation Surgical History Surgical History History of abdominal surgery secondary to infection r/t peritoneal dialysis, stomach flipped , unknown year - believes it was before 2003 History of cardiac catheterization History of coronary artery bypass graft x 1 Saphenous vein to diagonal branch of LAD. History of coronary artery stent placement (2008) Left circumflex, done at [place]. History of heart valve replacement Status post MitraClip, tricuspid valve ring annuloplasty, and bioprosthetic aortic valve replacement in 2022 at [place]. History of removal of cyst Left wrist. History of tracheostomy Status post creation of arteriovenous fistula Family History Family History Mother Hypertension Other Unknown family medical history Social History Social History Social History: Surrogate medical decision maker: Gwen Sagastume, aunt. Code status: Full code. Smoking packs per day: 0.5 Smoking cigarettes per day: 10.0 Years smoked: 20 Smoking pack-years: 10.00 Smoking status: Former smoker Alcohol intake: never Substance use: never Substance use type: does not use Do You Feel Safe in your Home?: Yes Lack of Transportation: No Lack of Food: Never True Current Housing: I Have Housing Concerned About Future Housing: No Difficulty Paying Gas/Electric Bills: No Difficulty Paying fo
[2024-08-13] MEDS: BENZOCAINE/MENTHOL (*BKC) 18 EA LOZENGE 1 LOZENGE PO (22:25)
[2024-08-13] MEDS: REMDESIVIR 200 MG/NS 250 ML 200 MG/250 ML BAG 250 MG IVPB (22:26)
[2024-08-14 01:49] LABS: MRSA (PCR) NOT DETECTED (NOT DETECTE)
[2024-08-14 06:17] VITALS: BP 148/98; PULSE 104; RESP 16; TEMP 36.5; O2SAT 98
--- NOTE | 2024-08-14 07:37 | PM.IMPN ---
Progress Note: A&P Assessment and Plan (1) Bilateral pleural effusion: Code(s): J90 - Pleural effusion, not elsewhere classified Status: Acute (2) COVID: Code(s): U07.1 - COVID-19 Status: Acute (3) Hyperbilirubinemia: Code(s): E80.6 - Other disorders of bilirubin metabolism Status: Acute (4) End-stage renal disease on hemodialysis: Code(s): N18.6 - End stage renal disease; Z99.2 - Dependence on renal dialysis Status: Chronic (5) Atrial fibrillation: Qualifiers: Atrial fibrillation type: paroxysmal Qualified Code(s): I48.0 - Paroxysmal atrial fibrillation Code(s): I48.91 - Unspecified atrial fibrillation Status: Chronic (6) Lactic acidosis: Code(s): E87.20 - Acidosis, unspecified Status: Acute (7) Foot pain, right: Code(s): M79.671 - Pain in right foot Status: Acute (8) Pancytopenia: Code(s): D61.818 - Other pancytopenia Status: Acute Plan 59 y/o M presents here with SOB with PMH of ESRD on HD, anemia in CKD, atrial fibrillation, CAD, diastolic dysfunction, emphysema, GERD, MS, HTN, latent TB, pericardial effusion, polycystic kidney disease. The patient presents here from [facility] via EMS for further evaluation of shortness of breath, cough, and COVID. Patient tested positive for COVID on 08/06/2024. Facility tested patient has a screening upon his return from a recent admission. He endorses an accompanying cough that is nonproductive that is accompanied by pleuritic chest pain as well as generalized weakness that began in 2003 per patient. COVID: Code(s): U07.1 - COVID-19 Status: Acute Assessment and Plan: - symptom onset: Unclear - tested positive for COVID on: 08/06 - complicating comorbidities: Emphysema - Remdesivir 200 mg IVPB x1 then 100 mg x4 for 5 total doses. - if patient becomes hypoxic, add dexamethasone 6 mg x10 days or until d/c. - supportive care nebs - albuterol/atrovent Q6H TYL prn for fever/pain zofran prn lozenge prn tessalon perles prn - monitor VS/O2 08/14 pulse ox 100% on room air today continue current management Pneumonia: Qualifiers: Pneumonia type: due to unspecified organism Laterality: left Lung location: lower lobe of lung Qualified Code(s): J18.9 - Pneumonia, unspecified organism Code(s): J18.9 - Pneumonia, unspecified organism Status: Acute Assessment and Plan: - CXR: Opacities in bilateral lower lung zones which could represent atelectasis, pneumonia or mild pulmonary edema likely superimposed over small bilateral pleural effusions. - risk factors and complicating factors: NH resident, recent admission, COVID - started on CAP tx: Ceftriaxone and azithromycin on 08/13 - MRSA PCR - sputum culture if obtainable - no supplemental O2 requirement pancytopenia patient has worsening pancytopenia gradually and in worse in past 2 days unclear etiologies suspecting pulmonary disease and bone marrow suppression due to current infection follow-up reticulocyte, blood smear, consult heme oncologist for evaluation treatment End-stage renal disease on hemodialysis: Code(s): N18.6 - End stage renal disease; Z99.2 - Dependence on renal dialysis Status: Chronic Assessment and Plan: - nephrology consulted for management of HD - dialysis: MWF - trend renal function - trend electrolytes, correct as needed 08/14: Patient underwent dialysis is today, no complication, no sign of fluid overload (4) Atrial fibrillation: Qualifiers: Atrial fibrillation type: paroxysmal Qualified Code(s): I48.0 - Paroxysmal atrial fibrillation Code(s): I48.91 - Unspecified atrial fibrillation Status: Chronic Assessment and Plan: - EKG, initial: Atrial flutter/tachycardia with RVR, incomplete RBBB, delayed precordial RS transition, minimal Q-waves lateral leads - given dose of
[2024-08-14] MEDS: CALCIUM ACETATE 667 MG TABLET PO (10:42)
[2024-08-14] MEDS: ASPIRIN 81 MG ENTERIC TABLET PO (10:42)
--- NOTE | 2024-08-14 13:25 | PM.CNNEP ---
Assessment and Plan Assessment and plan (1) End stage renal disease: Code(s): N18.6 - End stage renal disease Status: Acute Assessment and Plan: Patient has end-stage renal disease. He has been on dialysis for many years. He has last treatment yesterday. Fluid status looks okay (2) COVID: Code(s): U07.1 - COVID-19 Status: Acute Assessment and Plan: Test was positive on August 06. He is on remdesivir now. He is not hypoxic. (3) Atrial fibrillation: Qualifiers: Atrial fibrillation type: paroxysmal Qualified Code(s): I48.0 - Paroxysmal atrial fibrillation Code(s): I48.91 - Unspecified atrial fibrillation Status: Chronic Assessment and Plan: The patient has a rhythm of a flutter on his EKG today. Heart rate is around 100 (4) Renal osteodystrophy: Code(s): N25.0 - Renal osteodystrophy Status: Acute Assessment and Plan: Will check a renal panel in the morning (5) Anemia: Qualifiers: Anemia type: unspecified type Qualified Code(s): D64.9 - Anemia, unspecified Code(s): D64.9 - Anemia, unspecified Status: Chronic Assessment and Plan: Hemoglobin is 10.1. He will receive EPO with dialysis (6) Polycystic kidney disease: Code(s): Q61.3 - Polycystic kidney, unspecified Status: Acute Assessment and Plan: No hematuria. No headaches. History of Present Illness Reason for Consult Consult date: 08/14/24 Chief Complaint Chief complaint: PNA/COVID dx Recently/ESRD on HD History of Present Illness Narrative: Tejas is a pleasant 59-year-old gentleman has multiple medical problems including end-stage renal disease on dialysis 3 times a week, anemia, renal osteodystrophy, coronary disease, atrial fibrillation, diastolic dysfunction, emphysema, GERD, latent TB, pericardial effusion, polycystic kidneys. The patient came in the hospital because of shortness of breath and cough. He says has been going on since yesterday morning. He had had COVID in the past. In the ER this was read checked and his COVID test was positive so he has been put on respiratory isolation and given azithromycin ceftriaxone and remdesivir. The patient feels about the same today. He is so short of breath but not too bad. He is still coughing. He had his last dialysis session yesterday Review of Systems Constitutional: Constitutional: Reports no additional constitutional complaints Eyes: Eyes: Reports no additional eye complaints ENT: Reports system reviewed and no additional complaints, except as documented Cardiovascular: Cardiovascular: Reports no additional cardiovascular complaints Respiratory: Respiratory: Reports no additional respiratory complaints Gastrointestinal: Gastrointestinal: Reports no additional gastrointestinal complaints Genitourinary: Genitourinary: Reports no additional male genitourinary complaints Musculoskeletal: Musculoskeletal: Reports no additional musculoskeletal complaints Integumentary/Breasts: Skin/Breast: Reports system reviewed and no additional complaints, except as docu Neurologic: Reports system reviewed and no additional complaints, except as documented Psychiatric: Psychiatric: Reports no additional psychiatric complaints Endocrine: Endocrine: Reports no additional endocrine complaints [facility] Past Medical History Medical History Abnormal magnetic resonance imaging of liver MRI taken 10/20/2023 at [facility] showed advanced diffuse iron accumulation within the liver; patient refused liver biopsy. Acute pulmonary edema Anemia Anemia in chronic kidney disease, on chronic dialysis Aortic valve regurgitation Atrial fibrillation Chronic pain Coronary artery disease Diastolic dysfunction Emphysema lung End-stage renal disease on hemodialysis Gastroesophageal reflux disease History of myocardial in
[2024-08-14 14:00] VITALS: BP 100/80; PULSE 100; RESP 18; TEMP 36; O2SAT 99
[2024-08-14] MEDS: AZITHROMYCIN 500 MG/NS 250 ML 500 MG/250 ML BAG 250 MG IVPB (14:32)
[2024-08-14] MEDS: ONDANSETRON INJ 4 MG/2 ML VIAL IV PUSH (15:26)
[2024-08-14] MEDS: BENZONATATE 100 MG CAPSULE PO (16:52)
[2024-08-14] MEDS: ACETAMINOPHEN 325 MG TABLET 650 MG PO (16:53)
[2024-08-14] MEDS: REMDESIVIR 100 MG/NS 250 ML 100 MG/250 ML BAG 250 MG IVPB (20:42)
[2024-08-14] MEDS: BENZOCAINE/MENTHOL (*BKC) 18 EA LOZENGE 1 LOZENGE PO (20:45)
[2024-08-14] MEDS: PANTOPRAZOLE 40 MG TABLET PO (20:46)
[2024-08-14 21:46] VITALS: BP 134/70; PULSE 100; RESP 16; TEMP 36.7; O2SAT 97
[2024-08-15 05:22] VITALS: BP 127/77; PULSE 103; RESP 18; TEMP 36.8; O2SAT 100
--- NOTE | 2024-08-15 07:56 | PM.IMPN ---
Progress Note: A&P Assessment and Plan (1) Bilateral pleural effusion: Code(s): J90 - Pleural effusion, not elsewhere classified Status: Acute (2) COVID: Code(s): U07.1 - COVID-19 Status: Acute Assessment and Plan: -symptom onset unclear, retest for COVID 08/15/2024, if negative d/c remdesivir, patient not requiring supplemental oxygen -continue supportive treatment -add guaifenesin 600 mg q.12 hours -monitor for hypoxemia, may add dexamethasone 6 mg x 10 days or until DC (3) Hyperbilirubinemia: Code(s): E80.6 - Other disorders of bilirubin metabolism Status: Acute (4) End-stage renal disease on hemodialysis: Code(s): N18.6 - End stage renal disease; Z99.2 - Dependence on renal dialysis Status: Chronic Assessment and Plan: -nephrology consulted appreciate plan recommendation for management of HD -dialysis MWF (5) Atrial fibrillation: Qualifiers: Atrial fibrillation type: paroxysmal Qualified Code(s): I48.0 - Paroxysmal atrial fibrillation Code(s): I48.91 - Unspecified atrial fibrillation Status: Chronic Assessment and Plan: -EKG initial atrial flutter/tachycardia with RVR incomplete RBBB, delayed pericardial RS transition, minimal Q-waves lateral leads -rate is controlled -continue amiodarone 200 mg p.o. daily -continue hold Eliquis, risk for bleeding (6) Lactic acidosis: Code(s): E87.20 - Acidosis, unspecified Status: Acute (7) Foot pain, right: Code(s): M79.671 - Pain in right foot Status: Acute (8) Pancytopenia: Code(s): D61.818 - Other pancytopenia Status: Acute Assessment and Plan: -continue epoetin (9) Pneumonia: Qualifiers: Laterality: left Lung location: lower lobe of lung Pneumonia type: due to unspecified organism Qualified Code(s): J18.9 - Pneumonia, unspecified organism Code(s): J18.9 - Pneumonia, unspecified organism Status: Acute Assessment and Plan: -CXR reveals opacities in the bilateral lower lung zone which could represent atelectasis or PNA or mild pulmonary edema likely superimposed over small bilateral pleural effusions -continue CAP Tx: -continue ceftriaxone daily -continue azithromycin IV daily -sputum culture pending -patient not requiring supplemental oxygen at this time -initiate oxygen therapy titration to maintain SpO2 > 93% Plan Continue home medications: VTE Prophylaxis: SCDs DIET: Renal diet Anticipated hospital stay: > 2 days Code Status: Full code Time Spent With Patient Time with patient: 25 - 35 minutes Subjective Date/time seen: 08/15/24 07:56 Interval history: 59-year-old male here with PMHx: Of ESRD on HD, anemia in CKD, AFib, CAD, diastolic dysfunction, emphysema, GERD, RI, HTN, latent TB, pericardial effusion, polycystic kidney disease, from low [place] with complaints of SOB cough and positive COVID. Being seen this morning patient is sitting bedside, he complains of ongoing rhinorrhea, he denies any shortness a breath, fever chills nausea vomiting. Review of Systems Review of Systems: All systems reviewed & are unremarkable except as noted in HPI and below Exam Narrative: GENERAL: Pleasant, in no acute distress, sitting bedside, - EYES: EOMI. Anicteric. - HENT: Moist mucous membranes. Runny nose - LUNGS: Clear to auscultation bilaterally, no wheezing, rhonchi, or rales. - CARDIOVASCULAR: Regular rate and rhythm. No murmur. No JVD. - ABDOMEN: Soft, non-tender and non-distended. No palpable masses. - EXTREMITIES: No edema. Peripheral pulses 2+. Non-tender. - NEUROLOGIC: No focal neurological deficits. CN II-XII grossly intact. - PSYCHIATRIC: Awake, Alert and oriented x 3. Appropriate mood and affect. - SKIN: No rashes or lesions. Warm. - LYMPH: No cervical lymphadenopathy. Objective Data Vital Signs Vital Signs: Vital Signs - 24 hr 08/14/24 14:00 08/14/24 08:00
--- NOTE | 2024-08-15 09:13 | PM.PNNEP ---
Progress Note: A&P Assessment and Plan (1) End stage renal disease: Code(s): N18.6 - End stage renal disease Status: Acute Assessment and Plan: Patient has end-stage renal disease. He has been on dialysis for many years. He has last treatment Friday. Volume status looks okay. Will check labs in the morning and schedule him for dialysis (2) COVID: Code(s): U07.1 - COVID-19 Status: Acute Assessment and Plan: Test was positive on August 06. He is on remdesivir now. He is not hypoxic. (3) Atrial fibrillation: Qualifiers: Atrial fibrillation type: paroxysmal Qualified Code(s): I48.0 - Paroxysmal atrial fibrillation Code(s): I48.91 - Unspecified atrial fibrillation Status: Chronic Assessment and Plan: The patient has a rhythm of a flutter on his EKG today. Heart rate is around 100 (4) Renal osteodystrophy: Code(s): N25.0 - Renal osteodystrophy Status: Acute Assessment and Plan: Will check a renal panel in the morning (5) Anemia: Qualifiers: Anemia type: unspecified type Qualified Code(s): D64.9 - Anemia, unspecified Code(s): D64.9 - Anemia, unspecified Status: Chronic Assessment and Plan: Hemoglobin is 10.1. He will receive EPO with dialysis (6) Polycystic kidney disease: Code(s): Q61.3 - Polycystic kidney, unspecified Status: Acute Assessment and Plan: No hematuria. No headaches. Subjective Date/time seen: 08/15/24 09:13 Interval history: Patient feels about the same today. He is not short of breath he does still have a lot coughing. Patient is eating breakfast but does not have much of an appetite. Review of Systems Cardiovascular: Cardiovascular: Reports no additional cardiovascular complaints Respiratory: Respiratory: Reports no additional respiratory complaints Gastrointestinal: Gastrointestinal: Reports no additional gastrointestinal complaints Genitourinary: Genitourinary: Reports no additional male genitourinary complaints Exam Narrative: WDWN in NAD skin no rash head ncat lungs mildly coarse breath sounds cor reg no rub abd BS+ nontender and soft ext no edema. Objective Data Vital Signs Vital Signs: Vital Signs - 24 hr 08/14/24 14:00 08/14/24 21:46 08/14/24 20:00 Temperature 96.8 F L 98.0 F Pulse Rate 100 100 Respiratory Rate 18 16 Blood Pressure 100/80 134/70 Pulse Oximetry 99 97 Oxygen Delivery Room Air 08/15/24 05:22 Temperature 98.3 F Pulse Rate 103 H Respiratory Rate 18 Blood Pressure 127/77 Pulse Oximetry 100 Oxygen Delivery Intake/Output Intake/Output: Intake & Output 08/12/24 08/13/24 08/14/24 08/15/24 23:59 23:59 23:59 23:59 Intake Total 50 1060 0 Balance 50 1060 0 Meds/Results Medications: Active Medications Generic Name Dose Route Start Last Admin Trade Name Freq PRN Reason Stop Dose Admin Acetaminophen 650 mg 08/13/24 16:55 08/14/24 16:53 Acetaminophen 325 Mg Tablet PO 650 mg Q4H PRN Administration Mild Pain (1-3) or Fever Hydrocodone Bitart/Acetaminophen 1 tab 08/13/24 21:41 Hydrocodone/Acetaminophen (*Crx) 5-325 Mg Tablet PO Q6H PRN pain 7-10 Albuterol/Ipratropium 3 ml 08/13/24 21:33 08/13/24 23:13 Ipratropium 0.5 Mg/Albuterol Sulfate 2.5 Mg Ampul.Neb 3 Ml INHALATION 3 ml Q6HRT PRN Administration Shortness Of Breath Or Wheezing Amiodarone HCl 200 mg 08/14/24 09:00 08/14/24 10:53 Amiodarone Hcl 200 Mg Tablet PO Not Given DAILY POWER Apixaban 2.5 mg 08/14/24 09:00 Apixaban 2.5 Mg Tablet PO Q12HR POWER Aspirin 81 mg 08/14/24 09:00 08/14/24 10:42 Aspirin 81 Mg Enteric Tablet PO 81 mg DAILY POWER Administration Benzocaine 1 lozenge 08/13/24 21:33 08/14/24 20:45 Benzocaine/Menthol (*Bkc) 18 Ea Lozenge PO 1 lozenge PRN PRN Administration Sore Throat Benzonatate 100 mg 08/13/24
[2024-08-15 09:37] VITALS: PULSE 99
[2024-08-15] MEDS: ASPIRIN 81 MG ENTERIC TABLET PO (09:37)
[2024-08-15] MEDS: AMIODARONE HCL 200 MG TABLET PO (09:37)
[2024-08-15 09:38] VITALS: O2SAT 100
[2024-08-15] MEDS: HYDROcodone/acetaminophen (*CRX) 5-325 MG TABLET 1 TAB PO ×2 (09:38→18:00)
[2024-08-15] MEDS: PANTOPRAZOLE 40 MG TABLET PO (09:38)
[2024-08-15] MEDS: guaiFENesin 12 HR 600 MG TABCR PO (11:20)
[2024-08-15 11:33] LABS: Influenza A QL RT-PCR Negative (Negative); Influenza B QL RT-PCR Negative (Negative); SARS-CoV-2 RNA PCR Positive (Negative)
[2024-08-15 14:00] VITALS: BP 127/87; PULSE 97; RESP 18; TEMP 36.4; O2SAT 99
[2024-08-15] MEDS: AZITHROMYCIN 500 MG/NS 250 ML 500 MG/250 ML BAG 250 MG IVPB (14:25)
[2024-08-15] MEDS: MORPHINE SULFATE (*CRX) 2 MG/ML INJ IV PUSH (19:44)
[2024-08-15 20:00] VITALS: PULSE 88; RESP 16; O2SAT 98
[2024-08-15] MEDS: REMDESIVIR 100 MG/NS 250 ML 100 MG/250 ML BAG 250 MG IVPB (20:54)
[2024-08-15 21:28] VITALS: BP 128/75; PULSE 88; RESP 16; TEMP 37.2; O2SAT 98
[2024-08-16] VITALS (20 sets, daily range): BP systolic 109–142; BP diastolic 54–96; PULSE 79–112; RESP 16–18; TEMP 36.4–37; O2SAT 95–98
--- NOTE | 2024-08-16 10:33 | PM.IMPN ---
Progress Note: A&P Assessment and Plan (1) Bilateral pleural effusion: Code(s): J90 - Pleural effusion, not elsewhere classified Status: Acute Assessment and Plan: 08/16/24: continue dialysis patient asymptomatic appears euvolemic (2) COVID: Code(s): U07.1 - COVID-19 Status: Acute Assessment and Plan: -symptom onset unclear, retest for COVID 08/15/2024, if negative d/c remdesivir, patient not requiring supplemental oxygen -continue supportive treatment -add guaifenesin 600 mg q.12 hours -monitor for hypoxemia, may add dexamethasone 6 mg x 10 days or until DC 08/16/24: continue remdesivir. Continue supportive treatment. Monitor respiratory status (3) Hyperbilirubinemia: Code(s): E80.6 - Other disorders of bilirubin metabolism Status: Acute Assessment and Plan: 08/16/24: etiology unknown. Patient asymptomatic monitor (4) End-stage renal disease on hemodialysis: Code(s): N18.6 - End stage renal disease; Z99.2 - Dependence on renal dialysis Status: Chronic Assessment and Plan: -nephrology consulted appreciate plan recommendation for management of HD -dialysis MWF 08/16/24: continue hemodialysis. (5) Atrial fibrillation: Qualifiers: Atrial fibrillation type: paroxysmal Qualified Code(s): I48.0 - Paroxysmal atrial fibrillation Code(s): I48.91 - Unspecified atrial fibrillation Status: Chronic Assessment and Plan: -EKG initial atrial flutter/tachycardia with RVR incomplete RBBB, delayed pericardial RS transition, minimal Q-waves lateral leads -rate is controlled -continue amiodarone 200 mg p.o. daily -continue hold Eliquis, risk for bleeding 08/16/24: Rate remains controlled. Continue telemetry. (6) Lactic acidosis: Code(s): E87.20 - Acidosis, unspecified Status: Chronic Assessment and Plan: 08/16/24: Chronic in the setting of end-stage renal disease on hemodialysis. Patient does not meet sepsis criteria. (7) Foot pain, right: Code(s): M79.671 - Pain in right foot Status: Acute Assessment and Plan: 08/16/24: X-ray right foot is ordered. Uric acid level is within. (8) Pancytopenia: Code(s): D61.818 - Other pancytopenia Status: Chronic Assessment and Plan: -continue epoetin 08/16/24: Chronic in setting of end-stage renal disease on hemodialysis. (9) Pneumonia: Qualifiers: Laterality: left Lung location: lower lobe of lung Pneumonia type: due to unspecified organism Qualified Code(s): J18.9 - Pneumonia, unspecified organism Code(s): J18.9 - Pneumonia, unspecified organism Status: Acute Assessment and Plan: -CXR reveals opacities in the bilateral lower lung zone which could represent atelectasis or PNA or mild pulmonary edema likely superimposed over small bilateral pleural effusions -continue CAP Tx: -continue ceftriaxone daily -continue azithromycin IV daily -sputum culture pending -patient not requiring supplemental oxygen at this time -initiate oxygen therapy titration to maintain SpO2 > 93% 08/16/24: Continue antibiotics continue supportive care continue to monitor. Time Spent With Patient Time with patient: 15 - 25 minutes Subjective Date/time seen: 08/16/24 0815 Interval history: This 59-year-old male patient was examined at the bedside today in interval assessment after [facility] COVID, shortness of breath and end-stage renal disease. He is receiving remdesivir and has 1 dose left tomorrow. Patient has been stable with his respiratory status and is not requiring supplemental oxygenation at this time. Today patient complains right foot pain to this provider. He states it has been present for the past 3-4 months. He denies any acute injury and states the pain does wax and wane and he cannot identify anythi
--- NOTE | 2024-08-16 11:49 | PCDIET ---
Nutrition note: Pt screened for low BMI (16.5, weight 60 kg) without MST score, complaint of weight loss, poor appetite. Intakes 0-100% so far on renal diet. Investigation of weight history in EMR shows weight 07/23/24: 72.6 kg, which would be -26 lb weight loss <1 month. Current weight is probably an error, based on weight trend. Discussed with RN Efrain and nursing will try to get a follow- up weight today to compare. Will follow up on weights.
--- NOTE | 2024-08-16 11:57 | PC.NURSE ---
Patient off unit for dialysis.
[2024-08-16] MEDS: EPOETIN ALFA-EPBX 10,000 UNITS/ML VIAL 10000 UNITS IV PUSH (12:23)
[2024-08-16 12:31] LABS: Hematocrit 31.4 % (42.0-52.0); Hemoglobin 10.2 g/dL (14.0-18.0); Mean Corpuscular HGB Conc 32.5 g/dl (32-36); Mean Corpuscular Hemoglobin 30.1 pg (26-34); Mean Corpuscular Volume 92.6 fl (80-100); Mean Platelet Volume 12.5 fl (7.4-10.4); Platelet Count Result 101 k/mm3 (150-375); Red Blood Count 3.39 M/mm3 (4.6-6.20); White Blood Count 3.4 K/mm3 (4.5-10.0)
[2024-08-16 12:36] LABS: Albumin Level 3.2 g/dL (3.5-5.1); Anion Gap 14 mmol/L (4-12); Blood Urea Nitrogen 61 mg/dL (9-20); Calcium 8.5 mg/dL (8.4-10.2); Carbon Dioxide 27 mmol/L (22-30); Chloride 92 mmol/L (98-107); Estimated CRCL calculation 7 ml/min; Estimated Glomerular Filt Rate 7; Glucose 89 mg/dL (65-110); Phosphorus 6.8 mg/dL (2.5-4.5); Potassium 4.2 mmol/L (3.4-5.0); Sodium 133 mmol/L (137-145); Uric Acid 6.2 mg/dL (3.5-8.5)
--- NOTE | 2024-08-16 12:46 | PM.PNNEP ---
Progress Note: A&P Assessment and Plan (1) End stage renal disease: Code(s): N18.6 - End stage renal disease Status: Chronic Assessment and Plan: HD today continue Mon/Wed/Fri outpatient schedule while hospitalized follow electrolytes, volume status, and clearance (2) COVID: Code(s): U07.1 - COVID-19 Status: Acute Assessment and Plan: no evidence of hypoxia on remdesivir follow respiratory status (3) Pneumonia: Qualifiers: Laterality: left Lung location: lower lobe of lung Pneumonia type: due to unspecified organism Qualified Code(s): J18.9 - Pneumonia, unspecified organism Code(s): J18.9 - Pneumonia, unspecified organism Status: Acute Assessment and Plan: suggestive by admission CXR follow culture data on antibiotics follow respiratory status (4) Anemia: Qualifiers: Anemia type: unspecified type Qualified Code(s): D64.9 - Anemia, unspecified Code(s): D64.9 - Anemia, unspecified Status: Chronic Assessment and Plan: due to ESRD GRACIE with HD follow trend of H/H (5) Atrial fibrillation: Qualifiers: Atrial fibrillation type: paroxysmal Qualified Code(s): I48.0 - Paroxysmal atrial fibrillation Code(s): I48.91 - Unspecified atrial fibrillation Status: Chronic Assessment and Plan: continue rate control strategy anticoagulation on hold follow telemetry (6) Hypertension: Qualifiers: Hypertension type: primary hypertension Qualified Code(s): I10 - Essential (primary) hypertension Code(s): I10 - Essential (primary) hypertension Status: Chronic Assessment and Plan: stable not on any BP medications at this time follow trend of hemodynamics Will continue to follow. Subjective Date/time seen: 08/16/24 12:46 Interval history: Follow-up for end stage renal disease on hemodialysis. Chart reviewed -- assuming care from Dr. Daniel; tolerating dialysis treatment at the time of my visit (seen on HD at 12:35PM); breathing/respiratory status stable without hypoxia or need for supplemental oxygen; major complaint is that of right foot/toe pain. Exam Narrative: General: WD/WN male in NAD Heart: normal S1 and S2; no rub Lungs: coarse breth sounds noted Abdomen: soft, nontender, + bowel sounds Extremities: no cyanosis or clubbing; trace edema Skin: warm and dry Objective Data Vital Signs Vital Signs: Vital Signs Temp Pulse Resp BP Pulse Ox O2 Del Method 08/16/24 11:47 97.5 F L 82 18 132/87 08/16/24 09:37 Room Air 08/16/24 04:43 98.2 F 85 16 138/84 98 08/15/24 20:00 88 16 98 Room Air 08/15/24 21:28 99 F 88 16 128/75 98 08/15/24 14:00 97.5 F L 97 18 127/87 99 Intake/Output Intake/Output: Intake & Output 08/13/24 08/14/24 08/15/24 08/16/24 23:59 23:59 23:59 23:59 Intake Total 50 1310 780 240 Balance 50 1310 780 240 Meds/Results Medications: Active Medications Generic Name Dose Route Start Last Admin Trade Name Freq PRN Reason Stop Dose Admin Acetaminophen 650 mg 08/13/24 16:55 08/14/24 16:53 Acetaminophen 325 Mg Tablet PO 650 mg Q4H PRN Administration Mild Pain (1-3) or Fever Hydrocodone Bitart/Acetaminophen 1 tab 08/13/24 21:41 08/15/24 18:00 Hydrocodone/Acetaminophen (*Crx) 5-325 Mg Tablet PO 1 tab Q6H PRN Administration pain 7-10 Albuterol/Ipratropium 3 ml 08/13/24 21:33 08/13/24 23:13 Ipratropium 0.5 Mg/Albuterol Sulfate 2.5 Mg Ampul.Neb 3 Ml INHALATION 3 ml Q6HRT PRN Administration Shortness Of Breath Or Wheezing Amiodarone HCl 200 mg 08/14/24 09:00 08/16/24 11:50 Amiodarone Hcl 200 Mg Tablet PO Not Given DAILY POWER Apixaban 2.5 mg 08/14/24 09:00 Apixaban 2.5 Mg Tablet PO Q12HR POWER Aspirin 81 mg 08/14/24 09:00 08/15/24 09:37 Aspirin 81 Mg Ent
--- NOTE | 2024-08-16 12:46 | P.PNNP_ITS ---
Progress Note: A&P Assessment and Plan (1) End stage renal disease: Code(s): N18.6 - End stage renal disease Status: Chronic Assessment and Plan: * HD today * continue Mon/Fri/Fri outpatient schedule while hospitalized * follow electrolytes, volume status, and clearance (2) COVID: Code(s): U07.1 - COVID-19 Status: Acute Assessment and Plan: * no evidence of hypoxia * on remdesivir * follow respiratory status (3) Pneumonia: Qualifiers: Laterality: left Lung location: lower lobe of lung Pneumonia type: due to unspecified organism Qualified Code(s): J18.9 - Pneumonia, unspecified organism Code(s): J18.9 - Pneumonia, unspecified organism Status: Acute Assessment and Plan: * suggestive by admission CXR * follow culture data * on antibiotics * follow respiratory status (4) Anemia: Qualifiers: Anemia type: unspecified type Qualified Code(s): D64.9 - Anemia, unspecified Code(s): D64.9 - Anemia, unspecified Status: Chronic Assessment and Plan: * due to ESRD * GRACIE with HD * follow trend of H/H (5) Atrial fibrillation: Qualifiers: Atrial fibrillation type: paroxysmal Qualified Code(s): I48.0 - Paroxysmal atrial fibrillation Code(s): I48.91 - Unspecified atrial fibrillation Status: Chronic Assessment and Plan: * continue rate control strategy * anticoagulation on hold * follow telemetry (6) Hypertension: Qualifiers: Hypertension type: primary hypertension Qualified Code(s): I10 - Es sential (primary) hypertension Code(s): I10 - Essential (primary) hypertension Status: Chronic Assessment and Plan: * stable * not on any BP medications at this time * follow trend of hemodynamics Will continue to follow. Subjective Date/time seen: 08/16/24 12:46 Interval history: Follow-up for end stage renal disease on hemodialysis. Chart reviewed -- assuming care from Dr. Daniel; tolerating dialysis treatment at the time of my visit (seen on HD at 12:35PM); breathing/respiratory status stable without hypoxia or need for supplemental oxygen; major complaint is that of right foot/toe pain. Exam Narrative: General: WD/WN male in NAD Heart: normal S1 and S2; no rub Lungs: coarse breth sounds noted Abdomen: soft, nontender, + bowel sounds Extremities: no cyanosis or clubbing; trace edema Skin: warm and dry Objective Data Vital Signs Vital Signs: Vital Signs Temp Pulse Resp BP Pulse Ox O2 Del Method 08/16/24 11:47 97.5 F L 82 18 132/87 08/16/24 09:37 Room Air 08/16/24 04:43 98.2 F 85 16 138/84 98 08/15/24 20:00 88 16 98 Room Air 08/15/24 21:28 99 F 88 16 128/75 98 08/15/24 14:00 97.5 F L 97 18 127/87 99 Intake/Output Intake/Output: Intake & Output 08/13/24 08/14/24 08/15/24 08/16/24 23:59 23:59 23:59 23:59 Intake Total 50 1310 780 240 Balance 50 1310 780 240 Meds/Results Medications: Active Medications Generic Name Dose Route Start Last Admin Trade Name Freq PRN Reason Stop Dose Admin Acetamin
[2024-08-16] MEDS: AZITHROMYCIN 500 MG/NS 250 ML 500 MG/250 ML BAG 250 MG IVPB (17:28)
[2024-08-16] MEDS: REMDESIVIR 100 MG/NS 250 ML 100 MG/250 ML BAG 250 MG IVPB (20:55)
--- NOTE | 2024-08-17 06:44 | P.PNIM_ITS ---
Progress Note: A&P Assessment and Plan (1) Bilateral pleural effusion: Code(s): J90 - Pleural effusion, not elsewhere classified Status: Acute Assessment and Plan: 08/16/24: * continue dialysis * patient asymptomatic * appears euvolemic 08/17/24: * Dialysis yesterday, again appears euvolemic. * Respiratory status stable. * No supplemental oxygen. (2) COVID: Code(s): U07.1 - COVID-19 Status: Acute Assessment and Plan: -symptom onset unclear, retest for COVID 08/15/2024, if negative d/c remdesivir, patient not requiring supplemental oxygen -continue supportive treatment -add guaifenesin 600 mg q.12 hours -monitor for hypoxemia, may add dexamethasone 6 mg x 10 days or until DC 08/16/24: * continue remdesivir. * Continue supportive treatment. * Monitor respiratory status 08/17/24: * Remdesivir last dose tonight. * Continue supportive treatment including Guaifenesin, and add scheduled Tessalon perles and PRN Promthazine with codeine. * Continue to monitor. * No steroids started as pt does not require supplemental oxygen. (3) Hyperbilirubinemia: Code(s): E80.6 - Other disorders of bilirubin metabolism Status: Acute Assessment and Plan: 08/16/24: * etiology unknown. * Patient asymptomatic * monitor 08/17/24: * Continue to monitor * No icterus or jaundice noted. (4) End-stage renal disease on hemodialysis: Code(s): N18.6 - End stage renal disease; Z99.2 - Dependence on renal dialysis Status: Chronic Assessment and Plan: -nephrology consulted appreciate plan recommendation for management of HD -dialysis MWF 08/16/24: * continue hemodialysis. 08/17/24: * Next dialysis tomorrow. * Monitor fluid volume status. (5) Atrial fibrillation: Qualifiers: Atrial fibrillation type: paroxysmal Qualified Code(s): I48.0 - Paroxysmal atrial fibrillation Code(s): I48.91 - Unspecified atrial fibrillation Status: Chronic Assessment and Plan: -EKG initial atrial flutter/tachycardia with RVR incomplete RBBB, delayed pericardial RS transition, minimal Q-waves lateral leads -rate is controlled -continue amiodarone 200 mg p.o. daily -continue hold Eliquis, risk for bleeding 08/16/24: * Rate remains controlled. * Continue telemetry. 08/17/24: * Continue telemetry. (6) Lactic acidosis: Code(s): E87.20 - Acidosis, unspecified Status: Chronic Assessment and Plan: 08/16/24: * Chronic in the setting of end-stage renal disease on hemodialysis. * Patient does not meet sepsis criteria. 08/17/24 * Not meeting SIRS/Sepsis criteria. (7) Foot pain, right: Code(s): M79.671 - Pain in right foot Status: Acute Assessment and Plan: 08/16/24: * X-ray right foot is ordered. * Uric acid level is within. 08/17/24: * XRay foot ordered and is negative for acute bony abnormalities. * Uric acid is normal * Suspect degree of neuropathy. * Continue Gabapentin. * Increase norco to 10/325. (8) Pancytopenia: Code(s): D61.818 - Other pancytopenia Status: Chronic Assessment and Plan: -continue epoetin 08/16/24: * Chronic in setting of end-stage renal disease on hemodialysis. 08/17/24: * ESRD pt. * Continue Epoetin * Dr. Lewis was consulted and will see pt as outpt. (9) Pneumonia: Qualifiers: Laterality: left Lung location: lower l
--- NOTE | 2024-08-17 06:44 | PM.IMPN ---
Progress Note: A&P Assessment and Plan (1) Bilateral pleural effusion: Code(s): J90 - Pleural effusion, not elsewhere classified Status: Acute Assessment and Plan: 08/16/24: continue dialysis patient asymptomatic appears euvolemic 08/17/24: Dialysis yesterday, again appears euvolemic. Respiratory status stable. No supplemental oxygen. (2) COVID: Code(s): U07.1 - COVID-19 Status: Acute Assessment and Plan: -symptom onset unclear, retest for COVID 08/15/2024, if negative d/c remdesivir, patient not requiring supplemental oxygen -continue supportive treatment -add guaifenesin 600 mg q.12 hours -monitor for hypoxemia, may add dexamethasone 6 mg x 10 days or until DC 08/16/24: continue remdesivir. Continue supportive treatment. Monitor respiratory status 08/17/24: Remdesivir last dose tonight. Continue supportive treatment including Guaifenesin, and add scheduled Tessalon perles and PRN Promthazine with codeine. Continue to monitor. No steroids started as pt does not require supplemental oxygen. (3) Hyperbilirubinemia: Code(s): E80.6 - Other disorders of bilirubin metabolism Status: Acute Assessment and Plan: 08/16/24: etiology unknown. Patient asymptomatic monitor 08/17/24: Continue to monitor No icterus or jaundice noted. (4) End-stage renal disease on hemodialysis: Code(s): N18.6 - End stage renal disease; Z99.2 - Dependence on renal dialysis Status: Chronic Assessment and Plan: -nephrology consulted appreciate plan recommendation for management of HD -dialysis MWF 08/16/24: continue hemodialysis. 08/17/24: Next dialysis tomorrow. Monitor fluid volume status. (5) Atrial fibrillation: Qualifiers: Atrial fibrillation type: paroxysmal Qualified Code(s): I48.0 - Paroxysmal atrial fibrillation Code(s): I48.91 - Unspecified atrial fibrillation Status: Chronic Assessment and Plan: -EKG initial atrial flutter/tachycardia with RVR incomplete RBBB, delayed pericardial RS transition, minimal Q-waves lateral leads -rate is controlled -continue amiodarone 200 mg p.o. daily -continue hold Eliquis, risk for bleeding 08/16/24: Rate remains controlled. Continue telemetry. 08/17/24: Continue telemetry. (6) Lactic acidosis: Code(s): E87.20 - Acidosis, unspecified Status: Chronic Assessment and Plan: 08/16/24: Chronic in the setting of end-stage renal disease on hemodialysis. Patient does not meet sepsis criteria. 08/17/24 Not meeting SIRS/Sepsis criteria. (7) Foot pain, right: Code(s): M79.671 - Pain in right foot Status: Acute Assessment and Plan: 08/16/24: X-ray right foot is ordered. Uric acid level is within. 08/17/24: XRay foot ordered and is negative for acute bony abnormalities. Uric acid is normal Suspect degree of neuropathy. Continue Gabapentin. Increase norco to 10/325. (8) Pancytopenia: Code(s): D61.818 - Other pancytopenia Status: Chronic Assessment and Plan: -continue epoetin 08/16/24: Chronic in setting of end-stage renal disease on hemodialysis. 08/17/24: ESRD pt. Continue Epoetin Dr. Lewis was consulted and will see pt as outpt. (9) Pneumonia: Qualifiers: Laterality: left Lung location: lower lobe of lung Pneumonia type: due to unspecified organism Qualified Code(s): J18.9 - Pneumonia, unspecified organism Code(s): J18.9 - Pneumonia, unspecified organism Status: Acute Assessment and Plan: -CXR reveals opacities in the bilateral lower lung zone which could represent atelectasis or PNA or mild pulmonary edema likely superimposed over small bilateral pleural effusions -continue CAP Tx: -continue ceftriaxone daily -continue azithromycin IV daily -sputum culture pending -patient not requiring supplemental oxygen at this maria dolores
[2024-08-17 09:23] VITALS: PULSE 89
[2024-08-17] MEDS: AMIODARONE HCL 200 MG TABLET PO (09:23)
[2024-08-17] MEDS: ASPIRIN 81 MG ENTERIC TABLET PO (09:24)
--- NOTE | 2024-08-17 10:12 | P.PNNP_ITS ---
Progress Note: A&P Assessment and Plan (1) End stage renal disease: Code(s): N18.6 - End stage renal disease Status: Chronic Assessment and Plan: * HD tomorrow * continue Mon/Fri/Fri outpatient schedule while hospitalized * follow electrolytes, volume status, and clearance (2) COVID: Code(s): U07.1 - COVID-19 Status: Acute Assessment and Plan: * no evidence of hypoxia * on remdesivir - completed therapy * no evidence of hypoxia * follow respiratory status (3) Pneumonia: Qualifiers: Laterality: left Lung location: lower lobe of lung Pneumonia type: due to unspecified organism Qualified Code(s): J18.9 - Pneumonia, unspecified organism Code(s): J18.9 - Pneumonia, unspecified organism Status: Acute Assessment and Plan: * suggestive by admission CXR * follow culture data * on antibiotics * follow respiratory status (4) Anemia: Qualifiers: Anemia type: unspecified type Qualified Code(s): D64.9 - Anemia, unspecified Code(s): D64.9 - Anemia, unspecified Status: Chronic Assessment and Plan: * due to ESRD * GRACIE with HD * follow trend of H/H (5) Atrial fibrillation: Qualifiers: Atrial fibrillation type: paroxysmal Qualified Code(s): I48.0 - Paroxysmal atrial fibrillation Code(s): I48.91 - Unspecified atrial fibrillation Status: Chronic Assessment and Plan: * continue rate control strategy * anticoagulation on hold - resume soon(?) * follow telemetry (6) Hypertension: Qualifiers: Hypertension type: primary hypertension Qualified Code(s): I10 - Essential (primary) hypertension Code(s): I10 - Essential (primary) hypertension Status: Chronic Assessment and Plan: * stable * not on any BP medications at this time * follow trend of hemodynamics Will continue to follow. Subjective Date/time seen: 08/17/24 10:12 Interval history: Follow-up for end stage renal disease on hemodialysis. Tolerated dialysis yesterday without any issues or problems; breathing/respiratory status remains stable without the need for supplemental oxygen but reports an ongoing dry cough; still with on/off pain with limited response with oral medications; no issues/events overnight or earlier this morning. Exam Narrative: General: WD/WN male in NAD Heart: normal S1 and S2; no rub Lungs: coarse breath sounds noted Abdomen: soft, nontender, + bowel sounds Extremities: no cyanosis or clubbing; trace edema Skin: warm and intact Objective Data Vital Signs Vital Signs: Vital Signs Temp Pulse Resp BP Pulse Ox O2 Del Method 08/17/24 09:38 Room Air 08/17/24 09:23 89 08/16/24 20:00 100 18 95 Room Air 08/16/24 20:29 97.5 F L 100 18 109/96 H 95 Intake/Output Intake/Output: Intake & Output 08/14/24 08/15/24 08/16/24 08/17/24 23:59 23:59 23:59 23:59 Intake Total 1310 0212 468 4735 Output Total 1999 Balance 1310 1030 -1590 1100 Meds/Results Medications: Active Medications Generic Name Dose Route Start Last Admin Trade Name Freq PRN Reason Stop Do
--- NOTE | 2024-08-17 10:12 | PM.PNNEP ---
Progress Note: A&P Assessment and Plan (1) End stage renal disease: Code(s): N18.6 - End stage renal disease Status: Chronic Assessment and Plan: HD tomorrow continue Mon/Fri/Fri outpatient schedule while hospitalized follow electrolytes, volume status, and clearance (2) COVID: Code(s): U07.1 - COVID-19 Status: Acute Assessment and Plan: no evidence of hypoxia on remdesivir - completed therapy no evidence of hypoxia follow respiratory status (3) Pneumonia: Qualifiers: Laterality: left Lung location: lower lobe of lung Pneumonia type: due to unspecified organism Qualified Code(s): J18.9 - Pneumonia, unspecified organism Code(s): J18.9 - Pneumonia, unspecified organism Status: Acute Assessment and Plan: suggestive by admission CXR follow culture data on antibiotics follow respiratory status (4) Anemia: Qualifiers: Anemia type: unspecified type Qualified Code(s): D64.9 - Anemia, unspecified Code(s): D64.9 - Anemia, unspecified Status: Chronic Assessment and Plan: due to ESRD GRACIE with HD follow trend of H/H (5) Atrial fibrillation: Qualifiers: Atrial fibrillation type: paroxysmal Qualified Code(s): I48.0 - Paroxysmal atrial fibrillation Code(s): I48.91 - Unspecified atrial fibrillation Status: Chronic Assessment and Plan: continue rate control strategy anticoagulation on hold - resume soon(?) follow telemetry (6) Hypertension: Qualifiers: Hypertension type: primary hypertension Qualified Code(s): I10 - Essential (primary) hypertension Code(s): I10 - Essential (primary) hypertension Status: Chronic Assessment and Plan: stable not on any BP medications at this time follow trend of hemodynamics Will continue to follow. Subjective Date/time seen: 08/17/24 10:12 Interval history: Follow-up for end stage renal disease on hemodialysis. Tolerated dialysis yesterday without any issues or problems; breathing/respiratory status remains stable without the need for supplemental oxygen but reports an ongoing dry cough; still with on/off pain with limited response with oral medications; no issues/events overnight or earlier this morning. Exam Narrative: General: WD/WN male in NAD Heart: normal S1 and S2; no rub Lungs: coarse breath sounds noted Abdomen: soft, nontender, + bowel sounds Extremities: no cyanosis or clubbing; trace edema Skin: warm and intact Objective Data Vital Signs Vital Signs: Vital Signs Temp Pulse Resp BP Pulse Ox O2 Del Method 08/17/24 09:38 Room Air 08/17/24 09:23 89 08/16/24 20:00 100 18 95 Room Air 08/16/24 20:29 97.5 F L 100 18 109/96 H 95 Intake/Output Intake/Output: Intake & Output 08/14/24 08/15/24 08/16/24 08/17/24 23:59 23:59 23:59 23:59 Intake Total 1310 0552 445 8479 Output Total 2000 Balance 1310 1030 -1590 1100 Meds/Results Medications: Active Medications Generic Name Dose Route Start Last Admin Trade Name Freq PRN Reason Stop Dose Admin Acetaminophen 650 mg 08/13/24 16:55 08/14/24 16:53 Acetaminophen 325 Mg Tablet PO 650 mg Q4H PRN Administration Mild Pain (1-3) or Fever Hydrocodone Bitart/Acetaminophen 1 tab 08/17/24 08:29 08/17/24 12:01 Hydrocodone/Acetaminophen (*Crx) 10-325 Mg Tablet PO 1 tab Q6H PRN Administration Pain Rated 7-10 Albuterol/Ipratropium 3 ml 08/13/24 21:33 08/13/24 23:13 Ipratropium 0.5 Mg/Albuterol Sulfate 2.5 Mg Ampul.Neb 3 Ml INHALATION 3 ml Q6HRT PRN Administration Shortness Of Breath Or Wheezing Amiodarone HCl 200 mg 08/14/24 09:00 08/17/24 09:23 Amiodarone Hcl 200 Mg Tablet PO 200 mg DAILY POWER Administration Amoxicillin/Clavulanate Potassium 1 tablet 08/17/24 18:00 08/17/24 18:22 Amoxicillin/Clavulan
[2024-08-17] MEDS: HYDROcodone/acetaminophen (*CRX) 10-325 MG TABLET 1 TAB PO (12:01)
[2024-08-17 12:09] VITALS: BMI 20.4
[2024-08-17 14:00] VITALS: BP 140/93; PULSE 97; RESP 16; TEMP 36.3; O2SAT 100
[2024-08-17] MEDS: AZITHROMYCIN 500 MG/NS 250 ML 500 MG/250 ML BAG 250 MG IVPB (14:20)
--- NOTE | 2024-08-17 17:59 | PDONCCN ---
HPI - Date of Consult Date/Time: 08/17/24 17:59 Requesting Physician: LISA Glover Primary Care Provider: Ike Hand, DO - Consult Narrative Reason for consult: Pancytopenia Narrative: Tejas Yost is a 59 year old male with history of end-stage renal disease on hemodialysis along with history of atrial fibrillation, anemia of chronic kidney disease, coronary artery disease and diastolic dysfunction came into the hospital with a complaint of shortness of breath cough and found to have COVID positive disease. Labs showed WBC count of 2.4 with hemoglobin [place] 10[place] [address]. Patient is a poor historian and does not know anything about liver disease. He denies any previous history of malignancy. He has been complaining of tiredness and fatigue but denies any bleeding. No other new complaints. Review of Systems - Review of Systems All systems reviewed & are unremarkable except as noted in HPI and bel - Neurologic Reports system reviewed and no additional complaints, except as documented [facility] Medical History: Medical History (Last Reviewed 08/14/24 @ 13:25 by Rl Daniel MD) Abnormal magnetic resonance imaging of liver MRI taken 10/20/2023 at [facility] showed advanced diffuse iron accumulation within the liver; patient refused liver biopsy. Acute pulmonary edema Anemia Anemia in chronic kidney disease, on chronic dialysis Aortic valve regurgitation Atrial fibrillation Chronic pain Coronary artery disease Diastolic dysfunction Emphysema lung End-stage renal disease on hemodialysis Gastroesophageal reflux disease History of myocardial infarction History of positive PPD Hypertension Idiopathic aseptic necrosis of unspecified bone Lactic acidosis Latent tuberculosis by blood test Myocardial infarction Onset Date: 2008 Osteonecrosis Pericardial effusion Status post drain in August 2023. Polycystic kidney disease Tricuspid valve regurgitation Surgical History: Surgical History (Last Reviewed 08/14/24 @ 13:25 by Rl Daniel MD) History of abdominal surgery secondary to infection r/t peritoneal dialysis, stomach flipped , unknown year - believes it was before 2003 History of cardiac catheterization History of coronary artery bypass graft x 1 Saphenous vein to diagonal branch of LAD. History of coronary artery stent placement Onset Date: 2008 Left circumflex, done at [place]. History of heart valve replacement Status post MitraClip, tricuspid valve ring annuloplasty, and bioprosthetic aortic valve replacement in 2022 at [place]. History of removal of cyst Left wrist. History of tracheostomy Status post creation of arteriovenous fistula Family History: Family History (Last Reviewed 08/14/24 @ 13:25 by Rl Daniel MD) Mother Hypertension Other Unknown family medical history - Social History Social History: Social History (Last Reviewed 08/14/24 @ 13:25 by Rl Daniel MD) Alcohol Use: Alcohol intake: never Substance Use: Substance use: never Substance use type: does not use Others: Spiritual care concerns: No Living Arrangements: Living arrangements: senior living Smoking Status: Smoking status: Former smoker Smoking Pack-years: Smoking packs per day: 0.5 Smoking cigarettes per day: 10.0 Years smoked: 20 Smoking pack-years: 10.00 Social Determinants of Health: Do You Feel Safe in your Home?: Yes Has the Lack of Transportation Kept You From Medical Appointments or From Getting Medications?: No Within the Past 12 Months, Were You Worried Whether Your Food Would Run Out Before You Got Money to Buy More?: Never True What is Your Housing Situation Today?: I Have Housing Are You Worried That in the Next 2 Months, You May Not Have Your Own Housing to Live In?: No Do You Have Trouble Paying Your Heating Or Electricity Bill?: No Do You H
--- NOTE | 2024-08-17 19:30 | PC.NURSE ---
Upon entering room pt was agitated. Very little responses given from patient. Refuses HS medication. When listening to pt lungs he stated If you dont hurry up and get the fuck out of my room.. . Instructed pt to call if he needed anything and left alone at this time.
[2024-08-17 20:42] VITALS: BP 147/77; PULSE 54; RESP 16; O2SAT 99
[2024-08-18] VITALS (16 sets, daily range): BP systolic 139–174; BP diastolic 80–115; PULSE 76–118; RESP 16–18; TEMP 36.3–37; O2SAT 98
--- NOTE | 2024-08-18 07:56 | P.DS_ITS ---
DS: Admitting Diagnosis Discharge Date 08/18/24 Admitting Diagnosis COVID PNA ESRD on HD Atrial Fibrillation Anemia HTN DS: Discharge Diagnosis Discharge Diagnosis (1) Bilateral pleural effusion: Code(s): J90 - Pleural effusion, not elsewhere classified Status: Acute Assessment and Plan: 08/16/24: * continue dialysis * patient asymptomatic * appears euvolemic 08/17/24: * Dialysis yesterday, again appears euvolemic. * Respiratory status stable. * No supplemental oxygen. 08/18/24: * Discharge after dialysis today. * Respiratory status is stable without need for supplemental oxygen. (2) COVID: Code(s): U07.1 - COVID-19 Status: Acute Assessment and Plan: -symptom onset unclear, retest for COVID 08/15/2024, if negative d/c remdesivir, patient not requiring supplemental oxygen -continue supportive treatment -add guaifenesin 600 mg q.12 hours -monitor for hypoxemia, may add dexamethasone 6 mg x 10 days or until DC 08/16/24: * continue remdesivir. * Continue supportive treatment. * Monitor respiratory status 08/17/24: * Remdesivir last dose tonight. * Continue supportive treatment including Guaifenesin, and add scheduled Tessalon perles and PRN Promthazine with codeine. * Continue to monitor. * No steroids started as pt does not require supplemental oxygen. 08/18/24: * Pt has completed Remdesivir. * It has been over a week since he has tested positive initially. (3) Hyperbilirubinemia: Code(s): E80.6 - Other disorders of bilirubin metabolism Status: Acute Assessment and Plan: 08/16/24: * etiology unknown. * Patient asymptomatic * monitor 08/17/24: * Continue to monitor * No icterus or jaundice noted. 08/18/24: * Monitor with subsequent labs. (4) End-stage renal disease on hemodialysis: Code(s): N18.6 - End stage renal disease; Z99.2 - Dependence on renal dialysis Status: Chronic Assessment and Plan: -nephrology consulted appreciate plan recommendation for management of HD -dialysis MWF 08/16/24: * continue hemodialysis. 08/17/24: * Next dialysis tomorrow. * Monitor fluid volume status. 08/18/24: * Dialysis today then discharge and resume normal dialysis schedule. (5) Atrial fibrillation: Qualifiers: Atrial fibrillation type: paroxysmal Qualified Code(s): I48.0 - Paroxysmal atrial fibrillation Code(s): I48.91 - Unspecified atrial fibrillation Status: Chronic Assessment and Plan: -EKG initial atrial flutter/tachycardia with RVR incomplete RBBB, delayed pericardial RS transition, minimal Q-waves lateral leads -rate is controlled -continue amiodarone 200 mg p.o. daily -continue hold Eliquis, risk for bleeding 08/16/24: * Rate remains controlled. * Continue telemetry. 08/17/24: * Continue telemetry. 08/18/24: * Continue amiodarone, continue eliquis at this time has his platelet function is better at 101. (6) Lactic acidosis: Code(s): E87.20 - Acidosis, unspecified Status: Chronic Assessment and Plan: 08/16/24: * Chronic in the setting of end-stage renal disease on hemodialysis. * Patient does not meet sepsis criteria. 08/17/24 * Not meeting SIRS/Sepsis criteria. 08/18/24: * Stable VS, suspect due to ESRD (7) Foot pain, right: Code(s): M79.671 - Pain in right foot Status: Acute Assessment
--- NOTE | 2024-08-18 07:56 | PM.DS ---
DS: Admitting Diagnosis Discharge Date 08/18/24 Admitting Diagnosis COVID PNA ESRD on HD Atrial Fibrillation Anemia HTN DS: Discharge Diagnosis Discharge Diagnosis (1) Bilateral pleural effusion: Code(s): J90 - Pleural effusion, not elsewhere classified Status: Acute Assessment and Plan: 08/16/24: continue dialysis patient asymptomatic appears euvolemic 08/17/24: Dialysis yesterday, again appears euvolemic. Respiratory status stable. No supplemental oxygen. 08/18/24: Discharge after dialysis today. Respiratory status is stable without need for supplemental oxygen. (2) COVID: Code(s): U07.1 - COVID-19 Status: Acute Assessment and Plan: -symptom onset unclear, retest for COVID 08/15/2024, if negative d/c remdesivir, patient not requiring supplemental oxygen -continue supportive treatment -add guaifenesin 600 mg q.12 hours -monitor for hypoxemia, may add dexamethasone 6 mg x 10 days or until DC 08/16/24: continue remdesivir. Continue supportive treatment. Monitor respiratory status 08/17/24: Remdesivir last dose tonight. Continue supportive treatment including Guaifenesin, and add scheduled Tessalon perles and PRN Promthazine with codeine. Continue to monitor. No steroids started as pt does not require supplemental oxygen. 08/18/24: Pt has completed Remdesivir. It has been over a week since he has tested positive initially. (3) Hyperbilirubinemia: Code(s): E80.6 - Other disorders of bilirubin metabolism Status: Acute Assessment and Plan: 08/16/24: etiology unknown. Patient asymptomatic monitor 08/17/24: Continue to monitor No icterus or jaundice noted. 08/18/24: Monitor with subsequent labs. (4) End-stage renal disease on hemodialysis: Code(s): N18.6 - End stage renal disease; Z99.2 - Dependence on renal dialysis Status: Chronic Assessment and Plan: -nephrology consulted appreciate plan recommendation for management of HD -dialysis MWF 08/16/24: continue hemodialysis. 08/17/24: Next dialysis tomorrow. Monitor fluid volume status. 08/18/24: Dialysis today then discharge and resume normal dialysis schedule. (5) Atrial fibrillation: Qualifiers: Atrial fibrillation type: paroxysmal Qualified Code(s): I48.0 - Paroxysmal atrial fibrillation Code(s): I48.91 - Unspecified atrial fibrillation Status: Chronic Assessment and Plan: -EKG initial atrial flutter/tachycardia with RVR incomplete RBBB, delayed pericardial RS transition, minimal Q-waves lateral leads -rate is controlled -continue amiodarone 200 mg p.o. daily -continue hold Eliquis, risk for bleeding 08/16/24: Rate remains controlled. Continue telemetry. 08/17/24: Continue telemetry. 08/18/24: Continue amiodarone, continue eliquis at this time has his platelet function is better at 101. (6) Lactic acidosis: Code(s): E87.20 - Acidosis, unspecified Status: Chronic Assessment and Plan: 08/16/24: Chronic in the setting of end-stage renal disease on hemodialysis. Patient does not meet sepsis criteria. 08/17/24 Not meeting SIRS/Sepsis criteria. 08/18/24: Stable VS, suspect due to ESRD (7) Foot pain, right: Code(s): M79.671 - Pain in right foot Status: Acute Assessment and Plan: 08/16/24: X-ray right foot is ordered. Uric acid level is within. 08/17/24: XRay foot ordered and is negative for acute bony abnormalities. Uric acid is normal Suspect degree of neuropathy. Continue Gabapentin. Increase norco to 10/325. 08/18/24: To be discharged today to continue his home dose of pain meds of [place] and Gabapentin. (8) Pancytopenia: Code(s): D61.818 - Other pancytopenia Status: Chronic Assessment and Plan: -continue epoetin 08/16/24: Chronic in setting of end-stage renal disease on hemodialysis. 9
--- NOTE | 2024-08-18 09:15 | P.PNNP_ITS ---
Progress Note: A&P Assessment and Plan (1) End stage renal disease: Code(s): N18.6 - End stage renal disease Status: Chronic Assessment and Plan: * HD today * continue Mon/Fri/Fri outpatient schedule while hospitalized * follow electrolytes, volume status, and clearance (2) COVID: Code(s): U07.1 - COVID-19 Status: Acute Assessment and Plan: * no evidence of hypoxia * on remdesivir - completed therapy * no evidence of hypoxia * follow respiratory status (3) Pneumonia: Qualifiers: Laterality: left Lung location: lower lobe of lung Pneumonia type: due to unspecified organism Qualified Code(s): J18.9 - Pneumonia, unspecified organism Code(s): J18.9 - Pneumonia, unspecified organism Status: Acute Assessment and Plan: * suggestive by admission CXR * follow culture data * on antibiotics * follow respiratory status (4) Anemia: Qualifiers: Anemia type: unspecified type Qualified Code(s): D64.9 - Anemia, unspecified Code(s): D64.9 - Anemia, unspecified Status: Chronic Assessment and Plan: * due to ESRD * GRACIE with HD * follow trend of H/H (5) Atrial fibrillation: Qualifiers: Atrial fibrillation type: paroxysmal Qualified Code(s): I48.0 - Paroxysmal atrial fibrillation Code(s): I48.91 - Unspecified atrial fibrillation Status: Chronic Assessment and Plan: * continue rate control strategy * anticoagulation on hold - resume soon(?) * follow telemetry (6) Hypertension: Qualifiers: Hypertension type: primary hypertension Qualified Code(s): I10 - Essential (primary) hypertension Code(s): I10 - Essential (primary) hypertension Status: Chronic Assessment and Plan: * fluctuating * higher than baseline due to pain? * not on any BP medications at this time * follow trend of hemodynamics Will continue to follow. Subjective Date/time seen: 08/18/24 09:15 Interval history: Follow-up for end stage renal disease on hemodialysis. Tolerating dialysis treatment at the time of my visit (seen on HD at 9:05AM); resting comfortably and in no apparent distress when seen; no reported issues overnight or earlier this morning. Exam Narrative: General: WD/WN male in NAD Heart: normal S1 and S2; no rub Lungs: coarse breath sounds noted Abdomen: soft, nontender, + bowel sounds Extremities: no cyanosis or clubbing; trace edema Skin: no rash Objective Data Vital Signs Vital Signs: Vital Signs Temp Pulse Resp BP Pulse Ox FiO2 08/18/24 09:15 93 174/97 H 08/18/24 09:00 87 156/95 H 08/18/24 08:45 81 162/96 H 08/18/24 08:32 96 146/97 H 08/18/24 08:20 97.3 F L 76 18 168/103 H 98 08/18/24 08:20 98 08/18/24 06:00 81 18 161/81 H 98 08/17/24 20:42 54 L 16 147/77 H 99 08/17/24 14:00 97.3 F L 97 16 140/93 H 100 Intake/Output Intake/Output: Intake & Output 08/15/24 08/16/24 08/17/24 08/18/24 23:59 23:59 23:59 23:59 Intake Total 2464 003 0695 240 Output Total 1999 Balance 1030 -1590 1350 240 Meds/Results Medications:
--- NOTE | 2024-08-18 09:15 | PM.PNNEP ---
Progress Note: A&P Assessment and Plan (1) End stage renal disease: Code(s): N18.6 - End stage renal disease Status: Chronic Assessment and Plan: HD today continue Mon/Fri/Fri outpatient schedule while hospitalized follow electrolytes, volume status, and clearance (2) COVID: Code(s): U07.1 - COVID-19 Status: Acute Assessment and Plan: no evidence of hypoxia on remdesivir - completed therapy no evidence of hypoxia follow respiratory status (3) Pneumonia: Qualifiers: Laterality: left Lung location: lower lobe of lung Pneumonia type: due to unspecified organism Qualified Code(s): J18.9 - Pneumonia, unspecified organism Code(s): J18.9 - Pneumonia, unspecified organism Status: Acute Assessment and Plan: suggestive by admission CXR follow culture data on antibiotics follow respiratory status (4) Anemia: Qualifiers: Anemia type: unspecified type Qualified Code(s): D64.9 - Anemia, unspecified Code(s): D64.9 - Anemia, unspecified Status: Chronic Assessment and Plan: due to ESRD GRACIE with HD follow trend of H/H (5) Atrial fibrillation: Qualifiers: Atrial fibrillation type: paroxysmal Qualified Code(s): I48.0 - Paroxysmal atrial fibrillation Code(s): I48.91 - Unspecified atrial fibrillation Status: Chronic Assessment and Plan: continue rate control strategy anticoagulation on hold - resume soon(?) follow telemetry (6) Hypertension: Qualifiers: Hypertension type: primary hypertension Qualified Code(s): I10 - Essential (primary) hypertension Code(s): I10 - Essential (primary) hypertension Status: Chronic Assessment and Plan: fluctuating higher than baseline due to pain? not on any BP medications at this time follow trend of hemodynamics Will continue to follow. Subjective Date/time seen: 08/18/24 09:15 Interval history: Follow-up for end stage renal disease on hemodialysis. Tolerating dialysis treatment at the time of my visit (seen on HD at 9:05AM); resting comfortably and in no apparent distress when seen; no reported issues overnight or earlier this morning. Exam Narrative: General: WD/WN male in NAD Heart: normal S1 and S2; no rub Lungs: coarse breath sounds noted Abdomen: soft, nontender, + bowel sounds Extremities: no cyanosis or clubbing; trace edema Skin: no rash Objective Data Vital Signs Vital Signs: Vital Signs Temp Pulse Resp BP Pulse Ox FiO2 08/18/24 09:15 93 174/97 H 08/18/24 09:00 87 156/95 H 08/18/24 08:45 81 162/96 H 08/18/24 08:32 96 146/97 H 08/18/24 08:20 97.3 F L 76 18 168/103 H 98 08/18/24 08:20 98 08/18/24 06:00 81 18 161/81 H 98 08/17/24 20:42 54 L 16 147/77 H 99 08/17/24 14:00 97.3 F L 97 16 140/93 H 100 Intake/Output Intake/Output: Intake & Output 08/15/24 08/16/24 08/17/24 08/18/24 23:59 23:59 23:59 23:59 Intake Total 6937 019 4359 240 Output Total 2000 Balance 1030 -1590 1350 240 Meds/Results Medications: Active Medications Generic Name Dose Route Start Last Admin Trade Name Bob PRN Reason Stop Dose Admin Acetaminophen 650 mg 08/13/24 16:55 08/14/24 16:53 Acetaminophen 325 Mg Tablet PO 650 mg Q4H PRN Administration Mild Pain (1-3) or Fever Hydrocodone Bitart/Acetaminophen 1 tab 08/17/24 08:29 08/17/24 12:01 Hydrocodone/Acetaminophen (*Crx) 10-325 Mg Tablet PO 1 tab Q6H PRN Administration Pain Rated 7-10 Albuterol/Ipratropium 3 ml 08/13/24 21:33 08/13/24 23:13 Ipratropium 0.5 Mg/Albuterol Sulfate 2.5 Mg Ampul.Neb 3 Ml INHALATION 3 ml Q6HRT PRN Administration Shortness Of Breath Or Wheezing Amiodarone HCl 200 mg 08/14/24 09:00 08/17/24 09:23 Amiodarone Hcl 200 Mg Tablet PO 200 mg DAILY POWER Admini
[2024-08-18 09:28] LABS: Alanine Aminotransferase 13 U/L (6-50); Albumin Level 3.6 g/dL (3.5-5.1); Alkaline Phosphatase 85 U/L (38-126); Anion Gap 13 mmol/L (4-12); Aspartate Amino Transferase 28 U/L (17-59); Blood Urea Nitrogen 39 mg/dL (9-20); Calcium 9.1 mg/dL (8.4-10.2); Carbon Dioxide 25 mmol/L (22-30); Chloride 93 mmol/L (98-107); Estimated CRCL calculation 11 ml/min; Estimated Glomerular Filt Rate 9; Glucose 119 mg/dL (65-110); Phosphorus 5.4 mg/dL (2.5-4.5); Potassium 4.4 mmol/L (3.4-5.0); Sodium 131 mmol/L (137-145)
[2024-08-18 09:32] LABS: Iron 84 ug/dL (49-181)
[2024-08-18 09:42] LABS: Percent Iron Saturation 49 % (20-50)
[2024-08-18] MEDS: EPOETIN ALFA-EPBX 4,000 UNITS/ML VIAL 4000 UNITS IV PUSH (09:48)
--- NOTE | 2024-08-18 10:09 | PC.NURSE ---
Patient refusing medication this am, but on the way to dialysis. Patient refusing to speak with me this AM
[2024-08-18 10:34] LABS: Folic Acid 7.4 ng/mL (2.76->20); Vitamin B12 > 1000.0 pg/mL (239-931)
== END 2024-08-18 12:35 | DRG 177 ==
LOC: ANHED 13:11 → ANH2MED 17:53
PROVIDERS: Internal Medicine Hematology & Oncology; Internal Medicine Nephrology; Nurse Practitioner; Student in an Organized Health Care Education/Training Program; Admitting Provider Internal Medicine; Emergency Provider Student in an Organized Health Care Education/Training Program; PCP Internal Medicine; Visit Provider Nurse Practitioner Adult Health
DX: U07.1 COVID-19 (principal); J18.9 Pneumonia, unspecified organism; N18.6 End stage renal disease; I48.20 Chronic atrial fibrillation, unspecified; I12.0 Hypertensive chronic kidney disease with stage 5 chronic kidney disease or end stage renal disease; Q61.3 Polycystic kidney, unspecified; J90 Pleural effusion, not elsewhere classified; J44.0 Chronic obstructive pulmonary disease with (acute) lower respiratory infection; D61.818 Other pancytopenia; E87.20 Acidosis, unspecified; I25.10 Atherosclerotic heart disease of native coronary artery without angina pectoris; D63.1 Anemia in chronic kidney disease; E80.6 Other disorders of bilirubin metabolism; M79.671 Pain in right foot; K21.9 Gastro-esophageal reflux disease without esophagitis; N25.0 Renal osteodystrophy; G89.29 Other chronic pain; Z99.2 Dependence on renal dialysis; I25.2 Old myocardial infarction; Z79.01 Long term (current) use of anticoagulants; Z22.7 Latent tuberculosis; Z95.1 Presence of aortocoronary bypass graft; Z95.5 Presence of coronary angioplasty implant and graft; Z95.4 Presence of other heart-valve replacement; Z87.891 Personal history of nicotine dependence
CPT/HCPCS: 36415; 71046; 73630; 80053; 80069; 80076; 82607; 82728; 82746; 83540; 83550; 83735; 83880; 84550; 85025; 85027; 85055; 87636; 87641; 93005; 94640; 96365; 96375; 99285; A9270; G0257; G0378; J0248; J0456; J0696; J2270; J2405; J7030; J7512; Q5105

== ENCOUNTER 2024-08-29 13:38 | Emergency (ER) | payer MEDICARE, MEDICAID, SELFPAY ==
--- NOTE | ~2024-08-29 | XR_ITS ---
XR chest 1V portable Ordering provider: Kaden Coffey MD History: 59 years Male with . cough . Comparison: August 13, 2024 FINDINGS: MEDIASTINUM: The cardiac silhouette is moderately enlarged. Postoperative changes in the mediastinum. Congestive dorita. LUNGS: No effusions or pneumothorax. Bilateral basal opacification suggestive of atelectasis versus p neumonia. Interstitial changes are seen bilaterally. OTHER: No free air under the diaphragm. IMPRESSION: Cardiomegaly with congestive dorita and interstitial changes suggestive of pulmonary edema. Pneumonitis is possible. Bilateral basal pneumonia. Reviewed, dictated and finalized at location A. IMPRESSION: Cardiomegaly with congestive dorita and interstitial changes suggestive of pulmon parmjit edema. Pneumonitis is possible. Bilateral basal pneumonia.
[2024-08-29 13:38] VITALS: BP 132/74; PULSE 78; RESP 20; TEMP 36.7; O2SAT 99
--- NOTE | 2024-08-29 14:22 | ED.GENADULT ---
HPI - General Adult General Chief complaint: Unspecified Stated complaint: dyspnea Time Seen by Provider: 08/29/24 13:48 History of Present Illness HPI narrative: 59-year-old male presenting to the emergency department for evaluation. Patient states he was having some stomach irritation. half-way states that patient was post be medications for pneumonia but has not been taking his antibiotic. Patient was not told why he was supposed to take the antibiotic. Related Data Home Medications Medication Instructions Recorded Confirmed cholecalciferol (vitamin D3) 1,250 1,250 mcg PO WEEKLY 11/18/23 08/13/24 mcg (50,000 unit) tablet calcium acetate(phosphat bind) 667 667 mg PO TID 03/21/24 08/13/24 mg capsule apixaban 5 mg tablet (Eliquis) 2.5 mg PO BID 07/23/24 08/13/24 gabapentin 100 mg capsule 100 mg PO QMWF 07/23/24 08/13/24 amiodarone 200 mg tablet 200 mg PO DAILY 08/01/24 08/13/24 omeprazole 40 mg capsule,delayed 40 mg PO DAILY 08/01/24 08/13/24 release ondansetron HCl 4 mg tablet 4 mg PO QID PRN Nausea And Vomiting 08/01/24 08/13/24 aspirin 81 mg tablet,delayed 81 mg PO BID 08/14/24 08/14/24 release rosuvastatin 5 mg tablet 5 mg PO HS 08/14/24 08/14/24 Allergies Allergy/AdvReac Type Severity Reaction Status Date / Time adhesive Allergy Mild BLISTERS Verified 08/13/24 14:51 clonidine AdvReac Unknown Vomiting Verified 08/13/24 14:51 hydralazine AdvReac Unknown Vomiting Verified 08/13/24 14:51 Review of Systems Review of Systems: All systems reviewed & are unremarkable except as noted in HPI and below [facility] Past Medical History Medical History Abnormal magnetic resonance imaging of liver MRI taken 10/20/2023 at [facility] showed advanced diffuse iron accumulation within the liver; patient refused liver biopsy. Acute pulmonary edema Anemia Anemia in chronic kidney disease, on chronic dialysis Aortic valve regurgitation Atrial fibrillation Chronic pain Coronary artery disease Diastolic dysfunction Emphysema lung End-stage renal disease on hemodialysis Gastroesophageal reflux disease History of myocardial infarction History of positive PPD Hypertension Idiopathic aseptic necrosis of unspecified bone Lactic acidosis Latent tuberculosis by blood test Myocardial infarction (2008) Osteonecrosis Pericardial effusion Status post drain in August 2023. Polycystic kidney disease Tricuspid valve regurgitation Surgical History Surgical History History of abdominal surgery secondary to infection r/t peritoneal dialysis, stomach flipped , unknown year - believes it was before 2003 History of cardiac catheterization History of coronary artery bypass graft x 1 Saphenous vein to diagonal branch of LAD. History of coronary artery stent placement (2008) Left circumflex, done at [place]. History of heart valve replacement Status post MitraClip, tricuspid valve ring annuloplasty, and bioprosthetic aortic valve replacement in 2022 at [place]. History of removal of cyst Left wrist. History of tracheostomy Status post creation of arteriovenous fistula Family History Family History Mother Hypertension Other Unknown family medical history Social History Social History Social History: Surrogate medical decision maker: Gwen Sagastume, aunt. Code status: Full code. Smoking packs per day: 0.5 Smoking cigarettes per day: 10.0 Years smoked: 20 Smoking pack-years: 10.00 Smoking status: Former smoker Alcohol intake: never Substance use: never Substance use type: does not use Do You Feel Safe in your Home?: Yes Lack of Transportation: No Lack of Food: Never True Current Housing: I Have Housing Concerned About Future Housing: No Difficulty Paying Gas/[employer]
[2024-08-29 15:01] VITALS: BP 125/83; PULSE 68; RESP 16; O2SAT 98
[2024-08-29 15:23] LABS: Influenza A QL RT-PCR Negative (Negative); Influenza B QL RT-PCR Negative (Negative); RSV RNA, RT-PCR Negative (Negative); SARS-CoV-2 RNA PCR Positive (Negative)
[2024-08-29] MEDS: BELLADONNA ALK/PHENOB ELIX 10 ML, MAG HYDROX/ALUMINUM HYD/SIMETH 30 ML, LIDOCAINE HCL 2... PO (15:36)
[2024-08-29] MEDS: PANTOPRAZOLE 40 MG TABLET PO (15:36)
[2024-08-29 16:14] LABS: Basophils Percent Auto 1.1 % (0.2-1.2); Eosinophils Absolute Auto 0.1 K/mm3 (0-0.3); Eosinophils Percent Auto 3.9 % (0-4.4); Hematocrit 31.4 % (42.0-52.0); Hemoglobin 9.6 g/dL (14.0-18.0); Immature Granulocyte Absolute 0.01 K/mm3 (0.00-0.031); Immature Granulocyte Percent A 0.3 % (0-0.5); Immature Platelet Fraction Pct 5.6 % (0.9-11.2); Lymphocytes Absolute Auto 0.75 K/mm3 (0.9-3.2); Mean Corpuscular HGB Conc 30.6 g/dl (32-36); Mean Corpuscular Hemoglobin 30.2 pg (26-34); Mean Corpuscular Volume 98.7 fl (80-100); Mean Platelet Volume 12.8 fl (7.4-10.4); Monocytes Absolute Auto 0.3 K/mm3 (0.1-0.6); Monocytes Percent Auto 9.2 % (2.6-8.5); Neutrophils Absolute Auto 2.3 K/mm3 (1.3-6.7); Neutrophils Percent Auto 64.5 % (45.5-73.1); Platelet Count Result 90 k/mm3 (150-375); Red Blood Count 3.18 M/mm3 (4.6-6.20); Red Cell Distribution Width 17.7 % (11.5-14.5); White Blood Count 3.6 K/mm3 (4.5-10.0)
[2024-08-29 16:21] VITALS: RESP 20; O2SAT 100
[2024-08-29 16:22] LABS: Alanine Aminotransferase 12 U/L (6-50); Albumin Level 3.9 g/dL (3.5-5.1); Alkaline Phosphatase 95 U/L (38-126); Anion Gap 12 mmol/L (4-12); Aspartate Amino Transferase 29 U/L (17-59); Bilirubin,Total 1.2 mg/dL (0.2-1.3); Blood Urea Nitrogen 35 mg/dL (9-20); Calcium 9.2 mg/dL (8.4-10.2); Carbon Dioxide 33 mmol/L (22-30); Chloride 92 mmol/L (98-107); Estimated CRCL calculation 10 ml/min; Estimated Glomerular Filt Rate 9; Glucose 80 mg/dL (65-110); Lipase 261 U/L (23-300); Potassium 4.9 mmol/L (3.4-5.0); Sodium 137 mmol/L (137-145)
--- NOTE | 2024-08-29 16:33 | PC.NURSE ---
Pt states unable to swallow pills or capsules even with pudding or applesauce. Pt states he usually chews his medications. Pharmacy states doxycycline cannot be broken up to be consumed. made aware. Dr. Coffey states do not administer dose then.
[2024-08-29 16:54] LABS: Platelet Estimate Decreased (Adequate); Schistocytes None Seen
[2024-08-29 16:55] LABS: Anisocytosis 2+; Hypochromasia 1+
--- NOTE | 2024-08-29 17:35 | PC.NURSE ---
This RN attempting to work on transportation for pt d/c to return to [facility]. Pt being uncooperative in assisting to call family to help him find a ride home. This RN called primary contact and Jessica HUSSEIN, to pickup patient but no answer, left voicemail.
--- NOTE | 2024-08-29 18:04 | PC.NURSE ---
Pt family declines transportation for pt. Cab voucher from change house attendant obtained to transport pt back to [facility].
[2024-08-29 18:28] VITALS: BP 138/76; PULSE 83; RESP 18; TEMP 36.9; O2SAT 99
--- NOTE | 2024-08-29 18:28 | PC.NURSE ---
Report given to Elsie BARRETO at [facility]
== END 2024-08-29 18:30 ==
PROVIDERS: Emergency Provider Emergency Medicine; PCP Internal Medicine
DX: J18.9 Pneumonia, unspecified organism (principal); Z79.82 Long term (current) use of aspirin; Z79.01 Long term (current) use of anticoagulants; D63.1 Anemia in chronic kidney disease; I12.0 Hypertensive chronic kidney disease with stage 5 chronic kidney disease or end stage renal disease; N18.6 End stage renal disease; Z99.2 Dependence on renal dialysis; I25.10 Atherosclerotic heart disease of native coronary artery without angina pectoris; I48.91 Unspecified atrial fibrillation; K21.9 Gastro-esophageal reflux disease without esophagitis; Z87.891 Personal history of nicotine dependence; Z20.822 Contact with and (suspected) exposure to COVID-19
CPT/HCPCS: 36415; 71045; 80053; 83690; 85025; 85055; 87637; 99283; A9270